=== PATIENT | female | born 1945 | race Caucasian/White ===

== ENCOUNTER → 2018-01-24 08:08 | Outpatient (CLI) | payer MEDICARE, OTHER, SELFPAY ==
--- NOTE | 2018-01-24 | DI.MG.S_ITS ---
BILATERAL DIGITAL SCREENING MAMMOGRAM 3D/2D WITH CAD: 01/24/2018 CLINICAL: Routine screening. Comparison is made to exams dated: 01/09/2017 mammogram, 01/09/2016 mammogram - [facility], and 12/08/2014 mammogram - [facility]. The tissue of both breasts is heterogeneously dense. This may lower the sensitivity of mammography. Current study was also evaluated with a Computer Aided Detection (CAD) system. No significant masses, calcifications, or other findings are seen in either breast. There has been no significant interval change. IMPRESSION: NEGATIVE There is no mammographic evidence of malignancy. A 1 year screening mammogram is recommended. This exam was interpreted at Station ID: [id number]. NOTE: For mammograms, a report in lay terms will be sent to the patient. Approximately 15% of breast malignancies will not be visualized mammographically. In the management of a palpable breast mass, a negative mammogram must not discourage biopsy of a clinically suspicious lesion. Electronically Signed By: Meliza bains/iris:01/24/2018 10:17:01 letter sent: Normal Exam ACR BI-RADS Category 1: Negative [id number]
== END ==
PROVIDERS: Family Provider Internal Medicine; PCP Internal Medicine; Visit Provider Internal Medicine
DX: Z12.31 Encounter for screening mammogram for malignant neoplasm of breast (principal)
CPT/HCPCS: 77063; 77067

== ENCOUNTER 2018-04-22 15:15 | Outpatient (RCR) | payer MEDICARE, OTHER, SELFPAY ==
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
--- NOTE | 2018-01-06 06:15 | PT.OPPOC ---
Current Diagnoses Low back pain (01/02/18) Provider Visit Care Team Role Provider Type Kwabena Jim MD Primary Care Provider Physician Specialty: Internal Medicine Address: [address] [place], [address] Email: Kristal Estrada MD Family Provider Physician Specialty: Cardiology Address: [address] [place] [address] [address], [place], [address] Email: Darnell Sharpe MD Attending Provider Non-Staff Specialty: Neurosurgery Address: [address] [place] [address] [address], [place], [address] Email: Plan Of Care PT-OP-T Assessment and Plan Start: 01/06/18 05:47 Freq: Status: Active Protocol: Document 01/02/18 16:00 [facility] (Rec: 01/06/18 06:14 [facility] [email or web address]) Physical Therapy Assessment Rehab Potential Rehabilitation Potential Good Evaluation Complexity Number of Personal Factors/Comorbidities 0 Number of Body Systems Impaired 1-2 Clinical Presentation at Evaluation Stable Impairments Impairments Activity Tolerance Functional Activities Pain Posture ROM Soft Tissue Mobility Strength Goals Four Impairment decreased strength of the core and hips Prison Goal (LTG) Improve strength of the inner core and hips for improved stabilization of the spine and pelvis. The patient is independent with a established Home exercise program LTG Duration 8 weeks Three Impairment muscle spasm and guarding in the lumbar parapsinal musculature and hips Short Term Goal (STG) reduce muscle spasm and guarding and improve postural habits to decrease strain on the spine STG Duration 6 weeks Two Impairment Decreased lumbar and hip ROM Short Term Goal (STG) Improve both lumbar spine and hip ROM allowing improved movement of the spine and hips with decreased pain STG Duration 6 weeks One Impairment pain in the low back rated 4-5 /10 [employer] Goal (LTG) Zandra is able to reduce her pain with a exercise and manual therapy program to allow her to perform ADL's and walk with decreased symptoms. LTG Duration 8 weeks Assessment Summary Assessment Zandra presents to Physical Therapy today s/p lumbar laminectomy surgery September 17, 2017. She reports some reduction in pain following her surgery mostly with a reduction in LE radicular symptoms. She has pain rated 4-5/10 in her low back at this time. Zandra standing with a flattened lumbar spine with muscle guarding in her lumbar paraspinals and hip musculature. Her hip tightness most likely contributes to her pain. She has difficulty with movements such as sit to stand due to weakness and pain. She is a good candidate for PT focusing on ROM, flexibility, strength and progressing to a home program. Physical Therapy Plan Frequency and Duration Frequency of Treatment 2x/Week Duration of Treatment 8 weeks Plan of Care Start Date 01/02/18 Plan of Care End Date 02/27/18 Therapeutic Interventions Therapeutic Interventions Home Exercise Program Manual Therapy Neuromuscular Re-education Patient/Caregiver Education Self-Care/Home Management Soft Tissue Mobilization Therapeutic Exercises Modalities Cold Pack/Ice Massage Electric Stimulation Hot Packs Plan of Care Dates Plan of Care Start Date 01/02/18 Plan of Care End Date 02/27/18 Please Sign and Return: I have reviewed this Plan of Care and certify that the skilled therapy services above are required to meet the patient?s needs. Physician Signature Date Printed Name and Credentials Clinical Instructor Signature Printed Name and Credentials
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
--- NOTE | 2018-04-10 17:52 | PT.OPPOC ---
Current Diagnoses Low back pain (04/10/18) Provider Visit Care Team Role Provider Type Kwabena Jim MD Primary Care Provider Physician Specialty: Internal Medicine Address: [address] [place], [address] Email: Kristal Estrada MD Family Provider Physician Specialty: Cardiology Address: [address], [place], [address] Email: Darnell Sharpe MD Attending Provider Non-Staff Specialty: Neurosurgery Address: [address] [place] [address] [address], [place], [address] Email: Plan Of Care PT-OP-T Assessment and Plan Start: 01/06/18 05:47 Freq: Status: Active Protocol: Document 04/10/18 17:40 [facility] (Rec: 04/10/18 17:52 [facility] [email or web address]) Physical Therapy Assessment Assessment Summary Assessment Vilma continues to make progress with physical therapy and her ROM of the lumbar spine is much improved. She is domonstrating improved strength as well. She tends to get restricted in her thoracic spine and we are working at improved mobility of her thoracic spine while stabilizing the lumbar spine. She would benefit from continued PT Physical Therapy Plan Frequency and Duration Frequency of Treatment 2x/Week Duration of Treatment 8 weeks Plan of Care Start Date 04/08/18 Plan of Care End Date 06/10/18 Therapeutic Interventions Therapeutic Interventions Home Exercise Program Manual Therapy Neuromuscular Re-education Patient/Caregiver Education Self-Care/Home Management Soft Tissue Mobilization Therapeutic Exercises Modalities Cold Pack/Ice Massage Electric Stimulation Hot Packs Next Visit Focus/Plan Next Note Type Treatment Note Next Visit Plan HEP review of lumbar stabilization and thoracic mobility Plan of Care Dates Plan of Care Start Date 04/08/18 Plan of Care End Date 06/10/18 Please Sign and Return: I have reviewed this Plan of Care and certify that the skilled therapy services above are required to meet the patient?s needs. Physician Signature Date Printed Name and Credentials Clinical Instructor Signature Printed Name and Credentials
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
== END 2018-04-24 16:16 ==
LOC: PHYS 15:15
PROVIDERS: Family Provider Internal Medicine; PCP Internal Medicine; Visit Provider Neurological Surgery
DX: M54.5 Low back pain (principal)
CPT/HCPCS: 97014; 97110; 97140; 97161; G0283

== ENCOUNTER 2018-06-22 19:59 | Emergency (ER) | payer MEDICARE, OTHER, SELFPAY ==
[2018-06-22 20:08] VITALS: BP 172/70; PULSE 64; RESP 18; TEMP 37.6; O2SAT 100; BMI 27.8
--- NOTE | 2018-06-22 20:15 | DI.RAD.S_ITS ---
PROCEDURE: XR HAND RT MIN 3V INDICATIONS: s/p fall TECHNIQUE: 3 views of the hand(s) acquired. COMPARISON: [facility], , HAND 3V RIGHT, 12/22/2012, 8:24. FINDINGS: Bones: No fractures or dislocations. Carpal bones are normally aligned. No suspicious bony lesions. Moderate degenerative changes of the first carpometacarpal and first metacarpophalangeal joint. Mild degenerative changes of the interphalangeal joints. Soft tissues: No radiopaque foreign body. IMPRESSION: No acute fracture or dislocation of the right hand. Consider followup radiographs in 7-10 days if there is continued clinical concern. Dictated by: Jamil Jackson M.D. on 06/22/2018 at 21:08 Approved by: Jamil Jackson M.D. on 06/22/2018 at 21:10
--- NOTE | 2018-06-22 20:37 | ED_ITS ---
HPI - Fall <JEAN Santos - Last Filed: 06/22/18 21:31> General Chief Complaint: Fall Stated Complaint: fall, hit right side of face. Time Seen by Provider: 06/22/18 20:37 Source: patient Mode of arrival: ambulatory Limitations: no limitations History of Present Illness HPI Narrative: 72-year-old female with history of a prior LA and is a nonsmoker here for complaint of pain into her right hand and wrist after ground level fall. She states that she was walking down the street when she accidentally tripped on the sidewalk causing her to fall forward on out stretched hand. Pain is to the radial aspect of the right hand into wrist and the lateral aspect of the right hand. She does state that she hit her face as well however she denies having any face pain at this time. She denies any loss of conscious. She denies any nausea vomiting. She denies any pain to her neck. She is ambulatory in the emergency room. She denies any other injuries or concerns or complaints at this timeframe. Related Data Home Medications Medication Instructions Recorded Confirmed CALCIUM CARBONATE 500 mg PO QDAY #0 11/21/10 FLAXSEED (FLAXSEED OIL) 1 cap PO QDAY #0 11/21/10 VITAMIN D (Vitamin D3) 1,000 unit PO QDAY #0 11/21/10 aspirin 81 mg PO QDAY #0 11/21/10 levofloxacin [Levaquin] 250 mg PO QDAY #0 11/21/10 losartan [Cozaar] 12.5 mg #0 11/21/10 metoprolol tartrate [Lopressor] #0 11/21/10 omeprazole 20 mg PO QDAY #0 11/21/10 risedronate [Actonel] 150 mg PO QMONTH #0 11/21/10 simvastatin [Zocor] 20 mg PO QDAY #0 11/21/10 Allergies Allergy/AdvReac Type Severity Reaction Status Date / Time codeine Allergy Palpitation Verified 06/22/18 20:14 s Sulfa (Sulfonamide Allergy Hives Verified 06/22/18 20:14 Antibiotics) Review of Systems <JEAN Santos - Last Filed: 06/22/18 21:31> Constitutional Denies chills, Denies fever(s), Denies lethargy and Denies weakness Eyes Denies change in vision, Denies eye discharge, Denies irritation and Denies loss of vision ENT Ears, Nose, Mouth, and Throat: Denies change in voice, Denies neck pain and Denies sore throat Cardiovascular Denies chest pain, Denies irregular heart rhythm, Denies lightheadedness, Denies palpitations, Denies dyspnea, Denies dyspnea on exertion and Denies orthopnea Respiratory Denies cough, Denies dyspnea, Denies dyspnea on exertion and Denies wheezing Gastrointestinal Gastrointestinal: Denies abdominal pain, Denies change in bowel habits, Denies diarrhea, Denies nausea and Denies vomiting Genitourinary Denies hematuria, Denies flank pain, Denies urinary incontinence and Denies urinary urgency Musculoskeletal Denies neck pain Comments: Right hand and wrist Integumentary/Breasts Denies pruritus, Denies erythema, Denies rash and Denies wounds Neurologic Denies confusion, Denies loss of vision and Denies weakness Psychiatric Denies anxiety, Denies confusion, Denies depression, Denies homicidal ideation and Denies suicidal ideation Endocrine Denies palpitations Hematologic/Lymphatic Denies easy bruising Allergic/Immunologic Denies wheezing Exam <JEAN Santos - Last Filed: 06/22/18 21:31> Initial Vital Signs Initial Vital Signs: Vital Signs Temperature 99.7 F H 06/22/18 20:08 Pulse Rate 64 06/22/18 20:08 Respiratory Rate 18 06/22/18 20:08 Blood Pressure 172/70 H 06/22/18 20:08 Pulse Oximetry 100 06/22/18 20:08 Const General: cooperative and well developed Nutritional Appearance: well nourished Orientation: alert, awake, oriented x3 and not confused [facility] Mouth: oral mucosae normal and moist mucous membranes Eyes Conjunctivae: conjunctivae normal Sclera: sclerae normal Pupils: PERRL EOM: EOM intact bilaterally Resp Effort & Inspection: normal respiratory effort, able to speak in complete sentences, no respiratory distress and no use of accessory muscles Auscultation: clear to auscultation bilaterally, no rales, no rhonchi and no wheezes Cardio Rate: regular rate Rhythm: regular rhythm Heart Sounds: no click, no gallops, no murmurs and no rubs Pulses: normal peripheral pulses Skin General: no rashes or lesions noted, No jaundice and No petechiae Neuro General: alert, oriented x3, gait normal and no focal motor deficits Speech: speech normal Extrem Other: Right hand and wrist with no signs of trauma. Distal sensation is intact. Full range of motion to all the fingers. Distal cap refill less than 2 sec. Distal pulses are intact. Full range of motion hand and wrist.. Positive anatomical snuffbox tenderness. <Savage Holman DO - Last Filed: 06/23/18 05:33> Initial Vital Signs Initial Vital Signs: Vital Signs Temperature 99.7 F H 06/22/18 20:08 Pulse Rate 64 06/22/18 20:08 Respiratory Rate 18 06/22/18 20:08 Blood Pressure 172/70 H 06/22/18 20:08 Pulse Oximetry 100 06/22/18 20:08 Course <JEAN Santos - Last Filed: 06/22/18 21:31> Orders Ordered: Discontinued Medications Acetaminophen (Tylenol) 650 mg PO NOW ONE Stop: 06/22/18 21:23 Last Admin: 06/22/18 21:42 Dose: 650 mg Vital Signs - 8 hr 06/22/18 21:52 Pulse Rate 76 Respiratory Rate 12 Blood Pressure 162/72 H Pulse Oximetry 100 <Savage Holman DO - Last Filed: 06/23/18 05:33> Orders Ordered: Discontinued Medications Acetaminophen (Tylenol) 650 mg PO NOW ONE Stop: 06/22/18 21:23 Last Admin: 06/22/18 21:42 Dose: 650 mg Vital Signs - 8 hr 06/22/18 21:52 Pulse Rate 76 Respiratory Rate 12 Blood Pressure 162/72 H Pulse Oximetry 100 MDM - Fall <JEAN Santos - Last Filed: 06/22/18 21:31> Imaging Data R hand: Radiologist's impression: View Report History [address] [address] XRay Report Signed Patient: Zandra Mixon MR#: [id number] : 1945 Acct:[id number] Age/Sex: 72 / F Date of Service: 06/22/18 Loc: ED Accession Number: [id number] Procedure: XR hand RT min 3V Ordering Provider: Savage Holman D.O. PROCEDURE: XR HAND RT MIN 3V INDICATIONS: s/p fall TECHNIQUE: 3 views of the hand(s) acquired. COMPARISON: [facility], , HAND 3V RIGHT, 12/22/2012, 8:24. FINDINGS: Bones: No fractures or dislocations. Carpal bones are normally aligned. No suspicious bony lesions. Moderate degenerative changes of the first carpometacarpal and first metacarpophalangeal joint. Mild degenerative changes of the interphalangeal joints. Soft tissues: No radiopaque foreign body. IMPRESSION: No acute fracture or dislocation of the right hand. Consider followup radiographs in 7-10 days if there is continued clinical concern. Dictated by: Jamil Jackson M.D. on 06/22/2018 at 21:08 Approved by: Jamil Jackson M.D. on 06/22/2018 at 21:10 [facility] Narrative Medical decision making narrative: X-ray of the right hand was obtained was negative for any acute fractures or findings. Patient does have some snuffbox tenderness to the right hand so she is placed in a wrist splint for comfort and support. Repeat imaging in 10 days to rule out occult fracture. Over-the- counter Tylenol or Motrin as needed for any discomfort. For any worsening symptoms return to the emergency room. Discharge Plan Departure Patient Disposition: Home Clinical Impression: Sprain and strain of right hand Discharge Date/Time: 06/22/18 21:53 Interventions: ED Discharge Assessment Last Done: 06/22/18 21:52 Instructions: DI for Hand Pain Activity Restrictions/Additional Instructions: X-ray of the right hand was obtained was negative for any acute findings. Signs and symptoms presents sprain to the right hand. You are placed in a splint for comfort and support and also due to pain into the wrist. You need to wear the wrist splint until he can follow up with her primary care provider in 7-10 days for repeat images and are than also negative for fracture. Use [id number] Tylenol as needed for any discomfort. Ice and elevation help with swelling. Return emergency room for any worsening symptoms. Prescriptions: No Action risedronate [Actonel] 150 MG tablet 150 mg PO QMONTH Qty: 0 RF: 0 CALCIUM CARBONATE 500 mg PO QDAY Qty: 0 RF: 0 FLAXSEED (FLAXSEED OIL) 1 cap PO QDAY Qty: 0 RF: 0 VITAMIN D (Vitamin D3) 1,000 unit PO QDAY Qty: 0 RF: 0 aspirin 81 MG tablet,delayed release (DR/EC) 81 mg PO QDAY Qty: 0 RF: 0 losartan [Cozaar] 25 MG tablet 12.5 mg Qty: 0 RF: 0 omeprazole 20 MG capsule,delayed release(DR/EC) 20 mg PO QDAY Qty: 0 RF: 0 levofloxacin [Levaquin] 250 MG tablet 250 mg PO QDAY Qty: 0 RF: 0 simvastatin [Zocor] 20 MG tablet 20 mg PO QDAY Qty: 0 RF: 0 metoprolol tartrate [Lopressor] 50 MG tablet Qty: 0 RF: 0 Referrals: Kwabena Jim MD [Primary Care Provider] - <Savage Holman DO - Last Filed: 06/23/18 05:33> Cosign ED Attending Anitaature Attestation: I was immediately available in the department for consultation. Documentation has been reviewed. I agree with assessment and plan.
[2018-06-22] MEDS: ACETAMINOPHEN 325 MG TABLET 650 MG PO (21:42)
[2018-06-22 21:52] VITALS: BP 162/72; PULSE 76; RESP 12; O2SAT 100
== END 2018-06-22 21:53 | disposition home or self-care (01) ==
PROVIDERS: Emergency Provider Nurse Practitioner Family; Family Provider Internal Medicine; PCP Internal Medicine
DX: S63.91XA Sprain of unspecified part of right wrist and hand, initial encounter (principal); S66.911A Strain of unspecified muscle, fascia and tendon at wrist and hand level, right hand, initial encounter; W01.0XXA Fall on same level from slipping, tripping and stumbling without subsequent striking against object, initial encounter
CPT/HCPCS: 29260; 73130; 99283

== ENCOUNTER → 2018-07-19 10:18 | Outpatient (CLI) | payer MEDICARE, OTHER, SELFPAY ==
[2018-07-19 11:08] LABS: Add Manual Diff / Slide Review NO; Basophils Absolute Auto 0 /uL (0-100); Basophils Percent Auto 0.5 % (0-2); Eosinophils Absolute Auto 600 /uL (0-450); Eosinophils Percent Auto 7.2 % (2-4); Hematocrit 37.1 % (36-46); Hemoglobin 12.2 g/dL (12.0-16.0); Lymphocytes Absolute Auto 1800 /uL (1100-4500); Mean Corpuscular HGB Conc 32.9 % (30-36); Mean Corpuscular Hemoglobin 30.5 PG (26-34); Mean Corpuscular Volume 92.7 fL (80-100); Monocytes Absolute Auto 700 /uL (0-900); Monocytes Percent Auto 9.1 % (3-14); Neutrophils Absolute Auto 4800 /uL (1500-7000); Neutrophils Percent Auto 60.2 % (50-75); Platelet Count 276 X10^3/uL (150-400); Red Cell Distribution Width 12.8 % (11.6-14.8)
[2018-07-19 11:38] LABS: Alanine Aminotransferase 19 IU/L (9-52); Albumin 4.4 g/dL (3.5-5.0); Albumin Globulin Ratio 1.5 (1.0-2.8); Alkaline Phosphatase 72 U/L (38-126); Aspartate Aminotransferase 30 IU/L (14-36); BUN Creatinine Ratio 14.7 (6-22); Bilirubin Total 0.5 mg/dL (0.2-1.3); Blood Urea Nitrogen 22 mg/dL (7-17); Calcium 10.4 mg/dL (8.4-10.2); Carbon Dioxide 29 mmol/L (22-32); Chloride 100 mmol/L (98-107); Cholesterol 124 mg/dL (140-199); Estimated Glomerular Filt Rate 34.1 mL/min (>60); Glucose 104 mg/dL (80-110); HDL Cholesterol 63 mg/dL (40-60); HEMOLYSIS < 15 (0-50); LDL Cholesterol Calculated 48 mg/dL (<100); Magnesium 2.1 mg/dL (1.6-2.3); Potassium 4.9 mmol/L (3.4-5.1); Sodium 139 mmol/L (137-145); Total Protein 7.4 g/dL (6.3-8.2); Triglycerides 64 mg/dL (35-150)
== END ==
PROVIDERS: Family Provider Internal Medicine; PCP Internal Medicine; Visit Provider Internal Medicine
DX: E78.00 Pure hypercholesterolemia, unspecified (principal); R25.2 Cramp and spasm
CPT/HCPCS: 36415; 80053; 80061; 83735; 85025

== ENCOUNTER → 2018-10-22 15:27 | Outpatient (CLI) | payer MEDICARE, OTHER, SELFPAY ==
[2018-10-22 18:20] LABS: BUN Creatinine Ratio 15.3 (6-22); Blood Urea Nitrogen 23 mg/dL (7-17); Calcium 10.1 mg/dL (8.4-10.2); Carbon Dioxide 26 mmol/L (22-32); Chloride 103 mmol/L (98-107); Estimated Glomerular Filt Rate 34.1 mL/min (>60); Glucose 94 mg/dL (80-110); HEMOLYSIS < 15 (0-50); Potassium 4.3 mmol/L (3.4-5.1); Sodium 139 mmol/L (137-145)
== END ==
PROVIDERS: Family Provider Internal Medicine; PCP Internal Medicine; Visit Provider Nurse Practitioner
DX: I10 Essential (primary) hypertension (principal)
CPT/HCPCS: 36415; 80048

== ENCOUNTER 2018-12-30 13:30 | Outpatient (RCR) | payer MEDICARE, OTHER, SELFPAY ==
--- NOTE | 2018-11-24 18:05 | ST.OPIE ---
Provider Information Visit Care Team Role Provider Type Patria Iverson Primary Care Provider Non-Staff Specialty: Medical Address: [address] [place] [address], [id number] Email: Kye Hope MD Attending Provider Physician Specialty: Ear, Nose, Throat Address: [address] [place] [address], [id number] Email: Speech-Language Pathology Initial Evaluation PRE CODER Clinical Instructor Line Start: 11/20/18 11:52 Freq: Status: Active Protocol: Document 11/24/18 16:12 LNK (Rec: 11/24/18 16:12 [email or web address]) Clinical Instructor Signature Clinical Instructor Clinical Instructor Yes: Latha Floyd, PhD , [facility] PRE CODER Voice Resonance Evaluation Start: 11/20/18 11:52 Freq: Status: Active Protocol: Document 11/20/18 11:52 MG (Rec: 11/20/18 12:43 MG [email or web address]) Voice and Resonance Assessment Session Time Visit Start Time 10:30 Visit Stop Time 11:30 Total Visit Minutes 60 Visit Information Plan of Care Dates 11/20/18-02/20/19 Insurance Information Medicare Next Note Type Next Note Type Treatment Note Referral Referring Physician Dr. Hope Reason for Referral dysphonia, nodules of vocal chords Setting Setting Outpatient Care Patient History General Information Zandra Mixon, a 73-year-old female, was seen at [facility] for a voice and resonance evaluation at the referral of Dr. Hope. Zandra is retired and currently lives independently at her home. Zandra has a history of heart attack, heart disease, congestive heart failure, stents, GERD, Schlotzsky's ring, skin cancer , shortness of breath and vocal fold nodules. Zandra reported that she has also had a chronic cough for around 2 years. She also reported that she had a stent procedure done about 2 months ago. Zandra had an appointment with Dr. Hope on 11/07/18. 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 He also noted her voice to have a hoarse quality to it. At the time of the appointment, he discussed results with Zandra and referred her for an evaluation as well as to get allergy tested. His impressions noted that the nodules were most likely developed from chronic cough or GERD/LPR. Zandra reported to the student PRE CODER that her PCP, Dr. Iverson, was worried her PPIs may interfere with her medication for her recent heart stent. Zandra is currently on a regimin of medications to control her heart conditions, GERD, and shortness of breath. Zandra has an upcoming appointment with her GI doctor on December 01 to consult with him about acid control and a change in medication if possible. Zandra reported swallowing problems as well with different food textures (e.g., rice, pieces of meat). Zandra also reported that she feels like those harder food textures get stuck and pointed to where her thyroid cartilage would be. Because of her Schlotzsky's ring, she has had her esophagus stretched x4 and reported that she felt the swallowing problems have worsened recently because she needs to get it stretched again. Student PRE CODER recommended staying away from certain food textures that cause her problems until she can have that procedure done. Hearing Hearing Level Normal Vision Comments Wore reading glasses at times [place] Langauge Language(s) Spoken in the Home [employer] Occupational Status Occupation Status Retired Previous Therapy Previous Speech-Language Therapy No Oral Motor Assessment Source: [place] [employer] ([employer]). Oral-Motor Eval Completed Yes Oral-Motor Assessment Informal OME was noted to be WFL for speech sound production. Zandra's doctor reported she has partial dentures. Subjective Subjective Zandra was on time to her appointment. Zandra greeted the student PRE CODER warmly and was agreeable to evaluation, education provided, and asked questions. She noted that today she was having a good voice day and reported that last week, her voice was so bad that people couldn't understand her. Zandra described that she was very quiet and could hardly make a sound when trying to speak. - Laryngeal Performance Voice Handicap Index Function Subtotal 12 Physical Subtotal 18 Emotional Subtotal 11 Total Score 41 Severity Moderate (31-60) CAPE-V Overall Severity 50 Roughness 45 Breathiness 6 Strain 4 Pitch 58 Loudness 3 Normal Resonance? Yes Additional Features Glottal [place] Maximum Phonation Time MPT Norms: Women (15-25) Men (25-35) Loudness (50-60 dB); Speaking Rate: Oral Reading of Sentences (190 Words Per Minute); Oral Reading of Paragraphs (160-170 WPM); Speaking Rate in Conversation (150-250 WPM) Maximum Phonation Time 17.72 seconds Maximum Phonation Time Adequate for Speech Maximum Phonation Time Comments Student PRE CODER noted that Zandra appeared to have a difficult time taking in a big breath of air when prompted to. Jitter/Shimmer Norms: Jitter (Less than or equal to 1.040% - Frequency) Norms: Shimmer (Less than or equal to 3.810% - Amplitude) Jitter 6.159 Shimmer 11.737 Pitch [place] Pitch [place] Reduced Range Pitch [place] Comments Range documented from 112-316. Noted to be reduced. This may be due to nodules and the biological process of aging and its affect on the voice. Muscle Tension Assessment Muscle Tension Assessment None Tongue Base Tension Tongue Base Tension w/ Voicing No Tongue Base Tension at Rest No Breath Support Breath Support At Rest Thoracic Breath Support Sustained Phonation Thoracic Clavicular Breath Support Conversation Thoracic Speaks on Room Air Yes Postural Alignment Stance Balanced Slumped Neck Free and Loose Shoulders Symmetrical Voice Pitch Range Norms: Women (100-300 Hz) Men (70-250 Hz) Fundamental Frequency Norms: Women (Mean: 225 Hz; Range: 155-334 Hz) Men ( Mean: 128 Hz; Range: 85-196 Hz) Voice Pitch Mildly Low Voice Loudness Normal Voice Phonatory-based Quality Hoarse Fundamental Frequency 204.3 Paradoxical Vocal Fold Movement No Indications Resonance Nasal Resonance Normal Oral Resonance Normal Findings Findings Moderate Impairment Observations Zandra presents with 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 The vocal fold nodules are likely to be affecting the natural movements of the vocal folds, thus creating a hoarse, low voice. Voice problems may be present due to age related changes as well. While certain problems were not observed in today's session, Zandra's reports of losing her voice impact her ability to effectively communicate with others. Student PRE CODER provided Zandra with education throughout the session as well as handouts to take home describing GERD/LPR prevention and a vocal hygeine plan. Student PRE CODER also told Zandra to follow up with treatment after seeing her GI doctor to share results from that appointment and come up with a plan of treatment. Prognosis Rehabilitation Potential Good - Recommendations Treatment Recommended Yes Treatment Frequency/Duration 1 x week after upcoming appointment with GI doctor Placement Recommendation Home Therapy Recommendations Zandra qualifies for ST in the area of voice/swallowing. Treatment should focus on strategies to reduce nodules on the vocal folds (e.g., straw phonation), reducing chronic cough, and education around the vocal mechanism. Short Term Goals Zandra will participate in education around the vocal mechanism. Zandra will implement strategies taught in treatment to reduce chronic cough. Zandra will follow through with HEP designed to reduce nodules and chronic cough. 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 Follow-up ENT results will report a reduction or clearance of nodules on the vocal folds. Referrals Referrals GI Patient/Caregiver Education Patient/Family Education Described results of evaluation Patient Understanding
--- NOTE | 2018-11-24 18:06 | ST.OPPOC ---
Care Team Visit Care Team Role Provider Type Patria Iverson Primary Care Provider Non-Staff Address: [address] [place] [address], [id number] Kye Hope MD Attending Provider Physician Address: [address] [place] [address], [id number] Speech Pathology Plan of Care ANESTHESIOLOGY MEDICAL DOCTOR Clinical Instructor Line Start: 11/20/18 11:52 Freq: Status: Active Protocol: Document 11/24/18 16:12 LNK (Rec: 11/24/18 16:12 LNK [email or web address]) Clinical Instructor Signature Clinical Instructor Clinical Instructor Yes: Latha Floyd, PhD , [facility]-ANESTHESIOLOGY MEDICAL DOCTOR Speech Pathology Plan of Care General Information Zandra Mixon, a 73-year-old female, was seen at [facility] for a voice and resonance evaluation at the referral of Dr. Hope. Zandra is retired and currently lives independently at her home. Zandra has a history of heart attack, heart disease, congestive heart failure, stents, GERD, Schlotzsky's ring, skin cancer, shortness of breath and vocal fold nodules. Zandra reported that she has also had a chronic cough for around 2 years. She also reported that she had a stent procedure done about 2 months ago. Zandra had an appointment with Dr. Hope on 11/07/18. 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 He also noted her voice to have a hoarse quality to it. At the time of the appointment, he discussed results with Zandra and referred her for an evaluation as well as to get allergy tested. His impressions noted that the nodules were most likely developed from chronic cough or GERD/LPR. Zandra reported to the student ANESTHESIOLOGY MEDICAL DOCTOR that her PCP, Dr. Iverson, was worried her PPIs may interfere with her medication for her recent heart stent. Zandra is currently on a regimin of medications to control her heart conditions, GERD, and shortness of breath. Zandra has an upcoming appointment with her GI doctor on December 01 to consult with him about acid control and a change in medication if possible. Zandra reported swallowing problems as well with different food textures (e.g., rice, pieces of meat). Zandra also reported that she feels like those harder food textures get stuck and pointed to where her thyroid cartilage would be . Because of her Schlotzsky's ring, she has had her esophagus stretched x4 and reported that she felt the swallowing problems have worsened recently because she needs to get it stretched again. Student ANESTHESIOLOGY MEDICAL DOCTOR recommended staying away from certain food textures that cause her problems until she can have that procedure done. Plan of Care Dates 11/20/18-02/20/19 Short Term Goals Zandra will participate in education around the vocal mechanism. Zandra will implement strategies taught in treatment to reduce chronic cough. Zandra will follow through with HEP designed to reduce nodules and chronic cough. Pot Press Operator Goals Zandra will report less chronic coughing as a direct result of implementing strategies learned in treatment (e.g., supraglottic swallow). Follow-up ENT results will report a reduction or clearance of nodules on the vocal folds. Please Sign and Return: I have reviewed this Plan of Care and certify that the skilled therapy services above are required to meet the patient?s needs. Physician Signature Date Printed Name and Credentials Clinical Instructor Signature Printed Name and Credentials
--- NOTE | 2018-12-04 13:37 | ST.OPTN ---
Care Team Visit Care Team Role Provider Type Patria Iverson Primary Care Provider Non-Staff Address: [address] [place] [address], [id number] Kye Hope MD Attending Provider Physician Address: [address] [place] [address], [id number] OIL AND GAS SPECIALIST Treatment Note OIL AND GAS SPECIALIST Clinical Instructor Line Start: 11/20/18 11:52 Freq: Status: Active Protocol: Document 11/24/18 16:12 LNK (Rec: 11/24/18 16:12 LNK [email or web address]) Clinical Instructor Signature Clinical Instructor Clinical Instructor Yes: Latha Floyd, PhD , [facility])-OIL AND GAS SPECIALIST OIL AND GAS SPECIALIST Treatment Note Start: 12/04/18 13:07 Freq: Status: Active Protocol: Document 12/04/18 13:19 LNK (Rec: 12/04/18 13:35 LNK [email or web address]) Speech Pathology Treatment Note Session Time Visit Start Time 11:30 Visit Stop Time 12:30 Total Visit Minutes 60 Visit Information Visit Number 08/03 Plan of Care Dates 11/20/18-02/20/19 Insurance Information Medicare Setting Treatment Setting Outpatient Care Visit Type Note Type Treatment Note Next Note Type Next Note Type Treatment Note General Information General Information Zandra Mixon was seen for a voice evaluation on 11/20/18 at the referral of Dr Hope, ENT. 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 In addition to vocal nodules, there may also be age related changes to her vocal folds as well. While not observed in today's session, Zandra's reports of losing her voice at times will negatively impact her ability to effectively communicate with others. At her evaluation, Zandra was given handouts to take home describing GERD/LPR prevention and a vocal hygiene plan. Since her evaluation she has seen her GI physician, who noted that she will be scheduled for her next esophageal endoscopy in February-March. Subjective Identification Type Name Identification Reconciled With Intake Sheet Chief Complaint(s) Voice Rehab Expectation/Goals: Patient Goals To improve her vocal quality / eliminate vocal nodules Patient Knowledge/Awareness of OIL AND GAS SPECIALIST Role Good in Treatment Objective Short Term Goals Zandra will participate in education re: vocal anatomy physiology. Zandra will follow provided vocal hygiene program to facilitate vocal fold healing Zandra will incorporate abdominal breathing and tone focus exercises for increased efficiency of vocal system for voicing. Zandra will implement exercises and strategies taught in treatment to reduce chronic cough. Zandra will follow through with HEP designed to reduce nodules and chronic cough. [ End ] Tool Profiling Machine Set Up Operator Goals Reduce frequency of chronic cough with target to ease impact of cough on vocal folds /nodule development To improve her vocal quality / eliminate vocal nodules [ E Treatment Activities Reviewed assessment results with Zandra. Discussed the high values of her Jitter and Shimmer measures. Education provided re:effects of LPR// GERD on vocal folds-> irritation + chronic cough/ loud voicing -> development of vocal nodules. Introduced abdominal breathing for vocal power as well as tone focus to reduce focus on the neck/laryngeal muscles. Pt reports that her cough frequency has reduced recently . Assessment Patient Response to Treatment Excellent Rehab Potential Excellent Impairments Identified Vocal Quality Vocal Hygiene Reviewed with Patient Goals Home Exercise Program Patient/Caregiver Understanding Excellent Plan Amount of Therapy Recommended 2-3 Months Frequency of Treatment Once a Week Length of Session 45 Minutes Therapeutic Contents Voice Training Provided Patient/Caregiver Instruction Home Exercise Program Plan of Care Questions/Concerns
--- NOTE | 2018-12-12 15:31 | ST.OPTN ---
Care Team Visit Care Team Role Provider Type Patria Iverson Primary Care Provider Non-Staff Address: [address] [place] [address], [id number] Kye Hope MD Attending Provider Physician Address: [address] [place] [address], [id number] RN IMAGING Treatment Note RN IMAGING Clinical Instructor Line Start: 11/20/18 11:52 Freq: Status: Active Protocol: Document 11/24/18 16:12 LNK (Rec: 11/24/18 16:12 LNK [email or web address]) Clinical Instructor Signature Clinical Instructor Clinical Instructor Yes: Latha Floyd, PhD , [facility]-RN IMAGING RN IMAGING Treatment Note Start: 12/04/18 13:07 Freq: Status: Active Protocol: Document 12/12/18 14:29 LNK (Rec: 12/12/18 14:30 LNK [email or web address]) Speech Pathology Treatment Note Session Time Visit Start Time 14:30 Visit Stop Time 15:10 Total Visit Minutes 40 Visit Information Visit Number 08/31 Plan of Care Dates 11/20/18-02/20/19 Insurance Information Medicare Setting Treatment Setting Outpatient Care Visit Type Note Type Treatment Note Next Note Type Next Note Type Treatment Note General Information General Information Zandra Mixon wa seen for a voice evaluation on 11/20/18 at the referral of Dr Hope, ENT. 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 In addition to vocal nodules, there may also be age related changes to her vocal folds as well. While not observed in today's session, Zandra's reports of losing her voice at times will negatively impact her ability to effectively communicate with others. At her evaluation, Zandra was given handouts to take home describing GERD/LPR prevention and a vocal hygeine plan. Since her evaluation she has seen her GI physician, who noted that she will be scheduled for her next esophageal endoscopy in February-March. Subjective Identification Type Name Identification Reconciled With Intake Sheet Chief Complaint(s) Voice Rehab Expectation/Goals: Patient Goals To improve her vocal quality / eliminate vocal nodules Patient Knowledge/Awareness of RN IMAGING Role Good in Treatment Objective Short Term Goals Zandra will participate in education re: vocal anatomy physiology. Zandra will follow provided vocal hygiene program to facilitate vocal fold healing Zandra will incorporate abdominal breathing and tone focus exercises for increased efficiency of vocal system for voicing. Zandra will implement exercises and strategies taught in treatment to reduce chronic cough. Zandra will follow through with HEP designed to reduce nodules and chronic cough. [ End ] Mechanical Intern Goals Reduce frequency of chronic cough with target to ease impact of cough on vocal folds /nodule development To improve her vocal quality / eliminate vocal nodules [ E Treatment Activities Reinforced relationship of irritation to the vocal folds by histamines and/or reflux resulting is swollen tissue with additional stress of speaking with injured tissue. (LPR//GERD on vocal folds-> irritation + chronic cough/ loud voicing -> development of vocal nodules). Abdominal breathing for vocal power with tone focus to target efficient use of total vocal system continued with the addition of nasalized phonemes (e.g., me me me me and 99--99-99). Pt instructed to feel vibration in the mask area around the eyes Pt reports that her cough frequency has reduced recently . Her vocal quality was better today, possible the result of medications as well as pt purposely reducing cough frequency and intensity. Assessment Patient Response to Treatment Excellent Rehab Potential Excellent Impairments Identified Vocal Quality Vocal Hygiene Assessment of Improvement Good progress. Vocal quality improved today Reviewed with Patient Goals Home Exercise Program Patient/Caregiver Understanding Excellent Plan Amount of Therapy Recommended 2-3 Months Frequency of Treatment Once a Week Length of Session 45 Minutes Therapeutic Contents Voice Training Provided Patient/Caregiver Instruction Home Exercise Program Plan of Care Questions/Concerns
--- NOTE | 2018-12-30 14:29 | ST.OPTN ---
Care Team Visit Care Team Role Provider Type Patria Iverson Primary Care Provider Non-Staff Address: [address] [place] [address], [id number] Kye Hope MD Attending Provider Physician Address: [address] [place] [address], [id number] MICROBIOLOGY ANALYST Treatment Note MICROBIOLOGY ANALYST Clinical Instructor Line Start: 11/20/18 11:52 Freq: Status: Active Protocol: Document 11/24/18 16:12 LNK (Rec: 11/24/18 16:12 LNK [email or web address]) Clinical Instructor Signature Clinical Instructor Clinical Instructor Yes: Latha Floyd, PhD , [facility]-MICROBIOLOGY ANALYST MICROBIOLOGY ANALYST Treatment Note Start: 12/04/18 13:07 Freq: Status: Active Protocol: Document 12/30/18 13:36 LNK (Rec: 12/30/18 14:28 LNK [email or web address]) Speech Pathology Treatment Note Session Time Visit Start Time 14:30 Visit Stop Time 15:10 Total Visit Minutes 40 Visit Information Visit Number 10/01 Plan of Care Dates 11/20/18-02/20/19 Insurance Information Medicare Setting Treatment Setting Outpatient Care Visit Type Note Type Treatment Note Next Note Type Next Note Type Treatment Note General Information General Information Zandra Mixon was seen for a voice evaluation on 11/20/18 at the referral of Dr Hope, ENT. 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 In addition to vocal nodules, there may also be age related changes to her vocal folds as well. While not observed in today's session, Zandra's reports of losing her voice at times will negatively impact her ability to effectively communicate with others. At her evaluation, Zandra was given handouts to take home describing GERD/LPR prevention and a vocal hygiene plan. Since her evaluation she has seen her GI physician, who noted that she will be scheduled for her next esophageal endoscopy in February-March. Subjective Identification Type Name Identification Reconciled With Intake Sheet Chief Complaint(s) Voice Rehab Expectation/Goals: Patient Goals To improve her vocal quality / eliminate vocal nodules Patient Knowledge/Awareness of MICROBIOLOGY ANALYST Role Good in Treatment Objective Short Term Goals Zandra will participate in education re: vocal anatomy physiology. Zandra will follow provided vocal hygiene program to facilitate vocal fold healing Zandra will incorporate abdominal breathing and tone focus exercises for increased efficiency of vocal system for voicing. Zandra will implement exercises and strategies taught in treatment to reduce chronic cough. Zandra will follow through with HEP designed to reduce nodules and chronic cough. [ End ] Oracle Solutions Architect Goals Reduce frequency of chronic cough with target to ease impact of cough on vocal folds /nodule development To improve her vocal quality / eliminate vocal nodules [ E Treatment Activities Silvia remarked chloe she felt her voice was better, but that she was outside on the 4th and her voice got a little raspy. RE assessment of her voice secondary to overall perception of improvement demonstrated that Fo increased to 167.7 form 138.8; Jitter reduced to 2.91 from 6.16; Shimmer reduced to 5.87 from 11.74. MPT remained the same at 18 s, slightly greater than initial 17.72s. Pitch range increased for initial @ 85-196 Hz to current 87-412 Hz. Zandra also remarked that she is not coughing or clearing her throat as much nor as forcefully. Abdominal breathing with tone focus to target efficient use of total vocal system continued with the addition of nasalized phonemes (e.g., me me me me and 99-99-99-99). Pt instructed to feel vibration in the mask area around the eyes Assessment Patient Response to Treatment Excellent Rehab Potential Excellent Impairments Identified Vocal Quality Vocal Hygiene Assessment of Improvement Good progress. Measurements taken today suggest improved physiology of Zandra's vocl folds, i.e., reduction in vocal fold swelling, reduction in vocal nodules, and improved vocal hygiene. Reviewed with Patient Goals Home Exercise Program Patient/Caregiver Understanding Excellent Plan Amount of Therapy Recommended 2-3 Months Frequency of Treatment Once a Week Length of Session 45 Minutes Therapeutic Contents Voice Training Provided Patient/Caregiver Instruction Home Exercise Program Plan of Care Questions/Concerns
--- NOTE | 2019-03-19 11:41 | ST.OPDS ---
Visit Care Team Role Provider Type Patria Iverson Primary Care Provider Non-Staff Address: [address] [place] [address], [id number] Kye Hope MD Attending Provider Physician Address: [address] [place] [address], [id number] ENVIRONMENTAL HEALTH TECHNICIAN Treatment Note ENVIRONMENTAL HEALTH TECHNICIAN Clinical Instructor Line Start: 11/20/18 11:52 Freq: Status: Active Protocol: Document 11/24/18 16:12 LNK (Rec: 11/24/18 16:12 LNK [email or web address]) Clinical Instructor Signature Clinical Instructor Clinical Instructor Yes: Latha Floyd, PhD , [facility]-ENVIRONMENTAL HEALTH TECHNICIAN ENVIRONMENTAL HEALTH TECHNICIAN Treatment Note Start: 12/04/18 13:07 Freq: Status: Active Protocol: Document 03/19/19 11:39 LNK (Rec: 03/19/19 11:40 LNK [email or web address]) Speech Pathology Treatment Note Setting Treatment Setting Outpatient Care Visit Type Note Type Discharge Summary General Information General Information Zandra Mixon was seen for a voice evaluation on 11/20/18 at the referral of Dr Hope ENT. 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 In addition to vocal nodules, there may also be age related changes to her vocal folds as well. While not observed in today's session, Zandra's reports of losing her voice at times will negatively impact her ability to effectively communicate with others. At her evaluation, Zandra was given handouts to take home describing GERD/LPR prevention and a vocal hygeine plan. Since her evaluation she has seen her GI physician, who noted that she will be scheduled for her next esophageal endoscopy in February-March. 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 However, she has not been seen for follow-up in 2 months. Will d/c at this time Plan Amount of Therapy Recommended No Further Therapy Frequency of Treatment No Further Therapy Therapy Recommendations Discharge from Speech Therapy
== END 2019-04-03 11:39 ==
LOC: SP 13:30
PROVIDERS: PCP Internal Medicine; Visit Provider Otolaryngology
DX: R49.0 Dysphonia (principal); J38.2 Nodules of vocal cords
CPT/HCPCS: 92507; 92520; 92524

== ENCOUNTER → 2019-03-03 15:09 | Outpatient (CLI) | payer MEDICARE, OTHER, SELFPAY ==
--- NOTE | 2019-03-03 | DI.MG.S_ITS ---
BILATERAL DIGITAL SCREENING MAMMOGRAM 3D/2D WITH CAD: 03/03/2019 CLINICAL: Routine screening. Comparison is made to exams dated: 01/24/2018 mammogram, 01/09/2017 mammogram, and 01/09/2016 mammogram - [facility]. The tissue of both breasts is heterogeneously dense. This may lower the sensitivity of mammography. Current study was also evaluated with a Computer Aided Detection (CAD) system. There are benign calcifications in both breasts. There also are benign post operative findings in the right breast. No significant masses, calcifications, or other findings are seen in either breast. There has been no significant interval change. IMPRESSION: There is no mammographic evidence of malignancy. A 1 year screening mammogram is recommended. This exam was interpreted at Station ID: [id number]. NOTE: For mammograms, a report in lay terms will be sent to the patient. Approximately 15% of breast malignancies will not be visualized mammographically. In the management of a palpable breast mass, a negative mammogram must not discourage biopsy of a clinically suspicious lesion. Electronically Signed By: Arpan carvajal/iris:03/03/2019 17:50:23 letter sent: Normal Exam ACR BI-RADS Category 2: Benign Finding(s) [id number]
== END ==
PROVIDERS: PCP Internal Medicine; Visit Provider Internal Medicine
DX: Z12.31 Encounter for screening mammogram for malignant neoplasm of breast (principal)
CPT/HCPCS: 77063; 77067

== ENCOUNTER → 2019-03-06 08:41 | Outpatient (CLI) | payer MEDICARE, OTHER, SELFPAY ==
[2019-03-06 10:53] LABS: Hemoglobin A1C% w Est Avg Glu 5.6 % (4.0-6.0)
[2019-03-06 10:54] LABS: Alanine Aminotransferase 18 IU/L (9-52); Albumin 4.3 g/dL (3.5-5.0); Albumin Globulin Ratio 1.5 (1.0-2.8); Alkaline Phosphatase 74 U/L (38-126); Aspartate Aminotransferase 34 IU/L (14-36); BUN Creatinine Ratio 11.3 (6-22); Bilirubin Total 0.5 mg/dL (0.2-1.3); Blood Urea Nitrogen 17 mg/dL (7-17); Calcium 10.2 mg/dL (8.4-10.2); Carbon Dioxide 24 mmol/L (22-32); Chloride 105 mmol/L (98-107); Cholesterol 114 mg/dL (140-199); Globulin 2.9 g/dL (1.7-4.1); Glucose 103 mg/dL (80-110); HDL Cholesterol 59 mg/dL (40-60); HEMOLYSIS < 15 (0-50); LDL Cholesterol Calculated 42 mg/dL (<100); Potassium 4.2 mmol/L (3.4-5.1); Sodium 141 mmol/L (137-145); Total Protein 7.2 g/dL (6.3-8.2); Triglycerides 63 mg/dL (35-150)
== END ==
PROVIDERS: PCP Internal Medicine; Visit Provider Internal Medicine
DX: I10 Essential (primary) hypertension (principal); Z95.5 Presence of coronary angioplasty implant and graft; R73.01 Impaired fasting glucose
CPT/HCPCS: 36415; 80053; 80061; 83036

== ENCOUNTER 2019-04-20 08:15 | Outpatient (RCR) | payer MEDICARE, OTHER, SELFPAY ==
--- NOTE | 2019-01-08 17:31 | PT.OIE ---
Current Diagnoses Other chronic pain (01/08/19) Lumbago with sciatica, right side (01/08/19) Lumbago with sciatica, left side (01/08/19) Provider Visit Care Team Role Provider Type Patria Iverson Attending Provider Non-Staff Primary Care Provider Specialty: Medical Address: [address] [place] [address], [id number] Email: Physical Therapy Initial Evaluation PT-OP-A Visit Information Start: 01/08/19 12:51 Freq: Status: Active Protocol: Document 01/07/19 10:00 [facility] (Rec: 01/08/19 12:55 [facility] [email or web address]) Out-Patient Physical Therapy Visit Information Visit Information Visit Type Initial Evaluation Visit Note 73 year old female returning to PT with c/o left sided LE pain starting at the calf and moving up the back side of the leg to the gluteals. This is intermittent in nature. She underwent a laminectomy September 17, 2017 for the L4-5 level. 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 Visit Start Time 10:00 Visit Stop Time 10:45 Total Visit Minutes 45 Visit Number 1 Evaluation Information Evaluation Date 01/07/19 PT-OP-B Current Condition Start: 01/08/19 12:51 Freq: Status: Active Protocol: Document 01/07/19 10:00 [facility] (Rec: 01/08/19 17:19 [facility] [email or web address]) Current Condition History of Current Condition Onset Date August 2017 Current Complaints left sided sciatic symptoms History of Current Condition Zandra is a 73 year old female who underwent a L4-L5 laminectomy September 17 2017. She was experiencing bilateral pain down both of her legs prior to the surgery. 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 At this time she is experiencing pain that is intermittent and starts in her left posterior calf. It then moves up the back of her leg to her gluteal region. Standing increases her pain and she also wakes up at night with pain. Treatment Goals Patient/Caregiver Goals To reduce referred pain down the left leg PT-OP-F Manual Assessment Start: 01/08/19 12:51 Freq: Status: Active Protocol: Document 01/07/19 10:00 [facility] (Rec: 01/08/19 17:19 [facility] [email or web address]) Manual Assessments Soft Tissue Assessment Soft Tissue Mobility Assessment right sided myofascial tightness in the thoracolumbar fascia and visable scar tissue on the right side of the lumbar spine incision. 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 Decreased ability for joint play into thoracic extension PT-OP-J Posture/Palpation/Skin Start: 01/08/19 17:22 Freq: Status: Active Protocol: Document 01/07/19 10:00 [facility] (Rec: 01/08/19 17:30 [facility] [email or web address]) Posture Evaluation Position Standing L-Spine Posture Flattened Palpation Assessment Location One Palpation Location right side of the scar and thoracolumbar facia Palpation Findings Soft Tissue Tightness Spasm Muscle Guarding Tenderness PT-OP-K Range of Motion Start: 01/08/19 17:22 Freq: Status: Active Protocol: Document 01/07/19 10:00 [facility] (Rec: 01/08/19 17:30 [facility] [email or web address]) Lumbar Spine Range of Motion Lumbar Spine Active Flexion 60 Extension 5 Rotation Left 30 Rotation Right 30 Lateral Flexion Left 10 Lateral Flexion Right 15 ROM Limitations Soft Tissue Tightness Comments pain with any increase in extension PT-OP-M Strength Start: 01/08/19 12:51 Freq: Status: Active Protocol: Document 01/07/19 10:00 [facility] (Rec: 01/08/19 17:19 [facility] [email or web address]) Trunk Strength Trunk Manual Muscle Testing Flexion 3+ Fair+ Core Stabilization able to facilitate the transverse abdominals but difficulty sustaining a contraction for any LE movement Hip Strength Hip Manual Muscle Testing Left Flexion (L2) 3 Fair Extension (S1) 3 Fair Abduction 3 Fair External Rotation 3 Fair Right Flexion (L2) 4 Good Extension (S1) 3+ Fair+ Abduction 3 Fair External Rotation 3 Fair PT-OP-Q Treatments Start: 01/08/19 12:51 Freq: Status: Active Protocol: Document 01/07/19 10:00 [facility] (Rec: 01/08/19 17:30 [facility] [email or web address]) Therapeutic Exercises Sitting Exercises 1 Sitting Exercise Name seated lumbar flexion Reps/Minutes 1-2 reps holding 30 seconds or greater Manual Therapy Treatment Soft Tissue Mobilization 1 Body Location right side of scar and thoracolumbar fascia Mobilization Type Myofascial Release Body Position prone on body pillow Comments skin rolling and stacking MFR of the tissue on the right side of the scar and thoracolumbar fascia PT-OP-T Assessment and Plan Start: 01/08/19 12:51 Freq: Status: Active Protocol: Document 01/07/19 10:00 [facility] (Rec: 01/08/19 17:19 [facility] [email or web address]) Physical Therapy Assessment Rehab Potential Rehabilitation Potential Good Evaluation Complexity Number of Personal Factors/Comorbidities 0 Number of Body Systems Impaired 1-2 Clinical Presentation at Evaluation Stable Impairments Impairments Activity Tolerance Pain Posture ROM Sensation Soft Tissue Mobility Tone Goals Four Impairment decreased strength of the core and hips Solar Project Engineer Goal (LTG) Improve strength of the inner core and hips for improved stabilization of the spine and pelvis. The patient is independent with a established Home exercise program LTG Duration 8 weeks Three Impairment myofascial tightness of the right thoracolumbar fascia, right side of scar Short Term Goal (STG) Zandra is able to lay in supine with her right arm above her head and gentle lumbar rotation to the left without c/p pain STG Duration 4 weeks Solar Project Engineer Goal (LTG) Reduce the scar tissue tightness and visable muscle guarding and myofascial tightness on the right side of the lumbar scar and myofascial tissue LTG Duration 8 weeks Two Impairment Decreased lumbar spine ROM into lumbar flexion, sidebend, rotation Solar Project Engineer Goal (LTG) Zandra is able to improve her spinal ROM into lumbar flexion, sidebend, and rotation and is tolerating a stretching program for lumbar spine ROM LTG Duration 8 weeks One Impairment left sided posterior LE pain rated 5-6/10 worse with standing Short Term Goal (STG) Zandra is given postural modifications for standing to help decrease her pain to 2-3 or less and she is able to stand for 15-20 minutes without left LE radicular symptoms STG Duration 4 weeks [facility]it[facility]iary Goal (LTG) Zandra is able to stand for 30 minutes or more without increase in LE pain and is able to walk 1/2 mile without a increase in pain LTG Duration 8 weeks Assessment Summary Assessment Zandra presents to physical therapy today with signs and symptoms consistent with chronic low back pain and left sided sciatic symptoms. She is worse in standing positions or at night when the pain wakes her up. She rates her pain as 5-6/10 in her left posterior leg and these symptoms are intermittent in nature. Prior to her laminectomy she was experiencing pain down both of her legs but now it is primarily in the left LE. With exam today Zandra is limited in her lumbar ROM and extension increases her pain. She has visable myofascial tightness and guarding on the right side of her incision and is very limited in her thoraco lumbar fascia on the right. With right arm elevation this pulls on her scar. 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 She is weak in her core and in her hips so she will be started on a progressive strengthening and stretching program. Body mechanics training will be included as she tends to sway her back in standing. She is a good candidate for PT Physical Therapy Plan Frequency and Duration Frequency of Treatment 2x/Week Duration of Treatment 8 weeks Plan of Care Start Date 01/07/19 Plan of Care End Date 03/04/19 Therapeutic Interventions Therapeutic Interventions Home Exercise Program Manual Therapy Neuromuscular Re-education Patient/Caregiver Education Self-Care/Home Management Soft Tissue Mobilization Therapeutic Exercises Modalities Electric Stimulation
--- NOTE | 2019-01-08 17:49 | PT.OTN ---
Current Diagnoses Other chronic pain (01/08/19) Lumbago with sciatica, right side (01/08/19) Lumbago with sciatica, left side (01/08/19) Physical Therapy Treatment Note PT-OP-A Visit Information Start: 01/08/19 12:51 Freq: Status: Active Protocol: Document 01/08/19 13:00 AMH (Rec: 01/08/19 17:49 AMH [email or web address]) Out-Patient Physical Therapy Visit Information Visit Information Visit Type Treatment Note Visit Start Time 13:00 Visit Stop Time 13:45 Total Visit Minutes 45 Visit Number 2 PT-OP-B Current Condition Start: 01/08/19 12:51 Freq: Status: Active Protocol: Document 01/07/19 10:00 AMH (Rec: 01/08/19 17:19 AMH [email or web address]) Current Condition History of Current Condition Onset Date August 2017 Current Complaints left sided sciatic symptoms History of Current Condition Zandra is a 73 year old female who underwent a L4-L5 laminectomy September 17 2017. She was experiencing bilateral pain down both of her legs prior to the surgery. 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 At this time she is experiencing pain that is intermittent and starts in her left posterior calf. It then moves up the back of her leg to her gluteal region. Standing increases her pain and she also wakes up at night with pain. Treatment Goals Patient/Caregiver Goals To reduce referred pain down the left leg PT-OP-C Subjective Start: 01/08/19 12:51 Freq: Status: Active Protocol: Document 01/08/19 13:00 AMH (Rec: 01/08/19 17:49 AMH [email or web address]) OP-PT Subjective Patient Comments Patient Comments Zandra (Vilma) Reports she felt some relief following the manual work yesterday and she has been working on her seated forward bend stretch PT-OP-F Manual Assessment Start: 01/08/19 12:51 Freq: Status: Active Protocol: Document 01/07/19 10:00 AMH (Rec: 01/08/19 17:19 AMH [email or web address]) Manual Assessments Soft Tissue Assessment Soft Tissue Mobility Assessment right sided myofascial tightness in the thoracolumbar fascia and visable scar tissue on the right side of the lumbar spine incision. 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 Decreased ability for joint play into thoracic extension PT-OP-J Posture/Palpation/Skin Start: 01/08/19 17:22 Freq: Status: Active Protocol: Document 01/07/19 10:00 AMH (Rec: 01/08/19 17:30 AMH [email or web address]) Posture Evaluation Position Standing L-Spine Posture Flattened Palpation Assessment Location One Palpation Location right side of the scar and thoracolumbar facia Palpation Findings Soft Tissue Tightness Spasm Muscle Guarding Tenderness PT-OP-K Range of Motion Start: 01/08/19 17:22 Freq: Status: Active Protocol: Document 01/07/19 10:00 AMH (Rec: 01/08/19 17:30 AMH [email or web address]) Lumbar Spine Range of Motion Lumbar Spine Active Flexion 60 Extension 5 Rotation Left 30 Rotation Right 30 Lateral Flexion Left 10 Lateral Flexion Right 15 ROM Limitations Soft Tissue Tightness Comments pain with any increase in extension PT-OP-M Strength Start: 01/08/19 12:51 Freq: Status: Active Protocol: Document 01/07/19 10:00 AMH (Rec: 01/08/19 17:19 AMH [email or web address]) Trunk Strength Trunk Manual Muscle Testing Flexion 3+ Fair+ Core Stabilization able to facilitate the transverse abdominals but difficulty sustaining a contraction for any LE movement Hip Strength Hip Manual Muscle Testing Left Flexion (L2) 3 Fair Extension (S1) 3 Fair Abduction 3 Fair External Rotation 3 Fair Right Flexion (L2) 4 Good Extension (S1) 3+ Fair+ Abduction 3 Fair External Rotation 3 Fair PT-OP-Q Treatments Start: 01/08/19 12:51 Freq: Status: Active Protocol: Document 01/08/19 13:00 AMH (Rec: 01/08/19 17:49 AMH [email or web address]) Therapeutic Exercises Supine Exercises 4 Supine Exercise Name supine sidebend stretch with arms over head and legs towards hands Reps/Minutes x 3 times each side 5 Supine Exercise Name bilateral shoulder flexion with the wand Reps/Minutes x 10 reps 3 Supine Exercise Name lower trunk rotation without the ball Reps/Minutes x 2 reps each side hold for 30 sec each 2 Supine Exercise Name gentle lumbar rotation with the gym ball Reps/Minutes x 10 reps each side Comments worked on opp arm extension with this 1 Supine Exercise Name supine ball rolls for lumbar flexion Reps/Minutes 10 reps holding 10-20 seconds in flexion each rep Sitting Exercises 1 Sitting Exercise Name seated lumbar flexion Reps/Minutes 1-2 reps holding 30 seconds or greater Manual Therapy Treatment Soft Tissue Mobilization 1 Body Location right side of scar and thoracolumbar fascia Mobilization Type Myofascial Release Body Position prone on body pillow Comments skin rolling and stacking MFR of the tissue on the right side of the scar and thoracolumbar fascia Joint Mobilizations 1 Joint upper and lower T-spine mobilizations Direction PA mobs Body Position II Comments good tolerance and Zandra was able to squeeze shoulder blades together following treatment PT-OP-T Assessment and Plan Start: 01/08/19 12:51 Freq: Status: Active Protocol: Document 01/08/19 13:00 AMH (Rec: 01/08/19 17:49 AMH [email or web address]) Physical Therapy Assessment Assessment Summary Assessment Zandra is very tight in her lats on the right and thoracolumbar fascia. 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 She tolerated manual therapy work today and the stretches we added in well moving very slow through the sidebending and rotation stretches Physical Therapy Plan Frequency and Duration Frequency of Treatment 2x/Week Duration of Treatment 8 weeks Plan of Care Start Date 01/07/19 Plan of Care End Date 03/04/19 Therapeutic Interventions Therapeutic Interventions Home Exercise Program Manual Therapy Neuromuscular Re-education Patient/Caregiver Education Self-Care/Home Management Soft Tissue Mobilization Therapeutic Exercises Modalities Electric Stimulation Next Visit Focus/Plan Next Note Type Treatment Note Next Visit Plan progress ROM and begin to add in thoracic extension exercises and abdominal stabilization
--- NOTE | 2019-01-15 14:48 | PT.OTN ---
Current Diagnoses Other chronic pain (01/15/19) Lumbago with sciatica, right side (01/15/19) Lumbago with sciatica, left side (01/15/19) Physical Therapy Treatment Note PT-OP-A Visit Information Start: 01/08/19 12:51 Freq: Status: Active Protocol: Document 01/15/19 12:49 LRN (Rec: 01/15/19 13:36 LRN [id number]) Out-Patient Physical Therapy Visit Information Visit Information Visit Type Treatment Note Visit Start Time 12:49 Visit Stop Time 13:44 Total Visit Minutes 55 Visit Number 4 Number of WELDING MACHINE FEEDER Visits 0 Evaluation Information Evaluation Date 01/07/19 PT-OP-B Current Condition Start: 01/08/19 12:51 Freq: Status: Active Protocol: Document 01/07/19 10:00 AMH (Rec: 01/08/19 17: AMH [email or web address]) Current Condition History of Current Condition Onset Date August 2017 Current Complaints left sided sciatic symptoms History of Current Condition Zandra is a 73 year old female who underwent a L4-L5 laminectomy September 17 2017. She was experiencing bilateral pain down both of her legs prior to the surgery. 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 At this time she is experiencing pain that is intermittent and starts in her left posterior calf. It then moves up the back of her leg to her gluteal region. Standing increases her pain and she also wakes up at night with pain. Treatment Goals Patient/Caregiver Goals To reduce referred pain down the left leg PT-OP-C Subjective Start: 01/08/19 12:51 Freq: Status: Active Protocol: Document 01/15/19 12:49 LRN (Rec: 01/15/19 13:36 LRN [id number]) OP-PT Subjective Patient Comments Patient Comments States she has pain today in L leg. PT-OP-F Manual Assessment Start: 01/08/19 12:51 Freq: Status: Active Protocol: Document 01/07/19 10:00 AMH (Rec: 01/08/19 17:19 AMH [email or web address]) Manual Assessments Soft Tissue Assessment Soft Tissue Mobility Assessment right sided myofascial tightness in the thoracolumbar fascia and visable scar tissue on the right side of the lumbar spine incision. 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 Decreased ability for joint play into thoracic extension PT-OP-J Posture/Palpation/Skin Start: 01/08/19 17:22 Freq: Status: Active Protocol: Document 01/07/19 10:00 AMH (Rec: 01/08/19 17:30 AMH [email or web address]) Posture Evaluation Position Standing L-Spine Posture Flattened Palpation Assessment Location One Palpation Location right side of the scar and thoracolumbar facia Palpation Findings Soft Tissue Tightness Spasm Muscle Guarding Tenderness PT-OP-K Range of Motion Start: 01/08/19 17:22 Freq: Status: Active Protocol: Document 01/07/19 10:00 AMH (Rec: 01/08/19 17:30 AMH [email or web address]) Lumbar Spine Range of Motion Lumbar Spine Active Flexion 60 Extension 5 Rotation Left 30 Rotation Right 30 Lateral Flexion Left 10 Lateral Flexion Right 15 ROM Limitations Soft Tissue Tightness Comments pain with any increase in extension PT-OP-M Strength Start: 01/08/19 12:51 Freq: Status: Active Protocol: Document 01/07/19 10:00 AMH (Rec: 01/08/19 17:19 AMH [email or web address]) Trunk Strength Trunk Manual Muscle Testing Flexion 3+ Fair+ Core Stabilization able to facilitate the transverse abdominals but difficulty sustaining a contraction for any LE movement Hip Strength Hip Manual Muscle Testing Left Flexion (L2) 3 Fair Extension (S1) 3 Fair Abduction 3 Fair External Rotation 3 Fair Right Flexion (L2) 4 Good Extension (S1) 3+ Fair+ Abduction 3 Fair External Rotation 3 Fair PT-OP-Q Treatments Start: 01/08/19 12:51 Freq: Status: Active Protocol: Document 01/15/19 12:49 LRN (Rec: 01/15/19 13:36 LRN [id number]) Therapeutic Exercises Supine Exercises TA in neutral spine Supine Exercise Name TA in neutral spine Reps/Minutes 10 x 5 sec holds Lumbar ext Supine Exercise Name Isometric Lumbar ext Side bilateral Reps/Minutes 10 x 5 sec holds LE neural stretch Supine Exercise Name LE neural stretch Side bilateral Reps/Minutes 5' Comments Extra time taken for training Prone Exercises Press ups Prone Exercise Name Prone press ups Side bilateral Reps/Minutes 5' Comments Extra time taken for training Therapeutic Activity Therapeutic Activity Rolling supine <> prone Name Log rolling sup<>prone Reps/Minutes 3 Sit<-> Supine training Name Log roll training for sit <-> supine Reps/Minutes 7' Manual Therapy Treatment Soft Tissue Mobilization 1 Body Location right side of scar and thoracolumbar fascia Mobilization Type Myofascial Release Comments Sustained pressure to decrease muscle tone in R QL & L thoracic paraspinals. Joint Mobilizations 1 Joint upper and lower T-spine mobilizations Direction PA mobs Body Position II Comments good tolerance Manual Traction Lumbar Details Lumbar Body Position Hooklying Manual Techniques 1 Type manual nerve glides with SLR Comments Stopped due to increase in LE pain. PT-OP-T Assessment and Plan Start: 01/08/19 12:51 Freq: Status: Active Protocol: Document 01/15/19 12:49 LRN (Rec: 01/15/19 13:36 LRN [id number]) Physical Therapy Assessment Assessment Summary Assessment Pt has pain with excessive flexion in supine; therefore held flex ex's and I/S pt to do the same at home. Pt will need to be cleared to perform flexion ex's if she is able to do it painfree. Her leg pain lessens with manual lumbar traction; therefore probable neurological involvement (+ PSLR left). Pt notes she is receiving lumbar traction at her chiropractor appts. Pt was able to get pain relief after therapy and she will monitor how long her pain relief lasts. Physical Therapy Plan Frequency and Duration Frequency of Treatment 2x/Week Duration of Treatment 8 weeks Plan of Care Start Date 01/07/19 Plan of Care End Date 03/04/19 Next Visit Focus/Plan Next Note Type Treatment Note Next Visit Plan Assess pt tolerance for flex ex's, otherwise progress extension ex's. Review trunk ext ex's and proper body mechanics for log roll method of sit <>supine and rolling sup<>prone. Progress ROM as tolerated and begin to add in thoracic extension exercises and abdominal stabilization.
--- NOTE | 2019-01-20 16:07 | PT.OTN ---
Current Diagnoses Other chronic pain (01/20/19) Lumbago with sciatica, right side (01/20/19) Lumbago with sciatica, left side (01/20/19) Physical Therapy Treatment Note PT-OP-A Visit Information Start: 01/08/19 12:51 Freq: Status: Active Protocol: Document 01/20/19 10:36 AR (Rec: 01/20/19 10:53 AR [email or web address]) Out-Patient Physical Therapy Visit Information Visit Information Visit Type Treatment Note Visit Start Time 08:20 Visit Stop Time 09:15 Total Visit Minutes 55 Visit Number 5 Number of FOREIGN SERVICE TEACHER Visits 0 PT-OP-B Current Condition Start: 01/08/19 12:51 Freq: Status: Active Protocol: Document 01/07/19 10:00 AMH (Rec: 01/08/19 17:19 AMH [email or web address]) Current Condition History of Current Condition Onset Date August 2017 Current Complaints left sided sciatic symptoms History of Current Condition Zandra is a 73 year old female who underwent a L4-L5 laminectomy September 17 2017. She was experiencing bilateral pain down both of her legs prior to the surgery. 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 At this time she is experiencing pain that is intermittent and starts in her left posterior calf. It then moves up the back of her leg to her gluteal region. Standing increases her pain and she also wakes up at night with pain. Treatment Goals Patient/Caregiver Goals To reduce referred pain down the left leg PT-OP-C Subjective Start: 01/08/19 12:51 Freq: Status: Active Protocol: Document 01/20/19 10:36 AR (Rec: 01/20/19 10:53 AR [email or web address]) OP-PT Subjective Patient Comments Patient Comments Pt states she had anterior hip pain a few nights ago and was unable to move. She brought a note from her chiropractor suggesting femoral nerve entrapment and hip flexor tightness. PT-OP-F Manual Assessment Start: 01/08/19 12:51 Freq: Status: Active Protocol: Document 01/07/19 10:00 AMH (Rec: 01/08/19 17:19 AMH [email or web address]) Manual Assessments Soft Tissue Assessment Soft Tissue Mobility Assessment right sided myofascial tightness in the thoracolumbar fascia and visable scar tissue on the right side of the lumbar spine incision. 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 Decreased ability for joint play into thoracic extension PT-OP-J Posture/Palpation/Skin Start: 01/08/19 17:22 Freq: Status: Active Protocol: Document 01/07/19 10:00 AMH (Rec: 01/08/19 17:30 AMH [email or web address]) Posture Evaluation Position Standing L-Spine Posture Flattened Palpation Assessment Location One Palpation Location right side of the scar and thoracolumbar facia Palpation Findings Soft Tissue Tightness Spasm Muscle Guarding Tenderness PT-OP-K Range of Motion Start: 01/08/19 17:22 Freq: Status: Active Protocol: Document 01/07/19 10:00 AMH (Rec: 01/08/19 17:30 AMH [email or web address]) Lumbar Spine Range of Motion Lumbar Spine Active Flexion 60 Extension 5 Rotation Left 30 Rotation Right 30 Lateral Flexion Left 10 Lateral Flexion Right 15 ROM Limitations Soft Tissue Tightness Comments pain with any increase in extension PT-OP-M Strength Start: 01/08/19 12:51 Freq: Status: Active Protocol: Document 01/07/19 10:00 AMH (Rec: 01/08/19 17:19 AMH [email or web address]) Trunk Strength Trunk Manual Muscle Testing Flexion 3+ Fair+ Core Stabilization able to facilitate the transverse abdominals but difficulty sustaining a contraction for any LE movement Hip Strength Hip Manual Muscle Testing Left Flexion (L2) 3 Fair Extension (S1) 3 Fair Abduction 3 Fair External Rotation 3 Fair Right Flexion (L2) 4 Good Extension (S1) 3+ Fair+ Abduction 3 Fair External Rotation 3 Fair PT-OP-Q Treatments Start: 01/08/19 12:51 Freq: Status: Active Protocol: Document 01/20/19 10:36 AR (Rec: 01/20/19 10:53 AR [email or web address]) Cardio Equipment Recumbent Stepper (Sci-Fit) Duration (Minutes) 7 Therapeutic Exercises Supine Exercises TA in neutral spine Supine Exercise Name TA in neutral spine Reps/Minutes 10 x 5 sec holds Lumbar ext Supine Exercise Name Isometric Lumbar ext Side bilateral Reps/Minutes 10 x 5 sec holds 8 Supine Exercise Name TA with bent knee fall outs Side bilateral Reps/Minutes 10 each side Comments added to HEP. pt cued for pelvic stability 7 Supine Exercise Name SKTC for contralateral hip flexor stretch Side left Comments right knee to chest with towel at inguinal region to stop impingement Prone Exercises Cat/Camel Prone Exercise Name cat/camel Reps/Minutes 20 reps Comments focus on pelvic tilts, betty ant tilt Sitting Exercises 1 Sitting Exercise Name seated pelvic tilts Reps/Minutes 5 reps Comments pt unable to isolate pelvic movement, compensated with L/S .exercise stopped Standing Exercises 3 Standing Exercise Name hip flexor stretch Side left Reps/Minutes 5 reps Comments pt able to achieve pelvic tilt but felt stretch in L/S, not hip flexors Therapeutic Activity Therapeutic Activity Sit<-> Supine training Name Log roll training for sit <-> supine Reps/Minutes 5' Comments heavy cueing, encouraged to make movement for fluid and to incorporate into daily routine for getting out of bed Manual Therapy Treatment Soft Tissue Mobilization L hip flexors Body Location L hip flexors & inguinal ligament Mobilization Type Myofascial Release Strumming Sustained Pressure Intensity/Depth Superficial Body Position Hooklying Comments pt very tender. leg rolls and sustained pressure to help release PT-OP-R Modalities Start: 01/08/19 12:51 Freq: Status: Active Protocol: Document 01/20/19 10:36 AR (Rec: 01/20/19 10:54 AR [email or web address]) Hot Pack/Cold Pack Treatment Hot Pack Location L/S and L hip Patient Position Hooklying Treatment Duration (minutes) 15 PT-OP-T Assessment and Plan Start: 01/08/19 12:51 Freq: Status: Active Protocol: Document 01/20/19 10:36 AR (Rec: 01/20/19 10:53 AR [email or web address]) Physical Therapy Assessment Goals Four Impairment decreased strength of the core and hips Entertainment Production Professional Goal (LTG) Improve strength of the inner core and hips for improved stabilization of the spine and pelvis. The patient is independent with a established Home exercise program LTG Duration 8 weeks Three Impairment myofascial tightness of the right thoracolumbar fascia, right side of scar Short Term Goal (STG) Zandra is able to lay in supine with her right arm above her head and gentle lumbar rotation to the left without c/p pain STG Duration 4 weeks Entertainment Production Professional Goal (LTG) Reduce the scar tissue tightness and visable muscle guarding and myofascial tightness on the right side of the lumbar scar and myofasical tissue LTG Duration 8 weeks Two Impairment Decreased lumbar spine ROM into lumbar flexion, sidebend, rotation Entertainment Production Professional Goal (LTG) Zandra is able to improve her spinal ROM into lumbar flexion, sidebend, and rotation and is tolerating a stretching program for lumbar spine ROM LTG Duration 8 weeks One Impairment left sided posterior LE pain rated 5-6/10 worse with standing Short Term Goal (STG) Zandra is given postural modifications for standing to help decrease her pain to 2-3 or less and she is able to stand for 15-20 minutes without left LE radicular symptoms STG Duration 4 weeks Residential Goal (LTG) Zandra is able to stand for 30 minutes or more without increase in LE pain and is able to walk 1/2 mile without a increase in pain LTG Duration 8 weeks Assessment Summary Assessment Pt presented with significant restrictions and tenderness in L hip flexors and inguinal ligament. Pt was able to tolerate hip flexor stretch in modified mily test position after manual therapy. Pt still shows decreased core stability, but was able to demonstrate bent knee falls outs within a small range w/o pelvic movement. Physical Therapy Plan Frequency and Duration Frequency of Treatment 2x/Week Duration of Treatment 8 weeks Plan of Care Start Date 01/07/19 Plan of Care End Date 03/04/19 Next Visit Focus/Plan Next Note Type Treatment Note Next Visit Plan progress ROM and add thoracic extension exercises. progress abdominal stabilization
--- NOTE | 2019-01-22 13:55 | PT.OTN ---
Current Diagnoses Other chronic pain (01/22/19) Lumbago with sciatica, right side (01/22/19) Lumbago with sciatica, left side (01/22/19) Physical Therapy Treatment Note PT-OP-A Visit Information Start: 01/08/19 12:51 Freq: Status: Active Protocol: Document 01/22/19 11:19 AR (Rec: 01/22/19 11:34 AR [email or web address]) Out-Patient Physical Therapy Visit Information Visit Information Visit Type Treatment Note Visit Start Time 07:30 Visit Stop Time 08:30 Total Visit Minutes 60 Visit Number 6 Number of FLOOR RENOVATOR Visits 0 PT-OP-B Current Condition Start: 01/08/19 12:51 Freq: Status: Active Protocol: Document 01/07/19 10:00 AMH (Rec: 01/08/19 17:19 AMH [email or web address]) Current Condition History of Current Condition Onset Date August 2017 Current Complaints left sided sciatic symptoms History of Current Condition Zandra is a 73 year old female who underwent a L4-L5 laminectomy September 17 2017. She was experiencing bilateral pain down both of her legs prior to the surgery. 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 At this time she is experiencing pain that is intermittent and starts in her left posterior calf. It then moves up the back of her leg to her gluteal region. Standing increases her pain and she also wakes up at night with pain. Treatment Goals Patient/Caregiver Goals To reduce referred pain down the left leg PT-OP-C Subjective Start: 01/08/19 12:51 Freq: Status: Active Protocol: Document 01/22/19 11:19 AR (Rec: 01/22/19 11:34 AR [email or web address]) OP-PT Subjective Patient Comments Patient Comments Pt reports her L hip has felt fine and has not been painful since last session. She slept poorly last night which is common for her. PT-OP-F Manual Assessment Start: 01/08/19 12:51 Freq: Status: Active Protocol: Document 01/07/19 10:00 AMH (Rec: 01/08/19 17:19 AMH [email or web address]) Manual Assessments Soft Tissue Assessment Soft Tissue Mobility Assessment right sided myofascial tightness in the thoracolumbar fascia and visable scar tissue on the right side of the lumbar spine incision. 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 Decreased ability for joint play into thoracic extension PT-OP-J Posture/Palpation/Skin Start: 01/08/19 17:22 Freq: Status: Active Protocol: Document 01/07/19 10:00 AMH (Rec: 01/08/19 17:30 AMH [email or web address]) Posture Evaluation Position Standing L-Spine Posture Flattened Palpation Assessment Location One Palpation Location right side of the scar and thoracolumbar facia Palpation Findings Soft Tissue Tightness Spasm Muscle Guarding Tenderness PT-OP-K Range of Motion Start: 01/08/19 17:22 Freq: Status: Active Protocol: Document 01/07/19 10:00 AMH (Rec: 01/08/19 17:30 AMH [email or web address]) Lumbar Spine Range of Motion Lumbar Spine Active Flexion 60 Extension 5 Rotation Left 30 Rotation Right 30 Lateral Flexion Left 10 Lateral Flexion Right 15 ROM Limitations Soft Tissue Tightness Comments pain with any increase in extension PT-OP-M Strength Start: 01/08/19 12:51 Freq: Status: Active Protocol: Document 01/07/19 10:00 AMH (Rec: 01/08/19 17:19 AMH [email or web address]) Trunk Strength Trunk Manual Muscle Testing Flexion 3+ Fair+ Core Stabilization able to facilitate the transverse abdominals but difficulty sustaining a contraction for any LE movement Hip Strength Hip Manual Muscle Testing Left Flexion (L2) 3 Fair Extension (S1) 3 Fair Abduction 3 Fair External Rotation 3 Fair Right Flexion (L2) 4 Good Extension (S1) 3+ Fair+ Abduction 3 Fair External Rotation 3 Fair PT-OP-Q Treatments Start: 01/08/19 12:51 Freq: Status: Active Protocol: Document 01/22/19 11:19 AR (Rec: 01/22/19 11:34 AR [email or web address]) Cardio Equipment Recumbent Stepper (Sci-Fit) Duration (Minutes) 7 Resistance 4 Therapeutic Exercises Supine Exercises TA activation Supine Exercise Name TA w marches Side bilateral Reps/Minutes 20 reps each side Comments added to HEP, small range TA in neutral spine Supine Exercise Name TA in neutral spine Reps/Minutes 10 x 5 sec holds 8 Supine Exercise Name TA with bent knee fall outs Side bilateral Reps/Minutes 20 each side Comments added to HEP. pt cued for pelvic stability 6 Supine Exercise Name TA with heel slide Side bilateral Reps/Minutes 20 each side Comments added to HEP, small range Therapeutic Activity Therapeutic Activity sleep posture Name sleep posture Reps/Minutes 10 minutes Comments pillows supporting entire LE, towel under L/S, pillow under head not shoulders. Pt educated on pain/unsupportive position as a reason for frequent position changes throughout the night. Pt encouraged to get a sleep study done as she reports frequently feeling exhausted after a full night's sleep. Manual Therapy Treatment Soft Tissue Mobilization 1 Body Location right side of scar and thoracolumbar fascia, QL Mobilization Type Myofascial Release Rolling Intensity/Depth Moderate Comments Sustained pressure to decrease muscle tone in R QL & thoracic paraspinals Self-Care/Home Management Treatment Education Patient Education Home Exercise Program Other Education cat/camel at wall, as quadruped hurts pt's hands. review next visit as we did not have time to demo exercise PT-OP-R Modalities Start: 01/08/19 12:51 Freq: Status: Active Protocol: Document 01/22/19 11:19 AR (Rec: 01/22/19 11:34 AR [email or web address]) Hot Pack/Cold Pack Treatment Hot Pack Location L/S Patient Position Hooklying Treatment Duration (minutes) 15 PT-OP-T Assessment and Plan Start: 01/08/19 12:51 Freq: Status: Active Protocol: Document 01/22/19 11:19 AR (Rec: 01/22/19 11:34 AR [email or web address]) Physical Therapy Assessment Goals Four Impairment decreased strength of the core and hips Senior Living Goal (LTG) Improve strength of the inner core and hips for improved stabilization of the spine and pelvis. The patient is independent with a established Home exercise program LTG Duration 8 weeks Three Impairment myofascial tightness of the right thoracolumbar fascia, right side of scar Short Term Goal (STG) Zandra is able to lay in supine with her right arm above her head and gentle lumbar rotation to the left without c/p pain STG Duration 4 weeks Freight Weigher Goal (LTG) Reduce the scar tissue tightness and visable muscle guarding and myofascial tightness on the right side of the lumbar scar and myofasical tissue LTG Duration 8 weeks Two Impairment Decreased lumbar spine ROM into lumbar flexion, sidebend, rotation Freight Weigher Goal (LTG) Zandra is able to improve her spinal ROM into lumbar flexion, sidebend, and rotation and is tolerating a stretching program for lumbar spine ROM LTG Duration 8 weeks One Impairment left sided posterior LE pain rated 5-6/10 worse with standing Short Term Goal (STG) Zandra is given postural modifications for standing to help decrease her pain to 2-3 or less and she is able to stand for 15-20 minutes without left LE radicular symptoms STG Duration 4 weeks Freight Weigher Goal (LTG) Zandra is able to stand for 30 minutes or more without increase in LE pain and is able to walk 1/2 mile without a increase in pain LTG Duration 8 weeks Assessment Summary Assessment Pt presents moderate restrictions in QL and paraspinals and did not report tenderness with manual work. Pt demonstrated good TA activation with bent knee fall outs but heel slides had to be kept at small ROM to maintain TA engagement. Pt reponded well to sleep posture education. Pt will benefit from continued skilled therapy to address decreased core stability and hypomobility of thoracic and lumbar spine. Physical Therapy Plan Frequency and Duration Frequency of Treatment 2x/Week Duration of Treatment 8 weeks Plan of Care Start Date 01/07/19 Plan of Care End Date 03/04/19 Next Visit Focus/Plan Next Note Type Treatment Note Next Visit Plan progress core stabilization & ROM. review cat/camel motion at wall
--- NOTE | 2019-01-28 16:18 | PT.OTN ---
Current Diagnoses Other chronic pain (01/28/19) Lumbago with sciatica, right side (01/28/19) Lumbago with sciatica, left side (01/28/19) Physical Therapy Treatment Note PT-OP-A Visit Information Start: 01/08/19 12:51 Freq: Status: Active Protocol: Document 01/28/19 14:30 AMB (Rec: 01/28/19 15:12 AMB [email or web address]) Out-Patient Physical Therapy Visit Information Visit Information Visit Type Treatment Note Visit Start Time 14:30 Visit Stop Time 15:15 Total Visit Minutes 60 Visit Number 7 Number of INVENTORY SPECIALIST Visits 0 PT-OP-B Current Condition Start: 01/08/19 12:51 Freq: Status: Active Protocol: Document 01/07/19 10:00 AMH (Rec: 01/08/19 17:19 AMH [email or web address]) Current Condition History of Current Condition Onset Date August 2017 Current Complaints left sided sciatic symptoms History of Current Condition Zandra is a 73 year old female who underwent a L4-L5 laminectomy September 17 2017. She was experiencing bilateral pain down both of her legs prior to the surgery. 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 At this time she is experiencing pain that is intermittent and starts in her left posterior calf. It then moves up the back of her leg to her gluteal region. Standing increases her pain and she also wakes up at night with pain. Treatment Goals Patient/Caregiver Goals To reduce referred pain down the left leg PT-OP-C Subjective Start: 01/08/19 12:51 Freq: Status: Active Protocol: Document 01/28/19 14:30 AMB (Rec: 01/28/19 15:12 AMB [email or web address]) OP-PT Subjective Patient Comments Patient Comments Pt reports maybe a 2/10 pain. PT-OP-F Manual Assessment Start: 01/08/19 12:51 Freq: Status: Active Protocol: Document 01/07/19 10:00 AMH (Rec: 01/08/19 17:19 AMH [email or web address]) Manual Assessments Soft Tissue Assessment Soft Tissue Mobility Assessment right sided myofascial tightness in the thoracolumbar fascia and visable scar tissue on the right side of the lumbar spine incision. 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 Decreased ability for joint play into thoracic extension PT-OP-J Posture/Palpation/Skin Start: 01/08/19 17:22 Freq: Status: Active Protocol: Document 01/07/19 10:00 AMH (Rec: 01/08/19 17:30 AMH [email or web address]) Posture Evaluation Position Standing L-Spine Posture Flattened Palpation Assessment Location One Palpation Location right side of the scar and thoracolumbar facia Palpation Findings Soft Tissue Tightness Spasm Muscle Guarding Tenderness PT-OP-K Range of Motion Start: 01/08/19 17:22 Freq: Status: Active Protocol: Document 01/07/19 10:00 AMH (Rec: 01/08/19 17:30 AMH [email or web address]) Lumbar Spine Range of Motion Lumbar Spine Active Flexion 60 Extension 5 Rotation Left 30 Rotation Right 30 Lateral Flexion Left 10 Lateral Flexion Right 15 ROM Limitations Soft Tissue Tightness Comments pain with any increase in extension PT-OP-M Strength Start: 01/08/19 12:51 Freq: Status: Active Protocol: Document 01/07/19 10:00 AMH (Rec: 01/08/19 17:19 AMH [email or web address]) Trunk Strength Trunk Manual Muscle Testing Flexion 3+ Fair+ Core Stabilization able to facilitate the transverse abdominals but difficulty sustaining a contraction for any LE movement Hip Strength Hip Manual Muscle Testing Left Flexion (L2) 3 Fair Extension (S1) 3 Fair Abduction 3 Fair External Rotation 3 Fair Right Flexion (L2) 4 Good Extension (S1) 3+ Fair+ Abduction 3 Fair External Rotation 3 Fair PT-OP-Q Treatments Start: 01/08/19 12:51 Freq: Status: Active Protocol: Document 01/28/19 14:30 AMB (Rec: 01/28/19 16:17 AMB [email or web address]) Therapeutic Exercises Supine Exercises TA activation Supine Exercise Name TA w marches Side bilateral Reps/Minutes 20 reps each side Comments added to HEP, small range TA in neutral spine Supine Exercise Name TA in neutral spine Reps/Minutes 10 x 5 sec holds 8 Supine Exercise Name TA with bent knee fall outs Side bilateral Reps/Minutes 20 each side 6 Supine Exercise Name TA with heel slide Side bilateral Reps/Minutes 20 each side Standing Exercises 3 Standing Exercise Name hip flexor stretch Side left Reps/Minutes 5 reps Comments pt able to achieve pelvic tilt but felt stretch in L/S, not hip flexors 2 Standing Exercise Name cat/camel Reps/Minutes 10 Comments against wall Manual Therapy Treatment Soft Tissue Mobilization 1 Body Location right side of scar and thoracolumbar fascia, QL Mobilization Type Myofascial Release Rolling Intensity/Depth Moderate Comments Sustained pressure to decrease muscle tone in R QL & thoracic paraspinals PT-OP-R Modalities Start: 01/08/19 12:51 Freq: Status: Active Protocol: Document 01/28/19 14:30 AMB (Rec: 01/28/19 16:18 AMB [email or web address]) Hot Pack/Cold Pack Treatment Hot Pack Location L/S Patient Position Hooklying Treatment Duration (minutes) 15 PT-OP-T Assessment and Plan Start: 01/08/19 12:51 Freq: Status: Active Protocol: Document 01/28/19 14:30 AMB (Rec: 01/28/19 16:17 AMB [email or web address]) Physical Therapy Assessment Assessment Summary Assessment Pt was doing well today, but continued to need cues for form with core activation and body mechanics with supine to sit. Physical Therapy Plan Frequency and Duration Frequency of Treatment 2x/Week Duration of Treatment 8 weeks Plan of Care Start Date 01/07/19 Plan of Care End Date 03/04/19 Next Visit Focus/Plan Next Note Type Treatment Note Next Visit Plan progress core stabilization & ROM.
--- NOTE | 2019-02-03 17:09 | PT.OTN ---
Current Diagnoses Other chronic pain (02/03/19) Lumbago with sciatica, right side (02/03/19) Lumbago with sciatica, left side (02/03/19) Physical Therapy Treatment Note PT-OP-A Visit Information Start: 01/08/19 12:51 Freq: Status: Active Protocol: Document 02/03/19 16:58 GGD (Rec: 02/03/19 17:08 GGD [email or web address]) Out-Patient Physical Therapy Visit Information Visit Information Visit Type Treatment Note Visit Start Time 15:15 Visit Stop Time 16:15 Total Visit Minutes 60 Visit Number 8 Number of ASSISTANT PROFESSOR OF PSYCHOLOGY Visits 1 Evaluation Information Evaluation Date 01/07/19 PT-OP-B Current Condition Start: 01/08/19 12:51 Freq: Status: Active Protocol: Document 01/07/19 10:00 AMH (Rec: 01/08/19 17:19 AMH [email or web address]) Current Condition History of Current Condition Onset Date August 2017 Current Complaints left sided sciatic symptoms History of Current Condition Zandra is a 73 year old female who underwent a L4-L5 laminectomy September 17 2017. She was experiencing bilateral pain down both of her legs prior to the surgery. 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 At this time she is experiencing pain that is intermittent and starts in her left posterior calf. It then moves up the back of her leg to her gluteal region. Standing increases her pain and she also wakes up at night with pain. Treatment Goals Patient/Caregiver Goals To reduce referred pain down the left leg PT-OP-C Subjective Start: 01/08/19 12:51 Freq: Status: Active Protocol: Document 02/03/19 16:58 GGD (Rec: 02/03/19 17:08 GGD [email or web address]) OP-PT Subjective Patient Comments Patient Comments Pt states she had some cramping i her leg. PT-OP-F Manual Assessment Start: 01/08/19 12:51 Freq: Status: Active Protocol: Document 01/07/19 10:00 AMH (Rec: 01/08/19 17:19 AMH [email or web address]) Manual Assessments Soft Tissue Assessment Soft Tissue Mobility Assessment right sided myofascial tightness in the thoracolumbar fascia and visable scar tissue on the right side of the lumbar spine incision. 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 Decreased ability for joint play into thoracic extension PT-OP-J Posture/Palpation/Skin Start: 01/08/19 17:22 Freq: Status: Active Protocol: Document 01/07/19 10:00 AMH (Rec: 01/08/19 17:30 AMH [email or web address]) Posture Evaluation Position Standing L-Spine Posture Flattened Palpation Assessment Location One Palpation Location right side of the scar and thoracolumbar facia Palpation Findings Soft Tissue Tightness Spasm Muscle Guarding Tenderness PT-OP-K Range of Motion Start: 01/08/19 17:22 Freq: Status: Active Protocol: Document 01/07/19 10:00 AMH (Rec: 01/08/19 17:30 AMH [email or web address]) Lumbar Spine Range of Motion Lumbar Spine Active Flexion 60 Extension 5 Rotation Left 30 Rotation Right 30 Lateral Flexion Left 10 Lateral Flexion Right 15 ROM Limitations Soft Tissue Tightness Comments pain with any increase in extension PT-OP-M Strength Start: 01/08/19 12:51 Freq: Status: Active Protocol: Document 01/07/19 10:00 AMH (Rec: 01/08/19 17:19 AMH [email or web address]) Trunk Strength Trunk Manual Muscle Testing Flexion 3+ Fair+ Core Stabilization able to facilitate the transverse abdominals but difficulty sustaining a contraction for any LE movement Hip Strength Hip Manual Muscle Testing Left Flexion (L2) 3 Fair Extension (S1) 3 Fair Abduction 3 Fair External Rotation 3 Fair Right Flexion (L2) 4 Good Extension (S1) 3+ Fair+ Abduction 3 Fair External Rotation 3 Fair PT-OP-Q Treatments Start: 01/08/19 12:51 Freq: Status: Active Protocol: Document 02/03/19 16:58 GGD (Rec: 02/03/19 17:08 GGD [email or web address]) Cardio Equipment Recumbent Stepper (Sci-Fit) Duration (Minutes) 7 Resistance 4 Therapeutic Exercises Supine Exercises TA activation Supine Exercise Name TA w marches Side bilateral Reps/Minutes 20 reps each side Comments added to HEP, small range TA in neutral spine Supine Exercise Name TA in neutral spine Reps/Minutes 10 x 5 sec holds LE neural stretch Supine Exercise Name LE neural stretch Side bilateral Reps/Minutes 3' 8 Supine Exercise Name TA with bent knee fall outs Side bilateral Reps/Minutes 20 each side 6 Supine Exercise Name TA with heel slide Side bilateral Reps/Minutes 20 each side Standing Exercises 3 Standing Exercise Name hip flexor stretch Side left Reps/Minutes 5 reps Comments pt able to achieve pelvic tilt but felt stretch in L/S, not hip flexors 2 Standing Exercise Name cat/camel Reps/Minutes 10 Comments against wall Manual Therapy Treatment Soft Tissue Mobilization 1 Body Location right side of scar and thoracolumbar fascia, QL Mobilization Type Myofascial Release Rolling Intensity/Depth Moderate Comments Sustained pressure to decrease muscle tone in R QL & thoracic paraspinals Manual Techniques 1 Type manual nerve glides with SLR Comments Stopped due to increase in LE pain. PT-OP-R Modalities Start: 01/08/19 12:51 Freq: Status: Active Protocol: Document 02/03/19 16:58 GGD (Rec: 02/03/19 17:08 GGD [email or web address]) Hot Pack/Cold Pack Treatment Hot Pack Location L/S Patient Position Hooklying Treatment Duration (minutes) 15 PT-OP-T Assessment and Plan Start: 01/08/19 12:51 Freq: Status: Active Protocol: Document 02/03/19 16:58 GGD (Rec: 02/03/19 17:08 GGD [email or web address]) Physical Therapy Assessment Assessment Summary Assessment Pt had improved hamstring mobility and decrease LE pain with treatment. She need cues for exercises. Physical Therapy Plan Frequency and Duration Frequency of Treatment 2x/Week Duration of Treatment 8 weeks Plan of Care Start Date 01/07/19 Plan of Care End Date 03/04/19 Next Visit Focus/Plan Next Note Type Treatment Note Next Visit Plan progress core stabilization & ROM. review sleep portioning.
--- NOTE | 2019-02-06 15:15 | PT.OTN ---
Current Diagnoses Other chronic pain (02/06/19) Lumbago with sciatica, right side (02/06/19) Lumbago with sciatica, left side (02/06/19) Physical Therapy Treatment Note PT-OP-A Visit Information Start: 01/08/19 12:51 Freq: Status: Active Protocol: Document 02/06/19 15:10 GGD (Rec: 02/06/19 15:15 GGD [email or web address]) Out-Patient Physical Therapy Visit Information Visit Information Visit Type Treatment Note Visit Start Time 14:30 Visit Stop Time 15:30 Total Visit Minutes 60 Visit Number 9 Number of PICK AND SHOVEL WORKER Visits 2 Evaluation Information Evaluation Date 01/07/19 PT-OP-B Current Condition Start: 01/08/19 12:51 Freq: Status: Active Protocol: Document 01/07/19 10:00 AMH (Rec: 01/08/19 17:19 AMH [email or web address]) Current Condition History of Current Condition Onset Date August 2017 Current Complaints left sided sciatic symptoms History of Current Condition Zandra is a 73 year old female who underwent a L4-L5 laminectomy September 17 2017. She was experiencing bilateral pain down both of her legs prior to the surgery. 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 At this time she is experiencing pain that is intermittent and starts in her left posterior calf. It then moves up the back of her leg to her gluteal region. Standing increases her pain and she also wakes up at night with pain. Treatment Goals Patient/Caregiver Goals To reduce referred pain down the left leg PT-OP-C Subjective Start: 01/08/19 12:51 Freq: Status: Active Protocol: Document 02/06/19 15:10 GGD (Rec: 02/06/19 15:15 GGD [email or web address]) OP-PT Subjective Patient Comments Patient Comments Pt states that she had increase in leg pain today. Pain is 4/10 PT-OP-F Manual Assessment Start: 01/08/19 12:51 Freq: Status: Active Protocol: Document 01/07/19 10:00 AMH (Rec: 01/08/19 17:19 AMH [email or web address]) Manual Assessments Soft Tissue Assessment Soft Tissue Mobility Assessment right sided myofascial tightness in the thoracolumbar fascia and visable scar tissue on the right side of the lumbar spine incision. 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 Decreased ability for joint play into thoracic extension PT-OP-J Posture/Palpation/Skin Start: 01/08/19 17:22 Freq: Status: Active Protocol: Document 01/07/19 10:00 AMH (Rec: 01/08/19 17:30 AMH [email or web address]) Posture Evaluation Position Standing L-Spine Posture Flattened Palpation Assessment Location One Palpation Location right side of the scar and thoracolumbar facia Palpation Findings Soft Tissue Tightness Spasm Muscle Guarding Tenderness PT-OP-K Range of Motion Start: 01/08/19 17:22 Freq: Status: Active Protocol: Document 01/07/19 10:00 AMH (Rec: 01/08/19 17:30 AMH [email or web address]) Lumbar Spine Range of Motion Lumbar Spine Active Flexion 60 Extension 5 Rotation Left 30 Rotation Right 30 Lateral Flexion Left 10 Lateral Flexion Right 15 ROM Limitations Soft Tissue Tightness Comments pain with any increase in extension PT-OP-M Strength Start: 01/08/19 12:51 Freq: Status: Active Protocol: Document 01/07/19 10:00 AMH (Rec: 01/08/19 17:19 AMH [email or web address]) Trunk Strength Trunk Manual Muscle Testing Flexion 3+ Fair+ Core Stabilization able to facilitate the transverse abdominals but difficulty sustaining a contraction for any LE movement Hip Strength Hip Manual Muscle Testing Left Flexion (L2) 3 Fair Extension (S1) 3 Fair Abduction 3 Fair External Rotation 3 Fair Right Flexion (L2) 4 Good Extension (S1) 3+ Fair+ Abduction 3 Fair External Rotation 3 Fair PT-OP-Q Treatments Start: 01/08/19 12:51 Freq: Status: Active Protocol: Document 02/06/19 15:10 GGD (Rec: 02/06/19 15:15 GGD [email or web address]) Cardio Equipment Recumbent Stepper (Sci-Fit) Duration (Minutes) 7 Resistance 4 Therapeutic Exercises Supine Exercises TA activation Supine Exercise Name TA w marches Side bilateral Reps/Minutes 20 reps each side Comments added to HEP, small range TA in neutral spine Supine Exercise Name TA in neutral spine Reps/Minutes 10 x 5 sec holds LE neural stretch Supine Exercise Name LE neural stretch Side bilateral Reps/Minutes 3' 8 Supine Exercise Name TA with bent knee fall outs Side bilateral Reps/Minutes 20 each side 6 Supine Exercise Name TA with heel slide Side bilateral Reps/Minutes 20 each side Standing Exercises 3 Standing Exercise Name hip flexor stretch Side left Reps/Minutes 5 reps Comments pt able to achieve pelvic tilt but felt stretch in L/S, not hip flexors 2 Standing Exercise Name cat/camel Reps/Minutes 10 Comments against wall Therapeutic Activity Therapeutic Activity sleep posture Name sleep posture Reps/Minutes 3 minutes Comments in supine pillows supporting entire LE, not under hips, towel under L/S, pillow under head not shoulders. Manual Therapy Treatment Soft Tissue Mobilization 1 Body Location right side of scar and thoracolumbar fascia, QL Mobilization Type Myofascial Release Rolling Intensity/Depth Moderate Comments Sustained pressure to decrease muscle tone in R QL & thoracic paraspinals Manual Techniques 1 Type manual nerve glides with SLR Comments Stopped due to increase in LE pain. PT-OP-R Modalities Start: 01/08/19 12:51 Freq: Status: Active Protocol: Document 02/06/19 15:10 GGD (Rec: 02/06/19 15:15 GGD [email or web address]) Hot Pack/Cold Pack Treatment Hot Pack Location L/S Patient Position Hooklying Treatment Duration (minutes) 15 PT-OP-T Assessment and Plan Start: 01/08/19 12:51 Freq: Status: Active Protocol: Document 02/06/19 15:10 GGD (Rec: 02/06/19 15:15 GGD [email or web address]) Physical Therapy Assessment Goals Four Impairment decreased strength of the core and hips Lumber Straightener Goal (LTG) Improve strength of the inner core and hips for improved stabilization of the spine and pelvis. The patient is independent with a established Home exercise program LTG Duration 8 weeks Three Impairment myofascial tightness of the right thoracolumbar fascia, right side of scar Short Term Goal (STG) Zandra is able to lay in supine with her right arm above her head and gentle lumbar rotation to the left without c/p pain STG Duration 4 weeks Prison Goal (LTG) Reduce the scar tissue tightness and visable muscle guarding and myofascial tightness on the right side of the lumbar scar and myofasical tissue LTG Duration 8 weeks Two Impairment Decreased lumbar spine ROM into lumbar flexion, sidebend, rotation Lumber Straightener Goal (LTG) Zandra is able to improve her spinal ROM into lumbar flexion, sidebend, and rotation and is tolerating a stretching program for lumbar spine ROM LTG Duration 8 weeks One Impairment left sided posterior LE pain rated 5-6/10 worse with standing Short Term Goal (STG) Zandra is given postural modifications for standing to help decrease her pain to 2-3 or less and she is able to stand for 15-20 minutes without left LE radicular symptoms STG Duration 4 weeks Prison Goal (LTG) Zandra is able to stand for 30 minutes or more without increase in LE pain and is able to walk 1/2 mile without a increase in pain LTG Duration 8 weeks Assessment Summary Assessment Pt had decrease C/O pain with treatment. She to understand sleep positioning. Pt need cues for core stability with exercise. Physical Therapy Plan Frequency and Duration Frequency of Treatment 2x/Week Duration of Treatment 8 weeks Plan of Care Start Date 01/07/19 Plan of Care End Date 03/04/19 Next Visit Focus/Plan Next Note Type Progress Note Next Visit Plan progress core stabilization & ROM.
--- NOTE | 2019-02-10 15:37 | PT.OTN ---
Current Diagnoses Other chronic pain (02/10/19) Lumbago with sciatica, right side (02/10/19) Lumbago with sciatica, left side (02/10/19) Physical Therapy Treatment Note PT-OP-A Visit Information Start: 01/08/19 12:51 Freq: Status: Active Protocol: Document 02/10/19 14:30 AMB (Rec: 02/10/19 14:57 AMB [id number]) Out-Patient Physical Therapy Visit Information Visit Information Visit Type Progress Note Visit Start Time 14:35 Visit Stop Time 15:28 Total Visit Minutes 53 Visit Number 10 Number of UNDER TRIMMER Visits 3 PT-OP-B Current Condition Start: 01/08/19 12:51 Freq: Status: Active Protocol: Document 01/07/19 10:00 AMH (Rec: 01/08/19 17:19 AMH [email or web address]) Current Condition History of Current Condition Onset Date August 2017 Current Complaints left sided sciatic symptoms History of Current Condition Zandra is a 73 year old female who underwent a L4-L5 laminectomy September 17 2017. She was experiencing bilateral pain down both of her legs prior to the surgery. 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 At this time she is experiencing pain that is intermittent and starts in her left posterior calf. It then moves up the back of her leg to her gluteal region. Standing increases her pain and she also wakes up at night with pain. Treatment Goals Patient/Caregiver Goals To reduce referred pain down the left leg PT-OP-C Subjective Start: 01/08/19 12:51 Freq: Status: Active Protocol: Document 02/10/19 14:30 AMB (Rec: 02/10/19 14:57 AMB [id number]) OP-PT Subjective Patient Comments Patient Comments Pt saw chiropractor yesterday, 10/01 today. PT-OP-F Manual Assessment Start: 01/08/19 12:51 Freq: Status: Active Protocol: Document 01/07/19 10:00 AMH (Rec: 01/08/19 17:19 AMH [email or web address]) Manual Assessments Soft Tissue Assessment Soft Tissue Mobility Assessment right sided myofascial tightness in the thoracolumbar fascia and visable scar tissue on the right side of the lumbar spine incision. 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 Decreased ability for joint play into thoracic extension PT-OP-J Posture/Palpation/Skin Start: 01/08/19 17:22 Freq: Status: Active Protocol: Document 01/07/19 10:00 AMH (Rec: 01/08/19 17:30 AMH [email or web address]) Posture Evaluation Position Standing L-Spine Posture Flattened Palpation Assessment Location One Palpation Location right side of the scar and thoracolumbar facia Palpation Findings Soft Tissue Tightness Spasm Muscle Guarding Tenderness PT-OP-K Range of Motion Start: 01/08/19 17:22 Freq: Status: Active Protocol: Document 01/07/19 10:00 AMH (Rec: 01/08/19 17:30 AMH [email or web address]) Lumbar Spine Range of Motion Lumbar Spine Active Flexion 60 Extension 5 Rotation Left 30 Rotation Right 30 Lateral Flexion Left 10 Lateral Flexion Right 15 ROM Limitations Soft Tissue Tightness Comments pain with any increase in extension PT-OP-M Strength Start: 01/08/19 12:51 Freq: Status: Active Protocol: Document 01/07/19 10:00 AMH (Rec: 01/08/19 17:19 AMH [email or web address]) Trunk Strength Trunk Manual Muscle Testing Flexion 3+ Fair+ Core Stabilization able to facilitate the transverse abdominals but difficulty sustaining a contraction for any LE movement Hip Strength Hip Manual Muscle Testing Left Flexion (L2) 3 Fair Extension (S1) 3 Fair Abduction 3 Fair External Rotation 3 Fair Right Flexion (L2) 4 Good Extension (S1) 3+ Fair+ Abduction 3 Fair External Rotation 3 Fair PT-OP-Q Treatments Start: 01/08/19 12:51 Freq: Status: Active Protocol: Document 02/10/19 15:28 AMB (Rec: 02/10/19 15:36 AMB [email or web address]) Therapeutic Exercises Supine Exercises TA activation Supine Exercise Name TA w marches Side bilateral Reps/Minutes 20 reps each side Comments added to HEP, small range TA in neutral spine Supine Exercise Name TA in neutral spine Reps/Minutes 10 x 5 sec holds 8 Supine Exercise Name TA with bent knee fall outs Side bilateral Reps/Minutes 20 each side Standing Exercises 3 Standing Exercise Name hip flexor stretch Side left Reps/Minutes 5 reps 2 Standing Exercise Name cat/camel Reps/Minutes 10 Comments against wall Manual Therapy Treatment Soft Tissue Mobilization L hip flexors Body Location L hip flexors & inguinal ligament Mobilization Type Myofascial Release Strumming Sustained Pressure Intensity/Depth Moderate 1 Body Location right and left QL, side of scar Mobilization Type Myofascial Release Rolling Intensity/Depth Moderate Comments Sustained pressure to decrease muscle tone in Manual Traction Lumbar Details Lumbar Body Position Hooklying Nerve Glides 1 Nerve SLR nerve glide Comments x 10 reps L PT-OP-R Modalities Start: 01/08/19 12:51 Freq: Status: Active Protocol: Document 02/10/19 14:30 AMB (Rec: 02/10/19 15:37 AMB [email or web address]) Hot Pack/Cold Pack Treatment Hot Pack Location L/S Patient Position Hooklying Treatment Duration (minutes) 15 PT-OP-T Assessment and Plan Start: 01/08/19 12:51 Freq: Status: Active Protocol: Document 02/10/19 15:28 AMB (Rec: 02/10/19 15:36 AMB [email or web address]) Physical Therapy Assessment Goals Four Impairment decreased strength of the core and hips Thermospray Operator Goal (LTG) Improve strength of the inner core and hips for improved stabilization of the spine and pelvis. The patient is independent with a established Home exercise program. 02/10: progress made LTG Duration 8 weeks Three Impairment myofascial tightness of the right thoracolumbar fascia, right side of scar Short Term Goal (STG) Zandra is able to lay in supine with her right arm above her head and gentle lumbar rotation to the left without c/p pain 02/10 Intermittently met STG Duration 4 weeks Thermospray Operator Goal (LTG) Reduce the scar tissue tightness and visable muscle guarding and myofascial tightness on the right side of the lumbar scar and myofasical tissue LTG Duration 8 weeks Two Impairment Decreased lumbar spine ROM into lumbar flexion, sidebend, rotation Shelter Goal (LTG) Zandra is able to improve her spinal ROM into lumbar flexion, sidebend, and rotation and is tolerating a stretching program for lumbar spine ROM LTG Duration 8 weeks One Impairment left sided posterior LE pain rated 5-6/10 worse with standing Short Term Goal (STG) Zandra is given postural modifications for standing to help decrease her pain to 2-3 or less and she is able to stand for 15-20 minutes without left LE radicular symptoms 02/10: pain of 5/10 can come on quickly (within 5 minutes in standing). STG Duration 4 weeks Shelter Goal (LTG) Zandra is able to stand for 30 minutes or more without increase in LE pain and is able to walk 1/2 mile without a increase in pain LTG Duration 8 weeks Assessment Summary Assessment Zandra came in with 5/10 pain today and left with 3/10, mostly in lower left leg. The difficulty is maintaining that pain relief, as she stated that she had a return of pain after last visit by the time she was walking out to her car. She is tolerating more movement, but static standing remains painful. Physical Therapy Plan Next Visit Focus/Plan Next Note Type Treatment Note Next Visit Plan progress core stabilization & ROM.
--- NOTE | 2019-02-12 11:41 | PT.OTN ---
Current Diagnoses Other chronic pain (02/12/19) Lumbago with sciatica, right side (02/12/19) Lumbago with sciatica, left side (02/12/19) Physical Therapy Treatment Note PT-OP-A Visit Information Start: 01/08/19 12:51 Freq: Status: Active Protocol: Document 02/12/19 10:34 SAK (Rec: 02/12/19 11:41 SAK [id number]) Out-Patient Physical Therapy Visit Information Visit Information Visit Type Treatment Note Visit Start Time 10:31 Visit Stop Time 11:26 Total Visit Minutes 55 Visit Number 11 Number of BUSINESS ANALYTICS DIRECTOR Visits 0 PT-OP-B Current Condition Start: 01/08/19 12:51 Freq: Status: Active Protocol: Document 01/07/19 10:00 AMH (Rec: 01/08/19 17:19 AMH [email or web address]) Current Condition History of Current Condition Onset Date August 2017 Current Complaints left sided sciatic symptoms History of Current Condition Zandra is a 73 year old female who underwent a L4-L5 laminectomy September 17 2017. She was experiencing bilateral pain down both of her legs prior to the surgery. 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 At this time she is experiencing pain that is intermittent and starts in her left posterior calf. It then moves up the back of her leg to her gluteal region. Standing increases her pain and she also wakes up at night with pain. Treatment Goals Patient/Caregiver Goals To reduce referred pain down the left leg PT-OP-C Subjective Start: 01/08/19 12:51 Freq: Status: Active Protocol: Document 02/12/19 10:34 SAK (Rec: 02/12/19 11:41 SAK [id number]) OP-PT Subjective Patient Comments Patient Comments Pain variable, increases with standing and walking. PT-OP-F Manual Assessment Start: 01/08/19 12:51 Freq: Status: Active Protocol: Document 01/07/19 10:00 AMH (Rec: 01/08/19 17:19 AMH [email or web address]) Manual Assessments Soft Tissue Assessment Soft Tissue Mobility Assessment right sided myofascial tightness in the thoracolumbar fascia and visable scar tissue on the right side of the lumbar spine incision. 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 Decreased ability for joint play into thoracic extension PT-OP-J Posture/Palpation/Skin Start: 01/08/19 17:22 Freq: Status: Active Protocol: Document 01/07/19 10:00 AMH (Rec: 01/08/19 17:30 AMH [email or web address]) Posture Evaluation Position Standing L-Spine Posture Flattened Palpation Assessment Location One Palpation Location right side of the scar and thoracolumbar facia Palpation Findings Soft Tissue Tightness Spasm Muscle Guarding Tenderness PT-OP-K Range of Motion Start: 01/08/19 17:22 Freq: Status: Active Protocol: Document 01/07/19 10:00 AMH (Rec: 01/08/19 17:30 AMH [email or web address]) Lumbar Spine Range of Motion Lumbar Spine Active Flexion 60 Extension 5 Rotation Left 30 Rotation Right 30 Lateral Flexion Left 10 Lateral Flexion Right 15 ROM Limitations Soft Tissue Tightness Comments pain with any increase in extension PT-OP-M Strength Start: 01/08/19 12:51 Freq: Status: Active Protocol: Document 01/07/19 10:00 AMH (Rec: 01/08/19 17:19 AMH [email or web address]) Trunk Strength Trunk Manual Muscle Testing Flexion 3+ Fair+ Core Stabilization able to facilitate the transverse abdominals but difficulty sustaining a contraction for any LE movement Hip Strength Hip Manual Muscle Testing Left Flexion (L2) 3 Fair Extension (S1) 3 Fair Abduction 3 Fair External Rotation 3 Fair Right Flexion (L2) 4 Good Extension (S1) 3+ Fair+ Abduction 3 Fair External Rotation 3 Fair PT-OP-Q Treatments Start: 01/08/19 12:51 Freq: Status: Active Protocol: Document 02/12/19 10:34 SAK (Rec: 02/12/19 11:41 SAK [id number]) Therapeutic Exercises Supine Exercises postural isometric Reps/Minutes 5x TA activation Supine Exercise Name TA w marches Side bilateral Reps/Minutes 20 reps each side Comments small range TA in neutral spine Supine Exercise Name TA in neutral spine Reps/Minutes 10 x 5 sec holds LE neural stretch Supine Exercise Name LE neural stretch Side left Reps/Minutes 3' Standing Exercises postural isometric Reps/Minutes 3x Comments painful into left LE, patient tense, difficulty with correction Therapeutic Activity Therapeutic Activity sleep posture Name sleep positioning Reps/Minutes 5 minutes Comments sidelying with use of pillow under head, not shoulders, towel under waist and belly, pillow(s) between legs entire length Manual Therapy Treatment Nerve Glides 1 Nerve SLR nerve glide Comments x 10 reps L Self-Care/Home Management Treatment Education Other Education bed positioning icluding towel under waist in sidelying neutral standing posture PT-OP-R Modalities Start: 01/08/19 12:51 Freq: Status: Active Protocol: Document 02/12/19 10:34 SAK (Rec: 02/12/19 11:41 SAK [id number]) Hot Pack/Cold Pack Treatment Hot Pack Location L/S Patient Position Hooklying Treatment Duration (minutes) 15 PT-OP-T Assessment and Plan Start: 01/08/19 12:51 Freq: Status: Active Protocol: Document 02/12/19 10:34 SAK (Rec: 02/12/19 11:41 [facility] [id number]) Physical Therapy Assessment Goals Four Impairment decreased strength of the core and hips Hub Lead Goal (LTG) Improve strength of the inner core and hips for improved stabilization of the spine and pelvis. The patient is independent with a established Home exercise program. 02/10: progress made LTG Duration 8 weeks Three Impairment myofascial tightness of the right thoracolumbar fascia, right side of scar Short Term Goal (STG) Zandra is able to lay in supine with her right arm above her head and gentle lumbar rotation to the left without c/p pain 02/10 Intermittently met STG Duration 4 weeks Prison Goal (LTG) Reduce the scar tissue tightness and visable muscle guarding and myofascial tightness on the right side of the lumbar scar and myofasical tissue LTG Duration 8 weeks Two Impairment Decreased lumbar spine ROM into lumbar flexion, sidebend, rotation Prison Goal (LTG) Zandra is able to improve her spinal ROM into lumbar flexion, sidebend, and rotation and is tolerating a stretching program for lumbar spine ROM LTG Duration 8 weeks One Impairment left sided posterior LE pain rated 5-6/10 worse with standing Short Term Goal (STG) Zandra is given postural modifications for standing to help decrease her pain to 2-3 or less and she is able to stand for 15-20 minutes without left LE radicular symptoms 02/10: pain of 5/10 can come on quickly (within 5 minutes in standing). STG Duration 4 weeks Hub Lead Goal (LTG) Zandra is able to stand for 30 minutes or more without increase in LE pain and is able to walk 1/2 mile without a increase in pain LTG Duration 8 weeks Assessment Summary Assessment Zandra is making some progress toward goals but her habitual posture and muscle activation patterns contribute to her pain with need for moderate cues for correction. Decreased pain after treatment . Physical Therapy Plan Frequency and Duration Frequency of Treatment 2x/Week Duration of Treatment 8 weeks Plan of Care Start Date 01/07/19 Plan of Care End Date 03/04/19 Next Visit Focus/Plan Next Note Type Treatment Note Next Visit Plan progress core stabilization & ROM, continue patient education especially standing postural alignment and automatic core engagement.
--- NOTE | 2019-02-20 17:00 | PT.OTN ---
Current Diagnoses Other chronic pain (02/20/19) Lumbago with sciatica, right side (02/20/19) Lumbago with sciatica, left side (02/20/19) Physical Therapy Treatment Note PT-OP-A Visit Information Start: 01/08/19 12:51 Freq: Status: Active Protocol: Document 02/20/19 11:15 AMB (Rec: 02/20/19 11:44 AMB [id number]) Out-Patient Physical Therapy Visit Information Visit Information Visit Type Treatment Note Visit Start Time 10:31 Visit Stop Time 11:26 Total Visit Minutes 55 Visit Number 12 Number of STUDENT RECORDS SPECIALIST Visits 0 PT-OP-B Current Condition Start: 01/08/19 12:51 Freq: Status: Active Protocol: Document 01/07/19 10:00 AMH (Rec: 01/08/19 17:19 AMH [email or web address]) Current Condition History of Current Condition Onset Date August 2017 Current Complaints left sided sciatic symptoms History of Current Condition Zandra is a 73 year old female who underwent a L4-L5 laminectomy September 17 2017. She was experiencing bilateral pain down both of her legs prior to the surgery. 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 At this time she is experiencing pain that is intermittent and starts in her left posterior calf. It then moves up the back of her leg to her gluteal region. Standing increases her pain and she also wakes up at night with pain. Treatment Goals Patient/Caregiver Goals To reduce referred pain down the left leg PT-OP-C Subjective Start: 01/08/19 12:51 Freq: Status: Active Protocol: Document 02/20/19 11:15 AMB (Rec: 02/20/19 11:44 AMB [id number]) OP-PT Subjective Patient Comments Patient Comments Pain worse today after not sleeping well. PT-OP-F Manual Assessment Start: 01/08/19 12:51 Freq: Status: Active Protocol: Document 01/07/19 10:00 AMH (Rec: 01/08/19 17:19 AMH [email or web address]) Manual Assessments Soft Tissue Assessment Soft Tissue Mobility Assessment right sided myofascial tightness in the thoracolumbar fascia and visable scar tissue on the right side of the lumbar spine incision. 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 Decreased ability for joint play into thoracic extension PT-OP-J Posture/Palpation/Skin Start: 01/08/19 17:22 Freq: Status: Active Protocol: Document 01/07/19 10:00 AMH (Rec: 01/08/19 17:30 AMH [email or web address]) Posture Evaluation Position Standing L-Spine Posture Flattened Palpation Assessment Location One Palpation Location right side of the scar and thoracolumbar facia Palpation Findings Soft Tissue Tightness,Spasm, Muscle Guarding,Tenderness PT-OP-K Range of Motion Start: 01/08/19 17:22 Freq: Status: Active Protocol: Document 01/07/19 10:00 AMH (Rec: 01/08/19 17:30 AMH [email or web address]) Lumbar Spine Range of Motion Lumbar Spine Active Flexion 60 Extension 5 Rotation Left 30 Rotation Right 30 Lateral Flexion Left 10 Lateral Flexion Right 15 ROM Limitations Soft Tissue Tightness Comments pain with any increase in extension PT-OP-M Strength Start: 01/08/19 12:51 Freq: Status: Active Protocol: Document 01/07/19 10:00 AMH (Rec: 01/08/19 17:19 AMH [email or web address]) Trunk Strength Trunk Manual Muscle Testing Flexion 3+ Fair+ Core Stabilization able to facilitate the transverse abdominals but difficulty sustaining a contraction for any LE movement Hip Strength Hip Manual Muscle Testing Left Flexion (L2) 3 Fair Extension (S1) 3 Fair Abduction 3 Fair External Rotation 3 Fair Right Flexion (L2) 4 Good Extension (S1) 3+ Fair+ Abduction 3 Fair External Rotation 3 Fair PT-OP-Q Treatments Start: 01/08/19 12:51 Freq: Status: Active Protocol: Document 02/20/19 11:15 AMB (Rec: 02/20/19 11:44 AMB [id number]) Therapeutic Exercises Supine Exercises TA activation Supine Exercise Name TA w marches Side bilateral Reps/Minutes 20 reps each side Comments small range TA in neutral spine Supine Exercise Name TA in neutral spine Reps/Minutes 10 x 5 sec holds LE neural stretch Supine Exercise Name LE neural stretch Side left Reps/Minutes 3' 8 Supine Exercise Name TA with bent knee fall outs Side bilateral Reps/Minutes 20 each side 7 Supine Exercise Name piriformis stretch Reps/Minutes 20x2 6 Supine Exercise Name TA with SLR Reps/Minutes 10 Comments difficult 4 Supine Exercise Name lower trunk rotation Reps/Minutes 30x3 5 Supine Exercise Name TA with pelvic tilt/ mini bridge Reps/Minutes 2x10 Standing Exercises 3 Standing Exercise Name hip flexor stretch Side left Reps/Minutes 5 reps Manual Therapy Treatment Nerve Glides 1 Nerve SLR nerve glide Comments x 10 reps L PT-OP-R Modalities Start: 01/08/19 12:51 Freq: Status: Active Protocol: Document 02/20/19 11:15 AMB (Rec: 02/21/19 10:11 AMB [email or web address]) Hot Pack/Cold Pack Treatment Hot Pack Location L/S Patient Position Hooklying Treatment Duration (minutes) 15 PT-OP-T Assessment and Plan Start: 01/08/19 12:51 Freq: Status: Active Protocol: Document 02/20/19 11:15 AMB (Rec: 02/21/19 10:11 AMB [email or web address]) Physical Therapy Assessment Assessment Summary Assessment Zandra is making progress with consciously engaging core , but it fades when she is distracted. Physical Therapy Plan Next Visit Focus/Plan Next Note Type Treatment Note Next Visit Plan progress core stabilization & ROM, continue patient education especially standing postural alignment and automatic core engagement.
--- NOTE | 2019-02-26 17:09 | PT.OTN ---
Current Diagnoses Other chronic pain (02/25/19) Lumbago with sciatica, right side (02/25/19) Lumbago with sciatica, left side (02/25/19) Physical Therapy Treatment Note PT-OP-A Visit Information Start: 01/08/19 12:51 Freq: Status: Active Protocol: Document 02/25/19 13:00 AMH (Rec: 02/26/19 17:08 AMH [email or web address]) Out-Patient Physical Therapy Visit Information Visit Information Visit Type Treatment Note Visit Start Time 13:00 Visit Stop Time 13:45 Total Visit Minutes 45 Visit Number 13 Number of L[employer] Visits 0 PT-OP-B Current Condition Start: 01/08/19 12:51 Freq: Status: Active Protocol: Document 01/07/19 10:00 AMH (Rec: 01/08/19 17:19 AMH [email or web address]) Current Condition History of Current Condition Onset Date August 2017 Current Complaints left sided sciatic symptoms History of Current Condition Zandra is a 73 year old female who underwent a L4-L5 laminectomy September 17 2017. She was experiencing bilateral pain down both of her legs prior to the surgery. 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 At this time she is experiencing pain that is intermittent and starts in her left posterior calf. It then moves up the back of her leg to her gluteal region. Standing increases her pain and she also wakes up at night with pain. Treatment Goals Patient/Caregiver Goals To reduce referred pain down the left leg PT-OP-C Subjective Start: 01/08/19 12:51 Freq: Status: Active Protocol: Document 02/25/19 13:00 AMH (Rec: 02/26/19 17:08 AMH [email or web address]) OP-PT Subjective Patient Comments Patient Comments pt notes she is still aware of her left leg but doesn't report pain in the right PT-OP-F Manual Assessment Start: 01/08/19 12:51 Freq: Status: Active Protocol: Document 01/07/19 10:00 AMH (Rec: 01/08/19 17:19 AMH [email or web address]) Manual Assessments Soft Tissue Assessment Soft Tissue Mobility Assessment right sided myofascial tightness in the thoracolumbar fascia and visable scar tissue on the right side of the lumbar spine incision. 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 Decreased ability for joint play into thoracic extension PT-OP-J Posture/Palpation/Skin Start: 01/08/19 17:22 Freq: Status: Active Protocol: Document 01/07/19 10:00 AMH (Rec: 01/08/19 17:30 AMH [email or web address]) Posture Evaluation Position Standing L-Spine Posture Flattened Palpation Assessment Location One Palpation Location right side of the scar and thoracolumbar facia Palpation Findings Soft Tissue Tightness,Spasm, Muscle Guarding,Tenderness PT-OP-K Range of Motion Start: 01/08/19 17:22 Freq: Status: Active Protocol: Document 01/07/19 10:00 AMH (Rec: 01/08/19 17:30 AMH [email or web address]) Lumbar Spine Range of Motion Lumbar Spine Active Flexion 60 Extension 5 Rotation Left 30 Rotation Right 30 Lateral Flexion Left 10 Lateral Flexion Right 15 ROM Limitations Soft Tissue Tightness Comments pain with any increase in extension PT-OP-M Strength Start: 01/08/19 12:51 Freq: Status: Active Protocol: Document 01/07/19 10:00 AMH (Rec: 01/08/19 17:19 AMH [email or web address]) Trunk Strength Trunk Manual Muscle Testing Flexion 3+ Fair+ Core Stabilization able to facilitate the transverse abdominals but difficulty sustaining a contraction for any LE movement Hip Strength Hip Manual Muscle Testing Left Flexion (L2) 3 Fair Extension (S1) 3 Fair Abduction 3 Fair External Rotation 3 Fair Right Flexion (L2) 4 Good Extension (S1) 3+ Fair+ Abduction 3 Fair External Rotation 3 Fair PT-OP-Q Treatments Start: 01/08/19 12:51 Freq: Status: Active Protocol: Document 02/25/19 13:00 AMH (Rec: 02/26/19 17:08 AMH [email or web address]) Cardio Equipment Recumbent Elliptical ([email or web address]) Duration (Minutes) 7 Resistance 3 Therapeutic Exercises Supine Exercises TA activation Supine Exercise Name TA w marches Side bilateral Reps/Minutes 20 reps each side Comments small range 8 Supine Exercise Name TA with bent knee fall outs Side bilateral Reps/Minutes 20 each side 7 Supine Exercise Name piriformis stretch Reps/Minutes 20x2 6 Supine Exercise Name TA with SLR Reps/Minutes 10 Comments difficult 4 Supine Exercise Name lower trunk rotation Reps/Minutes 30x3 5 Supine Exercise Name TA with pelvic tilt/ mini bridge Reps/Minutes 2x10 1 Supine Exercise Name hamstring stretch Reps/Minutes 2 x 30 seconds Standing Exercises 3 Standing Exercise Name hip flexor stretch Side left Reps/Minutes 5 reps 1 Standing Exercise Name standing stretch on the ANTONIO Other Exercises 2 Other Exercise Name single knee to chest stretch Reps/Minutes 2 x 30 seconds Manual Therapy Treatment Soft Tissue Mobilization 1 Body Location lumbar paraspinals Body Position Prone PT-OP-R Modalities Start: 01/08/19 12:51 Freq: Status: Active Protocol: Document 02/20/19 11:15 AMB (Rec: 02/21/19 10:11 AMB [email or web address]) Hot Pack/Cold Pack Treatment Hot Pack Location L/S Patient Position Hooklying Treatment Duration (minutes) 15 PT-OP-T Assessment and Plan Start: 01/08/19 12:51 Freq: Status: Active Protocol: Document 02/25/19 13:00 AMH (Rec: 02/26/19 17:08 AMH [email or web address]) Physical Therapy Assessment Assessment Summary Assessment needs cues for stabilization exercises, she is tolerating all exercises well without increase in pain Physical Therapy Plan Frequency and Duration Frequency of Treatment 2x/Week Duration of Treatment 8 weeks Plan of Care Start Date 01/07/19 Plan of Care End Date 03/04/19 Next Visit Focus/Plan Next Note Type Treatment Note Next Visit Plan progress core stabilization & ROM, continue patient education especially standing postural alignment and automatic core engagement.
--- NOTE | 2019-02-27 16:46 | PT.OTN ---
Current Diagnoses Other chronic pain (02/27/19) Lumbago with sciatica, right side (02/27/19) Lumbago with sciatica, left side (02/27/19) Physical Therapy Treatment Note PT-OP-A Visit Information Start: 01/08/19 12:51 Freq: Status: Active Protocol: Document 02/27/19 15:20 HH (Rec: 02/27/19 16:46 [email or web address]) Out-Patient Physical Therapy Visit Information Visit Information Visit Type Treatment Note Visit Start Time 15:20 Visit Stop Time 16:02 Total Visit Minutes 42 Visit Number 14 Number of MARBLE RUBBER Visits 0 PT-OP-B Current Condition Start: 01/08/19 12:51 Freq: Status: Active Protocol: Document 01/07/19 10:00 AMH (Rec: 01/08/19 17:19 AMH [email or web address]) Current Condition History of Current Condition Onset Date August 2017 Current Complaints left sided sciatic symptoms History of Current Condition Zandra is a 73 year old female who underwent a L4-L5 laminectomy September 17 2017. She was experiencing bilateral pain down both of her legs prior to the surgery. 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 At this time she is experiencing pain that is intermittent and starts in her left posterior calf. It then moves up the back of her leg to her gluteal region. Standing increases her pain and she also wakes up at night with pain. Treatment Goals Patient/Caregiver Goals To reduce referred pain down the left leg PT-OP-C Subjective Start: 01/08/19 12:51 Freq: Status: Active Protocol: Document 02/27/19 15:20 HH (Rec: 02/27/19 16:46 HH [email or web address]) OP-PT Subjective Patient Comments Patient Comments My left leg is quite painful today and dont know why. PT-OP-F Manual Assessment Start: 01/08/19 12:51 Freq: Status: Active Protocol: Document 01/07/19 10:00 AMH (Rec: 01/08/19 17:19 AMH [email or web address]) Manual Assessments Soft Tissue Assessment Soft Tissue Mobility Assessment right sided myofascial tightness in the thoracolumbar fascia and visable scar tissue on the right side of the lumbar spine incision. 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 Decreased ability for joint play into thoracic extension PT-OP-J Posture/Palpation/Skin Start: 01/08/19 17:22 Freq: Status: Active Protocol: Document 01/07/19 10:00 AMH (Rec: 01/08/19 17:30 AMH [email or web address]) Posture Evaluation Position Standing L-Spine Posture Flattened Palpation Assessment Location One Palpation Location right side of the scar and thoracolumbar facia Palpation Findings Soft Tissue Tightness,Spasm, Muscle Guarding,Tenderness PT-OP-K Range of Motion Start: 01/08/19 17:22 Freq: Status: Active Protocol: Document 01/07/19 10:00 AMH (Rec: 01/08/19 17:30 AMH [email or web address]) Lumbar Spine Range of Motion Lumbar Spine Active Flexion 60 Extension 5 Rotation Left 30 Rotation Right 30 Lateral Flexion Left 10 Lateral Flexion Right 15 ROM Limitations Soft Tissue Tightness Comments pain with any increase in extension PT-OP-M Strength Start: 01/08/19 12:51 Freq: Status: Active Protocol: Document 01/07/19 10:00 AMH (Rec: 01/08/19 17:19 AMH [email or web address]) Trunk Strength Trunk Manual Muscle Testing Flexion 3+ Fair+ Core Stabilization able to facilitate the transverse abdominals but difficulty sustaining a contraction for any LE movement Hip Strength Hip Manual Muscle Testing Left Flexion (L2) 3 Fair Extension (S1) 3 Fair Abduction 3 Fair External Rotation 3 Fair Right Flexion (L2) 4 Good Extension (S1) 3+ Fair+ Abduction 3 Fair External Rotation 3 Fair PT-OP-Q Treatments Start: 01/08/19 12:51 Freq: Status: Active Protocol: Document 02/27/19 15:20 HH (Rec: 02/27/19 16:46 HH [email or web address]) Therapeutic Exercises Supine Exercises TA activation Supine Exercise Name TA w marches Side bilateral Reps/Minutes 20 reps each side Comments small range TA in neutral spine Supine Exercise Name TA in neutral spine Reps/Minutes 10 x 5 sec holds 7 Supine Exercise Name piriformis stretch Reps/Minutes 20x2 6 Supine Exercise Name TA with SLR Reps/Minutes 10 Comments difficult 5 Supine Exercise Name TA with pelvic tilt/ mini bridge Reps/Minutes 2x10 1 Supine Exercise Name hamstring stretch Reps/Minutes 2 x 30 seconds Comments with ankle DF Manual Therapy Treatment Soft Tissue Mobilization 1 Body Location lumbar paraspinals Body Position Prone Joint Mobilizations SL SIJ Joint distraction Grade II Body Position Sidelying Reps/Duration 10 secs x 5 1 Joint L hip distraction Grade II Body Position Supine Reps/Duration 10 secs x10 PT-OP-R Modalities Start: 01/08/19 12:51 Freq: Status: Active Protocol: Document 02/20/19 11:15 AMB (Rec: 02/21/19 10:11 AMB [email or web address]) Hot Pack/Cold Pack Treatment Hot Pack Location L/S Patient Position Hooklying Treatment Duration (minutes) 15 PT-OP-T Assessment and Plan Start: 01/08/19 12:51 Freq: Status: Active Protocol: Document 02/27/19 15:20 HH (Rec: 02/27/19 16:46 HH [email or web address]) Physical Therapy Assessment Assessment Summary Assessment Pt has increased pain today. She reports relieved with hip and SIJ distraction. Pt cont to have poor abd stability and strength that causes her pain during SLR on LLE. Physical Therapy Plan Next Visit Focus/Plan Next Note Type Treatment Note Next Visit Plan progress core stabilization & ROM, continue patient education especially standing postural alignment and automatic core engagement.
--- NOTE | 2019-03-03 17:08 | PT.OTN ---
Current Diagnoses Other chronic pain (03/03/19) Lumbago with sciatica, right side (03/03/19) Lumbago with sciatica, left side (03/03/19) Physical Therapy Treatment Note PT-OP-A Visit Information Start: 01/08/19 12:51 Freq: Status: Active Protocol: Document 03/03/19 13:48 AMH (Rec: 03/03/19 13:50 AMH [email or web address]) Out-Patient Physical Therapy Visit Information Visit Information Visit Type Progress Note Visit Start Time 13:00 Visit Stop Time 13:45 Total Visit Minutes 45 Visit Number 15 Number of METEOROLOGICAL ENGINEER Visits 0 PT-OP-B Current Condition Start: 01/08/19 12:51 Freq: Status: Active Protocol: Document 01/07/19 10:00 AMH (Rec: 01/08/19 17:19 AMH [email or web address]) Current Condition History of Current Condition Onset Date August 2017 Current Complaints left sided sciatic symptoms History of Current Condition Zandra is a 73 year old female who underwent a L4-L5 laminectomy September 17 2017. She was experiencing bilateral pain down both of her legs prior to the surgery. 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 At this time she is experiencing pain that is intermittent and starts in her left posterior calf. It then moves up the back of her leg to her gluteal region. Standing increases her pain and she also wakes up at night with pain. Treatment Goals Patient/Caregiver Goals To reduce referred pain down the left leg PT-OP-C Subjective Start: 01/08/19 12:51 Freq: Status: Active Protocol: Document 03/03/19 13:48 AMH (Rec: 03/03/19 13:50 AMH [email or web address]) OP-PT Subjective Patient Comments Patient Comments pt reports she has been taking CBD oil and this has been helping PT-OP-F Manual Assessment Start: 01/08/19 12:51 Freq: Status: Active Protocol: Document 01/07/19 10:00 AMH (Rec: 01/08/19 17:19 AMH [email or web address]) Manual Assessments Soft Tissue Assessment Soft Tissue Mobility Assessment right sided myofascial tightness in the thoracolumbar fascia and visable scar tissue on the right side of the lumbar spine incision. 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 Decreased ability for joint play into thoracic extension PT-OP-J Posture/Palpation/Skin Start: 01/08/19 17:22 Freq: Status: Active Protocol: Document 01/07/19 10:00 AMH (Rec: 01/08/19 17:30 AMH [email or web address]) Posture Evaluation Position Standing L-Spine Posture Flattened Palpation Assessment Location One Palpation Location right side of the scar and thoracolumbar facia Palpation Findings Soft Tissue Tightness,Spasm, Muscle Guarding,Tenderness PT-OP-K Range of Motion Start: 01/08/19 17:22 Freq: Status: Active Protocol: Document 01/07/19 10:00 AMH (Rec: 01/08/19 17:30 AMH [email or web address]) Lumbar Spine Range of Motion Lumbar Spine Active Flexion 60 Extension 5 Rotation Left 30 Rotation Right 30 Lateral Flexion Left 10 Lateral Flexion Right 15 ROM Limitations Soft Tissue Tightness Comments pain with any increase in extension PT-OP-M Strength Start: 01/08/19 12:51 Freq: Status: Active Protocol: Document 01/07/19 10:00 AMH (Rec: 01/08/19 17:19 AMH [email or web address]) Trunk Strength Trunk Manual Muscle Testing Flexion 3+ Fair+ Core Stabilization able to facilitate the transverse abdominals but difficulty sustaining a contraction for any LE movement Hip Strength Hip Manual Muscle Testing Left Flexion (L2) 3 Fair Extension (S1) 3 Fair Abduction 3 Fair External Rotation 3 Fair Right Flexion (L2) 4 Good Extension (S1) 3+ Fair+ Abduction 3 Fair External Rotation 3 Fair PT-OP-Q Treatments Start: 01/08/19 12:51 Freq: Status: Active Protocol: Document 03/03/19 13:48 AMH (Rec: 03/03/19 13:50 AMH [email or web address]) Cardio Equipment Recumbent Elliptical ([employer]) Duration (Minutes) 7 Resistance 3 Therapeutic Exercises Supine Exercises TA activation Supine Exercise Name TA w marches Side bilateral Reps/Minutes 20 reps each side Comments small range 7 Supine Exercise Name piriformis stretch Reps/Minutes 20x2 6 Supine Exercise Name TA with SLR Reps/Minutes 10 Comments difficult 4 Supine Exercise Name lower trunk rotation Reps/Minutes 30x3 5 Supine Exercise Name TA with pelvic tilt/ mini bridge Reps/Minutes 2x10 1 Supine Exercise Name hamstring stretch Reps/Minutes 2 x 30 seconds Comments with ankle DF Prone Exercises Cat/Camel Prone Exercise Name cat cow Reps/Minutes x 10 reps PT-OP-R Modalities Start: 01/08/19 12:51 Freq: Status: Active Protocol: Document 02/20/19 11:15 AMB (Rec: 02/21/19 10:11 AMB [email or web address]) Hot Pack/Cold Pack Treatment Hot Pack Location L/S Patient Position Hooklying Treatment Duration (minutes) 15 PT-OP-T Assessment and Plan Start: 01/08/19 12:51 Freq: Status: Active Protocol: Document 03/03/19 13:48 AMH (Rec: 03/03/19 17:03 AMH [email or web address]) Physical Therapy Assessment Goals Four Impairment decreased strength of the core and hips Senior Care Goal (LTG) Improve strength of the inner core and hips for improved stabilization of the spine and pelvis. The patient is independent with a established Home exercise program. GOOD progress made LTG Duration 8 weeks Three Impairment myofascial tightness of the right thoracolumbar fascia, right side of scar Short Term Goal (STG) Zandra is able to lay in supine with her right arm above her head and gentle lumbar rotation to the left without c/p pain 03/03/19 Intermittently met STG Duration 4 weeks Material Carrier Goal (LTG) Reduce the scar tissue tightness and visable muscle guarding and myofascial tightness on the right side of the lumbar scar and myofasical tissue LTG Duration 8 weeks Two Impairment Decreased lumbar spine ROM into lumbar flexion, sidebend, rotation Senior Care Goal (LTG) Zandra is able to improve her spinal ROM into lumbar flexion, sidebend, and rotation and is tolerating a stretching program for lumbar spine ROM GOOD PROGRESS LTG Duration 8 weeks One Impairment left sided posterior LE pain rated 5-6/10 worse with standing Short Term Goal (STG) Zandra is given postural modifications for standing to help decrease her pain to 2-3 or less and she is able to stand for 15-20 minutes without left LE radicular symptoms 02/10: pain of 5/10 can come on quickly (within 5 minutes in standing). STG Duration 4 weeks Material Carrier Goal (LTG) Zandra is able to stand for 30 minutes or more without increase in LE pain and is able to walk 1/2 mile without a increase in pain LTG Duration 8 weeks Progress Towards Goals Progress Towards Goals Progressing Toward Goals Assessment Summary Assessment Vilma reports good tolerance today for all exercises. She is still experiencing the LE pain but notes it is not as severe today. She is still limited in her hamstring and piriformis length. She is progressing towards her goals and would benefit from continued PT Physical Therapy Plan Frequency and Duration Frequency of Treatment 2x/Week Duration of Treatment 8 weeks Plan of Care Start Date 03/03/19 Plan of Care End Date 04/22/19 Therapeutic Interventions Therapeutic Interventions Home Exercise Program,Manual Therapy,Neuromuscular Re- education,Patient/Caregiver Education,Self-Care/Home Management,Soft Tissue Mobilization,Therapeutic Exercises Modalities Electric Stimulation Next Visit Focus/Plan Next Note Type Treatment Note Next Visit Plan progress core stabilization & ROM, continue patient education especially standing postural alignment and automatic core engagement.
--- NOTE | 2019-03-05 10:47 | PT.OTN ---
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 She was experiencing bilateral pain down both of her legs prior to the surgery. 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 At this time she is experiencing pain that is intermittent and starts in her left posterior calf. It then moves up the back of her leg to her gluteal region. Standing increases her pain and she also wakes up at night with pain. Treatment Goals Patient/Caregiver Goals To reduce referred pain down the left leg PT-OP-C Subjective Start: 01/08/19 12:51 Freq: Status: Active Protocol: Document 03/05/19 09:46 AMH (Rec: 03/05/19 09:47 AMH [email or web address]) OP-PT Subjective Patient Comments Patient Comments pt reports she is doing better and has been taking CBD oil PT-OP-F Manual Assessment Start: 01/08/19 12:51 Freq: Status: Active Protocol: Document 01/07/19 10:00 AMH (Rec: 01/08/19 17:19 AMH [email or web address]) Manual Assessments Soft Tissue Assessment Soft Tissue Mobility Assessment right sided myofascial tightness in the thoracolumbar fascia and visable scar tissue on the right side of the lumbar spine incision. 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 Decreased ability for joint play into thoracic extension PT-OP-J Posture/Palpation/Skin Start: 01/08/19 17:22 Freq: Status: Active Protocol: Document 01/07/19 10:00 AMH (Rec: 01/08/19 17:30 AMH [email or web address]) Posture Evaluation Position Standing L-Spine Posture Flattened Palpation Assessment Location One Palpation Location right side of the scar and thoracolumbar facia Palpation Findings Soft Tissue Tightness,Spasm, Muscle Guarding,Tenderness PT-OP-K Range of Motion Start: 01/08/19 17:22 Freq: Status: Active Protocol: Document 01/07/19 10:00 AMH (Rec: 01/08/19 17:30 AMH [email or web address]) Lumbar Spine Range of Motion Lumbar Spine Active Flexion 60 Extension 5 Rotation Left 30 Rotation Right 30 Lateral Flexion Left 10 Lateral Flexion Right 15 ROM Limitations Soft Tissue Tightness Comments pain with any increase in extension PT-OP-M Strength Start: 01/08/19 12:51 Freq: Status: Active Protocol: Document 01/07/19 10:00 AMH (Rec: 01/08/19 17:19 AMH [email or web address]) Trunk Strength Trunk Manual Muscle Testing Flexion 3+ Fair+ Core Stabilization able to facilitate the transverse abdominals but difficulty sustaining a contraction for any LE movement Hip Strength Hip Manual Muscle Testing Left Flexion (L2) 3 Fair Extension (S1) 3 Fair Abduction 3 Fair External Rotation 3 Fair Right Flexion (L2) 4 Good Extension (S1) 3+ Fair+ Abduction 3 Fair External Rotation 3 Fair PT-OP-Q Treatments Start: 01/08/19 12:51 Freq: Status: Active Protocol: Document 03/05/19 10:44 AMH (Rec: 03/05/19 10:46 AMH [email or web address]) Gym Equipment Cable Column (Body Solid) Hip Abduction Details 20 # 3x 10 reps Shuttle Rebound 2 Exercise Details piriformis stretch on the shuttle 1 Exercise Details shuttle leg press Reps/Duration 50 # 3 x 10 reps Therapeutic Exercises Supine Exercises postural isometric Reps/Minutes 5x TA activation Supine Exercise Name TA w marches Side bilateral Reps/Minutes 20 reps each side Comments small range TA in neutral spine Supine Exercise Name TA in neutral spine Reps/Minutes 10 x 5 sec holds Lumbar ext Supine Exercise Name Isometric Lumbar ext Side bilateral Reps/Minutes 10 x 5 sec holds LE neural stretch Supine Exercise Name LE neural stretch Side left Reps/Minutes 3' 8 Supine Exercise Name TA with bent knee fall outs Side bilateral Reps/Minutes 20 each side 7 Supine Exercise Name piriformis stretch Reps/Minutes 20x2 6 Supine Exercise Name TA with SLR Reps/Minutes 10 Comments difficult 4 Supine Exercise Name lower trunk rotation Reps/Minutes 30x3 5 Supine Exercise Name TA with pelvic tilt/ mini bridge Reps/Minutes 2x10 1 Supine Exercise Name hamstring stretch Reps/Minutes 2 x 30 seconds Comments with ankle DF Prone Exercises Cat/Camel Prone Exercise Name cat cow Reps/Minutes x 10 reps Press ups Prone Exercise Name Prone press ups Side bilateral Reps/Minutes 5' Comments Extra time taken for training Sitting Exercises 1 Sitting Exercise Name seated pelvic tilts Reps/Minutes 5 reps Comments pt unable to isolate pelvic movement, compensated with L/S .exercise stopped Standing Exercises postural isometric Reps/Minutes 3x Comments painful into left LE, patient tense, difficulty with correction 3 Standing Exercise Name hip flexor stretch Side left Reps/Minutes 5 reps 2 Standing Exercise Name cat/camel Reps/Minutes 10 Comments against wall 1 Standing Exercise Name standing stretch on the ANTONIO Other Exercises 2 Other Exercise Name single knee to chest stretch Reps/Minutes 2 x 30 seconds PT-OP-R Modalities Start: 01/08/19 12:51 Freq: Status: Active Protocol: Document 02/20/19 11:15 AMB (Rec: 02/21/19 10:11 AMB [email or web address]) Hot Pack/Cold Pack Treatment Hot Pack Location L/S Patient Position Hooklying Treatment Duration (minutes) 15 PT-OP-T Assessment and Plan Start: 01/08/19 12:51 Freq: Status: Active Protocol: Document 03/05/19 10:44 AMH (Rec: 03/05/19 10:46 AMH [email or web address]) Physical Therapy Assessment Assessment Summary Assessment good tolerance for exercises today, pt notes she is taking CBD oil to help her. Physical Therapy Plan Frequency and Duration Frequency of Treatment 2x/Week Duration of Treatment 8 weeks Plan of Care Start Date 03/04/19 Plan of Care End Date 04/22/19 Therapeutic Interventions Therapeutic Interventions Home Exercise Program,Manual Therapy,Neuromuscular Re- education,Patient/Caregiver Education,Self-Care/Home Management,Soft Tissue Mobilization,Therapeutic Exercises Next Visit Focus/Plan Next Note Type Treatment Note Next Visit Plan progress core stabilization & ROM, continue patient education especially standing postural alignment and automatic core engagement.
--- NOTE | 2019-03-11 09:33 | PT.OTN ---
Current Diagnoses Other chronic pain (03/10/19) Lumbago with sciatica, right side (03/10/19) Lumbago with sciatica, left side (03/10/19) Physical Therapy Treatment Note PT-OP-A Visit Information Start: 01/08/19 12:51 Freq: Status: Active Protocol: Document 03/10/19 13:45 AMH (Rec: 03/11/19 09:33 AMH [email or web address]) Out-Patient Physical Therapy Visit Information Visit Information Visit Type Treatment Note Visit Start Time 13:45 Visit Stop Time 14:30 Total Visit Minutes 45 Visit Number 16 PT-OP-B Current Condition Start: 01/08/19 12:51 Freq: Status: Active Protocol: Document 01/07/19 10:00 AMH (Rec: 01/08/19 17:19 AMH [email or web address]) Current Condition History of Current Condition Onset Date August 2017 Current Complaints left sided sciatic symptoms History of Current Condition Zandra is a 73 year old female who underwent a L4-L5 laminectomy September 17 2017. She was experiencing bilateral pain down both of her legs prior to the surgery. 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 At this time she is experiencing pain that is intermittent and starts in her left posterior calf. It then moves up the back of her leg to her gluteal region. Standing increases her pain and she also wakes up at night with pain. Treatment Goals Patient/Caregiver Goals To reduce referred pain down the left leg PT-OP-C Subjective Start: 01/08/19 12:51 Freq: Status: Active Protocol: Document 03/10/19 13:45 AMH (Rec: 03/11/19 09:33 AMH [email or web address]) OP-PT Subjective Patient Comments Patient Comments pt reports this is her last day of land base PT and she starts aquatic PT next week. She is still experiencing left leg irritation and discomfort PT-OP-F Manual Assessment Start: 01/08/19 12:51 Freq: Status: Active Protocol: Document 01/07/19 10:00 AMH (Rec: 01/08/19 17:19 AMH [email or web address]) Manual Assessments Soft Tissue Assessment Soft Tissue Mobility Assessment right sided myofascial tightness in the thoracolumbar fascia and visable scar tissue on the right side of the lumbar spine incision. 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 Decreased ability for joint play into thoracic extension PT-OP-J Posture/Palpation/Skin Start: 01/08/19 17:22 Freq: Status: Active Protocol: Document 01/07/19 10:00 AMH (Rec: 01/08/19 17:30 AMH [email or web address]) Posture Evaluation Position Standing L-Spine Posture Flattened Palpation Assessment Location One Palpation Location right side of the scar and thoracolumbar facia Palpation Findings Soft Tissue Tightness,Spasm, Muscle Guarding,Tenderness PT-OP-K Range of Motion Start: 01/08/19 17:22 Freq: Status: Active Protocol: Document 01/07/19 10:00 AMH (Rec: 01/08/19 17:30 AMH [email or web address]) Lumbar Spine Range of Motion Lumbar Spine Active Flexion 60 Extension 5 Rotation Left 30 Rotation Right 30 Lateral Flexion Left 10 Lateral Flexion Right 15 ROM Limitations Soft Tissue Tightness Comments pain with any increase in extension PT-OP-M Strength Start: 01/08/19 12:51 Freq: Status: Active Protocol: Document 01/07/19 10:00 AMH (Rec: 01/08/19 17:19 AMH [email or web address]) Trunk Strength Trunk Manual Muscle Testing Flexion 3+ Fair+ Core Stabilization able to facilitate the transverse abdominals but difficulty sustaining a contraction for any LE movement Hip Strength Hip Manual Muscle Testing Left Flexion (L2) 3 Fair Extension (S1) 3 Fair Abduction 3 Fair External Rotation 3 Fair Right Flexion (L2) 4 Good Extension (S1) 3+ Fair+ Abduction 3 Fair External Rotation 3 Fair PT-OP-Q Treatments Start: 01/08/19 12:51 Freq: Status: Active Protocol: Document 03/10/19 13:45 AMH (Rec: 03/11/19 09:33 AMH [email or web address]) Cardio Equipment Recumbent Elliptical ([employer]) Duration (Minutes) 5 Gym Equipment Cable Column (Body Solid) Hip Abduction Details 20 # 3x 10 reps Shuttle Rebound 3 Exercise Details single leg squats Reps/Duration 2 x 10 reps 25# 2 Exercise Details piriformis stretch on the shuttle 1 Exercise Details shuttle leg press Reps/Duration 50 # 3 x 10 reps Therapeutic Exercises Supine Exercises TA activation Supine Exercise Name TA w marches Side bilateral Reps/Minutes 20 reps each side Comments small range 1 Supine Exercise Name hamstring stretch Reps/Minutes 2 x 30 seconds Comments with ankle DF Manual Therapy Treatment Soft Tissue Mobilization 1 Body Location lumbar paraspinals Body Position Prone PT-OP-R Modalities Start: 01/08/19 12:51 Freq: Status: Active Protocol: Document 02/20/19 11:15 AMB (Rec: 02/21/19 10:11 AMB [email or web address]) Hot Pack/Cold Pack Treatment Hot Pack Location L/S Patient Position Hooklying Treatment Duration (minutes) 15 PT-OP-T Assessment and Plan Start: 01/08/19 12:51 Freq: Status: Active Protocol: Document 03/10/19 13:45 AMH (Rec: 03/11/19 09:33 AMH [email or web address]) Physical Therapy Assessment Assessment Summary Assessment Zandra knows all her exercises for home. She will be transitioned at this time to the pool. I feel this may be a really good fit for her to decompress her spine. Physical Therapy Plan Next Visit Focus/Plan Next Note Type Treatment Note Next Visit Plan Pool therapy next visit, the patient is finished with her land based PT visits.
--- NOTE | 2019-03-12 12:44 | PT.OTN ---
Current Diagnoses Other chronic pain (03/12/19) Lumbago with sciatica, right side (03/12/19) Lumbago with sciatica, left side (03/12/19) Physical Therapy Treatment Note PT-OP-A Visit Information Start: 01/08/19 12:51 Freq: Status: Active Protocol: Document 03/12/19 12:40 [facility] (Rec: 03/12/19 12:44 [facility] [email or web address]) Out-Patient Physical Therapy Visit Information Visit Information Visit Type Treatment Note Visit Start Time 09:45 Visit Stop Time 10:30 Total Visit Minutes 45 Visit Number 17 Number of ELECTRIC [employer]AV[employer] MECH[employer]IC Visits 0 PT-OP-B Current Condition Start: 01/08/19 12:51 Freq: Status: Active Protocol: Document 01/07/19 10:00 [facility] (Rec: 01/08/19 17:19 [facility] [email or web address]) Current Condition History of Current Condition Onset Date August 2017 Current Complaints left sided sciatic symptoms History of Current Condition Rolf is a 73 year old female who underwent a L4-L5 laminectomy September 17 2017. She was experiencing bilateral pain down both of her legs prior to the surgery. 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 At this time she is experiencing pain that is intermittent and starts in her left posterior calf. It then moves up the back of her leg to her gluteal region. Standing increases her pain and she also wakes up at night with pain. Treatment Goals Patient/Caregiver Goals To reduce referred pain down the left leg PT-OP-C Subjective Start: 01/08/19 12:51 Freq: Status: Active Protocol: Document 03/12/19 12:40 [facility] (Rec: 03/12/19 12:44 [facility] [email or web address]) OP-PT Subjective Patient Comments Patient Comments pt reports she mis read the schedule and today was last land visit. She starts the pool 03/23 PT-OP-F Manual Assessment Start: 01/08/19 12:51 Freq: Status: Active Protocol: Document 01/07/19 10:00 [facility] (Rec: 01/08/19 17:19 [facility] [email or web address]) Manual Assessments Soft Tissue Assessment Soft Tissue Mobility Assessment right sided myofascial tightness in the thoracolumbar fascia and visable scar tissue on the right side of the lumbar spine incision. 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 Decreased ability for joint play into thoracic extension PT-OP-J Posture/Palpation/Skin Start: 01/08/19 17:22 Freq: Status: Active Protocol: Document 01/07/19 10:00 [facility] (Rec: 01/08/19 17:30 [facility] [email or web address]) Posture Evaluation Position Standing L-Spine Posture Flattened Palpation Assessment Location One Palpation Location right side of the scar and thoracolumbar facia Palpation Findings Soft Tissue Tightness,Spasm, Muscle Guarding,Tenderness PT-OP-K Range of Motion Start: 01/08/19 17:22 Freq: Status: Active Protocol: Document 01/07/19 10:00 [facility] (Rec: 01/08/19 17:30 [facility] [email or web address]) Lumbar Spine Range of Motion Lumbar Spine Active Flexion 60 Extension 5 Rotation Left 30 Rotation Right 30 Lateral Flexion Left 10 Lateral Flexion Right 15 ROM Limitations Soft Tissue Tightness Comments pain with any increase in extension PT-OP-M Strength Start: 01/08/19 12:51 Freq: Status: Active Protocol: Document 01/07/19 10:00 [facility] (Rec: 01/08/19 17:19 [facility] [email or web address]) Trunk Strength Trunk Manual Muscle Testing Flexion 3+ Fair+ Core Stabilization able to facilitate the transverse abdominals but difficulty sustaining a contraction for any LE movement Hip Strength Hip Manual Muscle Testing Left Flexion (L2) 3 Fair Extension (S1) 3 Fair Abduction 3 Fair External Rotation 3 Fair Right Flexion (L2) 4 Good Extension (S1) 3+ Fair+ Abduction 3 Fair External Rotation 3 Fair PT-OP-Q Treatments Start: 01/08/19 12:51 Freq: Status: Active Protocol: Document 03/12/19 12:40 [facility] (Rec: 03/12/19 12:44 [facility] [email or web address]) Cardio Equipment Recumbent Elliptical (Biodex) Duration (Minutes) 5 Gym Equipment Cable Column (Body Solid) Hip Abduction Details 20 # 3x 10 reps Rows Resistance 20# Reps/Time 2 x 10 Lat Pull Down Resistance 20# Reps/Time 2 x 10 Shuttle Rebound 3 Exercise Details single leg squats Reps/Duration 2 x 10 reps 25# 2 Exercise Details piriformis stretch on the shuttle 1 Exercise Details shuttle leg press Reps/Duration 50 # 3 x 10 reps Therapeutic Exercises Supine Exercises TA activation Supine Exercise Name TA w marches Side bilateral Reps/Minutes 20 reps each side Comments small range Sitting Exercises 1 Sitting Exercise Name seated pelvic tilts Reps/Minutes 5 reps Comments pt unable to isolate pelvic movement, compensated with L/S .exercise stopped Other Exercises 2 Other Exercise Name single knee to chest stretch Reps/Minutes 2 x 30 seconds PT-OP-R Modalities Start: 01/08/19 12:51 Freq: Status: Active Protocol: Document 02/20/19 11:15 AMB (Rec: 02/21/19 10:11 AMB [email or web address]) Hot Pack/Cold Pack Treatment Hot Pack Location L/S Patient Position Hooklying Treatment Duration (minutes) 15 PT-OP-T Assessment and Plan Start: 01/08/19 12:51 Freq: Status: Active Protocol: Document 03/12/19 12:40 [facility] (Rec: 03/12/19 12:44 [facility] [email or web address]) Physical Therapy Assessment Assessment Summary Assessment rolf had a better day today, notes she is still taking the CBD oil. We reviewed her exercises again today and she demonstrates good awareness. She will be working in the pool starting Physical Therapy Plan Frequency and Duration Frequency of Treatment 2x/Week Duration of Treatment 8 weeks Plan of Care Start Date 03/04/19 Plan of Care End Date 04/22/19 Therapeutic Interventions Therapeutic Interventions Home Exercise Program,Manual Therapy,Neuromuscular Re- education,Patient/Caregiver Education,Self-Care/Home Management,Soft Tissue Mobilization,Therapeutic Exercises Next Visit Focus/Plan Next Note Type Treatment Note Next Visit Plan Pool therapy next visit, the patient is finished with her land based PT visits.
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
--- NOTE | 2019-03-25 14:26 | PT.OTN ---
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 She was experiencing bilateral pain down both of her legs prior to the surgery. 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 At this time she is experiencing pain that is intermittent and starts in her left posterior calf. It then moves up the back of her leg to her gluteal region. Standing increases her pain and she also wakes up at night with pain. Treatment Goals Patient/Caregiver Goals To reduce referred pain down the left leg PT-OP-C Subjective Start: 01/08/19 12:51 Freq: Status: Active Protocol: Document 03/25/19 14:20 [facility] (Rec: 03/25/19 14:26 [facility] [id number]) OP-PT Subjective Patient Comments Patient Comments Patient states she surprised herself by liking aquatic therapy, felt like she worked but no increase in pain. PT-OP-F Manual Assessment Start: 01/08/19 12:51 Freq: Status: Active Protocol: Document 01/07/19 10:00 [facility] (Rec: 01/08/19 17:19 [facility] [email or web address]) Manual Assessments Soft Tissue Assessment Soft Tissue Mobility Assessment right sided myofascial tightness in the thoracolumbar fascia and visable scar tissue on the right side of the lumbar spine incision. 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 Decreased ability for joint play into thoracic extension PT-OP-J Posture/Palpation/Skin Start: 01/08/19 17:22 Freq: Status: Active Protocol: Document 01/07/19 10:00 [facility] (Rec: 01/08/19 17:30 [facility] [email or web address]) Posture Evaluation Position Standing L-Spine Posture Flattened Palpation Assessment Location One Palpation Location right side of the scar and thoracolumbar facia Palpation Findings Soft Tissue Tightness,Spasm, Muscle Guarding,Tenderness PT-OP-K Range of Motion Start: 01/08/19 17:22 Freq: Status: Active Protocol: Document 01/07/19 10:00 [facility] (Rec: 01/08/19 17:30 [facility] [email or web address]) Lumbar Spine Range of Motion Lumbar Spine Active Flexion 60 Extension 5 Rotation Left 30 Rotation Right 30 Lateral Flexion Left 10 Lateral Flexion Right 15 ROM Limitations Soft Tissue Tightness Comments pain with any increase in extension PT-OP-M Strength Start: 01/08/19 12:51 Freq: Status: Active Protocol: Document 01/07/19 10:00 [facility] (Rec: 01/08/19 17:19 [facility] [email or web address]) Trunk Strength Trunk Manual Muscle Testing Flexion 3+ Fair+ Core Stabilization able to facilitate the transverse abdominals but difficulty sustaining a contraction for any LE movement Hip Strength Hip Manual Muscle Testing Left Flexion (L2) 3 Fair Extension (S1) 3 Fair Abduction 3 Fair External Rotation 3 Fair Right Flexion (L2) 4 Good Extension (S1) 3+ Fair+ Abduction 3 Fair External Rotation 3 Fair PT-OP-Q Treatments Start: 01/08/19 12:51 Freq: Status: Active Protocol: Document 03/12/19 12:40 [facility] (Rec: 03/12/19 12:44 [facility] [email or web address]) Cardio Equipment Recumbent Elliptical (Biodex) Duration (Minutes) 5 Gym Equipment Cable Column (Body Solid) Hip Abduction Details 20 # 3x 10 reps Rows Resistance 20# Reps/Time 2 x 10 Lat Pull Down Resistance 20# Reps/Time 2 x 10 Shuttle Rebound 3 Exercise Details single leg squats Reps/Duration 2 x 10 reps 25# 2 Exercise Details piriformis stretch on the shuttle 1 Exercise Details shuttle leg press Reps/Duration 50 # 3 x 10 reps Therapeutic Exercises Supine Exercises TA activation Supine Exercise Name TA w marches Side bilateral Reps/Minutes 20 reps each side Comments small range Sitting Exercises 1 Sitting Exercise Name seated pelvic tilts Reps/Minutes 5 reps Comments pt unable to isolate pelvic movement, compensated with L/S .exercise stopped Other Exercises 2 Other Exercise Name single knee to chest stretch Reps/Minutes 2 x 30 seconds PT-OP-R Modalities Start: 01/08/19 12:51 Freq: Status: Active Protocol: Document 02/20/19 11:15 [facility] (Rec: 02/21/19 10:11 [facility] [email or web address]) Hot Pack/Cold Pack Treatment Hot Pack Location L/S Patient Position Hooklying Treatment Duration (minutes) 15 PT-OP-S Aquatic Treatment Start: 03/24/19 10:53 Freq: Status: Active Protocol: Document 03/25/19 14:20 [facility] (Rec: 03/25/19 14:26 [email or web address] [id number]) Aquatics Treatment Pool Entry/Exit Pool Entry/Exit Method Stairs Assistance Standby Assistance,Verbal Cues Water Walking Marching Water Level Chest Level Level of Assistance Standby Assistance,Verbal Cues Comments UE support at wall Sideways Water Level Chest Level Level of Assistance Standby Assistance,Verbal Cues Comments UE support at wall backward Water Level Chest Level Level of Assistance Standby Assistance,Verbal Cues Comments UE support at wall forward Water Level Chest Level Level of Assistance Standby Assistance,Verbal Cues Comments UE support at wall initially, then occasional Lower Extremity Exercises Hip flex/ext Body Position Standing Water Level Chest Level Reps/Duration 10x hip ab/ad Body Position Standing Water Level Chest Level Reps/Duration 10x Comments gerardo UE support heel raises, toe raises Reps/Duration 10x Comments gerardo UE support squats Body Position Standing Water Level Chest Level Reps/Duration 10x Comments UE support gerardo Lower Extremity Stretches HS Body Position Standing Water Level Chest Level Reps/Duration 2x Comments leaning against wall SKTC Body Position Standing Water Level Chest Level Reps/Duration 2x Comments leaning against wall Upper Extremity Exercises shoulder flex/ext Body Position Standing Water Level Chest Level Equipment UE paddles Reps/Duration 10x Comments leaning against wall shoulder hor ab/ad Body Position Standing Water Level Chest Level Equipment paddles Reps/Duration 10x Comments leaning against wall, emphasis on core stab [employer] Bicycle Equipment [place] float Duration 12 min Comments 2.5# CG-min assist PT-OP-T Assessment and Plan Start: 01/08/19 12:51 Freq: Status: Active Protocol: Document 03/25/19 14:20 [facility] (Rec: 03/25/19 14:26 [facility] [id number]) Physical Therapy Assessment Goals Four Impairment decreased strength of the core and hips Enforcement Safety Officer Goal (LTG) Improve strength of the inner core and hips for improved stabilization of the spine and pelvis. The patient is independent with a established Home exercise program. GOOD progress made LTG Duration 8 weeks Three Impairment myofascial tightness of the right thoracolumbar fascia, right side of scar Short Term Goal (STG) Zandra is able to lay in supine with her right arm above her head and gentle lumbar rotation to the left without c/p pain 03/03/19 Intermittently met STG Duration 4 weeks Enforcement Safety Officer Goal (LTG) Reduce the scar tissue tightness and visable muscle guarding and myofascial tightness on the right side of the lumbar scar and myofasical tissue LTG Duration 8 weeks Two Impairment Decreased lumbar spine ROM into lumbar flexion, sidebend, rotation Enforcement Safety Officer Goal (LTG) Zandra is able to improve her spinal ROM into lumbar flexion, sidebend, and rotation and is tolerating a stretching program for lumbar spine ROM GOOD PROGRESS LTG Duration 8 weeks One Impairment left sided posterior LE pain rated 5-6/10 worse with standing Short Term Goal (STG) Zandra is given postural modifications for standing to help decrease her pain to 2-3 or less and she is able to stand for 15-20 minutes without left LE radicular symptoms 02/10: pain of 5/10 can come on quickly (within 5 minutes in standing). STG Duration 4 weeks Enforcement Safety Officer Goal (LTG) Zandra is able to stand for 30 minutes or more without increase in LE pain and is able to walk 1/2 mile without a increase in pain LTG Duration 8 weeks Physical Therapy Plan Frequency and Duration Frequency of Treatment 2x/Week Duration of Treatment 8 weeks Plan of Care Start Date 03/04/19 Plan of Care End Date 04/22/19 Therapeutic Interventions Therapeutic Interventions Home Exercise Program,Manual Therapy,Neuromuscular Re- education,Patient/Caregiver Education,Self-Care/Home Management,Soft Tissue Mobilization,Therapeutic Exercises Next Visit Focus/Plan Next Note Type Treatment Note Next Visit Plan Patient had good response to aquatic therapy last session. Continue to progress aquatic exercise program.
--- NOTE | 2019-03-30 14:22 | PT.OTN ---
Current Diagnoses Other chronic pain (03/25/19) Lumbago with sciatica, right side (03/25/19) Lumbago with sciatica, left side (03/25/19) Physical Therapy Treatment Note PT-OP-A Visit Information Start: 01/08/19 12:51 Freq: Status: Active Protocol: Document 03/30/19 12:30 [facility] (Rec: 03/30/19 14:22 [facility] [email or web address]) Out-Patient Physical Therapy Visit Information Visit Information Visit Type Aquatic Treatment Note Visit Start Time 12:30 Visit Stop Time 13:15 Total Visit Minutes 45 Visit Number 20 Number of MODERN AND CONTEMPORARY ART CURATOR Visits 1 PT-OP-B Current Condition Start: 01/08/19 12:51 Freq: Status: Active Protocol: Document 01/07/19 10:00 [facility] (Rec: 01/08/19 17:19 [facility] [email or web address]) Current Condition History of Current Condition Onset Date August 2017 Current Complaints left sided sciatic symptoms History of Current Condition Zandra is a 73 year old female who underwent a L4-L5 laminectomy September 17 2017. She was experiencing bilateral pain down both of her legs prior to the surgery. 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 At this time she is experiencing pain that is intermittent and starts in her left posterior calf. It then moves up the back of her leg to her gluteal region. Standing increases her pain and she also wakes up at night with pain. Treatment Goals Patient/Caregiver Goals To reduce referred pain down the left leg PT-OP-C Subjective Start: 01/08/19 12:51 Freq: Status: Active Protocol: Document 03/30/19 12:30 [facility] (Rec: 03/30/19 14:22 [facility]J [email or web address]) OP-PT Subjective Patient Comments Patient Comments Pt states her right leg is stiff today but other than that she is doing ok. PT-OP-F Manual Assessment Start: 01/08/19 12:51 Freq: Status: Active Protocol: Document 01/07/19 10:00 [facility] (Rec: 01/08/19 17:19 [facility] [email or web address]) Manual Assessments Soft Tissue Assessment Soft Tissue Mobility Assessment right sided myofascial tightness in the thoracolumbar fascia and visable scar tissue on the right side of the lumbar spine incision. 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 Decreased ability for joint play into thoracic extension PT-OP-J Posture/Palpation/Skin Start: 01/08/19 17:22 Freq: Status: Active Protocol: Document 01/07/19 10:00 [facility] (Rec: 01/08/19 17:30 [facility] [email or web address]) Posture Evaluation Position Standing L-Spine Posture Flattened Palpation Assessment Location One Palpation Location right side of the scar and thoracolumbar facia Palpation Findings Soft Tissue Tightness,Spasm, Muscle Guarding,Tenderness PT-OP-K Range of Motion Start: 01/08/19 17:22 Freq: Status: Active Protocol: Document 01/07/19 10:00 [facility] (Rec: 01/08/19 17:30 [facility] [email or web address]) Lumbar Spine Range of Motion Lumbar Spine Active Flexion 60 Extension 5 Rotation Left 30 Rotation Right 30 Lateral Flexion Left 10 Lateral Flexion Right 15 ROM Limitations Soft Tissue Tightness Comments pain with any increase in extension PT-OP-M Strength Start: 01/08/19 12:51 Freq: Status: Active Protocol: Document 01/07/19 10:00 [facility] (Rec: 01/08/19 17:19 [facility] [email or web address]) Trunk Strength Trunk Manual Muscle Testing Flexion 3+ Fair+ Core Stabilization able to facilitate the transverse abdominals but difficulty sustaining a contraction for any LE movement Hip Strength Hip Manual Muscle Testing Left Flexion (L2) 3 Fair Extension (S1) 3 Fair Abduction 3 Fair External Rotation 3 Fair Right Flexion (L2) 4 Good Extension (S1) 3+ Fair+ Abduction 3 Fair External Rotation 3 Fair PT-OP-Q Treatments Start: 01/08/19 12:51 Freq: Status: Active Protocol: Document 03/12/19 12:40 [facility] (Rec: 03/12/19 12:44 [facility] [email or web address]) Cardio Equipment Recumbent Elliptical (Biodex) Duration (Minutes) 5 Gym Equipment Cable Column (Body Solid) Hip Abduction Details 20 # 3x 10 reps Rows Resistance 20# Reps/Time 2 x 10 Lat Pull Down Resistance 20# Reps/Time 2 x 10 Shuttle Rebound 3 Exercise Details single leg squats Reps/Duration 2 x 10 reps 25# 2 Exercise Details piriformis stretch on the shuttle 1 Exercise Details shuttle leg press Reps/Duration 50 # 3 x 10 reps Therapeutic Exercises Supine Exercises TA activation Supine Exercise Name TA w marches Side bilateral Reps/Minutes 20 reps each side Comments small range Sitting Exercises 1 Sitting Exercise Name seated pelvic tilts Reps/Minutes 5 reps Comments pt unable to isolate pelvic movement, compensated with L/S .exercise stopped Other Exercises 2 Other Exercise Name single knee to chest stretch Reps/Minutes 2 x 30 seconds PT-OP-R Modalities Start: 01/08/19 12:51 Freq: Status: Active Protocol: Document 02/20/19 11:15 [facility] (Rec: 02/21/19 10:11 [facility] [email or web address]) Hot Pack/Cold Pack Treatment Hot Pack Location L/S Patient Position Hooklying Treatment Duration (minutes) 15 PT-OP-S Aquatic Treatment Start: 03/24/19 10:53 Freq: Status: Active Protocol: Document 03/30/19 12:30 LJ (Rec: 03/30/19 14:22 LJ [email or web address]) Aquatics Treatment Pool Entry/Exit Pool Entry/Exit Method Stairs Assistance Standby Assistance,Verbal Cues Water Walking Marching Water Level Chest Level Level of Assistance Standby Assistance,Verbal Cues Sideways Water Level Chest Level Level of Assistance Standby Assistance,Verbal Cues backward Water Level Chest Level Level of Assistance Standby Assistance,Verbal Cues forward Water Level Chest Level Level of Assistance Standby Assistance,Verbal Cues Lower Extremity Exercises Hip flex/ext Body Position Standing Water Level Chest Level Reps/Duration 10x2 hip ab/ad Body Position Standing Water Level Chest Level Reps/Duration 10x2 Comments gerardo UE support heel raises, toe raises Reps/Duration 10x Comments gerardo UE support squats Body Position Standing Water Level Chest Level Reps/Duration 10x2 Comments UE support gerardo Lower Extremity Stretches HS Body Position Standing Water Level Chest Level Reps/Duration 2x Comments leaning against wall SKTC Body Position Standing Water Level Chest Level Reps/Duration 2x Comments leaning against wall Upper Extremity Exercises wipers Body Position Standing Water Level Chest Level Reps/Duration 10x2 shoulder flex/ext Body Position Standing Water Level Chest Level Reps/Duration 10x2 shoulder hor ab/ad Body Position Standing Water Level Chest Level Reps/Duration 10x2 Comments emphasis on core stabilization [place] [employer] [place] [employer] Bicycle Equipment [id number] float Duration 12 min Comments 2.5# CG-min assist PT-OP-T Assessment and Plan Start: 01/08/19 12:51 Freq: Status: Active Protocol: Document 03/30/19 12:30 [email or web address] (Rec: 03/30/19 14:22 LJ [email or web address]) Physical Therapy Assessment Goals Four Impairment decreased strength of the core and hips Regional Controller Goal (LTG) Improve strength of the inner core and hips for improved stabilization of the spine and pelvis. The patient is independent with a established Home exercise program. GOOD progress made LTG Duration 8 weeks Three Impairment myofascial tightness of the right thoracolumbar fascia, right side of scar Short Term Goal (STG) Zandra is able to lay in supine with her right arm above her head and gentle lumbar rotation to the left without c/p pain 03/03/19 Intermittently met STG Duration 4 weeks Intermediate Goal (LTG) Reduce the scar tissue tightness and visable muscle guarding and myofascial tightness on the right side of the lumbar scar and myofasical tissue LTG Duration 8 weeks Two Impairment Decreased lumbar spine ROM into lumbar flexion, sidebend, rotation Regional Controller Goal (LTG) Zandra is able to improve her spinal ROM into lumbar flexion, sidebend, and rotation and is tolerating a stretching program for lumbar spine ROM GOOD PROGRESS LTG Duration 8 weeks One Impairment left sided posterior LE pain rated 5-6/10 worse with standing Short Term Goal (STG) Zandra is given postural modifications for standing to help decrease her pain to 2-3 or less and she is able to stand for 15-20 minutes without left LE radicular symptoms 02/10: pain of 5/10 can come on quickly (within 5 minutes in standing). STG Duration 4 weeks Regional Controller Goal (LTG) Zandra is able to stand for 30 minutes or more without increase in LE pain and is able to walk 1/2 mile without a increase in pain LTG Duration 8 weeks Assessment Summary Assessment Pt is getting more comfortable in the water. Used hand hold for one lap of forward walking then again for hip ab/ad. She requires instruction with core stabilization during gait activities and standing exercises. Physical Therapy Plan Frequency and Duration Frequency of Treatment 2x/Week Duration of Treatment 8 weeks Plan of Care Start Date 03/04/19 Plan of Care End Date 04/22/19 Therapeutic Interventions Therapeutic Interventions Home Exercise Program,Manual Therapy,Neuromuscular Re- education,Patient/Caregiver Education,Self-Care/Home Management,Soft Tissue Mobilization,Therapeutic Exercises Next Visit Focus/Plan Next Note Type Treatment Note Next Visit Plan Continue to progress aquatic exercise program. Increase resistance and intensity as tolerated.
--- NOTE | 2019-04-06 13:15 | PT.OTN ---
Current Diagnoses Other chronic pain (03/30/19) Lumbago with sciatica, right side (03/30/19) Lumbago with sciatica, left side (03/30/19) Physical Therapy Treatment Note PT-OP-A Visit Information Start: 01/08/19 12:51 Freq: Status: Active Protocol: Document 04/06/19 12:30 CLB (Rec: 04/06/19 15:12 CLB [id number]) Out-Patient Physical Therapy Visit Information Visit Information Visit Type Aquatic Treatment Note Visit Start Time 12:30 Visit Stop Time 13:15 Total Visit Minutes 45 Visit Number 21 Number of AUTO WINDER Visits 2 PT-OP-B Current Condition Start: 01/08/19 12:51 Freq: Status: Active Protocol: Document 01/07/19 10:00 AMH (Rec: 01/08/19 17:19 AMH [email or web address]) Current Condition History of Current Condition Onset Date August 2017 Current Complaints left sided sciatic symptoms History of Current Condition Zandra is a 73 year old female who underwent a L4-L5 laminectomy September 17 2017. She was experiencing bilateral pain down both of her legs prior to the surgery. 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 At this time she is experiencing pain that is intermittent and starts in her left posterior calf. It then moves up the back of her leg to her gluteal region. Standing increases her pain and she also wakes up at night with pain. Treatment Goals Patient/Caregiver Goals To reduce referred pain down the left leg PT-OP-C Subjective Start: 01/08/19 12:51 Freq: Status: Active Protocol: Document 04/06/19 12:30 CLB (Rec: 04/06/19 15:12 CLB [id number]) OP-PT Subjective Patient Comments Patient Comments Pt states she enjoys that water as she can move w/o pain . PT-OP-F Manual Assessment Start: 01/08/19 12:51 Freq: Status: Active Protocol: Document 01/07/19 10:00 AMH (Rec: 01/08/19 17:19 AMH [email or web address]) Manual Assessments Soft Tissue Assessment Soft Tissue Mobility Assessment right sided myofascial tightness in the thoracolumbar fascia and visable scar tissue on the right side of the lumbar spine incision. 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 Decreased ability for joint play into thoracic extension PT-OP-J Posture/Palpation/Skin Start: 01/08/19 17:22 Freq: Status: Active Protocol: Document 01/07/19 10:00 AMH (Rec: 01/08/19 17:30 AMH [email or web address]) Posture Evaluation Position Standing L-Spine Posture Flattened Palpation Assessment Location One Palpation Location right side of the scar and thoracolumbar facia Palpation Findings Soft Tissue Tightness,Spasm, Muscle Guarding,Tenderness PT-OP-K Range of Motion Start: 01/08/19 17:22 Freq: Status: Active Protocol: Document 01/07/19 10:00 AMH (Rec: 01/08/19 17:30 AMH [email or web address]) Lumbar Spine Range of Motion Lumbar Spine Active Flexion 60 Extension 5 Rotation Left 30 Rotation Right 30 Lateral Flexion Left 10 Lateral Flexion Right 15 ROM Limitations Soft Tissue Tightness Comments pain with any increase in extension PT-OP-M Strength Start: 01/08/19 12:51 Freq: Status: Active Protocol: Document 01/07/19 10:00 AMH (Rec: 01/08/19 17:19 AMH [email or web address]) Trunk Strength Trunk Manual Muscle Testing Flexion 3+ Fair+ Core Stabilization able to facilitate the transverse abdominals but difficulty sustaining a contraction for any LE movement Hip Strength Hip Manual Muscle Testing Left Flexion (L2) 3 Fair Extension (S1) 3 Fair Abduction 3 Fair External Rotation 3 Fair Right Flexion (L2) 4 Good Extension (S1) 3+ Fair+ Abduction 3 Fair External Rotation 3 Fair PT-OP-Q Treatments Start: 01/08/19 12:51 Freq: Status: Active Protocol: Document 03/12/19 12:40 AMH (Rec: 03/12/19 12:44 AMH [email or web address]) Cardio Equipment Recumbent Elliptical (Biodex) Duration (Minutes) 5 Gym Equipment Cable Column (Body Solid) Hip Abduction Details 20 # 3x 10 reps Rows Resistance 20# Reps/Time 2 x 10 Lat Pull Down Resistance 20# Reps/Time 2 x 10 Shuttle Rebound 3 Exercise Details single leg squats Reps/Duration 2 x 10 reps 25# 2 Exercise Details piriformis stretch on the shuttle 1 Exercise Details shuttle leg press Reps/Duration 50 # 3 x 10 reps Therapeutic Exercises Supine Exercises TA activation Supine Exercise Name TA w marches Side bilateral Reps/Minutes 20 reps each side Comments small range Sitting Exercises 1 Sitting Exercise Name seated pelvic tilts Reps/Minutes 5 reps Comments pt unable to isolate pelvic movement, compensated with L/S .exercise stopped Other Exercises 2 Other Exercise Name single knee to chest stretch Reps/Minutes 2 x 30 seconds PT-OP-R Modalities Start: 01/08/19 12:51 Freq: Status: Active Protocol: Document 02/20/19 11:15 AMB (Rec: 02/21/19 10:11 AMB [email or web address]) Hot Pack/Cold Pack Treatment Hot Pack Location L/S Patient Position Hooklying Treatment Duration (minutes) 15 PT-OP-S Aquatic Treatment Start: 03/24/19 10:53 Freq: Status: Active Protocol: Document 04/06/19 12:30 CLB (Rec: 04/06/19 15:12 CLB [id number]) Aquatics Treatment Pool Entry/Exit Pool Entry/Exit Method Stairs Assistance Standby Assistance,Verbal Cues Water Walking Marching Water Level Chest Level Level of Assistance Standby Assistance,Verbal Cues Sideways Water Level Chest Level Level of Assistance Standby Assistance,Verbal Cues backward Water Level Chest Level Level of Assistance Standby Assistance,Verbal Cues forward Water Level Chest Level Level of Assistance Standby Assistance,Verbal Cues Lower Extremity Exercises Hip flex/ext Body Position Standing Water Level Chest Level Reps/Duration 10x2 hip ab/ad Body Position Standing Water Level Chest Level Reps/Duration 10x2 Comments gerardo UE support heel raises, toe raises Reps/Duration 10x Comments gerardo UE support squats Body Position Standing Water Level Chest Level Reps/Duration 10x2 Comments UE support gerardo Lower Extremity Stretches HS Body Position Standing Water Level Chest Level Reps/Duration 2x Comments leaning against wall SKTC Body Position Standing Water Level Chest Level Reps/Duration 2x Comments leaning against wall Upper Extremity Exercises wipers Body Position Standing Water Level Chest Level Reps/Duration 10x2 shoulder flex/ext Body Position Standing Water Level Chest Level Reps/Duration 10x2 shoulder hor ab/ad Body Position Standing Water Level Chest Level Reps/Duration 10x2 Comments emphasis on core stabilization [place] Activities [place] [employer] Bicycle PT-OP-T Assessment and Plan Start: 01/08/19 12:51 Freq: Status: Active Protocol: Document 04/06/19 12:30 CLB (Rec: 04/06/19 15:12 CLB [id number]) Physical Therapy Assessment Goals Four Impairment decreased strength of the core and hips Manufacturing Leader Goal (LTG) Improve strength of the inner core and hips for improved stabilization of the spine and pelvis. The patient is independent with a established Home exercise program. GOOD progress made LTG Duration 8 weeks Three Impairment myofascial tightness of the right thoracolumbar fascia, right side of scar Short Term Goal (STG) Zandra is able to lay in supine with her right arm above her head and gentle lumbar rotation to the left without c/p pain 03/03/19 Intermittently met STG Duration 4 weeks Snf Goal (LTG) Reduce the scar tissue tightness and visable muscle guarding and myofascial tightness on the right side of the lumbar scar and myofasical tissue LTG Duration 8 weeks Two Impairment Decreased lumbar spine ROM into lumbar flexion, sidebend, rotation Manufacturing Leader Goal (LTG) Zandra is able to improve her spinal ROM into lumbar flexion, sidebend, and rotation and is tolerating a stretching program for lumbar spine ROM GOOD PROGRESS LTG Duration 8 weeks One Impairment left sided posterior LE pain rated 5-6/10 worse with standing Short Term Goal (STG) Zandra is given postural modifications for standing to help decrease her pain to 2-3 or less and she is able to stand for 15-20 minutes without left LE radicular symptoms 02/10: pain of 5/10 can come on quickly (within 5 minutes in standing). STG Duration 4 weeks Manufacturing Leader Goal (LTG) Zandra is able to stand for 30 minutes or more without increase in LE pain and is able to walk 1/2 mile without a increase in pain LTG Duration 8 weeks Assessment Summary Assessment Pt wants to stay near edge of pool but willing to walk walk w/o BOTTLE ASSEMBLER or holding pool wall. Physical Therapy Plan Frequency and Duration Frequency of Treatment 2x/Week Duration of Treatment 8 weeks Plan of Care Start Date 03/04/19 Plan of Care End Date 04/22/19 Next Visit Focus/Plan Next Note Type Treatment Note Next Visit Plan Continue to progress aquatic exercise program. Increase resistance and intensity as tolerated.
--- NOTE | 2019-04-08 11:51 | PT.OTN ---
Current Diagnoses Other chronic pain (04/08/19) Lumbago with sciatica, right side (04/08/19) Lumbago with sciatica, left side (04/08/19) Physical Therapy Treatment Note PT-OP-A Visit Information Start: 01/08/19 12:51 Freq: Status: Active Protocol: Document 04/08/19 10:52 AMH (Rec: 04/08/19 10:55 [facility] [id number]) Out-Patient Physical Therapy Visit Information Visit Information Visit Type Treatment Note Visit Start Time 10:45 Visit Stop Time 11:30 Total Visit Minutes 45 Visit Number 22 Number of SANITATION WORKER Visits 3 PT-OP-B Current Condition Start: 01/08/19 12:51 Freq: Status: Active Protocol: Document 01/07/19 10:00 AMH (Rec: 01/08/19 17:19 AMH [email or web address]) Current Condition History of Current Condition Onset Date August 2017 Current Complaints left sided sciatic symptoms History of Current Condition Zandra is a 73 year old female who underwent a L4-L5 laminectomy September 17 2017. She was experiencing bilateral pain down both of her legs prior to the surgery. 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 At this time she is experiencing pain that is intermittent and starts in her left posterior calf. It then moves up the back of her leg to her gluteal region. Standing increases her pain and she also wakes up at night with pain. Treatment Goals Patient/Caregiver Goals To reduce referred pain down the left leg PT-OP-C Subjective Start: 01/08/19 12:51 Freq: Status: Active Protocol: Document 04/08/19 10:52 AMH (Rec: 04/08/19 10:55 AMH [id number]) OP-PT Subjective Patient Comments Patient Comments feels liike she over did it in the pool this last visit. She has sore mucles today PT-OP-F Manual Assessment Start: 01/08/19 12:51 Freq: Status: Active Protocol: Document 01/07/19 10:00 AMH (Rec: 01/08/19 17:19 AMH [email or web address]) Manual Assessments Soft Tissue Assessment Soft Tissue Mobility Assessment right sided myofascial tightness in the thoracolumbar fascia and visable scar tissue on the right side of the lumbar spine incision. 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 Decreased ability for joint play into thoracic extension PT-OP-J Posture/Palpation/Skin Start: 01/08/19 17:22 Freq: Status: Active Protocol: Document 01/07/19 10:00 AMH (Rec: 01/08/19 17:30 AMH [email or web address]) Posture Evaluation Position Standing L-Spine Posture Flattened Palpation Assessment Location One Palpation Location right side of the scar and thoracolumbar facia Palpation Findings Soft Tissue Tightness,Spasm, Muscle Guarding,Tenderness PT-OP-K Range of Motion Start: 01/08/19 17:22 Freq: Status: Active Protocol: Document 01/07/19 10:00 AMH (Rec: 01/08/19 17:30 AMH [email or web address]) Lumbar Spine Range of Motion Lumbar Spine Active Flexion 60 Extension 5 Rotation Left 30 Rotation Right 30 Lateral Flexion Left 10 Lateral Flexion Right 15 ROM Limitations Soft Tissue Tightness Comments pain with any increase in extension PT-OP-M Strength Start: 01/08/19 12:51 Freq: Status: Active Protocol: Document 01/07/19 10:00 AMH (Rec: 01/08/19 17:19 AMH [email or web address]) Trunk Strength Trunk Manual Muscle Testing Flexion 3+ Fair+ Core Stabilization able to facilitate the transverse abdominals but difficulty sustaining a contraction for any LE movement Hip Strength Hip Manual Muscle Testing Left Flexion (L2) 3 Fair Extension (S1) 3 Fair Abduction 3 Fair External Rotation 3 Fair Right Flexion (L2) 4 Good Extension (S1) 3+ Fair+ Abduction 3 Fair External Rotation 3 Fair PT-OP-Q Treatments Start: 01/08/19 12:51 Freq: Status: Active Protocol: Document 04/08/19 10:52 AMH (Rec: 04/08/19 11:40 AMH [id number]) Cardio Equipment Recumbent Elliptical (Biodex) Duration (Minutes) 5 Gym Equipment Shuttle Rebound 3 Exercise Details single leg squats Reps/Duration 2 x 10 reps 25# 2 Exercise Details piriformis stretch on the shuttle 1 Exercise Details shuttle leg press Reps/Duration 50 # 3 x 10 reps Therapeutic Exercises Supine Exercises TA activation Supine Exercise Name TA w marches Side bilateral Reps/Minutes 20 reps each side Comments small range TA in neutral spine Supine Exercise Name TA in neutral spine Reps/Minutes 10 x 5 sec holds LE neural stretch Supine Exercise Name LE neural stretch Side left Reps/Minutes 3' 8 Supine Exercise Name Hamstring strertch Side bilateral Reps/Minutes 1 min each side 7 Supine Exercise Name piriformis stretch Reps/Minutes 20x2 6 Supine Exercise Name TA with SLR Reps/Minutes 10 Comments difficult 4 Supine Exercise Name lower trunk rotation Reps/Minutes 30x3 5 Supine Exercise Name TA with pelvic tilt/ mini bridge Reps/Minutes 2x10 1 Supine Exercise Name hamstring stretch Reps/Minutes 2 x 30 seconds Comments with ankle DF Prone Exercises Cat/Camel Prone Exercise Name cat cow Reps/Minutes x 10 reps Other Exercises 2 Other Exercise Name single knee to chest stretch Reps/Minutes 2 x 30 seconds 1 Other Exercise Name manual lumbar sidebending strech PT-OP-R Modalities Start: 01/08/19 12:51 Freq: Status: Active Protocol: Document 02/20/19 11:15 AMB (Rec: 02/21/19 10:11 AMB [email or web address]) Hot Pack/Cold Pack Treatment Hot Pack Location L/S Patient Position Hooklying Treatment Duration (minutes) 15 PT-OP-S Aquatic Treatment Start: 03/24/19 10:53 Freq: Status: Active Protocol: Document 04/06/19 12:30 CLB (Rec: 04/06/19 15:12 CLB [id number]) Aquatics Treatment Pool Entry/Exit Pool Entry/Exit Method Stairs Assistance Standby Assistance,Verbal Cues Water Walking March Water Level Chest Level Level of Assistance Standby Assistance,Verbal Cues Sideways Water Level Chest Level Level of Assistance Standby Assistance,Verbal Cues backward Water Level Chest Level Level of Assistance Standby Assistance,Verbal Cues forward Water Level Chest Level Level of Assistance Standby Assistance,Verbal Cues Lower Extremity Exercises Hip flex/ext Body Position Standing Water Level Chest Level Reps/Duration 10x2 hip ab/ad Body Position Standing Water Level Chest Level Reps/Duration 10x2 Comments gerardo UE support heel raises, toe raises Reps/Duration 10x Comments gerardo UE support squats Body Position Standing Water Level Chest Level Reps/Duration 10x2 Comments UE support gerardo Lower Extremity Stretches HS Body Position Standing Water Level Chest Level Reps/Duration 2x Comments leaning against wall SKTC Body Position Standing Water Level Chest Level Reps/Duration 2x Comments leaning against wall Upper Extremity Exercises wipers Body Position Standing Water Level Chest Level Reps/Duration 10x2 shoulder flex/ext Body Position Standing Water Level Chest Level Reps/Duration 10x2 shoulder hor ab/ad Body Position Standing Water Level Chest Level Reps/Duration 10x2 Comments emphasis on core stabilization [place] [employer] [place] [employer] Bicycle PT-OP-T Assessment and Plan Start: 01/08/19 12:51 Freq: Status: Active Protocol: Document 04/08/19 10:52 AMH (Rec: 04/08/19 11:47 AMH [email or web address]) Physical Therapy Assessment Assessment Summary Assessment Zandra santamaria appt was cx today so she had a land based visit. She was sore today from the pool and felt she slept wrong last night and had a lot of neck pain. She was able to tolerate her stretches and core exercises today. MHP was placed on both her cervical spine and lumbar spine Physical Therapy Plan Frequency and Duration Frequency of Treatment 2x/Week Duration of Treatment 8 weeks Plan of Care Start Date 03/04/19 Plan of Care End Date 04/22/19 Therapeutic Interventions Therapeutic Interventions Home Exercise Program,Manual Therapy,Neuromuscular Re- education,Patient/Caregiver Education,Self-Care/Home Management,Soft Tissue Mobilization,Therapeutic Exercises Next Visit Focus/Plan Next Note Type Treatment Note Next Visit Plan At this time Armida has only one more visit booked in PT. Please review her home program next visit
--- NOTE | 2019-04-20 14:20 | PT.OTN ---
Current Diagnoses Other chronic pain (04/20/19) Lumbago with sciatica, right side (04/20/19) Lumbago with sciatica, left side (04/20/19) Physical Therapy Treatment Note PT-OP-A Visit Information Start: 01/08/19 12:51 Freq: Status: Active Protocol: Document 04/20/19 08:15 LJ (Rec: 04/20/19 14:20 LJ [id number]) Out-Patient Physical Therapy Visit Information Visit Information Visit Type Treatment Note Visit Start Time 08:15 Visit Stop Time 09:00 Total Visit Minutes 45 Visit Number 23 Number of SOUND RECORDIST Visits 1 PT-OP-B Current Condition Start: 01/08/19 12:51 Freq: Status: Active Protocol: Document 01/07/19 10:00 AMH (Rec: 01/08/19 17:19 AMH [id number]) Current Condition History of Current Condition Onset Date August 2017 Current Complaints left sided sciatic symptoms History of Current Condition Zandra is a 73 year old female who underwent a L4-L5 laminectomy September 17 2017. She was experiencing bilateral pain down both of her legs prior to the surgery. 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 At this time she is experiencing pain that is intermittent and starts in her left posterior calf. It then moves up the back of her leg to her gluteal region. Standing increases her pain and she also wakes up at night with pain. Treatment Goals Patient/Caregiver Goals To reduce referred pain down the left leg PT-OP-C Subjective Start: 01/08/19 12:51 Freq: Status: Active Protocol: Document 04/20/19 08:15 LJ (Rec: 04/20/19 14:20 LJ [id number]) OP-PT Subjective Patient Comments Patient Comments Pt reports she was sore from the pool the other day but is getting more comfortable being in the water. PT-OP-F Manual Assessment Start: 01/08/19 12:51 Freq: Status: Active Protocol: Document 01/07/19 10:00 AMH (Rec: 01/08/19 17:19 AMH [email or web address]) Manual Assessments Soft Tissue Assessment Soft Tissue Mobility Assessment right sided myofascial tightness in the thoracolumbar fascia and visable scar tissue on the right side of the lumbar spine incision. 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 Decreased ability for joint play into thoracic extension PT-OP-J Posture/Palpation/Skin Start: 01/08/19 17:22 Freq: Status: Active Protocol: Document 01/07/19 10:00 AMH (Rec: 01/08/19 17:30 AMH [id number]) Posture Evaluation Position Standing L-Spine Posture Flattened Palpation Assessment Location One Palpation Location right side of the scar and thoracolumbar facia Palpation Findings Soft Tissue Tightness,Spasm, Muscle Guarding,Tenderness PT-OP-K Range of Motion Start: 01/08/19 17:22 Freq: Status: Active Protocol: Document 01/07/19 10:00 AMH (Rec: 01/08/19 17:30 AMH [email or web address]) Lumbar Spine Range of Motion Lumbar Spine Active Flexion 60 Extension 5 Rotation Left 30 Rotation Right 30 Lateral Flexion Left 10 Lateral Flexion Right 15 ROM Limitations Soft Tissue Tightness Comments pain with any increase in extension PT-OP-M Strength Start: 01/08/19 12:51 Freq: Status: Active Protocol: Document 01/07/19 10:00 AMH (Rec: 01/08/19 17:19 AMH [email or web address]) Trunk Strength Trunk Manual Muscle Testing Flexion 3+ Fair+ Core Stabilization able to facilitate the transverse abdominals but difficulty sustaining a contraction for any LE movement Hip Strength Hip Manual Muscle Testing Left Flexion (L2) 3 Fair Extension (S1) 3 Fair Abduction 3 Fair External Rotation 3 Fair Right Flexion (L2) 4 Good Extension (S1) 3+ Fair+ Abduction 3 Fair External Rotation 3 Fair PT-OP-Q Treatments Start: 01/08/19 12:51 Freq: Status: Active Protocol: Document 04/20/19 08:15 SERGIO (Rec: 04/20/19 14:20 LJ [id number]) Cardio Equipment Recumbent Stepper (Sci-Fit) Duration (Minutes) 8 Resistance 4 Gym Equipment Shuttle Rebound 3 Exercise Details single leg squats Reps/Duration 2 x 10 reps 25# 2 Exercise Details piriformis stretch on the shuttle 1 Exercise Details shuttle leg press Reps/Duration 50 # 3 x 10 reps Therapeutic Exercises Supine Exercises postural isometric Reps/Minutes 5x TA activation Supine Exercise Name TA w marches Side bilateral Reps/Minutes 20 reps each side Comments small range TA in neutral spine Supine Exercise Name TA in neutral spine Reps/Minutes 10 x 5 sec holds LE neural stretch Supine Exercise Name LE neural stretch Side left Reps/Minutes 3' 8 Supine Exercise Name Hamstring strertch Side bilateral Reps/Minutes 1 min each side 7 Supine Exercise Name piriformis stretch Reps/Minutes 20x2 4 Supine Exercise Name lower trunk rotation Reps/Minutes 30x3 5 Supine Exercise Name TA with pelvic tilt/ mini bridge Reps/Minutes 2x10 Prone Exercises Cat/Camel Prone Exercise Name cat cow Reps/Minutes x 10 reps Sidelying Exercises ITB stretch Side bilateral Reps/Minutes 1 min each QL stretch Side bilateral Reps/Minutes 1.5 min ea Standing Exercises postural isometric Reps/Minutes 5 min Comments on off to reset posture 3 Standing Exercise Name hip flexor stretch Side bilateral Reps/Minutes 5 reps Other Exercises 2 Other Exercise Name single knee to chest stretch Reps/Minutes 2 x 30 seconds 1 Other Exercise Name manual lumbar sidebending strech Manual Therapy Treatment Soft Tissue Mobilization 1 Body Location lumbar paraspinals Body Position Prone Joint Mobilizations 1 Joint L hip distraction Grade II Body Position Supine Reps/Duration 10 secs x10 PT-OP-R Modalities Start: 01/08/19 12:51 Freq: Status: Active Protocol: Document 02/20/19 11:15 AMB (Rec: 02/21/19 10:11 AMB [email or web address]) Hot Pack/Cold Pack Treatment Hot Pack Location L/S Patient Position Hooklying Treatment Duration (minutes) 15 PT-OP-S Aquatic Treatment Start: 03/24/19 10:53 Freq: Status: Active Protocol: Document 04/06/19 12:30 CLB (Rec: 04/06/19 15:12 CLB [id number]) Aquatics Treatment Pool Entry/Exit Pool Entry/Exit Method Stairs Assistance Standby Assistance,Verbal Cues Water Walking Marching Water Level Chest Level Level of Assistance Standby Assistance,Verbal Cues Sideways Water Level Chest Level Level of Assistance Standby Assistance,Verbal Cues backward Water Level Chest Level Level of Assistance Standby Assistance,Verbal Cues forward Water Level Chest Level Level of Assistance Standby Assistance,Verbal Cues Lower Extremity Exercises Hip flex/ext Body Position Standing Water Level Chest Level Reps/Duration 10x2 hip ab/ad Body Position Standing Water Level Chest Level Reps/Duration 10x2 Comments gerardo UE support heel raises, toe raises Reps/Duration 10x Comments gerardo UE support squats Body Position Standing Water Level Chest Level Reps/Duration 10x2 Comments UE support gerardo Lower Extremity Stretches HS Body Position Standing Water Level Chest Level Reps/Duration 2x Comments leaning against wall SKTC Body Position Standing Water Level Chest Level Reps/Duration 2x Comments leaning against wall Upper Extremity Exercises wipers Body Position Standing Water Level Chest Level Reps/Duration 10x2 shoulder flex/ext Body Position Standing Water Level Chest Level Reps/Duration 10x2 shoulder hor ab/ad Body Position Standing Water Level Chest Level Reps/Duration 10x2 Comments emphasis on core stabilization [place] Activities [place] Activities Bicycle PT-OP-T Assessment and Plan Start: 01/08/19 12:51 Freq: Status: Active Protocol: Document 04/20/19 08:15 SERGIO (Rec: 04/20/19 14:20 SERGIO [id number]) Physical Therapy Assessment Rehab Potential Rehabilitation Potential Good Evaluation Complexity Number of Personal Factors/Comorbidities 0 Number of Body Systems Impaired 1-2 Clinical Presentation at Evaluation Stable Impairments Impairments Activity Tolerance,Pain, Posture,ROM,Sensation,Soft Tissue Mobility,Tone Goals Four Impairment decreased strength of the core and hips Production Grader Goal (LTG) Improve strength of the inner core and hips for improved stabilization of the spine and pelvis. The patient is independent with a established Home exercise program. GOOD progress made LTG Duration 8 weeks Three Impairment myofascial tightness of the right thoracolumbar fascia, right side of scar Short Term Goal (STG) Zandra is able to lay in supine with her right arm above her head and gentle lumbar rotation to the left without c/p pain 03/03/19 Intermittently met STG Duration 4 weeks Intermediate Goal (LTG) Reduce the scar tissue tightness and visable muscle guarding and myofascial tightness on the right side of the lumbar scar and myofasical tissue LTG Duration 8 weeks Two Impairment Decreased lumbar spine ROM into lumbar flexion, sidebend, rotation Production Grader Goal (LTG) Zandra is able to improve her spinal ROM into lumbar flexion, sidebend, and rotation and is tolerating a stretching program for lumbar spine ROM GOOD PROGRESS LTG Duration 8 weeks One Impairment left sided posterior LE pain rated 5-6/10 worse with standing Short Term Goal (STG) Zandra is given postural modifications for standing to help decrease her pain to 2-3 or less and she is able to stand for 15-20 minutes without left LE radicular symptoms 02/10: pain of 5/10 can come on quickly (within 5 minutes in standing). STG Duration 4 weeks Production Grader Goal (LTG) Zandra is able to stand for 30 minutes or more without increase in LE pain and is able to walk 1/2 mile without a increase in pain LTG Duration 8 weeks Assessment Summary Assessment Pt reviewed her HEP today with some added stretching. She feels she is confident in the HEP. She tolerated the exercises and stretching well. Physical Therapy Plan Frequency and Duration Frequency of Treatment 2x/Week Duration of Treatment 8 weeks Plan of Care Start Date 03/04/19 Plan of Care End Date 04/22/19 Therapeutic Interventions Therapeutic Interventions Home Exercise Program,Manual Therapy,Neuromuscular Re- education,Patient/Caregiver Education,Self-Care/Home Management,Soft Tissue Mobilization,Therapeutic Exercises Next Visit Focus/Plan Next Note Type Treatment Note Next Visit Plan Pt has no more visits scheduled for this referral.
== END 2019-04-21 08:15 ==
LOC: PHYS 08:15
PROVIDERS: PCP Internal Medicine; Visit Provider Internal Medicine
DX: M54.42 Lumbago with sciatica, left side (principal); M54.41 Lumbago with sciatica, right side; G89.29 Other chronic pain
CPT/HCPCS: 97010; 97110; 97113; 97140; 97161; 97530; 97535

== ENCOUNTER → 2019-07-16 08:10 | Outpatient (CLI) | payer MEDICARE, OTHER, SELFPAY ==
[2019-07-16 08:54] LABS: Add Manual Diff / Slide Review NO; Basophils Absolute Auto 0 /uL (0-100); Basophils Percent Auto 0.5 % (0-2); Eosinophils Absolute Auto 200 /uL (0-450); Hematocrit 36.6 % (36-46); Hemoglobin 12.4 g/dL (12.0-16.0); Lymphocytes Absolute Auto 1900 /uL (1100-4500); Lymphocytes Percent Auto 22.8 % (25-40); Mean Corpuscular HGB Conc 33.9 % (30-36); Mean Corpuscular Volume 91.3 fL (80-100); Monocytes Absolute Auto 600 /uL (0-900); Monocytes Percent Auto 7.7 % (3-14); Neutrophils Absolute Auto 5400 /uL (1500-7000); Platelet Count 277 X10^3/uL (150-400); Red Blood Cell Count 4.01 X10^6/uL (4.0-5.2); White Blood Cell Count 8.2 X10^3/uL (4.5-11.0)
[2019-07-16 09:07] LABS: Blood Urea Nitrogen 24 mg/dL (7-17); Calcium 10.5 mg/dL (8.4-10.2); Carbon Dioxide 29 mmol/L (22-32); Chloride 101 mmol/L (98-107); Glucose 101 mg/dL (80-110); HEMOLYSIS < 15 (0-50); Potassium 4.3 mmol/L (3.4-5.1); Sodium 138 mmol/L (137-145)
[2019-07-16 09:38] LABS: TSH w/ Reflex to FT4 1.27 uIU/mL (0.47-4.68)
== END ==
PROVIDERS: PCP Internal Medicine; Visit Provider Internal Medicine
DX: D64.9 Anemia, unspecified (principal); R53.83 Other fatigue; I10 Essential (primary) hypertension
CPT/HCPCS: 36415; 80048; 84443; 85025

== ENCOUNTER → 2019-07-31 14:01 | Outpatient (CLI) | payer MEDICARE, OTHER, SELFPAY ==
[2019-07-31 15:44] LABS: Blood Urea Nitrogen 24 mg/dL (7-17); Calcium 10.3 mg/dL (8.4-10.2); Carbon Dioxide 28 mmol/L (22-32); Chloride 101 mmol/L (98-107); Estimated Glomerular Filt Rate 31.6 mL/min (>60); Glucose 106 mg/dL (80-110); HEMOLYSIS < 15 (0-50); Sodium 139 mmol/L (137-145)
== END ==
PROVIDERS: PCP Internal Medicine; Referring Provider Internal Medicine; Visit Provider Internal Medicine
DX: E83.52 Hypercalcemia (principal)
CPT/HCPCS: 36415; 80048

== ENCOUNTER → 2019-08-05 11:46 | Outpatient (CLI) | payer MEDICARE, OTHER, SELFPAY ==
[2019-08-05 13:01] LABS: Add Manual Diff / Slide Review NO; Basophils Absolute Auto 0 /uL (0-100); Basophils Percent Auto 0.6 % (0-2); Eosinophils Absolute Auto 300 /uL (0-450); Eosinophils Percent Auto 3.2 % (2-4); Hematocrit 33.1 % (36-46); Hemoglobin 11.2 g/dL (12.0-16.0); Lymphocytes Absolute Auto 1800 /uL (1100-4500); Lymphocytes Percent Auto 22.3 % (25-40); Mean Corpuscular HGB Conc 33.8 % (30-36); Mean Corpuscular Hemoglobin 30.9 PG (26-34); Mean Corpuscular Volume 91.5 fL (80-100); Monocytes Absolute Auto 500 /uL (0-900); Monocytes Percent Auto 6.7 % (3-14); Neutrophils Absolute Auto 5400 /uL (1500-7000); Neutrophils Percent Auto 67.2 % (50-75); Platelet Count 238 X10^3/uL (150-400); Red Blood Cell Count 3.61 X10^6/uL (4.0-5.2); Red Cell Distribution Width 12.9 % (11.6-14.8)
== END ==
PROVIDERS: PCP Internal Medicine; Referring Provider Internal Medicine; Visit Provider Internal Medicine
DX: D64.89 Other specified anemias (principal)
CPT/HCPCS: 36415; 85025

== ENCOUNTER → 2019-12-24 08:21 | Outpatient (CLI) | payer MEDICARE, OTHER, SELFPAY ==
[2019-12-24 09:47] LABS: Add Manual Diff / Slide Review NO; Basophils Absolute Auto 100 /uL (0-100); Basophils Percent Auto 0.7 % (0-2); Eosinophils Absolute Auto 300 /uL (0-450); Eosinophils Percent Auto 3.7 % (2-4); Hematocrit 33.1 % (36-46); Hemoglobin 11.4 g/dL (12.0-16.0); Lymphocytes Absolute Auto 1700 /uL (1100-4500); Lymphocytes Percent Auto 24.7 % (25-40); Mean Corpuscular HGB Conc 34.4 % (30-36); Mean Corpuscular Hemoglobin 31.3 PG (26-34); Monocytes Absolute Auto 600 /uL (0-900); Neutrophils Absolute Auto 4200 /uL (1500-7000); Neutrophils Percent Auto 61.9 % (50-75); Platelet Count 269 X10^3/uL (150-400); Red Blood Cell Count 3.64 X10^6/uL (4.0-5.2); Red Cell Distribution Width 13.2 % (11.6-14.8); White Blood Cell Count 6.8 X10^3/uL (4.5-11.0)
== END ==
PROVIDERS: PCP Internal Medicine; Referring Provider Internal Medicine; Visit Provider Internal Medicine
DX: D64.9 Anemia, unspecified (principal)
CPT/HCPCS: 36415; 85025

== ENCOUNTER → 2020-02-18 10:21 | Outpatient (CLI) | payer MEDICARE, OTHER, SELFPAY ==
[2020-02-18 12:24] LABS: BUN Creatinine Ratio 13.4 (6-22); Blood Urea Nitrogen 23 mg/dL (7-17); Calcium 9.8 mg/dL (8.4-10.2); Carbon Dioxide 26 mmol/L (22-32); Chloride 103 mmol/L (98-107); Glucose 99 mg/dL (80-110); HEMOLYSIS < 15 (0-50); Potassium 4.8 mmol/L (3.4-5.1); Sodium 137 mmol/L (137-145)
[2020-02-18 12:36] LABS: Free T4, Direct Thyroxine 1.28 ng/dL (0.78-2.19)
[2020-02-18 12:50] LABS: Thyroid Stimulating Hormone 1.24 uIU/mL (0.47-4.68)
== END ==
PROVIDERS: PCP Internal Medicine; Referring Provider Internal Medicine; Visit Provider Internal Medicine
DX: R60.1 Generalized edema (principal)
CPT/HCPCS: 36415; 80048; 84439; 84443

== ENCOUNTER → 2020-03-04 16:08 | Outpatient (CLI) | payer MEDICARE, OTHER, SELFPAY ==
--- NOTE | 2020-03-04 16:20 | DI.MG.S_ITS ---
Patient Name: CHANDA YODER date: 1945 Sex: F Attending Physician: Kishor Indications: Date: 03/04/2020 16:18 At the request of: TEETEE RYAN Procedure: MM screening mammo BI BILATERAL DIGITAL SCREENING MAMMOGRAM 3D/2D WITH CAD: 03/04/2020 CLINICAL: Routine screening. Comparison is made to exams dated: 03/03/2019 mammogram, 01/24/2018 mammogram, and 01/09/2017 mammogram - [facility]. The tissue of both breasts is heterogeneously dense. This may lower the sensitivity of mammography. Current study was also evaluated with a Computer Aided Detection (CAD) system. No significant masses, calcifications, or other findings are seen in either breast. There has been no significant interval change. IMPRESSION: NEGATIVE There is no mammographic evidence of malignancy. A 1 year screening mammogram is recommended. This exam was interpreted at Station ID: [id number]. NOTE: For mammograms, a report in lay terms will be sent to the patient. Approximately 15% of breast malignancies will not be visualized mammographically. In the management of a palpable breast mass, a negative mammogram must not discourage biopsy of a clinically suspicious lesion. Electronically Signed By: Dano rapp/iris:03/04/2020 16:56:21 letter sent: Normal Exam ACR BI-RADS Category 1: Negative [id number]
== END ==
PROVIDERS: PCP Internal Medicine; Referring Provider Internal Medicine; Visit Provider Internal Medicine
DX: Z12.31 Encounter for screening mammogram for malignant neoplasm of breast (principal)
CPT/HCPCS: 77063; 77067

== ENCOUNTER → 2020-04-27 | Outpatient (CLI) | payer MEDICARE, OTHER, SELFPAY | LOC: LAB 12:58 | PROVIDERS: PCP Internal Medicine; Referring Provider Internal Medicine Nephrology; Visit Provider Internal Medicine Nephrology | DX: R80.3 Bence Jones proteinuria (principal) | CPT/HCPCS: 84156; 84166; 86335 ==

== ENCOUNTER → 2020-06-09 10:16 | Outpatient (CLI) | payer MEDICARE, OTHER, SELFPAY ==
[2020-06-09 11:32] LABS: Albumin 4.4 g/dL (3.5-5.0); BUN Creatinine Ratio 13.2 (6-22); Blood Urea Nitrogen 22 mg/dL (7-17); Calcium 9.7 mg/dL (8.4-10.2); Carbon Dioxide 26 mmol/L (22-32); Chloride 108 mmol/L (98-107); Cholesterol 133 mg/dL (140-199); Glucose 111 mg/dL (80-110); HDL Cholesterol 81 mg/dL (40-60); HEMOLYSIS < 15 (0-50); LDL Cholesterol Calculated 41 mg/dL (<100); Phosphorous 3.9 mg/dL (2.8-4.1); Potassium 4.7 mmol/L (3.4-5.1); Sodium 139 mmol/L (137-145); Triglycerides 54 mg/dL (35-150)
[2020-06-13 10:08] LABS: Lipoprotein (a) 8.7 nmol/L (<75.0)
== END ==
PROVIDERS: PCP Internal Medicine; Referring Provider Internal Medicine; Visit Provider Internal Medicine
DX: E78.5 Hyperlipidemia, unspecified (principal); N18.32 Chronic kidney disease, stage 3b
CPT/HCPCS: 36415; 80061; 80069; 83695

== ENCOUNTER → 2020-06-30 09:07 | Outpatient (CLI) | payer MEDICARE, OTHER, SELFPAY ==
[2020-06-30 10:03] LABS: Albumin 4.5 g/dL (3.5-5.0); BUN Creatinine Ratio 13.3 (6-22); Blood Urea Nitrogen 24 mg/dL (7-17); Carbon Dioxide 28 mmol/L (22-32); Chloride 104 mmol/L (98-107); Estimated Glomerular Filt Rate 27.3 mL/min (>60); Glucose 119 mg/dL (80-110); HEMOLYSIS < 15 (0-50); Phosphorous 4.3 mg/dL (2.8-4.1); Potassium 3.9 mmol/L (3.4-5.1); Sodium 139 mmol/L (137-145)
== END ==
PROVIDERS: PCP Internal Medicine; Referring Provider Internal Medicine Nephrology; Visit Provider Internal Medicine Nephrology
DX: N18.32 Chronic kidney disease, stage 3b (principal)
CPT/HCPCS: 36415; 80069

== ENCOUNTER → 2020-09-05 13:19 | Outpatient (CLI) | payer MEDICARE, OTHER, SELFPAY ==
[2020-09-05 14:20] LABS: Add Manual Diff / Slide Review NO; Basophils Absolute Auto 100 /uL (0-100); Basophils Percent Auto 0.7 % (0-2); Eosinophils Absolute Auto 400 /uL (0-450); Eosinophils Percent Auto 4.5 % (2-4); Hematocrit 35.9 % (36-46); Hemoglobin 12.4 g/dL (12.0-16.0); Lymphocytes Absolute Auto 2200 /uL (1100-4500); Lymphocytes Percent Auto 28.6 % (25-40); Mean Corpuscular HGB Conc 34.5 % (30-36); Mean Corpuscular Hemoglobin 31.2 PG (26-34); Mean Corpuscular Volume 90.6 fL (80-100); Monocytes Absolute Auto 500 /uL (0-900); Monocytes Percent Auto 6.9 % (3-14); Neutrophils Absolute Auto 4700 /uL (1500-7000); Neutrophils Percent Auto 59.3 % (50-75); Platelet Count 266 X10^3/uL (150-400); Red Blood Cell Count 3.96 X10^6/uL (4.0-5.2); Red Cell Distribution Width 13.4 % (11.6-14.8); White Blood Cell Count 7.9 X10^3/uL (4.5-11.0)
[2020-09-05 14:32] LABS: Albumin 4.9 g/dL (3.5-5.0); BUN Creatinine Ratio 12.8 (6-22); Blood Urea Nitrogen 21 mg/dL (7-17); Calcium 10.1 mg/dL (8.4-10.2); Carbon Dioxide 28 mmol/L (22-32); Chloride 99 mmol/L (98-107); Estimated Glomerular Filt Rate 30.6 mL/min (>60); Glucose 110 mg/dL (80-110); HEMOLYSIS < 15 (0-50); Potassium 4.1 mmol/L (3.4-5.1); Sodium 135 mmol/L (137-145)
[2020-09-07 12:23] LABS: M-Spike % Not Observed % (Not Observed); Urine Total Protein 8.2 mg/dL (Not Estab.)
[2020-09-07 12:38] LABS: Immunoglobulin A, Serum 222 mg/dL (64-422); Immunoglobulin G,Serum 1255 mg/dL (586-1602); Immunoglobulin M, Serum 55 mg/dL (26-217)
[2020-09-07 15:08] LABS: Albumin 4.3 g/dL (2.9-4.4); Alpha-1-Globulin 0.3 g/dL (0.0-0.4); Alpha-2-Globulin 0.7 g/dL (0.4-1.0); Gamma Globulin 1.4 g/dL (0.4-1.8); Globulin Total 3.3 g/dL (2.2-3.9); Protein, Total 7.6 g/dL (6.0-8.5)
[2020-09-15 11:13] LABS: Free Kappa Lt Chains, Serum 55.1; Free Lambda Lt Chains,Serum 17.8
== END ==
PROVIDERS: PCP Internal Medicine; Referring Provider Internal Medicine Nephrology; Visit Provider Internal Medicine Nephrology
DX: N18.32 Chronic kidney disease, stage 3b (principal); R80.3 Bence Jones proteinuria
CPT/HCPCS: 36415; 80069; 82784; 83883; 84155; 84156; 84165; 84166; 85025; 86334; 86335

== ENCOUNTER → 2020-12-21 12:24 | Outpatient (CLI) | payer MEDICARE, OTHER, SELFPAY ==
[2020-12-21 12:54] LABS: Add Manual Diff / Slide Review NO; Basophils Absolute Auto 100 /uL (0-100); Basophils Percent Auto 0.9 % (0-2); Eosinophils Absolute Auto 300 /uL (0-450); Eosinophils Percent Auto 3.6 % (2-4); Hematocrit 36.5 % (36-46); Lymphocytes Absolute Auto 2200 /uL (1100-4500); Lymphocytes Percent Auto 31.3 % (25-40); Mean Corpuscular HGB Conc 32.7 % (30-36); Mean Corpuscular Hemoglobin 30.4 PG (26-34); Mean Corpuscular Volume 92.9 fL (80-100); Monocytes Absolute Auto 600 /uL (0-900); Monocytes Percent Auto 8.7 % (3-14); Neutrophils Absolute Auto 4000 /uL (1500-7000); Neutrophils Percent Auto 55.5 % (50-75); Platelet Count 254 X10^3/uL (150-400); Red Blood Cell Count 3.93 X10^6/uL (4.0-5.2); Red Cell Distribution Width 13.3 % (11.6-14.8); White Blood Cell Count 7.1 X10^3/uL (4.5-11.0)
[2020-12-21 13:05] LABS: Albumin 4.5 g/dL (3.5-5.0); BUN Creatinine Ratio 8.5 (6-22); Blood Urea Nitrogen 17 mg/dL (7-17); Calcium 9.9 mg/dL (8.4-10.2); Carbon Dioxide 25 mmol/L (22-32); Chloride 105 mmol/L (98-107); Creatine Kinase 108 U/L (30-135); Estimated Glomerular Filt Rate 24.2 mL/min (>60); Glucose 106 mg/dL (80-110); HEMOLYSIS < 15 (0-50); Phosphorous 3.5 mg/dL (2.8-4.1); Potassium 4.3 mmol/L (3.4-5.1); Sodium 138 mmol/L (137-145)
[2020-12-22 15:21] LABS: Free Kappa Lt Chains, Serum 67.4 mg/L (3.3-19.4); Free Lambda Lt Chains,Serum 24.1 mg/L (5.7-26.3)
[2020-12-23 05:50] LABS: Parathyroid Hormone Int 42 pg/mL (15-65)
== END ==
PROVIDERS: Internal Medicine; PCP Internal Medicine; Referring Provider Internal Medicine Nephrology; Visit Provider Internal Medicine Nephrology
DX: M79.10 Myalgia, unspecified site (principal); I10 Essential (primary) hypertension; N18.32 Chronic kidney disease, stage 3b
CPT/HCPCS: 36415; 80069; 82550; 83883; 83970; 85025

== ENCOUNTER → 2021-01-04 10:59 | Outpatient (CLI) | payer MEDICARE, OTHER, SELFPAY ==
[2021-01-04 11:19] LABS: Bacteria Urine None Seen; RBC Urine None Seen (0-5/HPF); WBC Urine None Seen (0-5/HPF)
[2021-01-04 12:05] LABS: Appearance Urine UA CLEAR; Bilirubin Urine UA NEGATIVE (NEGATIVE); Color Urine UA YELLOW; Glucose Urine UA NEGATIVE (Negative); Ketones Urine UA NEGATIVE (NEGATIVE); Leukocyte Esterase Urine UA TRACE (NEGATIVE); Nitrite Urine UA NEGATIVE (Negative); Occult Blood Urine UA TRACE-LYSED (Negative); Protein Urine UA NEGATIVE (Negative); Specific Gravity Urine UA <=1.005 (1.000-1.035); Urobilinogen Urine UA 0.2 E.U./dL (0.2)
[2021-01-04 12:09] LABS: Albumin 4.4 g/dL (3.5-5.0); Blood Urea Nitrogen 17 mg/dL (7-17); Calcium 9.7 mg/dL (8.4-10.2); Carbon Dioxide 24 mmol/L (22-32); Chloride 101 mmol/L (98-107); Estimated Glomerular Filt Rate 32.8 mL/min (>60); Glucose 108 mg/dL (80-110); HEMOLYSIS < 15 (0-50); Phosphorous 3.3 mg/dL (2.8-4.1); Potassium 4.5 mmol/L (3.4-5.1); Sodium 132 mmol/L (137-145)
[2021-01-04 12:14] LABS: Culture Indicated Urine Cult Not Indicated; Squamous Epithelial Cell Urine 0-1 /HPF (0-5/HPF)
[2021-01-04 12:32] LABS: Creatinine Urine Random 94.1 mg/dL; Protein (Total) Urine Random 12 mg/dL (0-12); Protein Creatinine Ratio Urine 0.12 GRAM/24H
[2021-01-06 13:07] LABS: Immunofixation, Urine Note: (.); M-Spike % Comment: % (Not Observed); Urine Total Protein 5.8 mg/dL (Not Estab.)
[2021-01-06 14:31] LABS: Immunoglobulin A, Serum 200 mg/dL (64-422); Immunoglobulin G,Serum 1065 mg/dL (586-1602); Immunoglobulin M, Serum 53 mg/dL (26-217)
[2021-01-06 15:58] LABS: Alpha-1-Globulin 0.3 g/dL (0.0-0.4); Alpha-2-Globulin 0.6 g/dL (0.4-1.0); Gamma Globulin 1.2 g/dL (0.4-1.8); Globulin Total 2.9 g/dL (2.2-3.9); Protein, Total 6.9 g/dL (6.0-8.5)
== END ==
PROVIDERS: PCP Internal Medicine; Referring Provider Internal Medicine Nephrology; Visit Provider Internal Medicine Nephrology
DX: N18.4 Chronic kidney disease, stage 4 (severe) (principal)
CPT/HCPCS: 36415; 80069; 81001; 82570; 82784; 84155; 84156; 84165; 84166; 86334; 86335

== ENCOUNTER → 2021-03-13 17:39 | Outpatient (CLI) | payer MEDICARE, OTHER, SELFPAY ==
--- NOTE | 2021-03-13 | DI.MG.S_ITS ---
BILATERAL DIGITAL SCREENING MAMMOGRAM 3D/2D WITH CAD: 03/13/2021 CLINICAL: Routine screening. Comparison is made to exams dated: 03/04/2020 mammogram, 03/03/2019 mammogram, and 01/24/2018 mammogram - [facility]. The tissue of both breasts is heterogeneously dense. This may lower the sensitivity of mammography. Current study was also evaluated with a Computer Aided Detection (CAD) system. No significant masses, calcifications, or other findings are seen in either breast. There has been no significant interval change. IMPRESSION: NEGATIVE There is no mammographic evidence of malignancy. A 1 year screening mammogram is recommended. This exam was interpreted at Station ID: [id number]. NOTE: For mammograms, a report in lay terms will be sent to the patient. Approximately 15% of breast malignancies will not be visualized mammographically. In the management of a palpable breast mass, a negative mammogram must not discourage biopsy of a clinically suspicious lesion. Electronically Signed By: Vladimri Paz M.D., jr/iris:03/14/2021 08:42:46 letter sent: Normal Exam ACR BI-RADS Category 1: Negative [id number]
== END ==
PROVIDERS: PCP Internal Medicine; Referring Provider Internal Medicine; Visit Provider Internal Medicine
DX: Z12.31 Encounter for screening mammogram for malignant neoplasm of breast (principal)
CPT/HCPCS: 77063; 77067

== ENCOUNTER → 2021-03-23 12:07 | Outpatient (CLI) | payer MEDICARE, OTHER, SELFPAY ==
[2021-03-23 13:01] LABS: Add Manual Diff / Slide Review NO; Basophils Absolute Auto 0 /uL (0-100); Basophils Percent Auto 0.5 % (0-2); Eosinophils Absolute Auto 100 /uL (0-450); Eosinophils Percent Auto 1.2 % (2-4); Hematocrit 35.1 % (36-46); Hemoglobin 11.7 g/dL (12.0-16.0); Lymphocytes Absolute Auto 1500 /uL (1100-4500); Lymphocytes Percent Auto 16.3 % (25-40); Mean Corpuscular HGB Conc 33.3 % (30-36); Mean Corpuscular Hemoglobin 30.9 PG (26-34); Mean Corpuscular Volume 92.9 fL (80-100); Monocytes Absolute Auto 500 /uL (0-900); Monocytes Percent Auto 5.4 % (3-14); Neutrophils Absolute Auto 7100 /uL (1500-7000); Neutrophils Percent Auto 76.6 % (50-75); Platelet Count 229 X10^3/uL (150-400); Red Blood Cell Count 3.77 X10^6/uL (4.0-5.2); Red Cell Distribution Width 13.5 % (11.6-14.8); White Blood Cell Count 9.3 X10^3/uL (4.5-11.0)
[2021-03-23 13:16] LABS: Albumin 4.4 g/dL (3.5-5.0); BUN Creatinine Ratio 9.8 (6-22); Blood Urea Nitrogen 17 mg/dL (7-17); Calcium 10.2 mg/dL (8.4-10.2); Carbon Dioxide 26 mmol/L (22-32); Chloride 101 mmol/L (98-107); Estimated Glomerular Filt Rate 28.7 mL/min (>60); Glucose 107 mg/dL (80-110); HEMOLYSIS < 15 (0-50); Phosphorous 3.8 mg/dL (2.8-4.1); Potassium 4.5 mmol/L (3.4-5.1); Sodium 133 mmol/L (137-145)
[2021-03-24 12:47] LABS: Free Kappa Lt Chains, Serum 67.2 mg/L (3.3-19.4); Free Lambda Lt Chains,Serum 23.8 mg/L (5.7-26.3)
[2021-03-27 11:36] LABS: Immunoglobulin A, Serum 214 mg/dL (64-422); Immunoglobulin G,Serum 1133 mg/dL (586-1602); Immunoglobulin M, Serum 57 mg/dL (26-217)
[2021-03-27 12:11] LABS: Alpha-1 Globulin, Ur 2.8 % (.); Beta Globulin, Ur 33.3 % (.); Gamma Globulin, Ur 27.2 % (.); M-Spike % 11.6 % (Not Observed)
[2021-03-27 16:16] LABS: Alpha-1-Globulin 0.3 g/dL (0.0-0.4); Alpha-2-Globulin 0.7 g/dL (0.4-1.0); Gamma Globulin 1.3 g/dL (0.4-1.8); Globulin Total 3.3 g/dL (2.2-3.9); Protein, Total 7.3 g/dL (6.0-8.5)
== END ==
PROVIDERS: PCP Internal Medicine; Referring Provider Internal Medicine Nephrology; Visit Provider Internal Medicine Nephrology
DX: D47.2 Monoclonal gammopathy (principal); N18.32 Chronic kidney disease, stage 3b
CPT/HCPCS: 36415; 80069; 82784; 83883; 84155; 84156; 84165; 84166; 85025; 86334; 86335

== ENCOUNTER → 2021-06-06 12:20 | Outpatient (CLI) | payer MEDICARE, OTHER, SELFPAY ==
[2021-06-06 13:51] LABS: Cholesterol 143 mg/dL (140-199); Creatine Kinase 92 U/L (30-135); HDL Cholesterol 89 mg/dL (40-60); LDL Cholesterol Calculated 43 mg/dL (<100); Triglycerides 54 mg/dL (35-150)
== END ==
PROVIDERS: PCP Internal Medicine; Referring Provider Internal Medicine; Visit Provider Internal Medicine
DX: E78.5 Hyperlipidemia, unspecified (principal)
CPT/HCPCS: 36415; 80061; 82550

== ENCOUNTER → 2021-07-10 12:09 | Outpatient (CLI) | payer MEDICARE, BC, SELFPAY ==
[2021-07-10 13:06] LABS: Add Manual Diff / Slide Review NO; Basophils Absolute Auto 100 /uL (0-100); Basophils Percent Auto 0.5 % (0-2); Eosinophils Absolute Auto 300 /uL (0-450); Eosinophils Percent Auto 2.6 % (2-4); Hematocrit 35.2 % (36-46); Hemoglobin 11.8 g/dL (12.0-16.0); Lymphocytes Absolute Auto 1900 /uL (1100-4500); Lymphocytes Percent Auto 16.3 % (25-40); Mean Corpuscular HGB Conc 33.5 % (30-36); Mean Corpuscular Hemoglobin 30.4 PG (26-34); Mean Corpuscular Volume 90.6 fL (80-100); Monocytes Absolute Auto 700 /uL (0-900); Monocytes Percent Auto 5.9 % (3-14); Neutrophils Absolute Auto 8600 /uL (1500-7000); Neutrophils Percent Auto 74.7 % (50-75); Platelet Count 281 X10^3/uL (150-400); Red Blood Cell Count 3.88 X10^6/uL (4.0-5.2); White Blood Cell Count 11.5 X10^3/uL (4.5-11.0)
[2021-07-10 13:32] LABS: Albumin 4.4 g/dL (3.5-5.0); BUN Creatinine Ratio 10.3 (6-22); Blood Urea Nitrogen 21 mg/dL (7-17); Carbon Dioxide 23 mmol/L (22-32); Chloride 105 mmol/L (98-107); Estimated Glomerular Filt Rate 23.7 mL/min (>60); Glucose 113 mg/dL (80-110); HEMOLYSIS < 15 (0-50); Phosphorous 3.7 mg/dL (2.8-4.1); Potassium 4.4 mmol/L (3.4-5.1); Sodium 138 mmol/L (137-145)
[2021-07-10 16:01] LABS: Creatinine Urine Random 205.4 mg/dL; Protein (Total) Urine Random 22 mg/dL (0-12)
[2021-07-11 08:14] LABS: Parathyroid Hormone Int 50 pg/mL (15-65)
[2021-07-11 14:12] LABS: Free Kappa Lt Chains, Serum 71.1 mg/L (3.3-19.4); Free Lambda Lt Chains,Serum 24.2 mg/L (5.7-26.3)
[2021-07-13 14:06] LABS: Alpha-1 Globulin, Ur 0.3 % (.); Gamma Globulin, Ur 30.9 % (.); M-Spike % 13.9 % (Not Observed); Urine Total Protein 31.1 mg/dL (Not Estab.)
== END ==
PROVIDERS: PCP Internal Medicine; Referring Provider Internal Medicine Nephrology; Visit Provider Internal Medicine Nephrology
DX: D47.2 Monoclonal gammopathy (principal); N18.32 Chronic kidney disease, stage 3b
CPT/HCPCS: 36415; 80069; 82570; 83883; 83970; 84156; 84166; 85025; 86335

== ENCOUNTER → 2021-08-09 15:27 | Outpatient (CLI) | payer MEDICARE, BC, SELFPAY ==
[2021-08-09 16:25] LABS: Add Manual Diff / Slide Review NO; Basophils Absolute Auto 100 /uL (0-100); Basophils Percent Auto 0.7 % (0-2); Eosinophils Absolute Auto 400 /uL (0-450); Eosinophils Percent Auto 4.9 % (2-4); Hematocrit 35.8 % (36-46); Lymphocytes Absolute Auto 2400 /uL (1100-4500); Lymphocytes Percent Auto 28.9 % (25-40); Mean Corpuscular HGB Conc 33.6 % (30-36); Mean Corpuscular Hemoglobin 30.6 PG (26-34); Mean Corpuscular Volume 91.2 fL (80-100); Monocytes Absolute Auto 700 /uL (0-900); Monocytes Percent Auto 8.8 % (3-14); Neutrophils Absolute Auto 4600 /uL (1500-7000); Neutrophils Percent Auto 56.7 % (50-75); Platelet Count 253 X10^3/uL (150-400); Red Blood Cell Count 3.93 X10^6/uL (4.0-5.2); Red Cell Distribution Width 13.3 % (11.6-14.8); White Blood Cell Count 8.2 X10^3/uL (4.5-11.0)
[2021-08-09 17:06] LABS: BUN Creatinine Ratio 13.3 (6-22); Blood Urea Nitrogen 25 mg/dL (7-17); Calcium 10.4 mg/dL (8.4-10.2); Carbon Dioxide 27 mmol/L (22-32); Chloride 103 mmol/L (98-107); Estimated Glomerular Filt Rate 26.1 mL/min (>60); Glucose 93 mg/dL (80-110); HEMOLYSIS < 15 (0-50); Potassium 4.4 mmol/L (3.4-5.1); Sodium 139 mmol/L (137-145)
== END ==
PROVIDERS: PCP Internal Medicine; Referring Provider Internal Medicine Nephrology; Visit Provider Internal Medicine Nephrology
DX: D72.825 Bandemia (principal); N18.4 Chronic kidney disease, stage 4 (severe)
CPT/HCPCS: 36415; 80048; 85025

== ENCOUNTER → 2021-08-30 10:15 | Outpatient (CLI) | payer MEDICARE, BC, SELFPAY ==
[2021-08-30 12:42] LABS: BUN Creatinine Ratio 10.8 (6-22); Blood Urea Nitrogen 17 mg/dL (7-17); Calcium 10.1 mg/dL (8.4-10.2); Carbon Dioxide 27 mmol/L (22-32); Chloride 101 mmol/L (98-107); Estimated Glomerular Filt Rate 32.1 mL/min (>60); Glucose 109 mg/dL (80-110); HEMOLYSIS < 15 (0-50); Potassium 4.3 mmol/L (3.4-5.1); Sodium 135 mmol/L (137-145)
== END ==
PROVIDERS: PCP Internal Medicine; Referring Provider Internal Medicine Nephrology; Visit Provider Internal Medicine Nephrology
DX: N18.4 Chronic kidney disease, stage 4 (severe) (principal)
CPT/HCPCS: 36415; 80048

== ENCOUNTER → 2021-11-07 12:38 | Outpatient (CLI) | payer MEDICARE, OTHER, SELFPAY ==
--- NOTE | 2021-11-07 | DI.RAD.S_ITS ---
PROCEDURE: XR CHEST 2V INDICATIONS: Coronary Artery Disease TECHNIQUE: 2 views of the chest were acquired. COMPARISON: [facility], CHEST 2 VIEW, 07/04/2017, 9:29. [facility], CHEST 1 VIEW, 11/21/2010, 8:27. FINDINGS: Surgical changes and devices: Cholecystectomy clips. Left coronary vasculature stent. Lungs and pleura: Lungs are clear. No pleural effusions or pneumothorax. Mediastinum: Mediastinal contours are normal. Heart size is normal. Bones and chest wall: No suspicious bony abnormalities. Soft tissues appear unremarkable. IMPRESSION: No acute cardiopulmonary disease process. Dictated by: Munira Harmon MD, PhD on 11/07/2021 at 15:31 Approved by: Munira Harmon MD, PhD on 11/07/2021 at 15:33
== END ==
PROVIDERS: PCP Internal Medicine; Referring Provider Internal Medicine; Visit Provider Internal Medicine
DX: I25.118 Atherosclerotic heart disease of native coronary artery with other forms of angina pectoris (principal)
CPT/HCPCS: 71046

== ENCOUNTER → 2021-11-25 11:57 | Outpatient (CLI) | payer MEDICARE, OTHER, SELFPAY ==
[2021-11-25 12:28] LABS: Add Manual Diff / Slide Review NO; Basophils Absolute Auto 100 /uL (0-100); Basophils Percent Auto 0.6 % (0-2); Eosinophils Absolute Auto 300 /uL (0-450); Eosinophils Percent Auto 3.8 % (2-4); Hematocrit 34.2 % (36-46); Hemoglobin 11.7 g/dL (12.0-16.0); Lymphocytes Absolute Auto 2200 /uL (1100-4500); Lymphocytes Percent Auto 27.8 % (25-40); Mean Corpuscular HGB Conc 34.4 % (30-36); Mean Corpuscular Hemoglobin 31.4 PG (26-34); Mean Corpuscular Volume 91.4 fL (80-100); Monocytes Absolute Auto 700 /uL (0-900); Monocytes Percent Auto 8.3 % (3-14); Neutrophils Absolute Auto 4700 /uL (1500-7000); Neutrophils Percent Auto 59.5 % (50-75); Platelet Count 274 X10^3/uL (150-400); Red Blood Cell Count 3.74 X10^6/uL (4.0-5.2); Red Cell Distribution Width 13.4 % (11.6-14.8); White Blood Cell Count 7.9 X10^3/uL (4.5-11.0)
[2021-11-25 12:36] LABS: Appearance Urine UA CLEAR; Bilirubin Urine UA NEGATIVE (NEGATIVE); Color Urine UA YELLOW; Glucose Urine UA NEGATIVE (Negative); Ketones Urine UA NEGATIVE (NEGATIVE); Leukocyte Esterase Urine UA 2+ (NEGATIVE); Nitrite Urine UA NEGATIVE (Negative); Occult Blood Urine UA TRACE-LYSED (Negative); Protein Urine UA TRACE (Negative); Specific Gravity Urine UA 1.015 (1.000-1.035); Urobilinogen Urine UA 0.2 E.U./dL (0.2)
[2021-11-25 12:43] LABS: Albumin 4.5 g/dL (3.5-5.0); BUN Creatinine Ratio 12.2 (6-22); Blood Urea Nitrogen 22 mg/dL (7-17); Calcium 9.4 mg/dL (8.4-10.2); Carbon Dioxide 24 mmol/L (22-32); Chloride 104 mmol/L (98-107); Estimated Glomerular Filt Rate 29 mL/min (>60); Glucose 115 mg/dL (80-110); HEMOLYSIS < 15 (0-50); Phosphorous 3.5 mg/dL (2.8-4.1); Potassium 4.3 mmol/L (3.4-5.1); Sodium 136 mmol/L (137-145)
[2021-11-25 12:50] LABS: Bacteria Urine Many (>30); Culture Indicated Urine Specimen Cultured; RBC Urine 0-1/HPF (0-5/HPF); Squamous Epithelial Cell Urine 1-5 /HPF (0-5/HPF); WBC Urine 10-30/HPF (0-5/HPF)
[2021-11-25 13:21] LABS: Creatinine Urine Random 184.3 mg/dL; Protein (Total) Urine Random 13 mg/dL (0-12); Protein Creatinine Ratio Urine 0.07 GRAM/24H
[2021-11-25 13:25] LABS: Vitamin D 25 Hydroxy (D3) 102 ng/mL (30.0-100.0)
[2021-11-26 06:57] LABS: Parathyroid Hormone Int 34 pg/mL (15-65)
== END ==
PROVIDERS: PCP Internal Medicine; Referring Provider Internal Medicine Nephrology; Visit Provider Internal Medicine Nephrology
DX: N18.4 Chronic kidney disease, stage 4 (severe) (principal); N39.0 Urinary tract infection, site not specified; D63.1 Anemia in chronic kidney disease
CPT/HCPCS: 36415; 80069; 81001; 82306; 82570; 83970; 84156; 85025; 87077; 87086; 87186

== ENCOUNTER → 2022-02-13 09:52 | Outpatient (CLI) | payer MEDICARE, OTHER, SELFPAY ==
[2022-02-13 11:19] LABS: Add Manual Diff / Slide Review NO; Basophils Absolute Auto 0 /uL (0-100); Basophils Percent Auto 0.5 % (0-2); Eosinophils Absolute Auto 200 /uL (0-450); Eosinophils Percent Auto 2.8 % (2-4); Hematocrit 34.5 % (36-46); Hemoglobin 11.8 g/dL (12.0-16.0); Lymphocytes Absolute Auto 1800 /uL (1100-4500); Lymphocytes Percent Auto 29.5 % (25-40); Mean Corpuscular HGB Conc 34.1 % (30-36); Mean Corpuscular Hemoglobin 30.8 PG (26-34); Mean Corpuscular Volume 90.3 fL (80-100); Monocytes Absolute Auto 600 /uL (0-900); Monocytes Percent Auto 9.5 % (3-14); Neutrophils Absolute Auto 3500 /uL (1500-7000); Neutrophils Percent Auto 57.7 % (50-75); Platelet Count 275 X10^3/uL (150-400); Red Blood Cell Count 3.82 X10^6/uL (4.0-5.2); Red Cell Distribution Width 13.2 % (11.6-14.8)
[2022-02-13 15:05] LABS: Albumin 4.3 g/dL (3.5-5.0); BUN Creatinine Ratio 10.5 (6-22); Blood Urea Nitrogen 15 mg/dL (7-17); Calcium 9.3 mg/dL (8.4-10.2); Carbon Dioxide 25 mmol/L (22-32); Chloride 97 mmol/L (98-107); Estimated Glomerular Filt Rate 38 mL/min (>60); Glucose 93 mg/dL (80-110); HEMOLYSIS < 15 (0-50); Phosphorous 3.5 mg/dL (2.8-4.1); Potassium 4.4 mmol/L (3.4-5.1); Sodium 133 mmol/L (137-145)
[2022-02-13 15:12] LABS: Free T4, Direct Thyroxine 1.55 ng/dL (0.78-2.19)
[2022-02-13 15:26] LABS: Thyroid Stimulating Hormone 1.29 uIU/mL (0.47-4.68)
[2022-02-14 17:25] LABS: Free Kappa Lt Chains, Serum 67.2 mg/L (3.3-19.4); Free Lambda Lt Chains,Serum 21.4 mg/L (5.7-26.3)
== END ==
PROVIDERS: Family Provider Internal Medicine; PCP Internal Medicine; Referring Provider Internal Medicine Nephrology; Visit Provider Internal Medicine Nephrology
DX: E04.9 Nontoxic goiter, unspecified (principal); D47.2 Monoclonal gammopathy; N39.0 Urinary tract infection, site not specified; B96.20 Unspecified Escherichia coli [E. coli] as the cause of diseases classified elsewhere; N18.4 Chronic kidney disease, stage 4 (severe)
CPT/HCPCS: 36415; 80069; 83883; 84439; 84443; 85025

== ENCOUNTER → 2022-05-11 08:29 | Outpatient (CLI) | payer MEDICARE, OTHER, SELFPAY ==
--- NOTE | 2022-05-11 08:34 | DI.MG.S_ITS ---
BILATERAL DIGITAL SCREENING MAMMOGRAM 3D/2D WITH CAD: 05/11/2022 CLINICAL: Routine screening. Comparison is made to exams dated: 03/13/2021 mammogram, 03/04/2020 mammogram, and 03/03/2019 mammogram - . Both breasts are heterogeneously dense, which may obscure small masses (category c / 51-75% glandular tissue). Current study was also evaluated with a Computer Aided Detection (CAD) system. There are benign calcifications in both breasts. No significant masses, calcifications, or other findings are seen in either breast. There has been no significant interval change. IMPRESSION: BENIGN There is no mammographic evidence of malignancy. A 1 year screening mammogram is recommended. Based on the Tyrer Cuzick model (a risk assessment model) the patient's lifetime risk is 3.9% and her 10 year risk is 0.0%. According to the ACR, ACS, and NCCN guidelines, an annual breast MRI exam along with mammogram is recommended if the patient's lifetime risk is 20% or greater. This exam was interpreted at Station ID: [id number]. NOTE: For mammograms, a report in lay terms will be sent to the patient. Approximately 15% of breast malignancies will not be visualized mammographically. In the management of a palpable breast mass, a negative mammogram must not discourage biopsy of a clinically suspicious lesion. Electronically Signed By: Christiano suero/iris:05/11/2022 10:53:15 letter sent: Normal Exam ACR BI-RADS Category 2: Benign Finding(s) 3342F
== END ==
PROVIDERS: Family Provider Internal Medicine; PCP Internal Medicine; Referring Provider Internal Medicine; Visit Provider Internal Medicine
DX: Z12.31 Encounter for screening mammogram for malignant neoplasm of breast (principal)
CPT/HCPCS: 77063; 77067

== ENCOUNTER → 2022-06-14 08:45 | Outpatient (CLI) | payer MEDICARE, OTHER, SELFPAY ==
--- NOTE | 2022-06-14 09:43 | DI.NM.S_ITS ---
PROCEDURE: NM JULIO CÉSAR PERF SPECT R&S PHARM Rest and pharmacological stress myocardial perfusion SPECT with gated imaging and ejection fraction RADIOPHARMACEUTICAL: 9.9 mCi Tc-99m tetrafosmin IV at rest and 26.2 mCi Tc-99m tetrafosmin IV at peak effect of pharmacological stress. [id number] was performed. INDICATIONS: Dyspnea on exertion TECHNIQUE: Radiopharmaceutical was injected at peak stress test, and also at rest. SPECT images were obtained. SPECT myocardial perfusion images were displayed in short axis, horizontal long axis, and vertical long axis views. Gated images were reviewed using Persado software. COMPARISON: None. CARDIAC STRESS: A pharmacologic stress test was performed under the supervision of an attending staff, using an infusion of lexiscan 0.4mg IV1. Hemodynamic data: There is normal blood pressure and heart rate response to pharmacologic stress. Symptoms: The patient denied anginal chest pain. Aminophylline: none EKG: No diagnostic changes of ischemia; no ectopy. FINDINGS: Raw data: There is good myocardial uptake of radiotracer. No significant motion artifacts. Left ventricle function: Gated images demonstrate normal left ventricular wall thickening. No segmental wall motion abnormalities. No transient ischemic dilation; TID is 0.87 (normal less than 1.3). Left ventricle post stress end diastolic volume is 94 mL. Left ventricle stress ejection fraction is 72%; normal range is above 45%. Myocardial perfusion: There is a moderately intense reversible defect in the septum that persists with prone imaging, suggesting moderate amount of ischemia. SSS 13, SRS 4. IMPRESSION: Abnormal nuclear stress test consistent with ischemia. 1) There is a moderately intense reversible defect in the septum that persists with prone imaging, suggesting moderate amount of ischemia. SSS 13, SRS 4. 2) Normal left ventricular size, wall motion, and systolic function (EF post stress 72%). 3) No ST changes with lexiscan. 4) No angina during the study. 5) No prior nuclear stress test available for comparison. Dictated by: Andre Ignacio MD on 06/14/2022 at 15:47 Approved by: Andre Ignacio MD on 06/14/2022 at 15:50
[2022-06-14 10:25] LABS: COVID19 -Nasal RAPID Negative (Negative)
== END ==
PROVIDERS: Family Provider Internal Medicine; PCP Internal Medicine; Referring Provider Internal Medicine; Visit Provider Internal Medicine
DX: R94.39 Abnormal result of other cardiovascular function study (principal); R06.09 Other forms of dyspnea; Z20.822 Contact with and (suspected) exposure to COVID-19
CPT/HCPCS: 78452; 87635; 93017; A9502; J2785

== ENCOUNTER → 2022-06-16 09:00 | Outpatient (CLI) | payer MEDICARE, OTHER, SELFPAY ==
[2022-06-16 10:26] LABS: Add Manual Diff / Slide Review NO; Basophils Absolute Auto 0 /uL (0-100); Basophils Percent Auto 0.6 % (0-2); Eosinophils Absolute Auto 300 /uL (0-450); Hematocrit 36.2 % (36-46); Hemoglobin 11.9 g/dL (12.0-16.0); Lymphocytes Absolute Auto 2100 /uL (1100-4500); Lymphocytes Percent Auto 31.5 % (25-40); Mean Corpuscular HGB Conc 32.9 % (30-36); Mean Corpuscular Hemoglobin 30.5 PG (26-34); Mean Corpuscular Volume 92.8 fL (80-100); Monocytes Absolute Auto 600 /uL (0-900); Monocytes Percent Auto 9.1 % (3-14); Neutrophils Absolute Auto 3600 /uL (1500-7000); Neutrophils Percent Auto 54.8 % (50-75); Platelet Count 268 X10^3/uL (150-400); Red Cell Distribution Width 13.4 % (11.6-14.8); White Blood Cell Count 6.6 X10^3/uL (4.5-11.0)
[2022-06-16 10:49] LABS: Albumin 4.1 g/dL (3.5-5.0); BUN Creatinine Ratio 14.6 (6-22); Blood Urea Nitrogen 22 mg/dL (7-17); Calcium 9.7 mg/dL (8.4-10.2); Carbon Dioxide 23 mmol/L (22-32); Chloride 105 mmol/L (98-107); Estimated Glomerular Filt Rate 36 mL/min (>60); Glucose 105 mg/dL (80-110); HEMOLYSIS < 15 (0-50); Phosphorous 3.8 mg/dL (2.8-4.1); Potassium 4.2 mmol/L (3.4-5.1); Sodium 138 mmol/L (137-145)
[2022-06-16 11:48] LABS: Bilirubin Urine UA NEGATIVE (NEGATIVE); Color Urine UA YELLOW; Glucose Urine UA NEGATIVE (Negative); Ketones Urine UA NEGATIVE (NEGATIVE); Leukocyte Esterase Urine UA 1+ (NEGATIVE); Nitrite Urine UA NEGATIVE (Negative); Occult Blood Urine UA NEGATIVE (Negative); Protein Urine UA NEGATIVE (Negative); Specific Gravity Urine UA 1.015 (1.000-1.035); Urobilinogen Urine UA 0.2 E.U./dL (0.2)
[2022-06-16 11:49] LABS: Appearance Urine UA Slightly Cloudy; pH Urine UA 5.5 (4.5-8.0)
[2022-06-16 11:56] LABS: Amorphous Sediment Urine 1+; Bacteria Urine Few (2-10); Calcium Oxalate Crystals Urine Few; Culture Indicated Urine Specimen Cultured; Mucus Urine 1+ (Negative); RBC Urine None Seen (0-5/HPF); Squamous Epithelial Cell Urine 1-5 /HPF (0-5/HPF); WBC Urine 1-5/HPF (0-5/HPF)
[2022-06-16 12:50] LABS: Creatinine Urine Random 175.3 mg/dL
[2022-06-16 12:55] LABS: Microalbumi Creatinin Ratio Ur 6.2 ug/mg CR (<30); Microalbumin Urine Random 1.1 mg/dL (0-1.6)
[2022-06-19 09:37] LABS: Immunoglobulin A, Serum 200 mg/dL (64-422); Immunoglobulin G,Serum 1057 mg/dL (586-1602); Immunoglobulin M, Serum 65 mg/dL (26-217)
== END ==
PROVIDERS: Family Provider Internal Medicine; PCP Internal Medicine; Referring Provider Internal Medicine Nephrology; Visit Provider Internal Medicine Nephrology
DX: N18.32 Chronic kidney disease, stage 3b (principal)
CPT/HCPCS: 36415; 80069; 81001; 82043; 82570; 82784; 84155; 85025; 86334; 86335; 87077; 87086; 87186

== ENCOUNTER → 2022-10-01 09:15 | Outpatient (CLI) | payer MEDICARE, OTHER, SELFPAY ==
[2022-10-01 10:03] LABS: Add Manual Diff / Slide Review NO; Basophils Absolute Auto 100 /uL (0-100); Basophils Percent Auto 0.8 % (0-2); Eosinophils Absolute Auto 300 /uL (0-450); Eosinophils Percent Auto 4.3 % (2-4); Hematocrit 37.1 % (36-46); Hemoglobin 12.4 g/dL (12.0-16.0); Lymphocytes Absolute Auto 1700 /uL (1100-4500); Lymphocytes Percent Auto 22.4 % (25-40); Mean Corpuscular HGB Conc 33.6 % (30-36); Mean Corpuscular Hemoglobin 30.1 PG (26-34); Mean Corpuscular Volume 89.7 fL (80-100); Monocytes Absolute Auto 700 /uL (0-900); Monocytes Percent Auto 8.9 % (3-14); Neutrophils Absolute Auto 4700 /uL (1500-7000); Neutrophils Percent Auto 63.6 % (50-75); Platelet Count 302 X10^3/uL (150-400); Red Blood Cell Count 4.13 X10^6/uL (4.0-5.2); Red Cell Distribution Width 14.1 % (11.6-14.8); White Blood Cell Count 7.4 X10^3/uL (4.5-11.0)
[2022-10-01 10:29] LABS: BUN Creatinine Ratio 12.7 (6-22); Blood Urea Nitrogen 19 mg/dL (7-17); Calcium 9.6 mg/dL (8.4-10.2); Carbon Dioxide 25 mmol/L (22-32); Chloride 104 mmol/L (98-107); Estimated Glomerular Filt Rate 36 mL/min (>60); Glucose 106 mg/dL (80-110); HEMOLYSIS < 15 (0-50); Phosphorous 3.8 mg/dL (2.8-4.1); Potassium 4.2 mmol/L (3.4-5.1); Sodium 138 mmol/L (137-145)
[2022-10-01 10:40] LABS: Vitamin D 25 Hydroxy (D3) 73.2 ng/mL (30.0-100.0)
[2022-10-02 18:36] LABS: Free Kappa Lt Chains, Serum 78.3 mg/L (3.3-19.4); Free Lambda Lt Chains,Serum 28.3 mg/L (5.7-26.3)
[2022-10-04 11:00] LABS: Parathyroid Hormone Int 30 pg/mL (15-65)
== END ==
PROVIDERS: Family Provider Internal Medicine; PCP Internal Medicine; Referring Provider Internal Medicine Nephrology; Visit Provider Internal Medicine Nephrology
DX: N18.32 Chronic kidney disease, stage 3b (principal)
CPT/HCPCS: 36415; 80069; 82306; 83883; 83970; 85025

== ENCOUNTER → 2023-01-14 10:15 | Outpatient (CLI) | payer MEDICARE, OTHER, SELFPAY ==
--- NOTE | 2023-01-14 10:16 | DI.RAD.S_ITS ---
PROCEDURE: XR LUMBAR SPINE MIN 4V INDICATIONS: BACK PAIN TECHNIQUE: 5 views of the lumbar spine were acquired, including bilateral oblique views. COMPARISON: [facility], , L-SPINE 2-3 VIEWS, 12/03/2011, 10:28. FINDINGS: Bones: 5 nonrib-bearing vertebrae are present. Since 2011, there has been interval development of rightward curvature, centered at L3. There is vertebral body height loss of L3. Grade 1 retrolisthesis of L2 on L3. Severe disc height loss at all levels and diffuse facet arthrosis. Soft tissues: Overlying bowel gas pattern is normal. No suspicious soft tissue calcifications. Oblique images: No pars defects. IMPRESSION: Marked degenerative disc disease and facet arthrosis. Interval development of rightward curvature, centered at L3. Vertebral compression deformity not excluded, but likely chronic. Dictated by: Parveen Osullivan M.D. on 01/14/2023 at 10:53 Approved by: Parveen Osullivan M.D. on 01/14/2023 at 11:00
== END ==
PROVIDERS: Family Provider Internal Medicine; PCP Internal Medicine; Referring Provider Physical Medicine & Rehabilitation; Visit Provider Physical Medicine & Rehabilitation
DX: M51.36 Other intervertebral disc degeneration, lumbar region (principal); M47.816 Spondylosis without myelopathy or radiculopathy, lumbar region; M43.16 Spondylolisthesis, lumbar region; M41.20 Other idiopathic scoliosis, site unspecified; M54.9 Dorsalgia, unspecified; Z98.890 Other specified postprocedural states
CPT/HCPCS: 72110; 99214

== ENCOUNTER → 2023-01-20 09:47 | Outpatient (CLI) | payer MEDICARE, OTHER, SELFPAY ==
--- NOTE | 2023-01-20 09:49 | DI.MRI.S_ITS ---
PROCEDURE: MR LUMBAR SPINE WO CON INDICATIONS: Axial low back pain, post laminectomy TECHNIQUE: Noncontrast sagittal T1 spin echo and T2 fast echo, sagittal STIR, and T2 fast spin echo through the lumbar spine. In cases with scoliosis, additional coronal T2 fast spin echo may be performed. COMPARISON: [facility], MR, L-SPINE WITHOUT CONTRAST, 07/31/2016, 8:43. FINDINGS: Image quality: Excellent. Alignment and Curvature: Dextrocurvature of the lower lumbar spine. Straightening of normal lumbar lordosis. Grade 1 retrolisthesis of L5-S1. Bone Marrow: Multilevel degenerative endplate changes. Status post L4-5 laminectomy. No acute vertebral body compression fractures. Spinal Cord: Conus medullaris terminates at the L1 level. Visualized cord demonstrates normal signal and size. Paraspinous Soft Tissues: No paravertebral masses. T12-L1: Normal appearance. L1-L2: Disc desiccation height loss with a posterior disc bulge. Facet arthropathy and thickened ligamentum flavum. Mild central canal stenosis. Mild right neural foraminal stenosis. No left neural foraminal stenosis. L2-L3: Severe disc desiccation and height loss with a posterior disc bulge. Facet arthropathy and thickening ligamentum flavum. Epidural lipomatosis. This results in severe central canal stenosis, progressed compared to prior. Similar mild to moderate bilateral neural foraminal stenosis. L3-L4: Severe disc desiccation height loss with a posterior disc bulge. Facet arthropathy and thickening ligamentum flavum. Mild to moderate central canal stenosis is similar to prior. Severe left and moderate right neural foraminal stenosis is stable to prior. L4-L5: Disc desiccation height loss with a posterior disc bulge. Status post laminectomy. There is improvement in central canal stenosis, now mild. Facet arthropathy. Severe bilateral neural foraminal stenosis is stable to prior. L5-S1: Severe disc desiccation height loss. Small posterior disc bulge. No spinal canal stenosis. Facet arthropathy. Moderate to severe bilateral neural foraminal stenosis is stable. IMPRESSION: 1. Multilevel degenerative changes of the lumbar spine. Patient is status post L4-5 laminectomy with improvement in central canal stenosis. 2. There has been progression of disc disease at L2-L3 with severe central canal stenosis. 3. Stable moderate and severe multilevel neural foraminal narrowing as described above. Dictated by: Gilberto Carson M.D. on 01/21/2023 at 8:40 Approved by: Gilberto Carson M.D. on 01/21/2023 at 8:51
== END ==
PROVIDERS: Family Provider Internal Medicine; PCP Internal Medicine; Referring Provider Physical Medicine & Rehabilitation; Visit Provider Physical Medicine & Rehabilitation
DX: M43.16 Spondylolisthesis, lumbar region (principal); M47.816 Spondylosis without myelopathy or radiculopathy, lumbar region; M47.817 Spondylosis without myelopathy or radiculopathy, lumbosacral region; M51.36 Other intervertebral disc degeneration, lumbar region; M48.061 Spinal stenosis, lumbar region without neurogenic claudication; M48.07 Spinal stenosis, lumbosacral region
CPT/HCPCS: 72148

== ENCOUNTER → 2023-02-04 14:45 | Outpatient (CLI) | payer MEDICARE, OTHER, SELFPAY ==
[2023-02-04 15:28] LABS: Add Manual Diff / Slide Review NO; Basophils Absolute Auto 0 /uL (0-100); Basophils Percent Auto 0.7 % (0-2); Eosinophils Absolute Auto 200 /uL (0-450); Eosinophils Percent Auto 2.5 % (2-4); Hematocrit 32.8 % (36-46); Hemoglobin 11.3 g/dL (12.0-16.0); Lymphocytes Absolute Auto 1900 /uL (1100-4500); Lymphocytes Percent Auto 27.1 % (25-40); Mean Corpuscular HGB Conc 34.3 % (30-36); Mean Corpuscular Hemoglobin 30.8 PG (26-34); Mean Corpuscular Volume 89.9 fL (80-100); Monocytes Absolute Auto 600 /uL (0-900); Monocytes Percent Auto 7.7 % (3-14); Neutrophils Absolute Auto 4500 /uL (1500-7000); Platelet Count 242 X10^3/uL (150-400); Red Blood Cell Count 3.65 X10^6/uL (4.0-5.2); Red Cell Distribution Width 13.5 % (11.6-14.8); White Blood Cell Count 7.2 X10^3/uL (4.5-11.0)
[2023-02-04 17:36] LABS: Creatinine Urine Random 83.1 mg/dL; Protein (Total) Urine Random 12 mg/dL (0-12); Protein Creatinine Ratio Urine 0.14 GRAM/24H
[2023-02-04 19:34] LABS: Albumin 4.1 g/dL (3.5-5.0); BUN Creatinine Ratio 11.3 (6-22); Blood Urea Nitrogen 18 mg/dL (7-17); Calcium 9.2 mg/dL (8.4-10.2); Carbon Dioxide 23 mmol/L (22-32); Chloride 99 mmol/L (98-107); Estimated Glomerular Filt Rate 33 mL/min (>60); Glucose 114 mg/dL (80-110); HEMOLYSIS < 15 (0-50); Phosphorous 3.2 mg/dL (2.8-4.1); Potassium 3.9 mmol/L (3.4-5.1); Sodium 131 mmol/L (137-145)
[2023-02-05 19:36] LABS: Free Lambda Lt Chains,Serum 21.3 mg/L (5.7-26.3)
[2023-02-06 14:24] LABS: Alpha-1 Globulin, Ur 6.1 % (.); Beta Globulin, Ur 26.4 % (.); Gamma Globulin, Ur 19.3 % (.); M-Spike % Not Observed % (Not Observed); Urine Total Protein 7.2 mg/dL (Not Estab.)
[2023-02-06 16:17] LABS: Immunoglobulin A, Serum 191 mg/dL (64-422); Immunoglobulin G,Serum 1095 mg/dL (586-1602); Immunoglobulin M, Serum 58 mg/dL (26-217)
== END ==
PROVIDERS: Family Provider Internal Medicine; PCP Internal Medicine; Referring Provider Internal Medicine Nephrology; Visit Provider Internal Medicine Nephrology
DX: N18.32 Chronic kidney disease, stage 3b (principal); R80.3 Bence Jones proteinuria; M41.20 Other idiopathic scoliosis, site unspecified; M47.816 Spondylosis without myelopathy or radiculopathy, lumbar region; M43.16 Spondylolisthesis, lumbar region; Z98.890 Other specified postprocedural states
CPT/HCPCS: 80069; 82570; 82784; 83883; 84155; 84156; 84166; 85025; 86334; 86335; 99214

== ENCOUNTER 2023-02-21 10:24 | Outpatient (CLI) | payer MEDICARE, OTHER, SELFPAY ==
[2023-02-21] VITALS (9 sets, daily range): BP systolic 113–162; BP diastolic 59–79; PULSE 64–84; RESP 18–22; TEMP 36.8; O2SAT 97–99
--- NOTE | 2023-02-21 10:26 | DI.RAD.S_ITS ---
PROCEDURE: PAIN L/S FACET INJ/BLK 1ST ELENITA COMPARISON: [facility], MR, MR LUMBAR SPINE WO CON, 01/20/2023, 10:17. INDICATIONS: SPONDYLOSIS FINDINGS: Fluoroscopic spot filming was performed to verify placement of spinal needles on both sides at the L2, L3, and L4 levels, as labeled on the films. Appropriate location of the needle tips was confirmed by injection of iodinated contrast. IMPRESSION: Intraprocedural examination demonstrating appropriate positions of the needles. Dictated by: Dewey Sellers M.D. on 02/21/2023 at 12:18 Approved by: Dewey Sellers M.D. on 02/21/2023 at 12:19
[2023-02-21] MEDS: MIDAZOLAM 2 MG/2 ML VIAL 3 MG IV (11:12)
[2023-02-21] MEDS: IOPAMIDOL 15 ML VIAL 3 ML INJ (11:13)
[2023-02-21] MEDS: LIDOCAINE 1% 20 ML 5 ML INJ (11:13)
[2023-02-21] MEDS: BUPIVACAINE 0.5% (PF) 10 ML VIAL 2 ML INJ (11:13)
--- NOTE | 2023-02-21 11:26 | P.PCN_ITS ---
Date/Time/Diagnoses Date of procedure: 02/21/23 Time of procedure: 11:26 Pre-procedure diagnosis: FACET ARTHROPATHY Post-procedure diagnosis: same Procedure Notes Procedure: 1. BILATERAL L2, L3 and L4 DIAGNOSTIC MB BLOCKS Indications: Zandra is referred by Dr. Iverson for treatment of Bilateral Axial LBP. Physician: Feliz Singh Total Fluoroscopy time (seconds): 17 Total sedation minutes: 16 Complications: none Procedure in detail & Post-procedure care: DESCRIPTION OF PROCEDURE Fluoroscopically guided, contrast-controlled bilateral L2, L3 and L4 medial branch blocks with 0.5cc of 0.5% Marcaine. Following review of allergy and review of potential side effects and complications, including, but not necessarily limited to, infection, allergic reaction, local tissue breakdown, nerve injury, paralysis, stroke and possible , the patient indicated that the patient understood and agreed to proceed. An informed consent document was signed by the patient, witnessed by a nurse, and placed in the patient's chart. After review of previous anaesthesic history and IV conscious sedation the patient was deemed safe to proceed with today's procedure with IV conscious sedation as ASA class II designation. Safety time-out was performed to confirm patient ID, procedure to be performed and site of procedure. IV sedation was accomplished with a combination of 3mg of Versed was administered by the RN after DO order, titrated to patient comfort during the course of the procedure while the patient remained responsive to all verbal commands In the prone position, following sterile prep and drape of the lumbar region, the right L2, L3 and L4 anatomical location of the medial branch of the dorsal ramus was identified fluoroscopically. Subsequently an anesthetic skin wheal using 1% lidocaine solution was initiated at each of the anatomical spots. Subsequently then a 22-gauge 3.5-inch spinal needle was atraumatically introduced and advanced under fluoroscopic guidance at each of the corresponding sites at the right L2, L3 and L4 MB. After negative aspiration, 0.2cc of Isovue 200 was injected, confirming placement without vascular or intrathecal uptake. Subsequently then 0.5cc of 0.5% Marcaine solution was injected at each of the corresponding sites at the right L2, L3 and L4 medial branch locations. The identical procedure was replicated on the left. The patient tolerated the procedure well without signs or symptoms of complications. The patient tolerated the procedure well without signs or symptoms of complications prior to transfer to the recovery area continued monitoring without incident. Post-procedure, the patient was monitored initiating provocative activities to measure the amount of relief from block of the facetogenic pain. The patient reported a VAS of 7 prior to the procedure and a post-procedure VAS of 1. It has been a pleasure to assist in the diagnostic and therapeutic care of your patient. POST OP INSTRUCTIONS The patient was provided with a Pain Log to complete over the next several hours and subsequent days prior to the patient's follow up with the ordering physician. If the patient has optometry professor relief to the solution applied, then they may be a candidate for medial branch rhizotomy. The patient is aware, was provided, once again, with a Pain Log and will follow up with the referring physician for review and clinical correlation
== END 2023-02-21 11:48 | disposition home or self-care (01) ==
LOC: RAD 10:26
PROVIDERS: Family Provider Internal Medicine; PCP Internal Medicine; Referring Provider Physical Medicine & Rehabilitation; Visit Provider Physical Medicine & Rehabilitation
DX: M47.816 Spondylosis without myelopathy or radiculopathy, lumbar region (principal)
CPT/HCPCS: 64493; 64494; 99152; J2250

== ENCOUNTER 2023-04-30 09:30 | Outpatient (RCR) | payer MEDICARE, OTHER, SELFPAY ==
--- NOTE | 2023-01-22 08:26 | PT.OPPOC ---
Physical, Occupational & Speech Therapy At [facility] Current Diagnoses Bilateral primary osteoarthritis of knee (01/22/23) Pain in left knee (01/22/23) Stiffness of unspecified knee, not elsewhere classified (01/22/23) Muscle weakness (generalized) (01/22/23) Visit Care Team Role Provider Type Patria Iverson MD Family Provider Non-Staff Primary Care Provider Specialty: Pediatrics Address: [address] [place] [address], [id number] Email: Jelani Alan DO Attending Provider Non-Staff Referring Provider Specialty: Orthopedics Address: [address] [place] [address] Dr Hilario, [place], [address] opt2 Email: Plan Of Care PT-OP-T Assessment and Plan Start: 01/22/23 07:57 Freq: Status: Active Protocol: Document 01/22/23 09:35 [facility] (Rec: 01/22/23 13:56 [facility] [id number]) Physical Therapy Assessment Rehab Potential Rehabilitation Potential Good Evaluation Complexity Number of Personal Factors/Comorbidities 0 Number of Body Systems Impaired 1-2 Clinical Presentation at Evaluation Stable Impairments Impairments Activity Tolerance,Edema, Functional Activities, Functional Mobility,Gait,Pain, ROM,Soft Tissue Mobility, Strength,Tone Goals 4 Impairment Decreased left knee strength with difficulty performing sit -stand Halfway Goal (LTG) improved knee strength and Zandra is able to stand up from a chair without use of her hands demonstrating improved knee strength LTG Duration 8 weeks 3 Impairment pt lacks a HEP for her knee Race Relations Professor Goal (LTG) Zandra is Ind with a HEP for keeping her knees healthy LTG Duration 8 weeks 2 Impairment L knee pain rated 6/10, right knee pain 4/10 worse going down stairs, walking, and squating Race Relations Professor Goal (LTG) Zandra reports improved function and a overall reduction of knee pain LTG Duration 8 weeks 1 Impairment Decreased knee ROM Left Short Term Goal (STG) Zandra is educated on knee ROM exercises for a HEP STG Duration 3 weeks Race Relations Professor Goal (LTG) Zandra presents with full ROM of the left knee LTG Duration 8 weeks Assessment Summary Assessment Zandra is a 77 year old female who returns to PT with ongoing left knee pain. She was previously seen in our clinic with a Bakers Cyst and was DC'd due to continued symptoms. Since that time she has undergone 2 steriod injections one of which gave her temporary relief and the other did not change her symptoms. She has been told she is a surgical candidate for a total knee replacement but she is not ready to undergo surgery at this time. Zandra reports she is very limited with her walking ability as this time due to pain and is not able to walk her dogs further than 1-2 blocks. She presents to PT today with increased swelling of B knees L>R, decreased knee ROM on the left and decreased strength B. She is walking with a limp but does not wish to use a assistive device. The limp has aggravaged her right knee and now she is feeling pain in both. The emphasis of PT will be on a HEP that Zandra can work on at home to help manage her symptoms. Physical Therapy Plan Frequency and Duration Frequency of Treatment 2x/Week Duration of treatment (weeks) 8 Plan of Care Start Date 01/22/23 Plan of Care End Date 03/26/23 Therapeutic Interventions Therapeutic Interventions Home Exercise Program,Manual Therapy,Neuromuscular Re- education,Patient/Caregiver Education,Self-Care/Home Management,Soft Tissue Mobilization,Therapeutic Exercises Modalities Cold Pack/Ice Massage,Electric Stimulation Next Visit Focus/Plan Next Note Type Treatment Note Next Visit Plan Begin with bike for warm up, work in knee ROM exercises, progressive strengthening as tolerated Plan of Care Dates Plan of Care Start Date 01/22/23 Plan of Care End Date 03/26/23 Electronically Signed by: Syl Morris, PT 01/24/23 0826 If you are in agreement with this Plan of Care, please return a signed and dated copy. I have reviewed this Plan of Care and certify that the skilled therapy services above are required to meet the patient?s needs. Physician Signature Date Printed Name and Credentials Clinical Instructor Signature Printed Name and Credentials
--- NOTE | 2023-01-22 17:00 | PT.OIE ---
Current Diagnoses Bilateral primary osteoarthritis of knee (01/22/23) Pain in left knee (01/22/23) Stiffness of unspecified knee, not elsewhere classified (01/22/23) Muscle weakness (generalized) (01/22/23) Past Medical History (Last Updated 01/14/23 @ 11:50 by Feliz Singh DO) Facet arthropathy, lumbar GERD (gastroesophageal reflux disease) HTN (hypertension) Scoliosis (and kyphoscoliosis), idiopathic Spondylolisthesis at L2-L3 level Past Surgical History (Last Updated 01/14/23 @ 11:50 by Feliz Singh DO) H/O heart surgery History of cholecystectomy History of heart artery stent History of lumbar laminectomy History of lumbar surgery Visit Care Team Role Provider Type Patria Iverson MD Family Provider Non-Staff Primary Care Provider Specialty: Pediatrics Address: [address] [place] [address], [id number] Email: Jelani Alan DO Attending Provider Non-Staff Referring Provider Specialty: Orthopedics Address: [address] [place] [address] [address]ilario, [place], [address] opt2 Email: Physical Therapy Initial Evaluation PT-OP-A Visit Information Start: 01/22/23 07:57 Freq: Status: Active Protocol: Document 01/22/23 09:35 [facility] (Rec: 01/22/23 10:43 [facility] [id number]) Out-Patient Physical Therapy Visit Information Visit Information Visit Type Initial Evaluation Visit Start Time 09:35 Visit Stop Time 10:20 Total Visit Minutes 45 Visit Number 1 Evaluation Information Evaluation Date 01/22/23 PT-OP-B Current Condition Start: 01/22/23 07:57 Freq: Status: Active Protocol: Document 01/22/23 09:35 [facility] (Rec: 01/22/23 10:29 [facility] [id number]) Current Condition History of Current Condition Onset Date 2021 Current Complaints B knee pain L>R, swelling, decreased ability to walk History of Current Condition Pt reports ongoing left knee pain since she was diagnosed with a bakers cyst a year ago, the left knee has been drained 4 times and she has had 2 cortisone injections and they didn't last long, limping due to the left knee has caused her right knee to hurt. She is now on efflexia and this has helped some but she states she is a cadidate for knee replacement. Pt notes she would like to avoid surgery but not sure she will be able to avoid it. She tried to use a cane but it didn't work for her. She is not able to walk her dogs as much now. She is limited to 1 -2 blocks before she needs to stop Treatment Goals Patient/Caregiver Goals pt would like to avoid surgery and would like to work on functionals strength and to decrease pain allowing her to walk her dogs PT-OP-C Subjective Start: 01/22/23 07:57 Freq: Status: Active Protocol: Document 01/22/23 09:35 [facility] (Rec: 01/22/23 11:06 [facility] [id number]) Patient Questionnaires Lower Extremity Functional Scale LEFS Score 43 LEFS Impairment 40 to 59% Impaired (Score 32- 47) OP-PT Pain Assessment Location Right Intensity 6 Scale Used Numeric (0 - 10) Description With Movement left knee Pain Location Details pt notes pain all around her left knee Intensity 6 Scale Used Numeric (0 - 10) Description With Movement Pain Aggravating Factors Standing,Walking,Stair Climbing PT-OP-F Manual Assessment Start: 01/22/23 07:57 Freq: Status: Active Protocol: Document 01/22/23 09:35 [facility] (Rec: 01/22/23 13:51 [facility] [id number]) Manual Assessments Soft Tissue Assessment Soft Tissue Mobility Assessment quad tightness left >Right + august test for iliopsoas tightness Joint Mobility Assessment Joint Mobility Assessment decreased patella femoral mobility B with tightness of the quads and pain PT-OP-K Range of Motion Start: 01/22/23 07:57 Freq: Status: Active Protocol: Document 01/22/23 09:35 [facility] (Rec: 01/22/23 13:51 [facility] [id number]) Knee Goniometric Range of Motion Knee Right Knee ROM WFL Yes Patient Position Supine Flexion Active (degrees) 125 Extension Active (degrees) 0 Left Knee ROM WFL No Patient Position Supine Flexion Active (degrees) 110 Extension Active (degrees) 20 Extension Passive (degrees) 10 PT-OP-M Strength Start: 01/22/23 07:57 Freq: Status: Active Protocol: Document 01/22/23 09:35 [facility] (Rec: 01/22/23 13:51 [facility] [id number]) Knee Strength Knee Manual Muscle Testing Right Flexion (S2) 3+ Fair+ Extension (L3) 3+ Fair+ Left Flexion (S2) 2+ Poor+ Extension (L3) 2+ Poor+ Comments pt lacks full knee ROM at this time and strength is decreased due to lack of ROM, swelling, and pt has not been able to be active PT-OP-N Lymphedema Start: 01/22/23 13:51 Freq: Status: Active Protocol: Document 01/22/23 09:35 [facility] (Rec: 01/22/23 13:53 [facility] [id number]) Lymphedema Measurements Lower Extremity Circumference Measurements Right Knee Joint 41 cm - mid calf is 40 cm Left Knee Joint 41.5 cm - mid calf is 40.5 cm PT-OP-Q Treatments Start: 01/22/23 07:57 Freq: Status: Active Protocol: Document 01/22/23 09:35 [facility] (Rec: 01/22/23 10:45 [facility] [id number]) Therapeutic Exercises Supine Exercises single knee to chest Side bilateral Reps/Minutes hold 1 min with knee pulled to her chest, pt to use a towel to hold leg heel slides Side bilateral Reps/Minutes x 10 reps pause at the top x 10 seconds quad sets Side bilateral Reps/Minutes x 10 reps holding 5 seconds Comments with pillow under the knee PT-OP-T Assessment and Plan Start: 01/22/23 07:57 Freq: Status: Active Protocol: Document 01/22/23 09:35 [facility] (Rec: 01/22/23 13:56 [facility] [id number]) Physical Therapy Assessment Rehab Potential Rehabilitation Potential Good Evaluation Complexity Number of Personal Factors/Comorbidities 0 Number of Body Systems Impaired 1-2 Clinical Presentation at Evaluation Stable Impairments Impairments Activity Tolerance,Edema, Functional Activities, Functional Mobility,Gait,Pain, ROM,Soft Tissue Mobility, Strength,Tone Goals 4 Impairment Decreased left knee strength with difficulty performing sit -stand Shelter Goal (LTG) improved knee strength and Zandra is able to stand up from a chair without use of her hands demonstrating improved knee strength LTG Duration 8 weeks 3 Impairment pt lacks a HEP for her knee Rigging Man Goal (LTG) Zandra is Ind with a HEP for keeping her knees healthy LTG Duration 8 weeks 2 Impairment L knee pain rated 6/10, right knee pain 4/10 worse going down stairs, walking, and squating Shelter Goal (LTG) Zandra reports improved function and a overall reduction of knee pain LTG Duration 8 weeks 1 Impairment Decreased knee ROM Left Short Term Goal (STG) Zandra is educated on knee ROM exercises for a HEP STG Duration 3 weeks Shelter Goal (LTG) Zandra presents with full ROM of the left knee LTG Duration 8 weeks Assessment Summary Assessment Zandra is a 77 year old female who returns to PT with ongoing left knee pain. She was previously seen in our clinic with a Bakers Cyst and was DC'd due to continued symptoms. Since that time she has undergone 2 steriod injections one of which gave her temporary relief and the other did not change her symptoms. She has been told she is a surgical candidate for a total knee replacement but she is not ready to undergo surgery at this time. Zandra reports she is very limited with her walking ability as this time due to pain and is not able to walk her dogs further than 1-2 blocks. She presents to PT today with increased swelling of B knees L>R, decreased knee ROM on the left and decreased strength B. She is walking with a limp but does not wish to use a assistive device. The limp has aggravated her right knee and now she is feeling pain in both. The emphasis of PT will be on a HEP that Zandra can work on at home to help manage her symptoms. Physical Therapy Plan Frequency and Duration Frequency of Treatment 2x/Week Duration of treatment (weeks) 8 Plan of Care Start Date 01/22/23 Plan of Care End Date 03/26/23 Therapeutic Interventions Therapeutic Interventions Home Exercise Program,Manual Therapy,Neuromuscular Re- education,Patient/Caregiver Education,Self-Care/Home Management,Soft Tissue Mobilization,Therapeutic Exercises Modalities Cold Pack/Ice Massage,Electric Stimulation Next Visit Focus/Plan Next Note Type Treatment Note Next Visit Plan Begin with bike for warm up, work in knee ROM exercises, progressive strengthening as tolerated
--- NOTE | 2023-01-29 14:23 | PT.OTN ---
Current Diagnoses Bilateral primary osteoarthritis of knee (01/29/23) Pain in left knee (01/29/23) Stiffness of unspecified knee, not elsewhere classified (01/29/23) Muscle weakness (generalized) (01/29/23) Physical Therapy Treatment Note PT-OP-A Visit Information Start: 01/22/23 07:57 Freq: Status: Active Protocol: Document 01/29/23 12:30 [facility] (Rec: 01/29/23 13:17 [facility] [id number]) Out-Patient Physical Therapy Visit Information Visit Information Visit Type Treatment Note Visit Start Time 12:30 Visit Stop Time 13:15 Total Visit Minutes 45 Visit Number 2 PT-OP-B Current Condition Start: 01/22/23 07:57 Freq: Status: Active Protocol: Document 01/22/23 09:35 [facility] (Rec: 01/22/23 10:29 [facility] [id number]) Current Condition History of Current Condition Onset Date 2021 Current Complaints B knee pain L>R, swelling, decreased ability to walk History of Current Condition Pt reports ongoing left knee pain since she was diagnosed with a bakers cyst a year ago, the left knee has been drained 4 times and she has had 2 cortisone injections and they didn't last long, limping due to the left knee has caused her right knee to hurt. She is now on efflexia and this has helped some but she states she is a cadidate for knee replacement. Pt notes she would like to avoid surgery but not sure she will be able to avoid it. She tried to use a cane but it didn't work for her. She is not able to walk her dogs as much now. She is limited to 1 -2 blocks before she needs to stop Treatment Goals Patient/Caregiver Goals pt would like to avoid surgery and would like to work on functionals strength and to decrease pain allowing her to walk her dogs PT-OP-C Subjective Start: 01/22/23 07:57 Freq: Status: Active Protocol: Document 01/29/23 12:30 [facility] (Rec: 01/29/23 13:17 [facility] [id number]) OP-PT Subjective Patient Comments Patient Comments pt notes she feels like her legs are swollen, she has been working on her exercises in bed Patient Reported Progress Same PT-OP-F Manual Assessment Start: 01/22/23 07:57 Freq: Status: Active Protocol: Document 01/22/23 09:35 [facility] (Rec: 01/22/23 13:51 [facility] [id number]) Manual Assessments Soft Tissue Assessment Soft Tissue Mobility Assessment quad tightness left >Right + august test for iliopsoas tightness Joint Mobility Assessment Joint Mobility Assessment decreased patella femoral mobility B with tightness of the quads and pain PT-OP-K Range of Motion Start: 01/22/23 07:57 Freq: Status: Active Protocol: Document 01/22/23 09:35 [facility] (Rec: 01/22/23 13:51 [facility] [id number]) Knee Goniometric Range of Motion Knee Right Knee ROM WFL Yes Patient Position Supine Flexion Active (degrees) 125 Extension Active (degrees) 0 Left Knee ROM WFL No Patient Position Supine Flexion Active (degrees) 110 Extension Active (degrees) 20 Extension Passive (degrees) 10 PT-OP-M Strength Start: 01/22/23 07:57 Freq: Status: Active Protocol: Document 01/22/23 09:35 [facility] (Rec: 01/22/23 13:51 [facility] [id number]) Knee Strength Knee Manual Muscle Testing Right Flexion (S2) 3+ Fair+ Extension (L3) 3+ Fair+ Left Flexion (S2) 2+ Poor+ Extension (L3) 2+ Poor+ Comments pt lacks full knee ROM at this time and strength is decreased due to lack of ROM, swelling, and pt has not been able to be active PT-OP-N Lymphedema Start: 01/22/23 13:51 Freq: Status: Active Protocol: Document 01/22/23 09:35 [facility] (Rec: 01/22/23 13:53 [facility] [id number]) Lymphedema Measurements Lower Extremity Circumference Measurements Right Knee Joint 41 cm - mid calf is 40 cm Left Knee Joint 41.5 cm - mid calf is 40.5 cm PT-OP-Q Treatments Start: 01/22/23 07:57 Freq: Status: Active Protocol: Document 01/29/23 12:30 [facility] (Rec: 01/29/23 13:17 [facility] [id number]) Cardio Equipment Recumbent Elliptical (Biodex) Duration (Minutes) 7 Resistance 2 Seat Position 5 Therapeutic Exercises Supine Exercises hamstring stretch Side bilateral Reps/Minutes hold x 30 sec x 2 Comments hands behind knees and cues to slowly straighten the leg bridges Reps/Minutes 2 x 10 reps Comments pt needed to stretch her hamstrings first as she was experiencing cramping supine ball rolls Equipment Used red ball Reps/Minutes x 30 reps single knee to chest Side bilateral Reps/Minutes hold 1 min with knee pulled to her chest, pt did not need to use a towel to Comments able to straighten the opposite leg heel slides Side bilateral Reps/Minutes x 10 reps pause at the top x 10 seconds quad sets Side bilateral Reps/Minutes x 10 reps, needs 1/2 foam roll under her left knee for support Standing Exercises ANTONIO calf stretch Reps/Minutes static x 2 min then dynamic x20 PT-OP-T Assessment and Plan Start: 01/22/23 07:57 Freq: Status: Active Protocol: Document 01/29/23 12:30 [facility] (Rec: 01/29/23 14:18 [facility] [id number]) Physical Therapy Assessment Assessment Summary Assessment Zandra ([email or web address]) was able to warm up on the biodex today and her knee ROM was improved. She did not need the towel to hold her knee with single knee to chest. I was able to add in ANTONIO calf stretches, ball rolls, and bridges. She gets cramps in her hamstrings to I had her stretch first prior to bridges and then she could tolerate. Physical Therapy Plan Frequency and Duration Frequency of Treatment 2x/Week Duration of treatment (weeks) 8 Plan of Care Start Date 01/22/23 Plan of Care End Date 03/26/23 Next Visit Focus/Plan Next Note Type Treatment Note Next Visit Plan Continue with biodex for warm up and then continue with exercise for knee ROM, LE flexibility, and strength. Pt to bring in her cane next visit to make sure its the right height as she said the right side of her body hurts when she uses it.
--- NOTE | 2023-02-01 17:06 | PT.OTN ---
Current Diagnoses Bilateral primary osteoarthritis of knee (02/01/23) Pain in left knee (02/01/23) Stiffness of unspecified knee, not elsewhere classified (02/01/23) Muscle weakness (generalized) (02/01/23) Physical Therapy Treatment Note PT-OP-A Visit Information Start: 01/22/23 07:57 Freq: Status: Active Protocol: Document 02/01/23 12:19 [facility] (Rec: 02/01/23 13:10 NB [id number]) Out-Patient Physical Therapy Visit Information Visit Information Visit Type Treatment Note Visit Start Time 12:20 Visit Stop Time 13:07 Total Visit Minutes 47 Visit Number 3 Number of [employer]BB[employer] Visits 1 Evaluation Information Evaluation Date 01/22/23 PT-OP-B Current Condition Start: 01/22/23 07:57 Freq: Status: Active Protocol: Document 01/22/23 09:35 [facility] (Rec: 01/22/23 10:29 [facility] [id number]) Current Condition History of Current Condition Onset Date 2021 Current Complaints B knee pain L>R, swelling, decreased ability to walk History of Current Condition Pt reports ongoing left knee pain since she was diagnosed with a bakers cyst a year ago, the left knee has been drained 4 times and she has had 2 cortisone injections and they didn't last long, limping due to the left knee has caused her right knee to hurt. She is now on efflexia and this has helped some but she states she is a cadidate for knee replacement. Pt notes she would like to avoid surgery but not sure she will be able to avoid it. She tried to use a cane but it didn't work for her. She is not able to walk her dogs as much now. She is limited to 1 -2 blocks before she needs to stop Treatment Goals Patient/Caregiver Goals pt would like to avoid surgery and would like to work on functionals strength and to decrease pain allowing her to walk her dogs PT-OP-C Subjective Start: 01/22/23 07:57 Freq: Status: Active Protocol: Document 02/01/23 12:19 [facility] (Rec: 02/01/23 13:10 NB [id number]) OP-PT Subjective Patient Comments Patient Comments Pt reports putting her legs up 1-2 hours before bed which helps with going to the bathroom but her toes cramp. She reports swelling in ankles L>R. She's taking dog for cancer treatment so needs to leave by one. PT-OP-F Manual Assessment Start: 01/22/23 07:57 Freq: Status: Active Protocol: Document 01/22/23 09:35 [facility] (Rec: 01/22/23 13:51 [facility] [id number]) Manual Assessments Soft Tissue Assessment Soft Tissue Mobility Assessment quad tightness left >Right + august test for iliopsoas tightness Joint Mobility Assessment Joint Mobility Assessment decreased patella femoral mobility B with tightness of the quads and pain PT-OP-K Range of Motion Start: 01/22/23 07:57 Freq: Status: Active Protocol: Document 01/22/23 09:35 [facility] (Rec: 01/22/23 13:51 [facility] [id number]) Knee Goniometric Range of Motion Knee Right Knee ROM WFL Yes Patient Position Supine Flexion Active (degrees) 125 Extension Active (degrees) 0 Left Knee ROM WFL No Patient Position Supine Flexion Active (degrees) 110 Extension Active (degrees) 20 Extension Passive (degrees) 10 PT-OP-M Strength Start: 01/22/23 07:57 Freq: Status: Active Protocol: Document 01/22/23 09:35 [facility] (Rec: 01/22/23 13:51 [facility] [id number]) Knee Strength Knee Manual Muscle Testing Right Flexion (S2) 3+ Fair+ Extension (L3) 3+ Fair+ Left Flexion (S2) 2+ Poor+ Extension (L3) 2+ Poor+ Comments pt lacks full knee ROM at this time and strength is decreased due to lack of ROM, swelling, and pt has not been able to be active PT-OP-N Lymphedema Start: 01/22/23 13:51 Freq: Status: Active Protocol: Document 01/22/23 09:35 [facility] (Rec: 01/22/23 13:53 [facility] [id number]) Lymphedema Measurements Lower Extremity Circumference Measurements Right Knee Joint 41 cm - mid calf is 40 cm Left Knee Joint 41.5 cm - mid calf is 40.5 cm PT-OP-Q Treatments Start: 01/22/23 07:57 Freq: Status: Active Protocol: Document 02/01/23 12:19 [facility] (Rec: 02/01/23 13:10 [facility] [id number]) Cardio Equipment Recumbent Elliptical ([employer]) Duration (Minutes) 9 Resistance 2 Seat Position 4 Therapeutic Exercises Supine Exercises heel digs Supine Exercise Name HEP Side bilateral Reps/Minutes x10 Comments cueing for form hamstring stretch Side bilateral Reps/Minutes hold x 30 sec x 2 Comments hands behind knees and cues to slowly straighten the leg bridges Reps/Minutes x2 - dc'd d/t cramping Comments pt needed to stretch her hamstrings first as she was experiencing cramping supine ball rolls Equipment Used red ball Reps/Minutes x 30 reps heel slides Side bilateral Reps/Minutes x 10 reps pause at the top x 10 seconds quad sets Side bilateral Reps/Minutes x 10 reps, needs 1/2 foam roll under her left knee for support Standing Exercises ANTONIO calf stretch Reps/Minutes static x 2 min then dynamic x20 Self-Care/Home Management Treatment Education Patient Education Safety Other Education Added to HEP: Heel digs - HO given. PT-OP-T Assessment and Plan Start: 01/22/23 07:57 Freq: Status: Active Protocol: Document 02/01/23 12:19 [facility] (Rec: 02/01/23 13:10 [facility] [id number]) Physical Therapy Assessment Impairments Impairments Activity Tolerance,Edema, Functional Activities, Functional Mobility,Gait,Pain, ROM,Soft Tissue Mobility, Strength,Tone Goals 4 Impairment Decreased left knee strength with difficulty performing sit -stand [facility] Goal (LTG) improved knee strength and Zandra is able to stand up from a chair without use of her hands demonstrating improved knee strength LTG Duration 8 weeks 3 Impairment pt lacks a HEP for her knee [facility] Goal (LTG) Zandra is Ind with a HEP for keeping her knees healthy LTG Duration 8 weeks 2 Impairment L knee pain rated 6/10, right knee pain 4/10 worse going down stairs, walking, and squating [employer] Goal (LTG) Zandra reports improved function and a overall reduction of knee pain LTG Duration 8 weeks 1 Impairment Decreased knee ROM Left Short Term Goal (STG) Zandra is educated on knee ROM exercises for a HEP STG Duration 3 weeks [employer] Work[employer] Goal (LTG) Zandra presents with full ROM of the left knee LTG Duration 8 weeks Assessment Summary Assessment Qing presents without cane today. She struggles w/ performing bridges due to cramping today and requires cues for full pain-free range of motion. She cramps in R hip flexor and R HS and requires cues for stretching. Added to HEP: Heel digs for HS strengthening - HO given. Physical Therapy Plan Frequency and Duration Frequency of Treatment 2x/Week Duration of treatment (weeks) 8 Plan of Care Start Date 01/22/23 Plan of Care End Date 03/26/23 Therapeutic Interventions Therapeutic Interventions Home Exercise Program,Manual Therapy,Neuromuscular Re- education,Patient/Caregiver Education,Self-Care/Home Management,Soft Tissue Mobilization,Therapeutic Exercises Modalities Cold Pack/Ice Massage,Electric Stimulation Next Visit Focus/Plan Next Note Type Treatment Note Next Visit Plan Continue with biodex for warm up and then continue with exercise for knee ROM, LE flexibility, and strength. Pt to bring in her cane next visit to make sure its the right height as she said the right side of her body hurts when she uses it.
--- NOTE | 2023-02-06 09:32 | PT.OTN ---
Current Diagnoses Bilateral primary osteoarthritis of knee (02/06/23) Pain in left knee (02/06/23) Stiffness of unspecified knee, not elsewhere classified (02/06/23) Muscle weakness (generalized) (02/06/23) Physical Therapy Treatment Note PT-OP-A Visit Information Start: 01/22/23 07:57 Freq: Status: Active Protocol: Document 02/06/23 08:00 [facility] (Rec: 02/06/23 08:25 [facility] [id number]) Out-Patient Physical Therapy Visit Information Visit Information Visit Type Treatment Note Visit Start Time 08:00 Visit Stop Time 08:45 Total Visit Minutes 45 Visit Number 4 Evaluation Information Evaluation Date 01/22/23 PT-OP-B Current Condition Start: 01/22/23 07:57 Freq: Status: Active Protocol: Document 01/22/23 09:35 [facility] (Rec: 01/22/23 10:29 [facility] [id number]) Current Condition History of Current Condition Onset Date 2021 Current Complaints B knee pain L>R, swelling, decreased ability to walk History of Current Condition Pt reports ongoing left knee pain since she was diagnosed with a bakers cyst a year ago, the left knee has been drained 4 times and she has had 2 cortisone injections and they didn't last long, limping due to the left knee has caused her right knee to hurt. She is now on efflexia and this has helped some but she states she is a cadidate for knee replacement. Pt notes she would like to avoid surgery but not sure she will be able to avoid it. She tried to use a cane but it didn't work for her. She is not able to walk her dogs as much now. She is limited to 1 -2 blocks before she needs to stop Treatment Goals Patient/Caregiver Goals pt would like to avoid surgery and would like to work on functionals strength and to decrease pain allowing her to walk her dogs PT-OP-C Subjective Start: 01/22/23 07:57 Freq: Status: Active Protocol: Document 02/06/23 08:00 [facility] (Rec: 02/06/23 08:25 [facility] [id number]) OP-PT Subjective Patient Comments Patient Comments pt notes she saw Dr Singh and she will be getting 3 cortisone injections facet blocks L2 L3and L4 B PT-OP-F Manual Assessment Start: 01/22/23 07:57 Freq: Status: Active Protocol: Document 01/22/23 09:35 [facility] (Rec: 01/22/23 13:51 [facility] [id number]) Manual Assessments Soft Tissue Assessment Soft Tissue Mobility Assessment quad tightness left >Right + august test for iliopsoas tightness Joint Mobility Assessment Joint Mobility Assessment decreased patella femoral mobility B with tightness of the quads and pain PT-OP-K Range of Motion Start: 01/22/23 07:57 Freq: Status: Active Protocol: Document 02/06/23 08:00 [facility] (Rec: 02/06/23 08:30 [facility] [id number]) Knee Goniometric Range of Motion Knee Left Knee ROM WFL No Patient Position Supine Flexion Active (degrees) 120 Extension Active (degrees) 5 PT-OP-M Strength Start: 01/22/23 07:57 Freq: Status: Active Protocol: Document 01/22/23 09:35 [facility] (Rec: 01/22/23 13:51 [facility] [id number]) Knee Strength Knee Manual Muscle Testing Right Flexion (S2) 3+ Fair+ Extension (L3) 3+ Fair+ Left Flexion (S2) 2+ Poor+ Extension (L3) 2+ Poor+ Comments pt lacks full knee ROM at this time and strength is decreased due to lack of ROM, swelling, and pt has not been able to be active PT-OP-N Lymphedema Start: 01/22/23 13:51 Freq: Status: Active Protocol: Document 01/22/23 09:35 [facility] (Rec: 01/22/23 13:53 [facility] [id number]) Lymphedema Measurements Lower Extremity Circumference Measurements Right Knee Joint 41 cm - mid calf is 40 cm Left Knee Joint 41.5 cm - mid calf is 40.5 cm PT-OP-Q Treatments Start: 01/22/23 07:57 Freq: Status: Active Protocol: Document 02/06/23 08:00 [facility] (Rec: 02/06/23 08:25 [facility] [id number]) Cardio Equipment Recumbent Elliptical ([employer]) Duration (Minutes) 7 Resistance 2 Seat Position 5 Gym Equipment Shuttle Recovery Bilateral Squats Resistance 25# Reps/Time 3 x10 reps Therapeutic Exercises Supine Exercises heel digs Comments pain with this so held today hamstring stretch Side bilateral Reps/Minutes hold x 30 sec x 2 Comments hands behind knees and cues to slowly straighten the leg bridges Reps/Minutes x 10 today, no cramping today supine ball rolls Equipment Used red ball Reps/Minutes x 30 reps Comments es to dig in heels for hamstring recruitment single knee to chest Side bilateral Reps/Minutes hold 1 min with knee pulled to her chest, pt did not need to use a towel to Comments able to straighten the opposite leg heel slides Side bilateral Reps/Minutes x 10 reps pause at the top x 10 seconds quad sets Reps/Minutes pt able to do quad squeeze without foam roll Standing Exercises ANTONIO calf stretch Reps/Minutes static x 2 min then dynamic x20 PT-OP-T Assessment and Plan Start: 01/22/23 07:57 Freq: Status: Active Protocol: Document 02/06/23 08:00 [facility] (Rec: 02/06/23 08:41 [facility] [id number]) Physical Therapy Assessment Assessment Summary Assessment Pt doing better with knee ROM she was at 120 flexion and 8 deg extension. I added in shuttle today and she tolerated this well. Physical Therapy Plan Frequency and Duration Frequency of Treatment 2x/Week Duration of treatment (weeks) 8 Plan of Care Start Date 01/22/23 Plan of Care End Date 03/26/23 Therapeutic Interventions Therapeutic Interventions Home Exercise Program,Manual Therapy,Neuromuscular Re- education,Patient/Caregiver Education,Self-Care/Home Management,Soft Tissue Mobilization,Therapeutic Exercises Modalities Cold Pack/Ice Massage,Electric Stimulation Next Visit Focus/Plan Next Note Type Treatment Note Next Visit Plan Continue with biodex for warm up and then continue with exercise for knee ROM, LE flexibility, and strength. Pt to bring in her cane next visit to make sure its the right height as she said the right side of her body hurts when she uses it.
--- NOTE | 2023-02-07 14:11 | PT.OTN ---
Current Diagnoses Bilateral primary osteoarthritis of knee (02/07/23) Pain in left knee (02/07/23) Stiffness of unspecified knee, not elsewhere classified (02/07/23) Muscle weakness (generalized) (02/07/23) Physical Therapy Treatment Note PT-OP-A Visit Information Start: 01/22/23 07:57 Freq: Status: Active Protocol: Document 02/07/23 12:37 [facility] (Rec: 02/07/23 13:12 [facility] [id number]) Out-Patient Physical Therapy Visit Information Visit Information Visit Type Treatment Note Visit Start Time 12:30 Visit Stop Time 13:15 Total Visit Minutes 45 Visit Number 5 Number of DIRECTOR [employer] Visits 0 PT-OP-B Current Condition Start: 01/22/23 07:57 Freq: Status: Active Protocol: Document 01/22/23 09:35 [facility] (Rec: 01/22/23 10:29 [facility] [id number]) Current Condition History of Current Condition Onset Date 2021 Current Complaints B knee pain L>R, swelling, decreased ability to walk History of Current Condition Pt reports ongoing left knee pain since she was diagnosed with a bakers cyst a year ago, the left knee has been drained 4 times and she has had 2 cortisone injections and they didn't last long, limping due to the left knee has caused her right knee to hurt. She is now on efflexia and this has helped some but she states she is a cadidate for knee replacement. Pt notes she would like to avoid surgery but not sure she will be able to avoid it. She tried to use a cane but it didn't work for her. She is not able to walk her dogs as much now. She is limited to 1 -2 blocks before she needs to stop Treatment Goals Patient/Caregiver Goals pt would like to avoid surgery and would like to work on functionals strength and to decrease pain allowing her to walk her dogs PT-OP-C Subjective Start: 01/22/23 07:57 Freq: Status: Active Protocol: Document 02/07/23 12:37 [facility] (Rec: 02/07/23 13:12 [facility] [id number]) OP-PT Subjective Patient Comments Patient Comments pt notes her knees are feeling better overall. She is feeling the heat though and does not have as much energy PT-OP-F Manual Assessment Start: 01/22/23 07:57 Freq: Status: Active Protocol: Document 01/22/23 09:35 [facility] (Rec: 01/22/23 13:51 [facility] [id number]) Manual Assessments Soft Tissue Assessment Soft Tissue Mobility Assessment quad tightness left >Right + august test for iliopsoas tightness Joint Mobility Assessment Joint Mobility Assessment decreased patella femoral mobility B with tightness of the quads and pain PT-OP-K Range of Motion Start: 01/22/23 07:57 Freq: Status: Active Protocol: Document 02/06/23 08:00 [facility] (Rec: 02/06/23 08:30 [facility] [id number]) Knee Goniometric Range of Motion Knee Left Knee ROM WFL No Patient Position Supine Flexion Active (degrees) 120 Extension Active (degrees) 5 PT-OP-M Strength Start: 01/22/23 07:57 Freq: Status: Active Protocol: Document 01/22/23 09:35 [facility] (Rec: 01/22/23 13:51 [facility] [id number]) Knee Strength Knee Manual Muscle Testing Right Flexion (S2) 3+ Fair+ Extension (L3) 3+ Fair+ Left Flexion (S2) 2+ Poor+ Extension (L3) 2+ Poor+ Comments pt lacks full knee ROM at this time and strength is decreased due to lack of ROM, swelling, and pt has not been able to be active PT-OP-N Lymphedema Start: 01/22/23 13:51 Freq: Status: Active Protocol: Document 01/22/23 09:35 [facility] (Rec: 01/22/23 13:53 [facility] [id number]) Lymphedema Measurements Lower Extremity Circumference Measurements Right Knee Joint 41 cm - mid calf is 40 cm Left Knee Joint 41.5 cm - mid calf is 40.5 cm PT-OP-Q Treatments Start: 01/22/23 07:57 Freq: Status: Active Protocol: Document 02/07/23 12:37 [facility] (Rec: 02/07/23 13:12 [facility] [id number]) Cardio Equipment Recumbent Elliptical ([place]) Duration (Minutes) 7 Resistance 2 Seat Position 5 Therapeutic Exercises Supine Exercises hamstring stretch Side bilateral Reps/Minutes hold x 30 sec x 2 Comments hands behind knees and cues to slowly straighten the leg PT-OP-T Assessment and Plan Start: 01/22/23 07:57 Freq: Status: Active Protocol: Document 02/07/23 12:37 [facility] (Rec: 02/07/23 13:12 [facility] [id number]) Physical Therapy Assessment Assessment Summary Assessment left ankle had a little swelling today but Pt still tolerating all her exercises well except for heel digs with aggravate her left knee Physical Therapy Plan Frequency and Duration Frequency of Treatment 2x/Week Duration of treatment (weeks) 8 Plan of Care Start Date 01/22/23 Plan of Care End Date 03/26/23
--- NOTE | 2023-02-12 10:34 | PT.OTN ---
Current Diagnoses Bilateral primary osteoarthritis of knee (02/12/23) Pain in left knee (02/12/23) Stiffness of unspecified knee, not elsewhere classified (02/12/23) Muscle weakness (generalized) (02/12/23) Physical Therapy Treatment Note PT-OP-A Visit Information Start: 01/22/23 07:57 Freq: Status: Active Protocol: Document 02/12/23 09:46 NBM (Rec: 02/12/23 10:34 NBM [id number]) Out-Patient Physical Therapy Visit Information Visit Information Visit Type Treatment Note Visit Start Time 09:48 Visit Stop Time 10:32 Total Visit Minutes 44 Visit Number 6 Number of AEROSPACE PROJECT ENGINEER Visits 1 Evaluation Information Evaluation Date 01/22/23 PT-OP-B Current Condition Start: 01/22/23 07:57 Freq: Status: Active Protocol: Document 01/22/23 09:35 [facility] (Rec: 01/22/23 10:29 [facility] [id number]) Current Condition History of Current Condition Onset Date 2021 Current Complaints B knee pain L>R, swelling, decreased ability to walk History of Current Condition Pt reports ongoing left knee pain since she was diagnosed with a bakers cyst a year ago, the left knee has been drained 4 times and she has had 2 cortisone injections and they didn't last long, limping due to the left knee has caused her right knee to hurt. She is now on efflexia and this has helped some but she states she is a cadidate for knee replacement. Pt notes she would like to avoid surgery but not sure she will be able to avoid it. She tried to use a cane but it didn't work for her. She is not able to walk her dogs as much now. She is limited to 1 -2 blocks before she needs to stop Treatment Goals Patient/Caregiver Goals pt would like to avoid surgery and would like to work on functionals strength and to decrease pain allowing her to walk her dogs PT-OP-C Subjective Start: 01/22/23 07:57 Freq: Status: Active Protocol: Document 02/12/23 09:46 NBM (Rec: 02/12/23 10:34 NBM [id number]) OP-PT Subjective Patient Comments Patient Comments Pt reports her back is really bothering her which affects the way she walks. She gets cortisone shots for her back next week. She has a bruise she noticed on the 18th below the L knee but doesn't remember how she got it. PT-OP-F Manual Assessment Start: 01/22/23 07:57 Freq: Status: Active Protocol: Document 01/22/23 09:35 [facility] (Rec: 01/22/23 13:51 [facility] [id number]) Manual Assessments Soft Tissue Assessment Soft Tissue Mobility Assessment quad tightness left >Right + august test for iliopsoas tightness Joint Mobility Assessment Joint Mobility Assessment decreased patella femoral mobility B with tightness of the quads and pain PT-OP-K Range of Motion Start: 01/22/23 07:57 Freq: Status: Active Protocol: Document 02/06/23 08:00 [facility] (Rec: 02/06/23 08:30 [facility] [id number]) Knee Goniometric Range of Motion Knee Left Knee ROM WFL No Patient Position Supine Flexion Active (degrees) 120 Extension Active (degrees) 5 PT-OP-M Strength Start: 01/22/23 07:57 Freq: Status: Active Protocol: Document 01/22/23 09:35 [facility] (Rec: 01/22/23 13:51 [facility] [id number]) Knee Strength Knee Manual Muscle Testing Right Flexion (S2) 3+ Fair+ Extension (L3) 3+ Fair+ Left Flexion (S2) 2+ Poor+ Extension (L3) 2+ Poor+ Comments pt lacks full knee ROM at this time and strength is decreased due to lack of ROM, swelling, and pt has not been able to be active PT-OP-N Lymphedema Start: 01/22/23 13:51 Freq: Status: Active Protocol: Document 01/22/23 09:35 [facility] (Rec: 01/22/23 13:53 [facility] [id number]) Lymphedema Measurements Lower Extremity Circumference Measurements Right Knee Joint 41 cm - mid calf is 40 cm Left Knee Joint 41.5 cm - mid calf is 40.5 cm PT-OP-Q Treatments Start: 01/22/23 07:57 Freq: Status: Active Protocol: Document 02/12/23 09:46 NBM (Rec: 02/12/23 10:34 NBM [id number]) Cardio Equipment Recumbent Elliptical (Biodex) Duration (Minutes) 8 Resistance 2 Seat Position 6 Gym Equipment Shuttle Recovery Bilateral Squats Resistance 25# x 10, 37# 2x10 Reps/Time 3 x10 reps Therapeutic Exercises Supine Exercises hamstring stretch Side bilateral Reps/Minutes hold x 30 sec x 2 Comments hands behind knees and cues to slowly straighten the leg bridges Reps/Minutes x 10 today, no cramping today supine ball rolls Equipment Used red ball Reps/Minutes x 30 reps Comments es to dig in heels for hamstring recruitment single knee to chest Side bilateral Reps/Minutes hold 1 min with knee pulled to her chest, pt did not need to use a towel to Comments able to straighten the opposite leg heel slides Side bilateral Reps/Minutes x 10 reps pause at the top x 10 seconds quad sets Side bilateral Equipment Used no foam roll needed Reps/Minutes x15 Standing Exercises ANTONIO calf stretch Reps/Minutes static x 2 min then dynamic x20 PT-OP-T Assessment and Plan Start: 01/22/23 07:57 Freq: Status: Active Protocol: Document 02/12/23 09:46 NBM (Rec: 02/12/23 10:34 NBM [id number]) Physical Therapy Assessment Goals 4 Impairment Decreased left knee strength with difficulty performing sit -stand Retirement Goal (LTG) improved knee strength and Zandra is able to stand up from a chair without use of her hands demonstrating improved knee strength LTG Duration 8 weeks 3 Impairment pt lacks a HEP for her knee Anchor Tacker Goal (LTG) Zandra is Ind with a HEP for keeping her knees healthy LTG Duration 8 weeks 2 Impairment L knee pain rated 6/10, right knee pain 4/10 worse going down stairs, walking, and squating Retirement Goal (LTG) Zandra reports improved function and a overall reduction of knee pain LTG Duration 8 weeks 1 Impairment Decreased knee ROM Left Short Term Goal (STG) Zandra is educated on knee ROM exercises for a HEP STG Duration 3 weeks Retirement Goal (LTG) Zandra presents with full ROM of the left knee LTG Duration 8 weeks Assessment Summary Assessment Pt presents without cane, and with improved ankle swelling but L still slightly swollen. She is able to perform bilateral squats on shuttle recovery with increased resistance from 25# to 37#. She requires occasional cues to initiate ex's and cues for sufficient hold with stretches . Pt declines ice today and will ice at home. Physical Therapy Plan Frequency and Duration Frequency of Treatment 2x/Week Duration of treatment (weeks) 8 Plan of Care Start Date 01/22/23 Plan of Care End Date 03/26/23 Therapeutic Interventions Therapeutic Interventions Home Exercise Program,Manual Therapy,Neuromuscular Re- education,Patient/Caregiver Education,Self-Care/Home Management,Soft Tissue Mobilization,Therapeutic Exercises Modalities Cold Pack/Ice Massage,Electric Stimulation Next Visit Focus/Plan Next Note Type Treatment Note Next Visit Plan Continue with biodex for warm up and then continue with exercise for knee ROM, LE flexibility, and strength. Pt to bring in her cane next visit to make sure its the right height as she said the right side of her body hurts when she uses it.
--- NOTE | 2023-02-27 13:17 | PT.OTN ---
Current Diagnoses Bilateral primary osteoarthritis of knee (02/27/23) Pain in left knee (02/27/23) Stiffness of unspecified knee, not elsewhere classified (02/27/23) Muscle weakness (generalized) (02/27/23) Physical Therapy Treatment Note PT-OP-A Visit Information Start: 01/22/23 07:57 Freq: Status: Active Protocol: Document 02/27/23 09:38 [facility] (Rec: 02/27/23 10:18 [facility] [id number]) Out-Patient Physical Therapy Visit Information Visit Information Visit Type Treatment Note Visit Start Time 09:30 Visit Stop Time 10:15 Total Visit Minutes 45 Visit Number 7 Number of FARM TRACTOR OPERATOR Visits 0 PT-OP-B Current Condition Start: 01/22/23 07:57 Freq: Status: Active Protocol: Document 01/22/23 09:35 [facility] (Rec: 01/22/23 10:29 [facility] [id number]) Current Condition History of Current Condition Onset Date 2021 Current Complaints B knee pain L>R, swelling, decreased ability to walk History of Current Condition Pt reports ongoing left knee pain since she was diagnosed with a bakers cyst a year ago, the left knee has been drained 4 times and she has had 2 cortisone injections and they didn't last long, limping due to the left knee has caused her right knee to hurt. She is now on efflexia and this has helped some but she states she is a cadidate for knee replacement. Pt notes she would like to avoid surgery but not sure she will be able to avoid it. She tried to use a cane but it didn't work for her. She is not able to walk her dogs as much now. She is limited to 1 -2 blocks before she needs to stop Treatment Goals Patient/Caregiver Goals pt would like to avoid surgery and would like to work on functionals strength and to decrease pain allowing her to walk her dogs PT-OP-C Subjective Start: 01/22/23 07:57 Freq: Status: Active Protocol: Document 02/27/23 09:38 [facility] (Rec: 02/27/23 10:18 [facility] [id number]) OP-PT Subjective Patient Comments Patient Comments pt reports she had her cortisone injections on in her spine. She notes pain relief the first couple of days and then she started feeling the pain again PT-OP-F Manual Assessment Start: 01/22/23 07:57 Freq: Status: Active Protocol: Document 01/22/23 09:35 [facility] (Rec: 01/22/23 13:51 [facility] [id number]) Manual Assessments Soft Tissue Assessment Soft Tissue Mobility Assessment quad tightness left >Right + august test for iliopsoas tightness Joint Mobility Assessment Joint Mobility Assessment decreased patella femoral mobility B with tightness of the quads and pain PT-OP-K Range of Motion Start: 01/22/23 07:57 Freq: Status: Active Protocol: Document 02/06/23 08:00 [facility] (Rec: 02/06/23 08:30 [facility] [id number]) Knee Goniometric Range of Motion Knee Left Knee ROM WFL No Patient Position Supine Flexion Active (degrees) 120 Extension Active (degrees) 5 PT-OP-M Strength Start: 01/22/23 07:57 Freq: Status: Active Protocol: Document 01/22/23 09:35 [facility] (Rec: 01/22/23 13:51 [facility] [id number]) Knee Strength Knee Manual Muscle Testing Right Flexion (S2) 3+ Fair+ Extension (L3) 3+ Fair+ Left Flexion (S2) 2+ Poor+ Extension (L3) 2+ Poor+ Comments pt lacks full knee ROM at this time and strength is decreased due to lack of ROM, swelling, and pt has not been able to be active PT-OP-N Lymphedema Start: 01/22/23 13:51 Freq: Status: Active Protocol: Document 01/22/23 09:35 [facility] (Rec: 01/22/23 13:53 [facility] [id number]) Lymphedema Measurements Lower Extremity Circumference Measurements Right Knee Joint 41 cm - mid calf is 40 cm Left Knee Joint 41.5 cm - mid calf is 40.5 cm PT-OP-Q Treatments Start: 01/22/23 07:57 Freq: Status: Active Protocol: Document 02/27/23 09:38 [facility] (Rec: 02/27/23 10:18 [facility] [id number]) Cardio Equipment Recumbent Elliptical (Biodex) Duration (Minutes) 9 Resistance 2 Seat Position 6 Gym Equipment Shuttle Recovery Bilateral Squats Resistance 50# Reps/Time 3x10 Therapeutic Exercises Supine Exercises supine ball rolls Equipment Used red ball Reps/Minutes x 30 reps Comments es to dig in heels for hamstring recruitment single knee to chest Side bilateral Reps/Minutes hold 1 min with knee pulled to her chest, pt did not need to use a towel to Comments able to straighten the opposite leg Standing Exercises standing hamstring stretch in stair case Reps/Minutes hold x 1 min ANTONIO calf stretch Reps/Minutes static x 2 min then dynamic x20 Manual Therapy Treatment Manual Techniques manual Hamstring stretching and nerve gliding Body Position Hooklying PT-OP-T Assessment and Plan Start: 01/22/23 07:57 Freq: Status: Active Protocol: Document 02/27/23 13:16 [facility] (Rec: 02/27/23 13:17 [facility] [id number]) Physical Therapy Assessment Assessment Summary Assessment Zandra is doing better with knee ROM overall. Her back was sore initially however she tolerated all exercises well. I worked on right LE manual hamstring stretch and sciatic nerve flossing today which she tolerated well Physical Therapy Plan Frequency and Duration Frequency of Treatment 2x/Week Duration of treatment (weeks) 8 Plan of Care Start Date 01/22/23 Plan of Care End Date 03/26/23 Therapeutic Interventions Therapeutic Interventions Home Exercise Program,Manual Therapy,Neuromuscular Re- education,Patient/Caregiver Education,Self-Care/Home Management,Soft Tissue Mobilization,Therapeutic Exercises Modalities Cold Pack/Ice Massage,Electric Stimulation Next Visit Focus/Plan Next Note Type Treatment Note Next Visit Plan Continue with biodex for warm up and then continue with exercise for knee ROM, LE flexibility, and strength. Pt to bring in her cane next visit to make sure its the right height as she said the right side of her body hurts when she uses it.
--- NOTE | 2023-03-01 13:39 | PT.OTN ---
Current Diagnoses Bilateral primary osteoarthritis of knee (03/01/23) Pain in left knee (03/01/23) Stiffness of unspecified knee, not elsewhere classified (03/01/23) Muscle weakness (generalized) (03/01/23) Physical Therapy Treatment Note PT-OP-A Visit Information Start: 01/22/23 07:57 Freq: Status: Active Protocol: Document 03/01/23 11:29 NBM (Rec: 03/01/23 12:11 [facility] [id number]) Out-Patient Physical Therapy Visit Information Visit Information Visit Type Treatment Note Visit Start Time 11:30 Visit Stop Time 12:11 Total Visit Minutes 41 Visit Number 8 Number of PHARMACY TECHNICIAN INPATIENT Visits 1 Evaluation Information Evaluation Date 01/22/23 PT-OP-B Current Condition Start: 01/22/23 07:57 Freq: Status: Active Protocol: Document 01/22/23 09:35 [facility] (Rec: 01/22/23 10:29 [facility] [id number]) Current Condition History of Current Condition Onset Date 2021 Current Complaints B knee pain L>R, swelling, decreased ability to walk History of Current Condition Pt reports ongoing left knee pain since she was diagnosed with a bakers cyst a year ago, the left knee has been drained 4 times and she has had 2 cortisone injections and they didn't last long, limping due to the left knee has caused her right knee to hurt. She is now on efflexia and this has helped some but she states she is a cadidate for knee replacement. Pt notes she would like to avoid surgery but not sure she will be able to avoid it. She tried to use a cane but it didn't work for her. She is not able to walk her dogs as much now. She is limited to 1 -2 blocks before she needs to stop Treatment Goals Patient/Caregiver Goals pt would like to avoid surgery and would like to work on functionals strength and to decrease pain allowing her to walk her dogs PT-OP-C Subjective Start: 01/22/23 07:57 Freq: Status: Active Protocol: Document 03/01/23 11:29 NBM (Rec: 03/01/23 12:11 [facility] [id number]) OP-PT Subjective Patient Comments Patient Comments Regina reports she's doing better with the walking now. Her back has been hurting since the injections wore off and she follows up in April . She forgot to bring her cane because she hasn't been using it as much since it seems to hurt her R side. PT-OP-F Manual Assessment Start: 01/22/23 07:57 Freq: Status: Active Protocol: Document 01/22/23 09:35 [facility] (Rec: 01/22/23 13:51 [facility] [id number]) Manual Assessments Soft Tissue Assessment Soft Tissue Mobility Assessment quad tightness left >Right + august test for iliopsoas tightness Joint Mobility Assessment Joint Mobility Assessment decreased patella femoral mobility B with tightness of the quads and pain PT-OP-K Range of Motion Start: 01/22/23 07:57 Freq: Status: Active Protocol: Document 02/06/23 08:00 [facility] (Rec: 02/06/23 08:30 [facility] [id number]) Knee Goniometric Range of Motion Knee Left Knee ROM WFL No Patient Position Supine Flexion Active (degrees) 120 Extension Active (degrees) 5 PT-OP-M Strength Start: 01/22/23 07:57 Freq: Status: Active Protocol: Document 01/22/23 09:35 [facility] (Rec: 01/22/23 13:51 [facility] [id number]) Knee Strength Knee Manual Muscle Testing Right Flexion (S2) 3+ Fair+ Extension (L3) 3+ Fair+ Left Flexion (S2) 2+ Poor+ Extension (L3) 2+ Poor+ Comments pt lacks full knee ROM at this time and strength is decreased due to lack of ROM, swelling, and pt has not been able to be active PT-OP-N Lymphedema Start: 01/22/23 13:51 Freq: Status: Active Protocol: Document 01/22/23 09:35 [facility] (Rec: 01/22/23 13:53 [facility] [id number]) Lymphedema Measurements Lower Extremity Circumference Measurements Right Knee Joint 41 cm - mid calf is 40 cm Left Knee Joint 41.5 cm - mid calf is 40.5 cm PT-OP-Q Treatments Start: 01/22/23 07:57 Freq: Status: Active Protocol: Document 03/01/23 11:29 NBM (Rec: 03/01/23 12:11 NBM [id number]) Cardio Equipment Recumbent Elliptical (BiodPromuc) Duration (Minutes) 9 Resistance 2>3 Seat Position 6 Gym Equipment Shuttle Recovery Bilateral Squats Resistance 50# Reps/Time 3x10 Therapeutic Exercises Supine Exercises bridges Reps/Minutes 10x 5SH today, no cramping today supine ball rolls Equipment Used red ball Reps/Minutes x 30 reps Comments es to dig in heels for hamstring recruitment quad sets Side left Equipment Used no foam roll Reps/Minutes x3 Comments L knee pain reported Sitting Exercises sit to stand Side bilateral Equipment Used standard chair Reps/Minutes x10 Comments vc for LE alignment and eccentric control. Standing Exercises standing hamstring stretch in stair case Side bilateral Reps/Minutes hold x 1 min Comments cues for gentle, pain-free range ANTONIO calf stretch Reps/Minutes static x 2 min then dynamic x20 Manual Therapy Treatment Manual Techniques manual Hamstring stretching and nerve gliding Body Location L Body Position Hooklying Comments w/ light massage to L quads and adductors. PT-OP-T Assessment and Plan Start: 01/22/23 07:57 Freq: Status: Active Protocol: Document 03/01/23 11:29 [facility] (Rec: 03/01/23 12:11 [facility] [id number]) Physical Therapy Assessment Goals 4 Impairment Decreased left knee strength with difficulty performing sit -stand Snf Goal (LTG) improved knee strength and Zandra is able to stand up from a chair without use of her hands demonstrating improved knee strength LTG Duration 8 weeks 3 Impairment pt lacks a HEP for her knee Credit Control Assistant Goal (LTG) Zandra is Ind with a HEP for keeping her knees healthy LTG Duration 8 weeks 2 Impairment L knee pain rated 6/10, right knee pain 4/10 worse going down stairs, walking, and squating Snf Goal (LTG) Zandra reports improved function and a overall reduction of knee pain LTG Duration 8 weeks 1 Impairment Decreased knee ROM Left Short Term Goal (STG) Zandra is educated on knee ROM exercises for a HEP STG Duration 3 weeks Credit Control Assistant Goal (LTG) Zandra presents with full ROM of the left knee LTG Duration 8 weeks Assessment Summary Assessment Zandra tends to hunch over when standing up and is cued upright posture w/ gluteal and TrA activation. She requires cues with sit to stand for LE alignment and eccentric control. Pt has tenderness to palpation along L hip adductors which improves after manual. She tolerates progression on recumbent elliptical from Lvl 2>3 resistance. Pt is encouraged to stretch after she goes walking. She forgot her cane for height evaluation but will bring to next appointment. Physical Therapy Plan Frequency and Duration Frequency of Treatment 2x/Week Duration of treatment (weeks) 8 Plan of Care Start Date 01/22/23 Plan of Care End Date 03/26/23 Therapeutic Interventions Therapeutic Interventions Home Exercise Program,Manual Therapy,Neuromuscular Re- education,Patient/Caregiver Education,Self-Care/Home Management,Soft Tissue Mobilization,Therapeutic Exercises Modalities Cold Pack/Ice Massage,Electric Stimulation Next Visit Focus/Plan Next Note Type Treatment Note Next Visit Plan Assess cane height. POC: Continue with biodex for warm up and then continue with exercise for knee ROM, LE flexibility, and strength. Pt to bring in her cane next visit to make sure its the right height as she said the right side of her body hurts when she uses it.
--- NOTE | 2023-03-07 10:16 | PT.OTN ---
Current Diagnoses Bilateral primary osteoarthritis of knee (03/07/23) Pain in left knee (03/07/23) Stiffness of unspecified knee, not elsewhere classified (03/07/23) Muscle weakness (generalized) (03/07/23) Physical Therapy Treatment Note PT-OP-A Visit Information Start: 01/22/23 07:57 Freq: Status: Active Protocol: Document 03/07/23 09:37 [facility] (Rec: 03/07/23 10:16 [facility] [id number]) Out-Patient Physical Therapy Visit Information Visit Information Visit Type Treatment Note Visit Start Time 09:35 Visit Stop Time 10:15 Total Visit Minutes 40 Visit Number 9 Number of STAINED GLASS GLAZIER HELPER Visits 0 PT-OP-B Current Condition Start: 01/22/23 07:57 Freq: Status: Active Protocol: Document 01/22/23 09:35 AMH (Rec: 01/22/23 10:29 [facility] [id number]) Current Condition History of Current Condition Onset Date 2021 Current Complaints B knee pain L>R, swelling, decreased ability to walk History of Current Condition Pt reports ongoing left knee pain since she was diagnosed with a bakers cyst a year ago, the left knee has been drained 4 times and she has had 2 cortisone injections and they didn't last long, limping due to the left knee has caused her right knee to hurt. She is now on efflexia and this has helped some but she states she is a cadidate for knee replacement. Pt notes she would like to avoid surgery but not sure she will be able to avoid it. She tried to use a cane but it didn't work for her. She is not able to walk her dogs as much now. She is limited to 1 -2 blocks before she needs to stop Treatment Goals Patient/Caregiver Goals pt would like to avoid surgery and would like to work on functionals strength and to decrease pain allowing her to walk her dogs PT-OP-C Subjective Start: 01/22/23 07:57 Freq: Status: Active Protocol: Document 03/07/23 09:37 AMH (Rec: 03/07/23 10:16 [facility] [id number]) OP-PT Subjective Patient Comments Patient Comments pt brings in information on a piece of exercise equipment that she has that moves your knees side to side. She is wanting to try this at home Tiburcio notes her knee is better but it still has some pain she rates it as 3-4/10 and is intermittent PT-OP-F Manual Assessment Start: 01/22/23 07:57 Freq: Status: Active Protocol: Document 01/22/23 09:35 AM[facility] (Rec: 01/22/23 13:51 [facility] [id number]) Manual Assessments Soft Tissue Assessment Soft Tissue Mobility Assessment quad tightness left >Right + august test for iliopsoas tightness Joint Mobility Assessment Joint Mobility Assessment decreased patella femoral mobility B with tightness of the quads and pain PT-OP-K Range of Motion Start: 01/22/23 07:57 Freq: Status: Active Protocol: Document 02/06/23 08:00 AMH (Rec: 02/06/23 08:30 [facility] [id number]) Knee Goniometric Range of Motion Knee Left Knee ROM WFL No Patient Position Supine Flexion Active (degrees) 120 Extension Active (degrees) 5 PT-OP-M Strength Start: 01/22/23 07:57 Freq: Status: Active Protocol: Document 01/22/23 09:35 AM[facility] (Rec: 01/22/23 13:51 [facility] [id number]) Knee Strength Knee Manual Muscle Testing Right Flexion (S2) 3+ Fair+ Extension (L3) 3+ Fair+ Left Flexion (S2) 2+ Poor+ Extension (L3) 2+ Poor+ Comments pt lacks full knee ROM at this time and strength is decreased due to lack of ROM, swelling, and pt has not been able to be active PT-OP-N Lymphedema Start: 01/22/23 13:51 Freq: Status: Active Protocol: Document 01/22/23 09:35 AM[facility] (Rec: 01/22/23 13:53 [facility] [id number]) Lymphedema Measurements Lower Extremity Circumference Measurements Right Knee Joint 41 cm - mid calf is 40 cm Left Knee Joint 41.5 cm - mid calf is 40.5 cm PT-OP-Q Treatments Start: 01/22/23 07:57 Freq: Status: Active Protocol: Document 03/07/23 09:37 AM[facility] (Rec: 03/07/23 10:16 [facility] [id number]) Cardio Equipment Recumbent Bicycle Duration (Minutes) 7 Resistance 2 Seat Position 1 Other able to make full resolution Gym Equipment Shuttle Recovery Bilateral Squats Resistance 50# Reps/Time 3x10 Therapeutic Exercises Supine Exercises supine ball rolls Equipment Used red ball Reps/Minutes x 30 reps Comments es to dig in heels for hamstring recruitment single knee to chest Side bilateral Reps/Minutes hold 1 min with knee pulled to her chest, pt did not need to use a towel to Comments able to straighten the opposite leg Standing Exercises standing quad stretch Equipment Used railing, hold 1 min Reps/Minutes holding on the the rail with a chair behind to rest her knee on it Comments good tolerance felt tightness in R>L quad standing side steps with theraband Reps/Minutes x2 min standing hamstring stretch in stair case Side bilateral Reps/Minutes hold x 1 min Comments cues for gentle, pain-free range PT-OP-T Assessment and Plan Start: 01/22/23 07:57 Freq: Status: Active Protocol: Document 03/07/23 09:37 AMH (Rec: 03/07/23 10:16 [facility] [id number]) Physical Therapy Assessment Assessment Summary Assessment Tiburcio is doing better overall with tolerance for ther ex. I added in standing quad stretches and side steps with theraband and she tolerated it well. Physical Therapy Plan Frequency and Duration Frequency of Treatment 2x/Week Duration of treatment (weeks) 8 Plan of Care Start Date 01/22/23 Plan of Care End Date 03/26/23 Therapeutic Interventions Therapeutic Interventions Home Exercise Program,Manual Therapy,Neuromuscular Re- education,Patient/Caregiver Education,Self-Care/Home Management,Soft Tissue Mobilization,Therapeutic Exercises Modalities Cold Pack/Ice Massage,Electric Stimulation Next Visit Focus/Plan Next Note Type Treatment Note Next Visit Plan Continue with biodex for warm up and then continue with exercise for knee ROM, LE flexibility, and strength. Pt to bring in her cane next visit to make sure its the right height as she said the right side of her body hurts when she uses it.
--- NOTE | 2023-03-11 14:20 | PT.OTN ---
Current Diagnoses Bilateral primary osteoarthritis of knee (03/11/23) Pain in left knee (03/11/23) Stiffness of unspecified knee, not elsewhere classified (03/11/23) Muscle weakness (generalized) (03/11/23) Physical Therapy Treatment Note PT-OP-A Visit Information Start: 01/22/23 07:57 Freq: Status: Active Protocol: Document 03/11/23 13:39 NBM (Rec: 03/11/23 14:19 [facility] [id number]) Out-Patient Physical Therapy Visit Information Visit Information Visit Type Treatment Note Visit Start Time 13:35 Visit Stop Time 14:18 Total Visit Minutes 43 Visit Number 10 Number of BOX PRINTER Visits 1 PT-OP-B Current Condition Start: 01/22/23 07:57 Freq: Status: Active Protocol: Document 01/22/23 09:35 AMH (Rec: 01/22/23 10:29 [facility] [id number]) Current Condition History of Current Condition Onset Date 2021 Current Complaints B knee pain L>R, swelling, decreased ability to walk History of Current Condition Pt reports ongoing left knee pain since she was diagnosed with a bakers cyst a year ago, the left knee has been drained 4 times and she has had 2 cortisone injections and they didn't last long, limping due to the left knee has caused her right knee to hurt. She is now on efflexia and this has helped some but she states she is a cadidate for knee replacement. Pt notes she would like to avoid surgery but not sure she will be able to avoid it. She tried to use a cane but it didn't work for her. She is not able to walk her dogs as much now. She is limited to 1 -2 blocks before she needs to stop Treatment Goals Patient/Caregiver Goals pt would like to avoid surgery and would like to work on functionals strength and to decrease pain allowing her to walk her dogs PT-OP-C Subjective Start: 01/22/23 07:57 Freq: Status: Active Protocol: Document 03/11/23 13:39 NBM (Rec: 03/11/23 14:19 NBM [id number]) OP-PT Subjective Patient Comments Patient Comments Zandra reports her back is hurting her and she's taken two tylenol today. Her follow up with Dr Hunt for cortisone shot is May 27 and she's on waitlist. She reports her L knee still hurts and seems more swollen again. She reports sidesteps with the band were too painful for her hips. PT-OP-F Manual Assessment Start: 01/22/23 07:57 Freq: Status: Active Protocol: Document 01/22/23 09:35 AMH (Rec: 01/22/23 13:51 [facility] [id number]) Manual Assessments Soft Tissue Assessment Soft Tissue Mobility Assessment quad tightness left >Right + august test for iliopsoas tightness Joint Mobility Assessment Joint Mobility Assessment decreased patella femoral mobility B with tightness of the quads and pain PT-OP-K Range of Motion Start: 01/22/23 07:57 Freq: Status: Active Protocol: Document 02/06/23 08:00 AMH (Rec: 02/06/23 08:30 [facility] [id number]) Knee Goniometric Range of Motion Knee Left Knee ROM WFL No Patient Position Supine Flexion Active (degrees) 120 Extension Active (degrees) 5 PT-OP-M Strength Start: 01/22/23 07:57 Freq: Status: Active Protocol: Document 01/22/23 09:35 AMH (Rec: 01/22/23 13:51 [facility] [id number]) Knee Strength Knee Manual Muscle Testing Right Flexion (S2) 3+ Fair+ Extension (L3) 3+ Fair+ Left Flexion (S2) 2+ Poor+ Extension (L3) 2+ Poor+ Comments pt lacks full knee ROM at this time and strength is decreased due to lack of ROM, swelling, and pt has not been able to be active PT-OP-N Lymphedema Start: 01/22/23 13:51 Freq: Status: Active Protocol: Document 01/22/23 09:35 AMH (Rec: 01/22/23 13:53 [facility] [id number]) Lymphedema Measurements Lower Extremity Circumference Measurements Right Knee Joint 41 cm - mid calf is 40 cm Left Knee Joint 41.5 cm - mid calf is 40.5 cm PT-OP-Q Treatments Start: 01/22/23 07:57 Freq: Status: Active Protocol: Document 03/11/23 13:39 NBM (Rec: 03/11/23 14:19 NBM [id number]) Cardio Equipment Recumbent Elliptical (BiodHiperScan) Duration (Minutes) 11 Resistance 1>3 Seat Position 6 Gym Equipment Shuttle Recovery Bilateral Squats Resistance 50# Reps/Time 3x10 Therapeutic Exercises Supine Exercises hamstring stretch Side bilateral Reps/Minutes hold x 30 sec x 2 Comments on Shuttle Recovery Standing Exercises standing quad stretch Standing Exercise Name R>L tightness today Side bilateral Equipment Used railing, hold 1 min Reps/Minutes holding on the the rail with a chair behind to rest her knee on it Comments good tolerance felt tightness in R>L quad standing side steps with theraband Side bilateral Equipment Used yellow loop Reps/Minutes 2x8 ft ea Comments cues for neutral foot, smaller range ANTONIO calf stretch Side bilateral Equipment Used handrail Reps/Minutes dynamic PF/DF x20 PT-OP-T Assessment and Plan Start: 01/22/23 07:57 Freq: Status: Active Protocol: Document 03/11/23 13:39 NB (Rec: 03/11/23 14:19 NB [id number]) Physical Therapy Assessment Goals 4 Impairment Decreased left knee strength with difficulty performing sit -stand Retirement Goal (LTG) improved knee strength and Zandra is able to stand up from a chair without use of her hands demonstrating improved knee strength LTG Duration 8 weeks 3 Impairment pt lacks a HEP for her knee Research Affiliate Goal (LTG) Zandra is Ind with a HEP for keeping her knees healthy LTG Duration 8 weeks 2 Impairment L knee pain rated 6/10, right knee pain 4/10 worse going down stairs, walking, and squating Retirement Goal (LTG) Zandra reports improved function and a overall reduction of knee pain LTG Duration 8 weeks 1 Impairment Decreased knee ROM Left Short Term Goal (STG) Zandra is educated on knee ROM exercises for a HEP STG Duration 3 weeks Retirement Goal (LTG) Zandra presents with full ROM of the left knee LTG Duration 8 weeks Assessment Summary Assessment Zandra requires cues for neutral foot position and smaller range with resisted sidestepping. She has R>L quad tightness today. She's given a note to remind her to bring SPC for height assessment and gait training and resistance band which she tied to assess for appropriate resistance for resisted sidestep ex. Physical Therapy Plan Frequency and Duration Frequency of Treatment 2x/Week Duration of treatment (weeks) 8 Plan of Care Start Date 01/22/23 Plan of Care End Date 03/26/23 Therapeutic Interventions Therapeutic Interventions Home Exercise Program,Manual Therapy,Neuromuscular Re- education,Patient/Caregiver Education,Self-Care/Home Management,Soft Tissue Mobilization,Therapeutic Exercises Modalities Cold Pack/Ice Massage,Electric Stimulation Next Visit Focus/Plan Next Note Type Treatment Note Next Visit Plan Assess Tb for appropriate resistance for sidesteps. Continue with biodex for warm up and then continue with exercise for knee ROM, LE flexibility, and strength. Pt to bring in her cane next visit to make sure its the right height as she said the right side of her body hurts when she uses it.
--- NOTE | 2023-03-14 15:21 | PT.OTN ---
Current Diagnoses Bilateral primary osteoarthritis of knee (03/14/23) Pain in left knee (03/14/23) Stiffness of unspecified knee, not elsewhere classified (03/14/23) Muscle weakness (generalized) (03/14/23) Physical Therapy Treatment Note PT-OP-A Visit Information Start: 01/22/23 07:57 Freq: Status: Active Protocol: Document 03/14/23 12:36 AMH (Rec: 03/14/23 13:16 [facility] [id number]) Out-Patient Physical Therapy Visit Information Visit Information Visit Type Progress Note Visit Start Time 12:32 Visit Stop Time 13:15 Total Visit Minutes 43 Visit Number 11 PT-OP-B Current Condition Start: 01/22/23 07:57 Freq: Status: Active Protocol: Document 01/22/23 09:35 AMH (Rec: 01/22/23 10:29 [facility] [id number]) Current Condition History of Current Condition Onset Date 2021 Current Complaints B knee pain L>R, swelling, decreased ability to walk History of Current Condition Pt reports ongoing left knee pain since she was diagnosed with a bakers cyst a year ago, the left knee has been drained 4 times and she has had 2 cortisone injections and they didn't last long, limping due to the left knee has caused her right knee to hurt. She is now on efflexia and this has helped some but she states she is a cadidate for knee replacement. Pt notes she would like to avoid surgery but not sure she will be able to avoid it. She tried to use a cane but it didn't work for her. She is not able to walk her dogs as much now. She is limited to 1 -2 blocks before she needs to stop Treatment Goals Patient/Caregiver Goals pt would like to avoid surgery and would like to work on functionals strength and to decrease pain allowing her to walk her dogs PT-OP-C Subjective Start: 01/22/23 07:57 Freq: Status: Active Protocol: Document 03/14/23 12:36 AMH (Rec: 03/14/23 13:16 [facility] [id number]) OP-PT Subjective Patient Comments Patient Comments Zandra notes the side steps with the theraband are difficult for her to do. Overall she feels more motion in her knee and her pain is decreasing some. PT-OP-F Manual Assessment Start: 01/22/23 07:57 Freq: Status: Active Protocol: Document 01/22/23 09:35 AMH (Rec: 01/22/23 13:51 [facility] [id number]) Manual Assessments Soft Tissue Assessment Soft Tissue Mobility Assessment quad tightness left >Right + august test for iliopsoas tightness Joint Mobility Assessment Joint Mobility Assessment decreased patella femoral mobility B with tightness of the quads and pain PT-OP-K Range of Motion Start: 01/22/23 07:57 Freq: Status: Active Protocol: Document 03/14/23 15:19 AMH (Rec: 03/14/23 15:19 [facility] [id number]) Knee Goniometric Range of Motion Knee Right Knee ROM WFL Yes Patient Position Supine Flexion Active (degrees) 125 Extension Active (degrees) 0 Left Knee ROM WFL No Patient Position Supine Flexion Active (degrees) 120 Extension Active (degrees) 5 PT-OP-M Strength Start: 01/22/23 07:57 Freq: Status: Active Protocol: Document 01/22/23 09:35 AMH (Rec: 01/22/23 13:51 [facility] [id number]) Knee Strength Knee Manual Muscle Testing Right Flexion (S2) 3+ Fair+ Extension (L3) 3+ Fair+ Left Flexion (S2) 2+ Poor+ Extension (L3) 2+ Poor+ Comments pt lacks full knee ROM at this time and strength is decreased due to lack of ROM, swelling, and pt has not been able to be active PT-OP-N Lymphedema Start: 01/22/23 13:51 Freq: Status: Active Protocol: Document 01/22/23 09:35 AMH (Rec: 01/22/23 13:53 [facility] [id number]) Lymphedema Measurements Lower Extremity Circumference Measurements Right Knee Joint 41 cm - mid calf is 40 cm Left Knee Joint 41.5 cm - mid calf is 40.5 cm PT-OP-Q Treatments Start: 01/22/23 07:57 Freq: Status: Active Protocol: Document 03/14/23 12:36 AMH (Rec: 03/14/23 13:16 [facility] [id number]) Therapeutic Exercises Supine Exercises hamstring stretch Side bilateral Reps/Minutes hold x 30 sec x 2 Comments on Shuttle Recovery bridges Reps/Minutes 10x 5SH today, no cramping today supine ball rolls Equipment Used red ball Reps/Minutes x 30 reps Comments es to dig in heels for hamstring recruitment Standing Exercises standing side steps with theraband Side bilateral Equipment Used yellow loop Reps/Minutes 2x8 ft ea Comments cues for neutral foot, smaller range standing hamstring stretch in stair case Side bilateral Reps/Minutes hold x 1 min Comments cues for gentle, pain-free range ANTONIO calf stretch Side bilateral Equipment Used handrail Reps/Minutes dynamic PF/DF x20 PT-OP-T Assessment and Plan Start: 01/22/23 07:57 Freq: Status: Active Protocol: Document 03/14/23 12:36 AMH (Rec: 03/14/23 13:16 [facility] [id number]) Physical Therapy Assessment Goals 4 Impairment Decreased left knee strength with difficulty performing sit -stand Residential Goal (LTG) improved knee strength and Zandra is able to stand up from a chair without use of her hands demonstrating improved knee strength Good progress LTG Duration 8 weeks 3 Impairment pt lacks a HEP for her knee Information Management Officer Goal (LTG) Zandra is Ind with a HEP for keeping her knees healthy Good progress LTG Duration 8 weeks 2 Impairment L knee pain rated 6/10, right knee pain 4/10 worse going down stairs, walking, and squating Information Management Officer Goal (LTG) Zandra reports improved function and a overall reduction of knee pain excellent progress and pt notes her pain is now a 3/10 LTG Duration 8 weeks 1 Impairment Decreased knee ROM Left Short Term Goal (STG) Zandra is educated on knee ROM exercises for a HEP goal met STG Duration 3 weeks Residential Goal (LTG) Zandra presents with full ROM of the left knee left knee ROM is now 122 LTG Duration 8 weeks Assessment Summary Assessment Zandra is making good progress with her knee rehab. Her ROM now is 120 deg flexion and 5 deg extension which is much improved. She is tolerating a home exercise program. She is still noting pain but it is decreasing and her strengh is improving. She would benefit from continued PT Physical Therapy Plan Frequency and Duration Frequency of Treatment 2x/Week Duration of treatment (weeks) 8 Plan of Care Start Date 03/14/23 Plan of Care End Date 05/14/23 Therapeutic Interventions Therapeutic Interventions Home Exercise Program,Manual Therapy,Neuromuscular Re- education,Patient/Caregiver Education,Self-Care/Home Management,Soft Tissue Mobilization,Therapeutic Exercises Modalities Cold Pack/Ice Massage,Electric Stimulation Next Visit Focus/Plan Next Visit Plan Continue with biodex for warm up and then continue with exercise for knee ROM, LE flexibility, and strength. Pt to bring in her cane next visit to make sure its the right height as she said the right side of her body hurts when she uses it.
--- NOTE | 2023-03-14 15:21 | PT.OPPOC ---
Physical, Occupational & Speech Therapy At [facility] Current Diagnoses Bilateral primary osteoarthritis of knee (03/14/23) Pain in left knee (03/14/23) Stiffness of unspecified knee, not elsewhere classified (03/14/23) Muscle weakness (generalized) (03/14/23) Visit Care Team Role Provider Type Patria Iverson MD Family Provider Non-Staff Primary Care Provider Specialty: Pediatrics Address: [address] [place] [address], [id number] Email: Jelani Alan DO Attending Provider Non-Staff Referring Provider Specialty: Orthopedics Address: [address] [place] [address] [address], [place], [address] opt2 Email: Plan Of Care PT-OP-T Assessment and Plan Start: 01/22/23 07:57 Freq: Status: Active Protocol: Document 03/14/23 12:36 AMH (Rec: 03/14/23 13:16 [facility] [id number]) Physical Therapy Assessment Goals 4 Impairment Decreased left knee strength with difficulty performing sit -stand Nursing Home Goal (LTG) improved knee strength and Zandra is able to stand up from a chair without use of her hands demonstrating improved knee strength Good progress LTG Duration 8 weeks 3 Impairment pt lacks a HEP for her knee Nursing Home Goal (LTG) Zandra is Ind with a HEP for keeping her knees healthy Good progress LTG Duration 8 weeks 2 Impairment L knee pain rated 6/10, right knee pain 4/10 worse going down stairs, walking, and squating Medicaid Specialist Goal (LTG) Zandra reports improved function and a overall reduction of knee pain excellent progress and pt notes her pain is now a 3/10 LTG Duration 8 weeks 1 Impairment Decreased knee ROM Left Short Term Goal (STG) Zandra is educated on knee ROM exercises for a HEP goal met STG Duration 3 weeks Medicaid Specialist Goal (LTG) Zandra presents with full ROM of the left knee left knee ROM is now 122 LTG Duration 8 weeks Assessment Summary Assessment Zandra is making good progress with her knee rehab. Her ROM now is 120 deg flexion and 5 deg extension which is much improved. She is tolerating a home exercise program. She is still noting pain but it is decreasing and her strengh is improving. She would benefit from continued PT Physical Therapy Plan Frequency and Duration Frequency of Treatment 2x/Week Duration of treatment (weeks) 8 Plan of Care Start Date 03/14/23 Plan of Care End Date 05/14/23 Therapeutic Interventions Therapeutic Interventions Home Exercise Program,Manual Therapy,Neuromuscular Re- education,Patient/Caregiver Education,Self-Care/Home Management,Soft Tissue Mobilization,Therapeutic Exercises Modalities Cold Pack/Ice Massage,Electric Stimulation Next Visit Focus/Plan Next Visit Plan Continue with biodex for warm up and then continue with exercise for knee ROM, LE flexibility, and strength. Pt to bring in her cane next visit to make sure its the right height as she said the right side of her body hurts when she uses it. Plan of Care Dates Plan of Care Start Date 03/14/23 Plan of Care End Date 05/14/23 Electronically Signed by: Syl Morris, PT 03/14/23 9609 If you are in agreement with this Plan of Care, please return a signed and dated copy. I have reviewed this Plan of Care and certify that the skilled therapy services above are required to meet the patient?s needs. Physician Signature Date Printed Name and Credentials Clinical Instructor Signature Printed Name and Credentials
--- NOTE | 2023-03-18 14:54 | PT.OTN ---
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 She is now on efflexia and this has helped some but she states she is a cadidate for knee replacement. Pt notes she would like to avoid surgery but not sure she will be able to avoid it. She tried to use a cane but it didn't work for her. She is not able to walk her dogs as much now. She is limited to 1 -2 blocks before she needs to stop Treatment Goals Patient/Caregiver Goals pt would like to avoid surgery and would like to work on functionals strength and to decrease pain allowing her to walk her dogs PT-OP-C Subjective Start: 01/22/23 07:57 Freq: Status: Active Protocol: Document 03/18/23 13:32 [facility] (Rec: 03/18/23 14:18 [facility] [id number]) OP-PT Subjective Patient Comments Patient Comments Zandra brings single point cane in RUE and resistance band. She reports using the cane hurts her R shoulder. Her back bothers her. If she crosses L over R which is a habit then L knee hurts, but no pain with R over L. She is still on waitlist for Dr. Hunt for earlier appt than 05/27. R leg is more sensitive to touch than L leg because of statin drug. She is trying to walk more upright. PT-OP-F Manual Assessment Start: 01/22/23 07:57 Freq: Status: Active Protocol: Document 01/22/23 09:35 [facility] (Rec: 01/22/23 13:51 [facility] [id number]) Manual Assessments Soft Tissue Assessment Soft Tissue Mobility Assessment quad tightness left >Right + august test for iliopsoas tightness Joint Mobility Assessment Joint Mobility Assessment decreased patella femoral mobility B with tightness of the quads and pain PT-OP-K Range of Motion Start: 01/22/23 07:57 Freq: Status: Active Protocol: Document 03/14/23 15:19 [facility] (Rec: 03/14/23 15:19 [facility] [id number]) Knee Goniometric Range of Motion Knee Right Knee ROM WFL Yes Patient Position Supine Flexion Active (degrees) 125 Extension Active (degrees) 0 Left Knee ROM WFL No Patient Position Supine Flexion Active (degrees) 120 Extension Active (degrees) 5 PT-OP-M Strength Start: 01/22/23 07:57 Freq: Status: Active Protocol: Document 01/22/23 09:35 [facility] (Rec: 01/22/23 13:51 [facility] [id number]) Knee Strength Knee Manual Muscle Testing Right Flexion (S2) 3+ Fair+ Extension (L3) 3+ Fair+ Left Flexion (S2) 2+ Poor+ Extension (L3) 2+ Poor+ Comments pt lacks full knee ROM at this time and strength is decreased due to lack of ROM, swelling, and pt has not been able to be active PT-OP-N Lymphedema Start: 01/22/23 13:51 Freq: Status: Active Protocol: Document 01/22/23 09:35 [facility] (Rec: 01/22/23 13:53 [facility] [id number]) Lymphedema Measurements Lower Extremity Circumference Measurements Right Knee Joint 41 cm - mid calf is 40 cm Left Knee Joint 41.5 cm - mid calf is 40.5 cm PT-OP-Q Treatments Start: 01/22/23 07:57 Freq: Status: Active Protocol: Document 03/18/23 13:32 N[facility] (Rec: 03/18/23 14:18 [facility] [id number]) Cardio Equipment Recumbent Elliptical (Biodex) Duration (Minutes) 10 Resistance 1>4 Seat Position 5 seen Other increased Lvl ~2min increments Therapeutic Exercises Supine Exercises LTR Supine Exercise Name Lower Trunk Rotation Side bilateral Equipment Used 55 cm Reps/Minutes x10 ea Comments cues for slower pacing, breath , pain decreases bridges Side bilateral Equipment Used 55cm physioball Reps/Minutes x8 supine ball rolls Equipment Used red ball Reps/Minutes x 30 reps Comments es to dig in heels for hamstring recruitment Standing Exercises standing side steps with theraband Side bilateral Equipment Used Lvl three Green Tb Reps/Minutes 2x8 ft ea Comments cues for smaller range, no dragging foot standing hamstring stretch in stair case Side bilateral Reps/Minutes hold x 1 min Comments cues for gentle, pain-free range ANTONIO calf stretch Standing Exercise Name training stairs w/ handrail Side bilateral Reps/Minutes dynamic PF/DF x20 Gait Training Gait Activity SPC Device Used SPC RUE Level of Assistance SBA Surface carpet, tile Treatment Focus cane height, sequencing, upright posture Comments Pt requires cues for decreased R UE support and upright posture w/ gluteal facilitation - gait training dc'd d/t pt's report of low back pain. PT-OP-T Assessment and Plan Start: 01/22/23 07:57 Freq: Status: Active Protocol: Document 03/18/23 13:32 [facility] (Rec: 03/18/23 14:18 [facility] [id number]) Physical Therapy Assessment Goals 4 Impairment Decreased left knee strength with difficulty performing sit -stand Residential Goal (LTG) improved knee strength and Zandra is able to stand up from a chair without use of her hands demonstrating improved knee strength Good progress LTG Duration 8 weeks 3 Impairment pt lacks a HEP for her knee [employer] Advisor Goal (LTG) Zandra is Ind with a HEP for keeping her knees healthy Good progress LTG Duration 8 weeks 2 Impairment L knee pain rated 6/10, right knee pain 4/10 worse going down stairs, walking, and squating Residential Goal (LTG) Zandra reports improved function and a overall reduction of knee pain excellent progress and pt notes her pain is now a 3/10 LTG Duration 8 weeks 1 Impairment Decreased knee ROM Left Short Term Goal (STG) Zandra is educated on knee ROM exercises for a HEP goal met STG Duration 3 weeks Residential Goal (LTG) Zandra presents with full ROM of the left knee left knee ROM is now 122 LTG Duration 8 weeks Assessment Summary Assessment Zandra shows increased strength with recumbent stepper up to Lvl 4 today with steady increase in 2' increments. Pt requires cues for decreased R UE support w/ SPC and upright posture w/ gluteal facilitation - gait training is discontinued due to pt's report of low back pain, which improves w/ LTR exercise. Physical Therapy Plan Frequency and Duration Frequency of Treatment 2x/Week Duration of treatment (weeks) 8 Plan of Care Start Date 03/14/23 Plan of Care End Date 05/14/23 Therapeutic Interventions Therapeutic Interventions Home Exercise Program,Manual Therapy,Neuromuscular Re- education,Patient/Caregiver Education,Self-Care/Home Management,Soft Tissue Mobilization,Therapeutic Exercises Modalities Cold Pack/Ice Massage,Electric Stimulation Next Visit Focus/Plan Next Visit Plan Continue with biodex for warm up and then continue with exercise for knee ROM, LE flexibility, and strength. Pt to bring in her cane next visit to make sure its the right height as she said the right side of her body hurts when she uses it.
--- NOTE | 2023-03-21 13:20 | PT.OTN ---
Current Diagnoses Bilateral primary osteoarthritis of knee (03/21/23) Pain in left knee (03/21/23) Stiffness of unspecified knee, not elsewhere classified (03/21/23) Muscle weakness (generalized) (03/21/23) Physical Therapy Treatment Note PT-OP-A Visit Information Start: 01/22/23 07:57 Freq: Status: Active Protocol: Document 03/21/23 12:38 [facility] (Rec: 03/21/23 13:20 [facility] [id number]) Out-Patient Physical Therapy Visit Information Visit Information Visit Type Aquatic Treatment Note Visit Start Time 12:35 Visit Stop Time 11:15 Total Visit Minutes 40 Visit Number 13 PT-OP-B Current Condition Start: 01/22/23 07:57 Freq: Status: Active Protocol: Document 01/22/23 09:35 [facility] (Rec: 01/22/23 10:29 [facility] [id number]) Current Condition History of Current Condition Onset Date 2021 Current Complaints B knee pain L>R, swelling, decreased ability to walk History of Current Condition Pt reports ongoing left knee pain since she was diagnosed with a bakers cyst a year ago, the left knee has been drained 4 times and she has had 2 cortisone injections and they didn't last long, limping due to the left knee has caused her right knee to hurt. She is now on efflexia and this has helped some but she states she is a cadidate for knee replacement. Pt notes she would like to avoid surgery but not sure she will be able to avoid it. She tried to use a cane but it didn't work for her. She is not able to walk her dogs as much now. She is limited to 1 -2 blocks before she needs to stop Treatment Goals Patient/Caregiver Goals pt would like to avoid surgery and would like to work on functionals strength and to decrease pain allowing her to walk her dogs PT-OP-C Subjective Start: 01/22/23 07:57 Freq: Status: Active Protocol: Document 03/21/23 12:38 [facility] (Rec: 03/21/23 13:20 [facility] [id number]) OP-PT Subjective Patient Comments Patient Comments pt has been dealing with her dog being sick and she is worried about her dog. She hasn't been thinking about her knee PT-OP-F Manual Assessment Start: 01/22/23 07:57 Freq: Status: Active Protocol: Document 01/22/23 09:35 [facility] (Rec: 01/22/23 13:51 [facility] [id number]) Manual Assessments Soft Tissue Assessment Soft Tissue Mobility Assessment quad tightness left >Right + august test for iliopsoas tightness Joint Mobility Assessment Joint Mobility Assessment decreased patella femoral mobility B with tightness of the quads and pain PT-OP-K Range of Motion Start: 01/22/23 07:57 Freq: Status: Active Protocol: Document 03/14/23 15:19 [facility] (Rec: 03/14/23 15:19 [facility] [id number]) Knee Goniometric Range of Motion Knee Right Knee ROM WFL Yes Patient Position Supine Flexion Active (degrees) 125 Extension Active (degrees) 0 Left Knee ROM WFL No Patient Position Supine Flexion Active (degrees) 120 Extension Active (degrees) 5 PT-OP-M Strength Start: 01/22/23 07:57 Freq: Status: Active Protocol: Document 01/22/23 09:35 [facility] (Rec: 01/22/23 13:51 [facility] [id number]) Knee Strength Knee Manual Muscle Testing Right Flexion (S2) 3+ Fair+ Extension (L3) 3+ Fair+ Left Flexion (S2) 2+ Poor+ Extension (L3) 2+ Poor+ Comments pt lacks full knee ROM at this time and strength is decreased due to lack of ROM, swelling, and pt has not been able to be active PT-OP-N Lymphedema Start: 01/22/23 13:51 Freq: Status: Active Protocol: Document 01/22/23 09:35 [facility] (Rec: 01/22/23 13:53 [facility] [id number]) Lymphedema Measurements Lower Extremity Circumference Measurements Right Knee Joint 41 cm - mid calf is 40 cm Left Knee Joint 41.5 cm - mid calf is 40.5 cm PT-OP-Q Treatments Start: 01/22/23 07:57 Freq: Status: Active Protocol: Document 03/21/23 12:38 [facility] (Rec: 03/21/23 13:20 [facility] [id number]) Cardio Equipment Recumbent Elliptical (Biodex) Duration (Minutes) 10 Resistance 1>4 Seat Position 5 seen Other increased Lvl ~2min increments Gym Equipment Shuttle Recovery Bilateral Squats Resistance 50# Reps/Time 3x10 Therapeutic Exercises Supine Exercises hamstring stretch Side bilateral Reps/Minutes hold x 30 sec x 2 Comments on Shuttle Recovery supine ball rolls Equipment Used red ball Reps/Minutes x 30 reps Comments es to dig in heels for hamstring recruitment single knee to chest Side bilateral Reps/Minutes hold 1 min with knee pulled to her chest, pt did not need to use a towel to Comments able to straighten the opposite leg Standing Exercises standing hamstring stretch in stair case Side bilateral Reps/Minutes hold x 1 min Comments cues for gentle, pain-free range ANTONIO calf stretch Standing Exercise Name training stairs w/ handrail Side bilateral Reps/Minutes dynamic PF/DF x20 PT-OP-T Assessment and Plan Start: 01/22/23 07:57 Freq: Status: Active Protocol: Document 03/21/23 12:38 [facility] (Rec: 03/21/23 13:20 [facility] [id number]) Physical Therapy Assessment Goals 4 Impairment Decreased left knee strength with difficulty performing sit -stand Cottage Attendant Goal (LTG) improved knee strength and Zandra is able to stand up from a chair without use of her hands demonstrating improved knee strength Good progress LTG Duration 8 weeks 3 Impairment pt lacks a HEP for her knee Cottage Attendant Goal (LTG) Zandra is Ind with a HEP for keeping her knees healthy Good progress LTG Duration 8 weeks 2 Impairment L knee pain rated 6/10, right knee pain 4/10 worse going down stairs, walking, and squating [facility] Goal (LTG) Zandra reports improved function and a overall reduction of knee pain excellent progress and pt notes her pain is now a 3/10 LTG Duration 8 weeks 1 Impairment Decreased knee ROM Left Short Term Goal (STG) Zandra is educated on knee ROM exercises for a HEP goal met STG Duration 3 weeks [facility] Goal (LTG) Zandra presents with full ROM of the left knee left knee ROM is now 122 LTG Duration 8 weeks Assessment Summary Assessment Zandra continues to show good progress with strengthening and with overall ROM. She is tolerating lateral steps with theraband much easier now. Physical Therapy Plan Frequency and Duration Frequency of Treatment 2x/Week Duration of treatment (weeks) 8 Plan of Care Start Date 03/14/23 Plan of Care End Date 05/14/23 Therapeutic Interventions Therapeutic Interventions Home Exercise Program,Manual Therapy,Neuromuscular Re- education,Patient/Caregiver Education,Self-Care/Home Management,Soft Tissue Mobilization,Therapeutic Exercises Modalities Cold Pack/Ice Massage,Electric Stimulation Next Visit Focus/Plan Next Note Type Treatment Note Next Visit Plan Continue with biodex for warm up and then continue with exercise for knee ROM, LE flexibility, and strength. Pt to bring in her cane next visit to make sure its the right height as she said the right side of her body hurts when she uses it.
--- NOTE | 2023-03-27 13:01 | PT.OTN ---
Current Diagnoses Bilateral primary osteoarthritis of knee (03/27/23) Pain in left knee (03/27/23) Stiffness of unspecified knee, not elsewhere classified (03/27/23) Muscle weakness (generalized) (03/27/23) Physical Therapy Treatment Note PT-OP-A Visit Information Start: 01/22/23 07:57 Freq: Status: Active Protocol: Document 03/27/23 11:18 [facility] (Rec: 03/27/23 12:01 [facility] [id number]) Out-Patient Physical Therapy Visit Information Visit Information Visit Type Treatment Note Visit Note 08/31 for next AR Visit Start Time 11:15 Visit Stop Time 12:00 Total Visit Minutes 45 Visit Number 14 PT-OP-B Current Condition Start: 01/22/23 07:57 Freq: Status: Active Protocol: Document 01/22/23 09:35 [facility] (Rec: 01/22/23 10:29 [facility] [id number]) Current Condition History of Current Condition Onset Date 2021 Current Complaints B knee pain L>R, swelling, decreased ability to walk History of Current Condition Pt reports ongoing left knee pain since she was diagnosed with a bakers cyst a year ago, the left knee has been drained 4 times and she has had 2 cortisone injections and they didn't last long, limping due to the left knee has caused her right knee to hurt. She is now on efflexia and this has helped some but she states she is a cadidate for knee replacement. Pt notes she would like to avoid surgery but not sure she will be able to avoid it. She tried to use a cane but it didn't work for her. She is not able to walk her dogs as much now. She is limited to 1 -2 blocks before she needs to stop Treatment Goals Patient/Caregiver Goals pt would like to avoid surgery and would like to work on functionals strength and to decrease pain allowing her to walk her dogs PT-OP-C Subjective Start: 01/22/23 07:57 Freq: Status: Active Protocol: Document 03/27/23 11:18 [facility] (Rec: 03/27/23 12:01 [facility] [id number]) OP-PT Subjective Patient Comments Patient Comments pt continues to deal with her dog not eating and she hasn't been able to think about her knee. Her legs have been hurting nerve mcdaniel but she doesn't see the doctor for that until May. She reports she has her cane in her truck but she forgets to use it. She does note if felt better once it was lowered PT-OP-F Manual Assessment Start: 01/22/23 07:57 Freq: Status: Active Protocol: Document 01/22/23 09:35 [facility] (Rec: 01/22/23 13:51 [facility] [id number]) Manual Assessments Soft Tissue Assessment Soft Tissue Mobility Assessment quad tightness left >Right + august test for iliopsoas tightness Joint Mobility Assessment Joint Mobility Assessment decreased patella femoral mobility B with tightness of the quads and pain PT-OP-K Range of Motion Start: 01/22/23 07:57 Freq: Status: Active Protocol: Document 03/14/23 15:19 [facility] (Rec: 03/14/23 15:19 [facility] [id number]) Knee Goniometric Range of Motion Knee Right Knee ROM WFL Yes Patient Position Supine Flexion Active (degrees) 125 Extension Active (degrees) 0 Left Knee ROM WFL No Patient Position Supine Flexion Active (degrees) 120 Extension Active (degrees) 5 PT-OP-M Strength Start: 01/22/23 07:57 Freq: Status: Active Protocol: Document 01/22/23 09:35 [facility] (Rec: 01/22/23 13:51 [facility] [id number]) Knee Strength Knee Manual Muscle Testing Right Flexion (S2) 3+ Fair+ Extension (L3) 3+ Fair+ Left Flexion (S2) 2+ Poor+ Extension (L3) 2+ Poor+ Comments pt lacks full knee ROM at this time and strength is decreased due to lack of ROM, swelling, and pt has not been able to be active PT-OP-N Lymphedema Start: 01/22/23 13:51 Freq: Status: Active Protocol: Document 01/22/23 09:35 [facility] (Rec: 01/22/23 13:53 [facility] [id number]) Lymphedema Measurements Lower Extremity Circumference Measurements Right Knee Joint 41 cm - mid calf is 40 cm Left Knee Joint 41.5 cm - mid calf is 40.5 cm PT-OP-Q Treatments Start: 01/22/23 07:57 Freq: Status: Active Protocol: Document 03/27/23 11:18 [facility] (Rec: 03/27/23 12:01 [facility] [id number]) Cardio Equipment Recumbent Elliptical (Teklatech) Duration (Minutes) 10 Resistance 1>4 Seat Position 5 seen Other increased Lvl ~2min increments Gym Equipment Shuttle Recovery single leg squats Resistance 25# Reps/Time 2 x 10 reps Bilateral Squats Resistance 50# Reps/Time 3x10 Therapeutic Exercises Sitting Exercises sit to stand Side bilateral Equipment Used standard chair Reps/Minutes x10 Comments vc for LE alignment and eccentric control. Standing Exercises standing side steps with theraband Side bilateral Equipment Used Lvl three Green Tb Reps/Minutes 2x8 ft ea Comments cues for smaller range, no dragging foot ANTONIO calf stretch Standing Exercise Name training stairs w/ handrail Side bilateral Reps/Minutes dynamic PF/DF x20 PT-OP-T Assessment and Plan Start: 01/22/23 07:57 Freq: Status: Active Protocol: Document 03/27/23 11:18 [facility] (Rec: 03/27/23 12:01 [facility] [id number]) Physical Therapy Assessment Assessment Summary Assessment I was able to add on single leg squats on the shuttle for Zandra today and she tolerated this well. She is showing improvements in strength of B LE Physical Therapy Plan Frequency and Duration Frequency of Treatment 2x/Week Duration of treatment (weeks) 8 Plan of Care Start Date 03/14/23 Plan of Care End Date 05/14/23 Therapeutic Interventions Therapeutic Interventions Home Exercise Program,Manual Therapy,Neuromuscular Re- education,Patient/Caregiver Education,Self-Care/Home Management,Soft Tissue Mobilization,Therapeutic Exercises Modalities Cold Pack/Ice Massage,Electric Stimulation Next Visit Focus/Plan Next Note Type Treatment Note Next Visit Plan Continue with biodex for warm up and then continue with exercise for knee ROM, LE flexibility, and strength.
--- NOTE | 2023-04-02 13:27 | PT.OTN ---
Current Diagnoses Bilateral primary osteoarthritis of knee (04/02/23) Pain in left knee (04/02/23) Stiffness of unspecified knee, not elsewhere classified (04/02/23) Muscle weakness (generalized) (04/02/23) Physical Therapy Treatment Note PT-OP-A Visit Information Start: 01/22/23 07:57 Freq: Status: Active Protocol: Document 04/02/23 11:35 NBM (Rec: 04/02/23 12:26 NBM [id number]) Out-Patient Physical Therapy Visit Information Visit Information Visit Type Treatment Note Visit Note 08/31 for next [place] Visit Start Time 11:35 Visit Stop Time 12:19 Total Visit Minutes 44 Visit Number 15 Number of FINANCIAL PROFESSIONAL Visits 1 PT-OP-B Current Condition Start: 01/22/23 07:57 Freq: Status: Active Protocol: Document 01/22/23 09:35 AMH (Rec: 01/22/23 10:29 AMH [id number]) Current Condition History of Current Condition Onset Date 2021 Current Complaints B knee pain L>R, swelling, decreased ability to walk History of Current Condition Pt reports ongoing left knee pain since she was diagnosed with a bakers cyst a year ago, the left knee has been drained 4 times and she has had 2 cortisone injections and they didn't last long, limping due to the left knee has caused her right knee to hurt. She is now on efflexia and this has helped some but she states she is a cadidate for knee replacement. Pt notes she would like to avoid surgery but not sure she will be able to avoid it. She tried to use a cane but it didn't work for her. She is not able to walk her dogs as much now. She is limited to 1 -2 blocks before she needs to stop Treatment Goals Patient/Caregiver Goals pt would like to avoid surgery and would like to work on functionals strength and to decrease pain allowing her to walk her dogs PT-OP-C Subjective Start: 01/22/23 07:57 Freq: Status: Active Protocol: Document 04/02/23 11:35 NBM (Rec: 04/02/23 12:26 NBM [id number]) OP-PT Subjective Patient Comments Patient Comments Zandra reports her dog on Saturday; she hasn't been eating well. She has her cane in the car but keeps forgetting to use it. She is still on the cancellation list for her cortisone shots which are scheduled for May 27. She notices R thigh nerve pain and thinks it's related to her back. PT-OP-F Manual Assessment Start: 01/22/23 07:57 Freq: Status: Active Protocol: Document 01/22/23 09:35 AMH (Rec: 01/22/23 13:51 AMH [id number]) Manual Assessments Soft Tissue Assessment Soft Tissue Mobility Assessment quad tightness left >Right + august test for iliopsoas tightness Joint Mobility Assessment Joint Mobility Assessment decreased patella femoral mobility B with tightness of the quads and pain PT-OP-K Range of Motion Start: 01/22/23 07:57 Freq: Status: Active Protocol: Document 03/14/23 15:19 AMH (Rec: 03/14/23 15:19 AMH [id number]) Knee Goniometric Range of Motion Knee Right Knee ROM WFL Yes Patient Position Supine Flexion Active (degrees) 125 Extension Active (degrees) 0 Left Knee ROM WFL No Patient Position Supine Flexion Active (degrees) 120 Extension Active (degrees) 5 PT-OP-M Strength Start: 01/22/23 07:57 Freq: Status: Active Protocol: Document 01/22/23 09:35 AMH (Rec: 01/22/23 13:51 AMH [id number]) Knee Strength Knee Manual Muscle Testing Right Flexion (S2) 3+ Fair+ Extension (L3) 3+ Fair+ Left Flexion (S2) 2+ Poor+ Extension (L3) 2+ Poor+ Comments pt lacks full knee ROM at this time and strength is decreased due to lack of ROM, swelling, and pt has not been able to be active PT-OP-N Lymphedema Start: 01/22/23 13:51 Freq: Status: Active Protocol: Document 01/22/23 09:35 AMH (Rec: 01/22/23 13:53 AMH [id number]) Lymphedema Measurements Lower Extremity Circumference Measurements Right Knee Joint 41 cm - mid calf is 40 cm Left Knee Joint 41.5 cm - mid calf is 40.5 cm PT-OP-Q Treatments Start: 01/22/23 07:57 Freq: Status: Active Protocol: Document 04/02/23 11:35 NBM (Rec: 04/02/23 12:26 NBM [id number]) Cardio Equipment Recumbent Elliptical (Biodex) Duration (Minutes) 11 Resistance 1>4 at 5' >3 at 7' Seat Position 5 seen Gym Equipment Shuttle Recovery single leg squats Resistance 25# Reps/Time 2 x 12 reps Bilateral Squats Details R knee discomfort Resistance 50# Reps/Time 3x10 Therapeutic Exercises Sitting Exercises sit to stand Side bilateral Resistance Lvl 1 [place] Tb Equipment Used standard chair Reps/Minutes x10 ea w/ and w/o band Comments vc for LE alignment and eccentric control. Manual Therapy Treatment Soft Tissue Mobilization Knee Body Location Rafiq Quads, Adductors, ITB Mobilization Type Cross-Friction,Manual Lymphatic Drainage,Rolling, Sustained Pressure,Other Intensity/Depth Moderate Body Position Hooklying Comments LE on bolster. Light edema massage to L knee. Tenderness to distal adductors noted L>R. PT-OP-T Assessment and Plan Start: 01/22/23 07:57 Freq: Status: Active Protocol: Document 04/02/23 11:35 NBM (Rec: 04/02/23 12:26 NBM [id number]) Physical Therapy Assessment Goals 4 Impairment Decreased left knee strength with difficulty performing sit -stand Assisted Goal (LTG) improved knee strength and Zandra is able to stand up from a chair without use of her hands demonstrating improved knee strength Good progress LTG Duration 8 weeks 3 Impairment pt lacks a HEP for her knee Assisted Goal (LTG) Zandra is Ind with a HEP for keeping her knees healthy Good progress LTG Duration 8 weeks 2 Impairment L knee pain rated 6/10, right knee pain 4/10 worse going down stairs, walking, and squating Assisted Goal (LTG) Zandra reports improved function and a overall reduction of knee pain excellent progress and pt notes her pain is now a 3/10 LTG Duration 8 weeks 1 Impairment Decreased knee ROM Left Short Term Goal (STG) Zandra is educated on knee ROM exercises for a HEP goal met STG Duration 3 weeks Account Executive Trainee Goal (LTG) Zandra presents with full ROM of the left knee left knee ROM is now 122 LTG Duration 8 weeks Assessment Summary Assessment Zandra trialed shuttle recovery bilateral w/ ball squeeze but discontinued due to pt report of increased knee pain. She requires cues for LE alignment due to knee valgus rafiq with sit to stand exercise which improves w/ resistance band above the knees, but she is still challenged w/ eccentric control the last two inches. Tenderness to distal adductors noted L>R and improves w/ manual therapy. Physical Therapy Plan Frequency and Duration Frequency of Treatment 2x/Week Duration of treatment (weeks) 8 Plan of Care Start Date 03/14/23 Plan of Care End Date 05/14/23 Therapeutic Interventions Therapeutic Interventions Home Exercise Program,Manual Therapy,Neuromuscular Re- education,Patient/Caregiver Education,Self-Care/Home Management,Soft Tissue Mobilization,Therapeutic Exercises Modalities Cold Pack/Ice Massage,Electric Stimulation Next Visit Focus/Plan Next Note Type Treatment Note Next Visit Plan Continue with biodex for warm up and then continue with exercise for knee ROM, LE flexibility, and strength.
--- NOTE | 2023-04-04 15:56 | PT.OTN ---
Current Diagnoses Bilateral primary osteoarthritis of knee (04/04/23) Pain in left knee (04/04/23) Stiffness of unspecified knee, not elsewhere classified (04/04/23) Muscle weakness (generalized) (04/04/23) Physical Therapy Treatment Note PT-OP-A Visit Information Start: 01/22/23 07:57 Freq: Status: Active Protocol: Document 04/04/23 15:06 AMH (Rec: 04/04/23 15:56 [facility] [id number]) Out-Patient Physical Therapy Visit Information Visit Information Visit Type Treatment Note Visit Note 10/31 for next [place] Visit Start Time 15:00 Visit Stop Time 15:45 Total Visit Minutes 45 Visit Number 16 PT-OP-B Current Condition Start: 01/22/23 07:57 Freq: Status: Active Protocol: Document 01/22/23 09:35 AMH (Rec: 01/22/23 10:29 AMH [id number]) Current Condition History of Current Condition Onset Date 2021 Current Complaints B knee pain L>R, swelling, decreased ability to walk History of Current Condition Pt reports ongoing left knee pain since she was diagnosed with a bakers cyst a year ago, the left knee has been drained 4 times and she has had 2 cortisone injections and they didn't last long, limping due to the left knee has caused her right knee to hurt. She is now on efflexia and this has helped some but she states she is a cadidate for knee replacement. Pt notes she would like to avoid surgery but not sure she will be able to avoid it. She tried to use a cane but it didn't work for her. She is not able to walk her dogs as much now. She is limited to 1 -2 blocks before she needs to stop Treatment Goals Patient/Caregiver Goals pt would like to avoid surgery and would like to work on functionals strength and to decrease pain allowing her to walk her dogs PT-OP-C Subjective Start: 01/22/23 07:57 Freq: Status: Active Protocol: Document 04/04/23 15:06 AMH (Rec: 04/04/23 15:56 [facility] [id number]) OP-PT Subjective Patient Comments Patient Comments Zandra reports its been hard to think about her knees are doing since she is grieving the loss of her dog who last Saturday. She is feeling more discomfort today overall PT-OP-F Manual Assessment Start: 01/22/23 07:57 Freq: Status: Active Protocol: Document 01/22/23 09:35 AMH (Rec: 01/22/23 13:51 [facility] [id number]) Manual Assessments Soft Tissue Assessment Soft Tissue Mobility Assessment quad tightness left >Right + august test for iliopsoas tightness Joint Mobility Assessment Joint Mobility Assessment decreased patella femoral mobility B with tightness of the quads and pain PT-OP-K Range of Motion Start: 01/22/23 07:57 Freq: Status: Active Protocol: Document 03/14/23 15:19 AMH (Rec: 03/14/23 15:19 [facility] [id number]) Knee Goniometric Range of Motion Knee Right Knee ROM WFL Yes Patient Position Supine Flexion Active (degrees) 125 Extension Active (degrees) 0 Left Knee ROM WFL No Patient Position Supine Flexion Active (degrees) 120 Extension Active (degrees) 5 PT-OP-M Strength Start: 01/22/23 07:57 Freq: Status: Active Protocol: Document 01/22/23 09:35 [facility] (Rec: 01/22/23 13:51 [facility] [id number]) Knee Strength Knee Manual Muscle Testing Right Flexion (S2) 3+ Fair+ Extension (L3) 3+ Fair+ Left Flexion (S2) 2+ Poor+ Extension (L3) 2+ Poor+ Comments pt lacks full knee ROM at this time and strength is decreased due to lack of ROM, swelling, and pt has not been able to be active PT-OP-N Lymphedema Start: 01/22/23 13:51 Freq: Status: Active Protocol: Document 01/22/23 09:35 [facility] (Rec: 01/22/23 13:53 [facility] [id number]) Lymphedema Measurements Lower Extremity Circumference Measurements Right Knee Joint 41 cm - mid calf is 40 cm Left Knee Joint 41.5 cm - mid calf is 40.5 cm PT-OP-Q Treatments Start: 01/22/23 07:57 Freq: Status: Active Protocol: Document 04/04/23 15:06 AMH (Rec: 04/04/23 15:56 [facility] [id number]) Cardio Equipment Recumbent Elliptical (Biodex) Duration (Minutes) 10 Resistance 3 Seat Position 5 Gym Equipment Shuttle Recovery Bilateral Squats Details B knee tightness today Resistance 50# Reps/Time 3x10 Therapeutic Exercises Supine Exercises LTR Supine Exercise Name Lower Trunk Rotation Side bilateral Reps/Minutes x10 ea Comments cues for slower pacing, breath , pain decreases hamstring stretch Side bilateral Reps/Minutes hold x 30 sec x 2 Comments hands behind the knee opp knee bent bridges Reps/Minutes x 10 reps Comments no cramping today supine ball rolls Reps/Minutes x 20 reps single knee to chest Side bilateral Reps/Minutes 30 sec hold each side x 3 reps , straighten the opp knee on3rd rep Comments able to straighten the opposite leg Standing Exercises standing quad stretch Standing Exercise Name R>L tightness today Side bilateral Equipment Used railing, hold 1 min Reps/Minutes holding on the the rail with a chair behind to rest her knee on it Comments good tolerance felt tightness in R>L quad ANTONIO calf stretch Standing Exercise Name training stairs w/ handrail Side bilateral Reps/Minutes dynamic PF/DF x20 PT-OP-T Assessment and Plan Start: 01/22/23 07:57 Freq: Status: Active Protocol: Document 04/04/23 15:06 [facility] (Rec: 04/04/23 15:56 [facility] [id number]) Physical Therapy Assessment Goals 4 Impairment Decreased left knee strength with difficulty performing sit -stand Knitting Machine Operator Goal (LTG) improved knee strength and Zandra is able to stand up from a chair without use of her hands demonstrating improved knee strength Good progress LTG Duration 8 weeks 3 Impairment pt lacks a HEP for her knee Knitting Machine Operator Goal (LTG) Zandra is Ind with a HEP for keeping her knees healthy Good progress LTG Duration 8 weeks 2 Impairment L knee pain rated 6/10, right knee pain 4/10 worse going down stairs, walking, and squatting Mcc Goal (LTG) Zandra reports improved function and a overall reduction of knee pain excellent progress and pt notes her pain is now a 3/10 LTG Duration 8 weeks 1 Impairment Decreased knee ROM Left Short Term Goal (STG) Zandra is educated on knee ROM exercises for a HEP goal met STG Duration 3 weeks Knitting Machine Operator Goal (LTG) Zandra presents with full ROM of the left knee left knee ROM is now 122 LTG Duration 8 weeks Assessment Summary Assessment Zandra has not been doing her exercises or moving at home much this past week as she is grieving. She was tighter today with all her exercises. Physical Therapy Plan Frequency and Duration Frequency of Treatment 2x/Week Duration of treatment (weeks) 8 Plan of Care Start Date 03/14/23 Plan of Care End Date 05/14/23 Next Visit Focus/Plan Next Note Type Treatment Note Next Visit Plan Continue with biodex for warm up and then continue with exercise for knee ROM, LE flexibility, and strength.
--- NOTE | 2023-04-11 12:55 | PT.OTN ---
Current Diagnoses Bilateral primary osteoarthritis of knee (04/11/23) Pain in left knee (04/11/23) Stiffness of unspecified knee, not elsewhere classified (04/11/23) Muscle weakness (generalized) (04/11/23) Physical Therapy Treatment Note PT-OP-A Visit Information Start: 01/22/23 07:57 Freq: Status: Active Protocol: Document 04/11/23 11:56 SW (Rec: 04/11/23 12:55 SW [id number]) Out-Patient Physical Therapy Visit Information Visit Information Visit Type Treatment Note Visit Note 12/01 for next [place] Visit Start Time 11:49 Visit Stop Time 12:31 Total Visit Minutes 42 Visit Number 17 Number of FUSE MAKER Visits 1 PT-OP-B Current Condition Start: 01/22/23 07:57 Freq: Status: Active Protocol: Document 01/22/23 09:35 AMH (Rec: 01/22/23 10:29 AMH [id number]) Current Condition History of Current Condition Onset Date 2021 Current Complaints B knee pain L>R, swelling, decreased ability to walk History of Current Condition Pt reports ongoing left knee pain since she was diagnosed with a bakers cyst a year ago, the left knee has been drained 4 times and she has had 2 cortisone injections and they didn't last long, limping due to the left knee has caused her right knee to hurt. She is now on efflexia and this has helped some but she states she is a cadidate for knee replacement. Pt notes she would like to avoid surgery but not sure she will be able to avoid it. She tried to use a cane but it didn't work for her. She is not able to walk her dogs as much now. She is limited to 1 -2 blocks before she needs to stop Treatment Goals Patient/Caregiver Goals pt would like to avoid surgery and would like to work on functionals strength and to decrease pain allowing her to walk her dogs PT-OP-C Subjective Start: 01/22/23 07:57 Freq: Status: Active Protocol: Document 04/11/23 11:56 SW (Rec: 04/11/23 12:55 SW [id number]) OP-PT Subjective Patient Comments Patient Comments Pt reports 4-5/10 pn, but it is hard for her to assess her pn with being busy. PT-OP-F Manual Assessment Start: 01/22/23 07:57 Freq: Status: Active Protocol: Document 01/22/23 09:35 AMH (Rec: 01/22/23 13:51 AMH [id number]) Manual Assessments Soft Tissue Assessment Soft Tissue Mobility Assessment quad tightness left >Right + august test for iliopsoas tightness Joint Mobility Assessment Joint Mobility Assessment decreased patella femoral mobility B with tightness of the quads and pain PT-OP-K Range of Motion Start: 01/22/23 07:57 Freq: Status: Active Protocol: Document 03/14/23 15:19 AMH (Rec: 03/14/23 15:19 AMH [id number]) Knee Goniometric Range of Motion Knee Right Knee ROM WFL Yes Patient Position Supine Flexion Active (degrees) 125 Extension Active (degrees) 0 Left Knee ROM WFL No Patient Position Supine Flexion Active (degrees) 120 Extension Active (degrees) 5 PT-OP-M Strength Start: 01/22/23 07:57 Freq: Status: Active Protocol: Document 01/22/23 09:35 AMH (Rec: 01/22/23 13:51 AMH [id number]) Knee Strength Knee Manual Muscle Testing Right Flexion (S2) 3+ Fair+ Extension (L3) 3+ Fair+ Left Flexion (S2) 2+ Poor+ Extension (L3) 2+ Poor+ Comments pt lacks full knee ROM at this time and strength is decreased due to lack of ROM, swelling, and pt has not been able to be active PT-OP-N Lymphedema Start: 01/22/23 13:51 Freq: Status: Active Protocol: Document 01/22/23 09:35 AMH (Rec: 01/22/23 13:53 AMH [id number]) Lymphedema Measurements Lower Extremity Circumference Measurements Right Knee Joint 41 cm - mid calf is 40 cm Left Knee Joint 41.5 cm - mid calf is 40.5 cm PT-OP-Q Treatments Start: 01/22/23 07:57 Freq: Status: Active Protocol: Document 04/11/23 11:56 SW (Rec: 04/11/23 12:55 SW [id number]) Cardio Equipment Recumbent Elliptical (Biodex) Duration (Minutes) 10 Resistance 3 Seat Position 4 Other pt reports biodex feels good today Gym Equipment Shuttle Recovery single leg squats Resistance 25# Reps/Time 2 x 12 reps Bilateral Squats Details B knee tightness today Resistance 50# Reps/Time 3x10 Therapeutic Exercises Supine Exercises LTR Supine Exercise Name Lower Trunk Rotation Side bilateral Reps/Minutes x10 ea Comments cues for slower pacing, breath , pain decreases hamstring stretch Side bilateral Reps/Minutes hold x 30 sec x 2 Comments hands behind the knee opp knee bent bridges Reps/Minutes x 10 reps Comments no cramping today supine ball rolls Reps/Minutes x 20 reps single knee to chest Side bilateral Reps/Minutes 30 sec hold each side x 3 reps , straighten the opp knee on3rd rep Comments able to straighten the opposite leg Sitting Exercises sit to stand Sitting Exercise Name LLE bias for strength Side bilateral Equipment Used standard chair Reps/Minutes x10 ea w/ and w/o band Comments vc for LE alignment and eccentric control. PT-OP-T Assessment and Plan Start: 01/22/23 07:57 Freq: Status: Active Protocol: Document 04/11/23 11:56 SW (Rec: 04/11/23 12:55 SW [id number]) Physical Therapy Assessment Goals 4 Impairment Decreased left knee strength Stations Superintendent Goal (LTG) improved knee strength and Zandra is able to stand up from a chair without use of her hands demonstrating improved knee strength Good progress LTG Duration 8 weeks 3 Impairment pt lacks a HEP for her knee Shelter Goal (LTG) Zandra is Ind with a HEP for keeping her knees healthy Good progress LTG Duration 8 weeks 2 Impairment knee pain rated 3/10 worse going down stairs, walking, and squating Shelter Goal (LTG) Zandra reports improved function and a overall reduction of knee pain excellent progress and pt notes her pain is now a 3/10 LTG Duration 8 weeks 1 Impairment Decreased knee ROM with bakers cyst Short Term Goal (STG) Zandra is educated on knee ROM exercises for a HEP goal met STG Duration 3 weeks Stations Superintendent Goal (LTG) Zandra presents with full ROM of the left knee left knee ROM is now 122 LTG Duration 8 weeks Assessment Summary Assessment Zandra reported mild cramping throughout exercises today, relieved with stretch and self massage. Continued Knee ROM, stretching, and executed sit to stands today with a bias of LLE to increase strength. Tolerated ther ex well today, but did report she felt weaker today at start of session. Physical Therapy Plan Frequency and Duration Frequency of Treatment 2x/Week Duration of treatment (weeks) 8 Plan of Care Start Date 03/14/23 Plan of Care End Date 05/14/23 Therapeutic Interventions Therapeutic Interventions Home Exercise Program,Manual Therapy,Neuromuscular Re- education,Patient/Caregiver Education,Self-Care/Home Management,Soft Tissue Mobilization,Therapeutic Exercises Modalities Cold Pack/Ice Massage,Electric Stimulation Next Visit Focus/Plan Next Note Type Treatment Note Next Visit Plan Continue with biodex for warm up and then continue with exercise for knee ROM, LE flexibility, and strength.
--- NOTE | 2023-04-16 08:47 | PT.OTN ---
Current Diagnoses Bilateral primary osteoarthritis of knee (04/16/23) Pain in left knee (04/16/23) Stiffness of unspecified knee, not elsewhere classified (04/16/23) Muscle weakness (generalized) (04/16/23) Physical Therapy Treatment Note PT-OP-A Visit Information Start: 01/22/23 07:57 Freq: Status: Active Protocol: Document 04/16/23 08:00 [facility] (Rec: 04/16/23 08:43 [facility] [id number]) Out-Patient Physical Therapy Visit Information Visit Information Visit Type Treatment Note Visit Note 12/31 visit Visit Start Time 08:00 Visit Stop Time 08:45 Total Visit Minutes 45 Visit Number 18 PT-OP-B Current Condition Start: 01/22/23 07:57 Freq: Status: Active Protocol: Document 01/22/23 09:35 [facility] (Rec: 01/22/23 10:29 [facility] [id number]) Current Condition History of Current Condition Onset Date 2021 Current Complaints B knee pain L>R, swelling, decreased ability to walk History of Current Condition Pt reports ongoing left knee pain since she was diagnosed with a bakers cyst a year ago, the left knee has been drained 4 times and she has had 2 cortisone injections and they didn't last long, limping due to the left knee has caused her right knee to hurt. She is now on efflexia and this has helped some but she states she is a cadidate for knee replacement. Pt notes she would like to avoid surgery but not sure she will be able to avoid it. She tried to use a cane but it didn't work for her. She is not able to walk her dogs as much now. She is limited to 1 -2 blocks before she needs to stop Treatment Goals Patient/Caregiver Goals pt would like to avoid surgery and would like to work on functionals strength and to decrease pain allowing her to walk her dogs PT-OP-C Subjective Start: 01/22/23 07:57 Freq: Status: Active Protocol: Document 04/16/23 08:00 [facility] (Rec: 04/16/23 08:43 [facility] [id number]) OP-PT Subjective Patient Comments Patient Comments pt notes her knees feel achey today but she feels it is due to the weather. She feels that she is walking better and can go up and down her 16 stairs better. PT-OP-F Manual Assessment Start: 01/22/23 07:57 Freq: Status: Active Protocol: Document 01/22/23 09:35 [facility] (Rec: 01/22/23 13:51 [facility] [id number]) Manual Assessments Soft Tissue Assessment Soft Tissue Mobility Assessment quad tightness left >Right + august test for iliopsoas tightness Joint Mobility Assessment Joint Mobility Assessment decreased patella femoral mobility B with tightness of the quads and pain PT-OP-K Range of Motion Start: 01/22/23 07:57 Freq: Status: Active Protocol: Document 03/14/23 15:19 [facility] (Rec: 03/14/23 15:19 [facility] [id number]) Knee Goniometric Range of Motion Knee Right Knee ROM WFL Yes Patient Position Supine Flexion Active (degrees) 125 Extension Active (degrees) 0 Left Knee ROM WFL No Patient Position Supine Flexion Active (degrees) 120 Extension Active (degrees) 5 PT-OP-M Strength Start: 01/22/23 07:57 Freq: Status: Active Protocol: Document 01/22/23 09:35 [facility] (Rec: 01/22/23 13:51 [facility] [id number]) Knee Strength Knee Manual Muscle Testing Right Flexion (S2) 3+ Fair+ Extension (L3) 3+ Fair+ Left Flexion (S2) 2+ Poor+ Extension (L3) 2+ Poor+ Comments pt lacks full knee ROM at this time and strength is decreased due to lack of ROM, swelling, and pt has not been able to be active PT-OP-N Lymphedema Start: 01/22/23 13:51 Freq: Status: Active Protocol: Document 01/22/23 09:35 [facility] (Rec: 01/22/23 13:53 [facility] [id number]) Lymphedema Measurements Lower Extremity Circumference Measurements Right Knee Joint 41 cm - mid calf is 40 cm Left Knee Joint 41.5 cm - mid calf is 40.5 cm PT-OP-Q Treatments Start: 01/22/23 07:57 Freq: Status: Active Protocol: Document 04/16/23 08:00 [facility] (Rec: 04/16/23 08:43 [facility] [id number]) Cardio Equipment Recumbent Elliptical (Biodex) Duration (Minutes) 10 Resistance 3 Seat Position 4 Gym Equipment Shuttle Recovery Bilateral Squats Details B knee tightness today Resistance 50# Reps/Time 3x10 Therapeutic Exercises Sitting Exercises sit to stand Sitting Exercise Name LLE bias for strength Side bilateral Equipment Used standard chair Reps/Minutes x10 ea w/ and w/o band Comments vc for LE alignment and eccentric control. Standing Exercises standing quad stretch Standing Exercise Name R>L tightness today Side bilateral Equipment Used railing, hold 1 min Comments used 65 cm ball for dynamic stretch standing side steps with theraband Side bilateral Equipment Used Lvl three Green Tb Reps/Minutes 2x8 ft ea Comments cues for smaller range, no dragging foot standing hamstring stretch in stair case Side bilateral Reps/Minutes hold x 1 min Comments cues for gentle, pain-free range ANTONIO calf stretch Standing Exercise Name training stairs w/ handrail Side bilateral Reps/Minutes dynamic PF/DF x20 PT-OP-T Assessment and Plan Start: 01/22/23 07:57 Freq: Status: Active Protocol: Document 04/16/23 08:00 [facility] (Rec: 04/16/23 08:43 [facility] [id number]) Physical Therapy Assessment Goals 4 Impairment Decreased left knee strength Nursing Home Goal (LTG) improved knee strength and Zandra is able to stand up from a chair without use of her hands demonstrating improved knee strength Good progress LTG Duration 8 weeks 3 Impairment pt lacks a HEP for her knee Lithographic Etcher Goal (LTG) Zandra is Ind with a HEP for keeping her knees healthy Good progress LTG Duration 8 weeks 2 Impairment knee pain rated 3/10 worse going down stairs, walking, and squating Nursing Home Goal (LTG) Zandra reports improved function and a overall reduction of knee pain excellent progress and pt notes her pain is now a 3/10 LTG Duration 8 weeks 1 Impairment Decreased knee ROM with bakers cyst Short Term Goal (STG) Zandra is educated on knee ROM exercises for a HEP goal met STG Duration 3 weeks Lithographic Etcher Goal (LTG) Zandra presents with full ROM of the left knee left knee ROM is now 122 LTG Duration 8 weeks Assessment Summary Assessment Zandra tolerated all exercises well today and did feel better after the biodex warm up. Physical Therapy Plan Frequency and Duration Frequency of Treatment 2x/Week Duration of treatment (weeks) 8 Plan of Care Start Date 03/14/23 Plan of Care End Date 05/14/23 Therapeutic Interventions Therapeutic Interventions Home Exercise Program,Manual Therapy,Neuromuscular Re- education,Patient/Caregiver Education,Self-Care/Home Management,Soft Tissue Mobilization,Therapeutic Exercises Modalities Cold Pack/Ice Massage,Electric Stimulation Next Visit Focus/Plan Next Note Type Treatment Note Next Visit Plan Continue with biodex for warm up and then continue with exercise for knee ROM, LE flexibility, and strength. Encourage HEP as pt onl has 3 visits left
--- NOTE | 2023-04-19 11:34 | PT.OTN ---
Current Diagnoses Bilateral primary osteoarthritis of knee (04/19/23) Pain in left knee (04/19/23) Stiffness of unspecified knee, not elsewhere classified (04/19/23) Muscle weakness (generalized) (04/19/23) Physical Therapy Treatment Note PT-OP-A Visit Information Start: 01/22/23 07:57 Freq: Status: Active Protocol: Document 04/19/23 10:35 [facility] (Rec: 04/19/23 11:33 [facility] [id number]) Out-Patient Physical Therapy Visit Information Visit Information Visit Type Treatment Note Visit Note 01/31 visit Visit Start Time 10:36 Visit Stop Time 11:19 Total Visit Minutes 43 Visit Number 19 Number of PHYSICIAN RELATIONS REPRESENTATIVE Visits 1 PT-OP-B Current Condition Start: 01/22/23 07:57 Freq: Status: Active Protocol: Document 01/22/23 09:35 [facility] (Rec: 01/22/23 10:29 [facility] [id number]) Current Condition History of Current Condition Onset Date 2021 Current Complaints B knee pain L>R, swelling, decreased ability to walk History of Current Condition Pt reports ongoing left knee pain since she was diagnosed with a bakers cyst a year ago, the left knee has been drained 4 times and she has had 2 cortisone injections and they didn't last long, limping due to the left knee has caused her right knee to hurt. She is now on efflexia and this has helped some but she states she is a cadidate for knee replacement. Pt notes she would like to avoid surgery but not sure she will be able to avoid it. She tried to use a cane but it didn't work for her. She is not able to walk her dogs as much now. She is limited to 1 -2 blocks before she needs to stop Treatment Goals Patient/Caregiver Goals pt would like to avoid surgery and would like to work on functionals strength and to decrease pain allowing her to walk her dogs PT-OP-C Subjective Start: 01/22/23 07:57 Freq: Status: Active Protocol: Document 04/19/23 10:35 [facility] (Rec: 04/19/23 11:33 [facility] [id number]) OP-PT Subjective Patient Comments Patient Comments Pt reports she is able to do sit to stands without using her arms and can do her stairs better. PT-OP-F Manual Assessment Start: 01/22/23 07:57 Freq: Status: Active Protocol: Document 01/22/23 09:35 [facility] (Rec: 01/22/23 13:51 [facility] [id number]) Manual Assessments Soft Tissue Assessment Soft Tissue Mobility Assessment quad tightness left >Right + august test for iliopsoas tightness Joint Mobility Assessment Joint Mobility Assessment decreased patella femoral mobility B with tightness of the quads and pain PT-OP-K Range of Motion Start: 01/22/23 07:57 Freq: Status: Active Protocol: Document 03/14/23 15:19 [facility] (Rec: 03/14/23 15:19 [facility] [id number]) Knee Goniometric Range of Motion Knee Right Knee ROM WFL Yes Patient Position Supine Flexion Active (degrees) 125 Extension Active (degrees) 0 Left Knee ROM WFL No Patient Position Supine Flexion Active (degrees) 120 Extension Active (degrees) 5 PT-OP-M Strength Start: 01/22/23 07:57 Freq: Status: Active Protocol: Document 01/22/23 09:35 [facility] (Rec: 01/22/23 13:51 [facility] [id number]) Knee Strength Knee Manual Muscle Testing Right Flexion (S2) 3+ Fair+ Extension (L3) 3+ Fair+ Left Flexion (S2) 2+ Poor+ Extension (L3) 2+ Poor+ Comments pt lacks full knee ROM at this time and strength is decreased due to lack of ROM, swelling, and pt has not been able to be active PT-OP-N Lymphedema Start: 01/22/23 13:51 Freq: Status: Active Protocol: Document 01/22/23 09:35 [facility] (Rec: 01/22/23 13:53 [facility] [id number]) Lymphedema Measurements Lower Extremity Circumference Measurements Right Knee Joint 41 cm - mid calf is 40 cm Left Knee Joint 41.5 cm - mid calf is 40.5 cm PT-OP-Q Treatments Start: 01/22/23 07:57 Freq: Status: Active Protocol: Document 04/19/23 10:35 [facility] (Rec: 04/19/23 11:33 [facility] [id number]) Cardio Equipment Recumbent Elliptical (Biodex) Duration (Minutes) 11 Resistance 3>2 at 6' Seat Position 5 seen Other discomfort in knees L>R reported Gym Equipment Shuttle Recovery Bilateral Squats Resistance 50# Reps/Time 3x15 Therapeutic Exercises Sitting Exercises sit to stand Sitting Exercise Name LLE bias for strength Side bilateral Resistance no UE support Equipment Used standard chair Reps/Minutes x10 ea w/o band Comments vc for eccentric control. Standing Exercises standing quad stretch Standing Exercise Name R>L tightness today Side bilateral Equipment Used railing, hold 1 min Comments used 65 cm ball for dynamic stretch standing side steps with theraband Side bilateral Equipment Used Lvl three Green Tb Reps/Minutes 2x10 ft ea Comments cues for smaller range, no dragging foot standing hamstring stretch in stair case Side bilateral Reps/Minutes hold x 1 min Comments cues for gentle, pain-free range ANTONIO calf stretch Standing Exercise Name training stairs w/ handrail Side bilateral Reps/Minutes dynamic PF/DF x20 PT-OP-T Assessment and Plan Start: 01/22/23 07:57 Freq: Status: Active Protocol: Document 04/19/23 10:35 [facility] (Rec: 04/19/23 11:33 [facility] [id number]) Physical Therapy Assessment Goals 4 Impairment Decreased left knee strength Sales Market Leader Goal (LTG) improved knee strength and Zandra is able to stand up from a chair without use of her hands demonstrating improved knee strength Good progress LTG Duration 8 weeks 3 Impairment pt lacks a HEP for her knee Intermediate Goal (LTG) Zandra is Ind with a HEP for keeping her knees healthy Good progress LTG Duration 8 weeks 2 Impairment knee pain rated 3/10 worse going down stairs, walking, and squating Intermediate Goal (LTG) Zandra reports improved function and a overall reduction of knee pain excellent progress and pt notes her pain is now a 3/10 LTG Duration 8 weeks 1 Impairment Decreased knee ROM with bakers cyst Short Term Goal (STG) Zandra is educated on knee ROM exercises for a HEP goal met STG Duration 3 weeks Sales Market Leader Goal (LTG) Zandra presents with full ROM of the left knee left knee ROM is now 122 LTG Duration 8 weeks Assessment Summary Assessment Zandra is able to perform sit to stand without upper extremity support but requires cues for eccentric control last 1-2 inches. She tolerates increased repetitions on Shuttle Recovery end of session from 3x10 to 3x15 at 50# today. Pt to bring her TB in next visit for tying into a loop for LE HEP. Physical Therapy Plan Frequency and Duration Frequency of Treatment 2x/Week Duration of treatment (weeks) 8 Plan of Care Start Date 03/14/23 Plan of Care End Date 05/14/23 Therapeutic Interventions Therapeutic Interventions Home Exercise Program,Manual Therapy,Neuromuscular Re- education,Patient/Caregiver Education,Self-Care/Home Management,Soft Tissue Mobilization,Therapeutic Exercises Modalities Cold Pack/Ice Massage,Electric Stimulation Next Visit Focus/Plan Next Note Type Treatment Note Next Visit Plan Continue with biodex for warm up and then continue with exercise for knee ROM, LE flexibility, and strength. Encourage HEP as pt onl has 2 visits left
--- NOTE | 2023-04-30 10:18 | PT.OTN ---
Current Diagnoses Bilateral primary osteoarthritis of knee (04/30/23) Pain in left knee (04/30/23) Stiffness of unspecified knee, not elsewhere classified (04/30/23) Muscle weakness (generalized) (04/30/23) Physical Therapy Treatment Note PT-OP-A Visit Information Start: 01/22/23 07:57 Freq: Status: Active Protocol: Document 04/30/23 09:37 [facility] (Rec: 04/30/23 10:17 [facility] [id number]) Out-Patient Physical Therapy Visit Information Visit Information Visit Type Treatment Note Visit Note 04/02 Visit Start Time 09:30 Visit Stop Time 10:15 Total Visit Minutes 45 Visit Number 21 Number of ECONOMICS ANALYST Visits 0 PT-OP-B Current Condition Start: 01/22/23 07:57 Freq: Status: Active Protocol: Document 01/22/23 09:35 [facility] (Rec: 01/22/23 10:29 [facility] [id number]) Current Condition History of Current Condition Onset Date 2021 Current Complaints B knee pain L>R, swelling, decreased ability to walk History of Current Condition Pt reports ongoing left knee pain since she was diagnosed with a bakers cyst a year ago, the left knee has been drained 4 times and she has had 2 cortisone injections and they didn't last long, limping due to the left knee has caused her right knee to hurt. She is now on efflexia and this has helped some but she states she is a cadidate for knee replacement. Pt notes she would like to avoid surgery but not sure she will be able to avoid it. She tried to use a cane but it didn't work for her. She is not able to walk her dogs as much now. She is limited to 1 -2 blocks before she needs to stop Treatment Goals Patient/Caregiver Goals pt would like to avoid surgery and would like to work on functionals strength and to decrease pain allowing her to walk her dogs PT-OP-C Subjective Start: 01/22/23 07:57 Freq: Status: Active Protocol: Document 04/30/23 09:37 [facility] (Rec: 04/30/23 10:17 [facility] [id number]) OP-PT Subjective Patient Comments Patient Comments rose marie notes she is doing better overall PT-OP-F Manual Assessment Start: 01/22/23 07:57 Freq: Status: Active Protocol: Document 01/22/23 09:35 [facility] (Rec: 01/22/23 13:51 [facility] [id number]) Manual Assessments Soft Tissue Assessment Soft Tissue Mobility Assessment quad tightness left >Right + august test for iliopsoas tightness Joint Mobility Assessment Joint Mobility Assessment decreased patella femoral mobility B with tightness of the quads and pain PT-OP-K Range of Motion Start: 01/22/23 07:57 Freq: Status: Active Protocol: Document 03/14/23 15:19 [facility] (Rec: 03/14/23 15:19 [facility] [id number]) Knee Goniometric Range of Motion Knee Right Knee ROM WFL Yes Patient Position Supine Flexion Active (degrees) 125 Extension Active (degrees) 0 Left Knee ROM WFL No Patient Position Supine Flexion Active (degrees) 120 Extension Active (degrees) 5 PT-OP-M Strength Start: 01/22/23 07:57 Freq: Status: Active Protocol: Document 01/22/23 09:35 [facility] (Rec: 01/22/23 13:51 [facility] [id number]) Knee Strength Knee Manual Muscle Testing Right Flexion (S2) 3+ Fair+ Extension (L3) 3+ Fair+ Left Flexion (S2) 2+ Poor+ Extension (L3) 2+ Poor+ Comments pt lacks full knee ROM at this time and strength is decreased due to lack of ROM, swelling, and pt has not been able to be active PT-OP-N Lymphedema Start: 01/22/23 13:51 Freq: Status: Active Protocol: Document 01/22/23 09:35 [facility] (Rec: 01/22/23 13:53 [facility] [id number]) Lymphedema Measurements Lower Extremity Circumference Measurements Right Knee Joint 41 cm - mid calf is 40 cm Left Knee Joint 41.5 cm - mid calf is 40.5 cm PT-OP-Q Treatments Start: 01/22/23 07:57 Freq: Status: Active Protocol: Document 04/30/23 09:37 [facility] (Rec: 04/30/23 10:17 [facility] [id number]) Cardio Equipment Recumbent Elliptical (Biodex) Duration (Minutes) 8 Resistance 3 Seat Position 4 Gym Equipment Shuttle Recovery single leg squats Resistance 25# Reps/Time 2 x 12 reps Bilateral Squats Resistance 50# Reps/Time 2x15 Therapeutic Exercises Standing Exercises standing quad stretch Standing Exercise Name R>L tightness today Side bilateral Equipment Used railing, hold 1 min Comments used 65 cm ball for dynamic stretch standing side steps with theraband Side bilateral Equipment Used Lvl three Green Tb Reps/Minutes 2x10 ft ea Comments cues for smaller range, no dragging foot standing hamstring stretch in stair case Side bilateral Reps/Minutes hold x 1 min Comments cues for gentle, pain-free range ANTONIO calf stretch Standing Exercise Name training stairs w/ handrail Side bilateral Reps/Minutes dynamic PF/DF x20 PT-OP-T Assessment and Plan Start: 01/22/23 07:57 Freq: Status: Active Protocol: Document 04/30/23 09:37 [facility] (Rec: 04/30/23 10:17 [facility] [id number]) Physical Therapy Assessment Goals 4 Impairment Decreased left knee strength Home Restoration Service Cleaner Goal (LTG) improved knee strength and Zandra is able to stand up from a chair without use of her hands demonstrating improved knee strength 04/22/23: Goal Met STS x10 wo UE support LTG Duration 8 weeks 3 Impairment pt lacks a HEP for her knee Home Restoration Service Cleaner Goal (LTG) Zandra is Ind with a HEP for keeping her knees healthy 04/22: HEP issued. LTG Duration 8 weeks 2 Impairment knee pain rated 3/10 worse going down stairs, walking, and squating Home Restoration Service Cleaner Goal (LTG) Zandra reports improved function and a overall reduction of knee pain excellent progress and pt notes her pain is now a 3/10 LTG Duration 8 weeks 1 Impairment Decreased knee ROM with bakers cyst Short Term Goal (STG) Zandra is educated on knee ROM exercises for a HEP goal met STG Duration 3 weeks Half-Way Goal (LTG) Zandra presents with full ROM of the left knee left knee ROM is now 122 LTG Duration 8 weeks Assessment Summary Assessment Zandra has met all established goals and is Ind with her HEP. She will be discharged at this time Physical Therapy Plan Discharge Physical Therapy Discharge Reasons Goals Met
== END 2023-06-19 14:56 | disposition home or self-care (01) ==
LOC: PHYS 09:30
PROVIDERS: Family Provider Internal Medicine; PCP Internal Medicine; Referring Provider Orthopaedic Surgery; Visit Provider Orthopaedic Surgery
DX: M17.0 Bilateral primary osteoarthritis of knee (principal); M25.562 Pain in left knee; M62.81 Muscle weakness (generalized); M25.669 Stiffness of unspecified knee, not elsewhere classified
CPT/HCPCS: 97110; 97116; 97140; 97161

== ENCOUNTER 2023-06-04 08:08 | Outpatient (CLI) | payer MEDICARE, OTHER, SELFPAY ==
[2023-06-04] VITALS (11 sets, daily range): BP systolic 113–150; BP diastolic 55–69; PULSE 54–68; RESP 15–20; TEMP 36.7; O2SAT 93–98
--- NOTE | 2023-06-04 | DI.RAD.S_ITS ---
PROCEDURE: PAIN L/S FACET INJ/BLK 1ST ELENITA INDICATIONS: Arthropathy of lumbar facet joint COMPARISON: [facility], , PAIN L/S FACET INJ/BLK 1ST ELENITA, 02/21/2023, 11:06. FINDINGS: Fluoroscopic spot filming was performed to verify placement of spinal needles at the L2, L3 and L4 level(s), as labeled on the films. Appropriate location(s) of the needle tip(s) was confirmed by injection of iodinated contrast. IMPRESSION: Fluoroscopic image demonstrates spinal needles at L2, L3 and L4. Please see procedure report for details. Dictated by: Carla Kohli M.D. on 06/04/2023 at 12:27 Approved by: Carla Kohli M.D. on 06/04/2023 at 13:16
[2023-06-04] MEDS: MIDAZOLAM 2 MG/2 ML VIAL IV (09:12)
[2023-06-04] MEDS: LIDOCAINE 1% 20 ML 5 ML INJ (09:19)
[2023-06-04] MEDS: iopamidoL 15 ML VIAL 3 ML INJ (09:19)
[2023-06-04] MEDS: LIDOCAINE 2% INJ SDV 5ML 10 ML INJ (09:20)
--- NOTE | 2023-06-04 09:37 | PM.PROC.IR.1 ---
Date/Time/Diagnoses Date of procedure: 06/04/23 Time of procedure: 09:37 Pre-procedure diagnosis: 1. FACET ARTHROPATHY Post-procedure diagnosis: same Procedure Notes Procedure: 1. BILATERAL L2, L3, L4 DIAGNOSTIC MB BLOCKS Indications: Zandra is referred by Dr. Iverson for treatment of Bilateral Axial LBP. Physician: Feliz Singh Total Fluoroscopy time (seconds): 17 Total sedation minutes: 18 Complications: none Procedure in detail & Post-procedure care: DESCRIPTION OF PROCEDURE Fluoroscopically guided, contrast-controlled bilateral L2, L3, L4 medial branch blocks with 0.5cc of 2% Lidocaine. Following review of allergy and review of potential side effects and complications, including, but not necessarily limited to, infection, allergic reaction, local tissue breakdown, nerve injury, paralysis, stroke and possible , the patient indicated that the patient understood and agreed to proceed. An informed consent document was signed by the patient, witnessed by a nurse, and placed in the patient's chart. After review of previous anaesthesic history and IV conscious sedation the patient was deemed safe to proceed with today's procedure with IV conscious sedation as ASA class II designation. Safety time-out was performed to confirm patient ID, procedure to be performed and site of procedure. IV sedation was accomplished with a combination of 2mg of Versed and 50mcg of Fentantyl was administered by the RN after DO order, titrated to patient comfort during the course of the procedure while the patient remained responsive to all verbal commands In the prone position, following sterile prep and drape of the lumbar region, the right L2, L3, L4 anatomical location of the medial branch of the dorsal ramus was identified fluoroscopically. Subsequently an anesthetic skin wheal using 1% lidocaine solution was initiated at each of the anatomical spots. Subsequently then a 22-gauge 3.5-inch spinal needle was atraumatically introduced and advanced under fluoroscopic guidance at each of the corresponding sites at the right L2, L3, L4 MB. After negative aspiration, 0.2cc of Isovue 200 was injected, confirming placement without vascular or intrathecal uptake. Subsequently then 0.5cc of 2% Lidocaine solution was injected at each of the corresponding sites at the right L2, L3, L4 medial branch locations. The identical procedure was replicated on the left. The patient tolerated the procedure well without signs or symptoms of complications. The patient tolerated the procedure well without signs or symptoms of complications prior to transfer to the recovery area continued monitoring without incident. Post-procedure, the patient was monitored initiating provocative activities to measure the amount of relief from block of the facetogenic pain. The patient reported a VAS of 7 prior to the procedure and a post-procedure VAS of 1. It has been a pleasure to assist in the diagnostic and therapeutic care of your patient. POST OP INSTRUCTIONS The patient was provided with a Pain Log to complete over the next several hours and subsequent days prior to the patient's follow up with the ordering physician. If the patient has residential framing carpenter relief to the solution applied, then they may be a candidate for medial branch rhizotomy. The patient is aware, was provided, once again, with a Pain Log and will follow up with the referring physician for review and clinical correlation
== END 2023-06-04 10:14 | disposition home or self-care (01) ==
PROVIDERS: Family Provider Internal Medicine; PCP Internal Medicine; Referring Provider Physical Medicine & Rehabilitation; Visit Provider Physical Medicine & Rehabilitation
DX: M47.816 Spondylosis without myelopathy or radiculopathy, lumbar region (principal)
CPT/HCPCS: 64493; 64494; 99152; J2250

== ENCOUNTER → 2023-06-19 14:55 | Outpatient (RCR) | payer MEDICARE, OTHER, SELFPAY ==
--- NOTE | 2022-02-01 17:56 | PT.OIE ---
Current Diagnoses Bilateral primary osteoarthritis of knee (02/01/22) Pain in unspecified joint (02/01/22) Synovial cyst of popliteal space [Lewis], left knee (02/01/22) Visit Care Team Role Provider Type Patria Iverson MD Family Provider Non-Staff Primary Care Provider Specialty: Pediatrics Address: [address] [place] [address], [phone] Email: Jessie Harris MD Attending Provider Physician Referring Provider Specialty: Orthopedics Address: [address] [place] [address] [address], [place], [address] opt2 Email: Physical Therapy Initial Evaluation PT-OP-A Visit Information Start: 02/01/22 09:42 Freq: Status: Active Protocol: Document 02/01/22 13:45 AMH (Rec: 02/01/22 17:37 AMH [id number]) Out-Patient Physical Therapy Visit Information Visit Information Visit Type Initial Evaluation Visit Start Time 13:45 Visit Stop Time 14:30 Total Visit Minutes 45 Visit Number 1 Evaluation Information Evaluation Date 02/01/22 PT-OP-B Current Condition Start: 02/01/22 09:42 Freq: Status: Active Protocol: Document 02/01/22 13:45 AMH (Rec: 02/01/22 14:13 AMH [id number]) Current Condition History of Current Condition Onset Date October 2021 Current Complaints left knee pain, decreased ROM and strength, swelling due to cyst History of Current Condition left sided bakers cyst and left knee OA In October of 2021 she started experiencing posterior knee pain, she saw her MD and was diagnosed with a bakers cyst. She is waiting for a referral for the cyst to be drained She has experienced this on the right knee previously and this has resolved. She does use ice and has elevated her knee She notes she is limited in her walking distance and going down stairs She doesn't feel pain at rest but its when she steps on it that it starts to hurt Treatment Goals Patient/Caregiver Goals To reduce pain, improve full knee ROM and strength Prior Functional Status Baseline Function- ADL's Independent Baseline Function- Mobility Independent Current Functional Impairments (Reported) Functional Limitations- Mobility/Gait pt is limited with walking down stairs, squating and walking more than 2 blocks PT-OP-C Subjective Start: 02/01/22 09:42 Freq: Status: Active Protocol: Document 02/01/22 13:45 AMH (Rec: 02/01/22 17:42 [facility] [id number]) OP-PT Pain Assessment Location left posterior knee Pain Location Details posterior knee Intensity 3 Scale Used Numeric (0 - 10) Description Tightness,With Movement Frequency Frequent PT-OP-F Manual Assessment Start: 02/01/22 09:42 Freq: Status: Active Protocol: Document 02/01/22 13:45 AMH (Rec: 02/01/22 17:39 AMH [id number]) Manual Assessments Soft Tissue Assessment Soft Tissue Mobility Assessment bakers cyst felt behind the left knee tightness of the calf and hamstring musculatre with increased oull on the back of the knee with stretch Joint Mobility Assessment Joint Mobility Assessment left knee decreased AROM and PROM due to bakers cyst PT-OP-J Posture/Palpation/Skin Start: 02/01/22 09:42 Freq: Status: Active Protocol: Document 02/01/22 13:45 AMH (Rec: 02/01/22 17:41 [facility] [id number]) Palpation Assessment Location left posterior knee Palpation Location left posterior knee popliteal space Palpation Findings Edema,Soft Tissue Tightness, Tenderness Palpation Details Bakers cyst PT-OP-K Range of Motion Start: 02/01/22 09:42 Freq: Status: Active Protocol: Document 02/01/22 13:45 AMH (Rec: 02/01/22 14:13 [facility] [id number]) Hip Goniometric Range of Motion Hip ROM Limitations Hip ROM Limitations Soft Tissue Tightness Comments SLR 45 degrees L and 50 degrees R limited by tightness Knee Goniometric Range of Motion Knee Left Knee ROM WFL No Flexion Active (degrees) 96 Extension Active (degrees) 5 Knee ROM Limitations Knee ROM Limitations Soft Tissue Tightness,Pain Comments bakers cyst limits full knee ROM on the left Ankle and Foot Goniometric Range of Motion Ankle and Foot Left Ankle/Foot ROM WFL No Dorsiflexion with Knee Extended 5 Comments calf tightness PT-OP-M Strength Start: 02/01/22 09:42 Freq: Status: Active Protocol: Document 02/01/22 13:45 AMH (Rec: 02/01/22 17:44 [facility] [id number]) Knee Strength Knee Manual Muscle Testing Left Flexion (S2) 2+ Poor+ Extension (L3) 2+ Poor+ Comments able to perform a quad set with towel under the knee, unable to perform a SLR PT-OP-Q Treatments Start: 02/01/22 09:42 Freq: Status: Active Protocol: Document 02/01/22 13:45 AMH (Rec: 02/01/22 14:31 AMH [id number]) Cardio Equipment Recumbent Elliptical (Biodex) Duration (Minutes) 4 Resistance [address] Position all the way forward Therapeutic Exercises Supine Exercises hamstring stretch Reps/Minutes x 1 min hold heel slides Reps/Minutes x 10 reps quad squeeze Reps/Minutes x 10 reps long sitting calf stretch Reps/Minutes 1 min hold PT-OP-T Assessment and Plan Start: 02/01/22 09:42 Freq: Status: Active Protocol: Document 02/01/22 13:45 AMH (Rec: 02/01/22 17:54 AMH [id number]) Physical Therapy Assessment Rehab Potential Rehabilitation Potential Excellent Evaluation Complexity Number of Personal Factors/Comorbidities 0 Number of Body Systems Impaired 1-2 Clinical Presentation at Evaluation Stable Impairments Impairments Activity Tolerance,Edema, Functional Activities, Functional Mobility,Gait,Pain, ROM,Soft Tissue Mobility, Strength Goals 4 Impairment Decreased left knee strength Short Term Goal (STG) Vilma is able to perform a SLR without a quad lag STG Duration 5 weeks Assisted Goal (LTG) Vilma is able to perform 10 standing squats in good form LTG Duration 12 weeks 3 Impairment pt lacks a HEP for her knee Card Setter Goal (LTG) Vilma is independent with a HEP addressing knee ROM, flexibility, and strength LTG Duration 12 weeks 2 Impairment knee pain rated 3/10 worse going down stairs, walking, and squating Card Setter Goal (LTG) Vilma reports a overall reduction in knee pain and no longer has pain with stairs or squatting. LTG Duration 12 weeks 1 Impairment Decreased knee ROM with bakers cyst Assisted Goal (LTG) Vilma is able to improve her knee ROM to WFL of full extension and 120 degrees knee flexion LTG Duration 12 weeks Assessment Summary Assessment Zandra Valles) is a 76 year old female referred to PT with left knee OA and a bakers cyst. The plan is to have the bakers cyst drained and Vilma is awaiting her appointment for this. She reports she has been icing her knee and trying to elevate. She has pain rated 3/10 made worse with activities such as squatting or going down stairs and walking. With evaluation today she is tender to palpation over the bakers cyst. She is limited with her AROM to 5 degrees knee extension and 95 degrees knee flexion. She presents with calf and hamstring tightness and decreased strength of the left LE. Zandra is a good candidate for PT Physical Therapy Plan Frequency and Duration Frequency of Treatment 2x/Week Duration of Treatment 12 Plan of Care Start Date 02/01/22 Plan of Care End Date 05/04/22 Therapeutic Interventions Therapeutic Interventions Home Exercise Program,Manual Therapy,Patient/Caregiver Education,Self-Care/Home Management,Therapeutic Exercises Modalities Cold Pack/Ice Massage Next Visit Focus/Plan Next Note Type Treatment Note Next Visit Plan begin biodex for warm up, ROM and flexibility exercises for the left leg, progress strengthening as tolerated, edema reduction STM
--- NOTE | 2022-02-01 17:56 | PT.OPPOC ---
Physical, Occupational & Speech Therapy At [facility] Current Diagnoses Bilateral primary osteoarthritis of knee (02/01/22) Pain in unspecified joint (02/01/22) Synovial cyst of popliteal space [Lewis], left knee (02/01/22) Visit Care Team Role Provider Type Patria Iverson MD Family Provider Non-Staff Primary Care Provider Specialty: Pediatrics Address: [address] [place] [address], [id number] Email: Jessie Harris MD Attending Provider Physician Referring Provider Specialty: Orthopedics Address: [address] [place] [address] Dr [address], [place], [address] opt2 Email: Plan Of Care PT-OP-T Assessment and Plan Start: 02/01/22 09:42 Freq: Status: Active Protocol: Document 02/01/22 13:45 [facility] (Rec: 02/01/22 17:54 [facility] [id number]) Physical Therapy Assessment Rehab Potential Rehabilitation Potential Excellent Evaluation Complexity Number of Personal Factors/Comorbidities 0 Number of Body Systems Impaired 1-2 Clinical Presentation at Evaluation Stable Impairments Impairments Activity Tolerance,Edema, Functional Activities, Functional Mobility,Gait,Pain, ROM,Soft Tissue Mobility, Strength Goals 4 Impairment Decreased left knee strength Short Term Goal (STG) Vilma is able to perform a SLR without a quad lag STG Duration 5 weeks [employer] Goal (LTG) Vilma is able to perform 10 standing squats in good form LTG Duration 12 weeks 3 Impairment pt lacks a HEP for her knee Assisted Goal (LTG) Vilma is independent with a HEP addressing knee ROM, flexibility, and strength LTG Duration 12 weeks 2 Impairment knee pain rated 3/10 worse going down stairs, walking, and squatting Assisted Goal (LTG) Vilma reports a overall reduction in knee pain and no longer has pain with stairs or squatting. 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 The plan is to have the bakers cyst drained and Vilma is awaiting her appointment for this. She reports she has been icing her knee and trying to elevate. She has pain rated 3/10 made worse with activities such as squatting or going down stairs and walking. With evaluation today she is tender to palpation over the bakers cyst. She is limited with her AROM to 5 degrees knee extension and 95 degrees knee flexion. She presents with calf and hamstring tightness and decreased strength of the left LE. Zandra is a good candidate for PT Physical Therapy Plan Frequency and Duration Frequency of Treatment 2x/Week Duration of Treatment 12 Plan of Care Start Date 02/01/22 Plan of Care End Date 05/04/22 Therapeutic Interventions Therapeutic Interventions Home Exercise Program,Manual Therapy,Patient/Caregiver Education,Self-Care/Home Management,Therapeutic Exercises Modalities Cold Pack/Ice Massage Next Visit Focus/Plan Next Note Type Treatment Note Next Visit Plan begin biodex for warm up, ROM and flexibility exercises for the left leg, progress strengthening as tolerated, edema reduction STM Plan of Care Dates Plan of Care Start Date 02/01/22 Plan of Care End Date 05/04/22 Electronically Signed by: Syl Morris, PT 02/01/22 [id number] If you are in agreement with this Plan of Care, please return a signed and dated copy. I have reviewed this Plan of Care and certify that the skilled therapy services above are required to meet the patient?s needs. Physician Signature Date Printed Name and Credentials Clinical Instructor Signature Printed Name and Credentials
--- NOTE | 2022-02-06 16:54 | PT.OTN ---
Current Diagnoses Bilateral primary osteoarthritis of knee (02/06/22) Pain in unspecified joint (02/06/22) Synovial cyst of popliteal space [Lewis], left knee (02/06/22) Physical Therapy Treatment Note PT-OP-A Visit Information Start: 02/01/22 09:42 Freq: Status: Active Protocol: Document 02/06/22 13:05 [facility] (Rec: 02/06/22 13:44 [facility] [id number]) Out-Patient Physical Therapy Visit Information Visit Information Visit Type Treatment Note Visit Start Time 13:00 Visit Stop Time 13:45 Total Visit Minutes 45 Visit Number 2 Evaluation Information Evaluation Date 02/01/22 PT-OP-B Current Condition Start: 02/01/22 09:42 Freq: Status: Active Protocol: Document 02/01/22 13:45 [facility] (Rec: 02/01/22 14:13 [facility] [id number]) Current Condition History of Current Condition Onset Date October 2021 Current Complaints left knee pain, decreased ROM and strength, swelling due to cyst History of Current Condition left sided bakers cyst and left knee OA In October of 2021 she started experiencing posterior knee pain, she saw her MD and was diagnosed with a bakers cyst. She is waiting for a referral for the cyst to be drained She has experienced this on the right knee previously and this has resolved. She does use ice and has elevated her knee She notes she is limited in her walking distance and going down stairs She doesn't feel pain at rest but its when she steps on it that it starts to hurt Treatment Goals Patient/Caregiver Goals To reduce pain, improve full knee ROM and strength Prior Functional Status Baseline Function- ADL's Independent Baseline Function- Mobility Independent Current Functional Impairments (Reported) Functional Limitations- Mobility/Gait pt is limited with walking down stairs, squating and walking more than 2 blocks PT-OP-C Subjective Start: 02/01/22 09:42 Freq: Status: Active Protocol: Document 02/06/22 13:05 [facility] (Rec: 02/06/22 13:44 [facility] [id number]) OP-PT Subjective Patient Comments Patient Comments Vilma reports she is able to do her exercises, she is still awaiting her bakers cyts to be drained. She feels like her whole left leg from the knee down is swollen into her ankle but she does feel that the swelling behind her knee is a little better. She notes she turned wrong today and twisted her knee and she is sore today from that Patient Reported Progress Improving PT-OP-F Manual Assessment Start: 02/01/22 09:42 Freq: Status: Active Protocol: Document 02/01/22 13:45 [facility] (Rec: 02/01/22 17:39 [facility] [id number]) Manual Assessments Soft Tissue Assessment Soft Tissue Mobility Assessment bakers cyst felt behind the left knee tightness of the calf and hamstring musculatre with increased oull on the back of the knee with stretch Joint Mobility Assessment Joint Mobility Assessment left knee decreased AROM and PROM due to bakers cyst PT-OP-J Posture/Palpation/Skin Start: 02/01/22 09:42 Freq: Status: Active Protocol: Document 02/01/22 13:45 [facility] (Rec: 02/01/22 17:41 [facility] [id number]) Palpation Assessment Location left posterior knee Palpation Location left posterior knee popliteal space Palpation Findings Edema,Soft Tissue Tightness, Tenderness Palpation Details Bakers cyst PT-OP-K Range of Motion Start: 02/01/22 09:42 Freq: Status: Active Protocol: Document 02/01/22 13:45 [facility] (Rec: 02/01/22 14:13 [facility] [id number]) Hip Goniometric Range of Motion Hip ROM Limitations Hip ROM Limitations Soft Tissue Tightness Comments SLR 45 degrees L and 50 degrees R limited by tightness Knee Goniometric Range of Motion Knee Left Knee ROM WFL No Flexion Active (degrees) 96 Extension Active (degrees) 5 Knee ROM Limitations Knee ROM Limitations Soft Tissue Tightness,Pain Comments bakers cyst limits full knee ROM on the left Ankle and Foot Goniometric Range of Motion Ankle and Foot Left Ankle/Foot ROM WFL No Dorsiflexion with Knee Extended 5 Comments calf tightness PT-OP-M Strength Start: 02/01/22 09:42 Freq: Status: Active Protocol: Document 02/01/22 13:45 [facility] (Rec: 02/01/22 17:44 [facility] [id number]) Knee Strength Knee Manual Muscle Testing Left Flexion (S2) 2+ Poor+ Extension (L3) 2+ Poor+ Comments able to perform a quad set with towel under the knee, unable to perform a SLR PT-OP-Q Treatments Start: 02/01/22 09:42 Freq: Status: Active Protocol: Document 02/06/22 13:05 [facility] (Rec: 02/06/22 13:44 [facility] [id number]) Cardio Equipment Recumbent Bicycle Duration (Minutes) 5 Resistance 0 Seat Position 1 Therapeutic Exercises Supine Exercises hamstring stretch Reps/Minutes x 1 min hold heel slides Reps/Minutes x 10 reps quad squeeze Reps/Minutes x 10 reps Comments able to do 6 without a towel long sitting calf stretch Reps/Minutes 1 min hold Manual Therapy Treatment Soft Tissue Mobilization 1 Body Location posterior knee and calf Mobilization Type Myofascial Release,Strumming Intensity/Depth Superficial Body Position Prone Comments pt in prone position for edema reduction massage, manual calf release Manual Techniques manual calf stretch Body Position Supine Reps/Duration hold 1-2 min PT-OP-T Assessment and Plan Start: 02/01/22 09:42 Freq: Status: Active Protocol: Document 02/06/22 13:00 [facility] (Rec: 02/06/22 16:54 [facility] [id number]) Physical Therapy Assessment Assessment Summary Assessment Vilma did well today with her exercises, she was able to tolerate the biodex x 5 min and ROM was improved to 115 new flexion and full PROM extension. She was able to do 6 quads sets in full extension prior to pain beginning. SLR was attempted but too painful Physical Therapy Plan Frequency and Duration Frequency of Treatment 2x/Week Duration of Treatment 12 Plan of Care Start Date 02/01/22 Plan of Care End Date 05/04/22 Therapeutic Interventions Therapeutic Interventions Home Exercise Program,Manual Therapy,Patient/Caregiver Education,Self-Care/Home Management,Therapeutic Exercises Modalities Cold Pack/Ice Massage Next Visit Focus/Plan Next Note Type Treatment Note Next Visit Plan biodex for warm up, ROM and flexibility exercises for the left leg, progress strengthening as tolerated, edema reduction STM
--- NOTE | 2022-02-08 14:41 | PT.OTN ---
Current Diagnoses Bilateral primary osteoarthritis of knee (02/08/22) Pain in unspecified joint (02/08/22) Synovial cyst of popliteal space [Lewis], left knee (02/08/22) Physical Therapy Treatment Note PT-OP-A Visit Information Start: 02/01/22 09:42 Freq: Status: Active Protocol: Document 02/08/22 13:42 [facility] (Rec: 02/08/22 14:01 [facility] [id number]) Out-Patient Physical Therapy Visit Information Visit Information Visit Type Re-Evaluation Visit Start Time 13:45 Visit Stop Time 14:35 Total Visit Minutes 50 Visit Number 3 PT-OP-B Current Condition Start: 02/01/22 09:42 Freq: Status: Active Protocol: Document 02/01/22 13:45 [facility] (Rec: 02/01/22 14:13 [facility] [id number]) Current Condition History of Current Condition Onset Date October 2021 Current Complaints left knee pain, decreased ROM and strength, swelling due to cyst History of Current Condition left sided bakers cyst and left knee OA In October of 2021 she started experiencing posterior knee pain, she saw her MD and was diagnosed with a bakers cyst. She is waiting for a referral for the cyst to be drained She has experienced this on the right knee previously and this has resolved. She does use ice and has elevated her knee She notes she is limited in her walking distance and going down stairs She doesn't feel pain at rest but its when she steps on it that it starts to hurt Treatment Goals Patient/Caregiver Goals To reduce pain, improve full knee ROM and strength Prior Functional Status Baseline Function- ADL's Independent Baseline Function- Mobility Independent Current Functional Impairments (Reported) Functional Limitations- Mobility/Gait pt is limited with walking down stairs, squating and walking more than 2 blocks PT-OP-C Subjective Start: 02/01/22 09:42 Freq: Status: Active Protocol: Document 02/08/22 13:42 [facility] (Rec: 02/08/22 14:01 [facility] [id number]) OP-PT Subjective Patient Comments Patient Comments Vilma reports she got a call to schedule her cyst drained. She is feeling better with improved ROM. PT-OP-F Manual Assessment Start: 02/01/22 09:42 Freq: Status: Active Protocol: Document 02/01/22 13:45 [facility] (Rec: 02/01/22 17:39 [facility] [id number]) Manual Assessments Soft Tissue Assessment Soft Tissue Mobility Assessment bakers cyst felt behind the left knee tightness of the calf and hamstring musculatre with increased oull on the back of the knee with stretch Joint Mobility Assessment Joint Mobility Assessment left knee decreased AROM and PROM due to bakers cyst PT-OP-J Posture/Palpation/Skin Start: 02/01/22 09:42 Freq: Status: Active Protocol: Document 02/01/22 13:45 [facility] (Rec: 02/01/22 17:41 [facility] [id number]) Palpation Assessment Location left posterior knee Palpation Location left posterior knee popliteal space Palpation Findings Edema,Soft Tissue Tightness, Tenderness Palpation Details Bakers cyst PT-OP-K Range of Motion Start: 02/01/22 09:42 Freq: Status: Active Protocol: Document 02/08/22 14:01 [facility] (Rec: 02/08/22 14:36 [facility] [id number]) Knee Goniometric Range of Motion Knee Left Flexion Active (degrees) 120 Extension Active (degrees) 3 PT-OP-M Strength Start: 02/01/22 09:42 Freq: Status: Active Protocol: Document 02/01/22 13:45 [facility] (Rec: 02/01/22 17:44 [facility] [id number]) Knee Strength Knee Manual Muscle Testing Left Flexion (S2) 2+ Poor+ Extension (L3) 2+ Poor+ Comments able to perform a quad set with towel under the knee, unable to perform a SLR PT-OP-Q Treatments Start: 02/01/22 09:42 Freq: Status: Active Protocol: Document 02/08/22 13:42 [facility] (Rec: 02/08/22 14:36 [facility] [id number]) Cardio Equipment Recumbent Elliptical (Biodex) Duration (Minutes) 5 Resistance 1 Seat Position 1 Therapeutic Exercises Supine Exercises hamstring stretch Reps/Minutes x 1 min hold heel slides Reps/Minutes x 10 reps quad squeeze Reps/Minutes x 10 reps Comments able to do 6 without a towel long sitting calf stretch Reps/Minutes 1 min hold Prone Exercises prone knee flexion Reps/Minutes x 10 reps Manual Therapy Treatment Soft Tissue Mobilization 1 Body Location posterior knee and calf Mobilization Type Myofascial Release,Strumming Intensity/Depth Superficial Body Position Prone Comments pt in prone position for edema reduction massage, manual calf release Manual Techniques manual prone knee flexion Type manual prone knee flexion stretch manual calf stretch Body Position Supine Reps/Duration manual stretching x 4 min PT-OP-R Modalities Start: 02/01/22 09:42 Freq: Status: Active Protocol: Document 02/08/22 13:42 [facility] (Rec: 02/08/22 14:41 [facility] [id number]) Hot Pack/Cold Pack Treatment icepack left knee Location left posterior knee Patient Position Hooklying Treatment Duration (minutes) 10 Patient Tolerance Good PT-OP-T Assessment and Plan Start: 02/01/22 09:42 Freq: Status: Active Protocol: Document 02/08/22 13:42 [facility] (Rec: 02/08/22 14:36 [facility] [id number]) Physical Therapy Assessment Assessment Summary Assessment Vilma is tolerating her ROM exercises, she hasn't been able to progress strength due to pain. She did get called today to schedule her cyst to be drainied and I think this will be very helpful Physical Therapy Plan Frequency and Duration Frequency of Treatment 2x/Week Duration of Treatment 12 Plan of Care Start Date 02/01/22 Plan of Care End Date 05/04/22 Next Visit Focus/Plan Next Note Type Treatment Note Next Visit Plan continue progressing ROM and strength as tolerated and edema reduction modalities an manual techniques
--- NOTE | 2022-02-13 14:43 | PT.OTN ---
Current Diagnoses Bilateral primary osteoarthritis of knee (02/13/22) Pain in unspecified joint (02/13/22) Synovial cyst of popliteal space [Lewis], left knee (02/13/22) Physical Therapy Treatment Note PT-OP-A Visit Information Start: 02/01/22 09:42 Freq: Status: Active Protocol: Document 02/13/22 13:01 [facility] (Rec: 02/13/22 13:40 [facility] [id number]) Out-Patient Physical Therapy Visit Information Visit Information Visit Type Treatment Note Visit Start Time 13:00 Visit Stop Time 13:55 Total Visit Minutes 55 Visit Number 4 PT-OP-B Current Condition Start: 02/01/22 09:42 Freq: Status: Active Protocol: Document 02/01/22 13:45 [facility] (Rec: 02/01/22 14:13 [facility] [id number]) Current Condition History of Current Condition Onset Date October 2021 Current Complaints left knee pain, decreased ROM and strength, swelling due to cyst History of Current Condition left sided bakers cyst and left knee OA In October of 2021 she started experiencing posterior knee pain, she saw her MD and was diagnosed with a bakers cyst. She is waiting for a referral for the cyst to be drained She has experienced this on the right knee previously and this has resolved. She does use ice and has elevated her knee She notes she is limited in her walking distance and going down stairs She doesn't feel pain at rest but its when she steps on it that it starts to hurt Treatment Goals Patient/Caregiver Goals To reduce pain, improve full knee ROM and strength Prior Functional Status Baseline Function- ADL's Independent Baseline Function- Mobility Independent Current Functional Impairments (Reported) Functional Limitations- Mobility/Gait pt is limited with walking down stairs, squating and walking more than 2 blocks PT-OP-C Subjective Start: 02/01/22 09:42 Freq: Status: Active Protocol: Document 02/13/22 13:01 [facility] (Rec: 02/13/22 13:40 [facility] [id number]) OP-PT Subjective Patient Comments Patient Comments February 22 is the day she will get her knee drained. Vilma notes she tweaked her knee again. She notes she turned wrong and felt pain in her left knee PT-OP-F Manual Assessment Start: 02/01/22 09:42 Freq: Status: Active Protocol: Document 02/01/22 13:45 [facility] (Rec: 08/11/22 17:39 [facility] [id number]) Manual Assessments Soft Tissue Assessment Soft Tissue Mobility Assessment bakers cyst felt behind the left knee tightness of the calf and hamstring musculatre with increased oull on the back of the knee with stretch Joint Mobility Assessment Joint Mobility Assessment left knee decreased AROM and PROM due to bakers cyst PT-OP-J Posture/Palpation/Skin Start: 02/01/22 09:42 Freq: Status: Active Protocol: Document 02/01/22 13:45 [facility] (Rec: 02/01/22 17:41 [facility] [id number]) Palpation Assessment Location left posterior knee Palpation Location left posterior knee popliteal space Palpation Findings Edema,Soft Tissue Tightness, Tenderness Palpation Details Bakers cyst PT-OP-K Range of Motion Start: 02/01/22 09:42 Freq: Status: Active Protocol: Document 02/08/22 14:01 [facility] (Rec: 02/08/22 14:36 [facility] [id number]) Knee Goniometric Range of Motion Knee Left Flexion Active (degrees) 120 Extension Active (degrees) 3 PT-OP-M Strength Start: 02/01/22 09:42 Freq: Status: Active Protocol: Document 02/01/22 13:45 [facility] (Rec: 02/01/22 17:44 [facility] [id number]) Knee Strength Knee Manual Muscle Testing Left Flexion (S2) 2+ Poor+ Extension (L3) 2+ Poor+ Comments able to perform a quad set with towel under the knee, unable to perform a SLR PT-OP-Q Treatments Start: 02/01/22 09:42 Freq: Status: Active Protocol: Document 02/13/22 13:01 [facility] (Rec: 02/13/22 13:40 [facility] [id number]) Cardio Equipment Recumbent Elliptical (Biodex) Duration (Minutes) 8 Resistance 4 Seat Position 1 Gym Equipment Shuttle Rebound 2 Exercise Details piriformis stretch on the shuttle 1 Exercise Details shuttle leg press Reps/Duration 50 # 3 x 10 reps Therapeutic Exercises Supine Exercises hamstring stretch Reps/Minutes x 1 min hold heel slides Reps/Minutes x 10 reps quad squeeze Reps/Minutes x 10 reps Comments able to do 6 without a towel long sitting calf stretch Reps/Minutes 1 min hold Standing Exercises standing ANTONIO stretch Reps/Minutes 30 sec then calf raises PT-OP-R Modalities Start: 02/01/22 09:42 Freq: Status: Active Protocol: Document 02/13/22 13:00 [facility] (Rec: 02/13/22 14:41 [facility] [id number]) Hot Pack/Cold Pack Treatment icepack left knee Patient Position Hooklying Treatment Duration (minutes) 10 Patient Tolerance Good PT-OP-T Assessment and Plan Start: 02/01/22 09:42 Freq: Status: Active Protocol: Document 02/13/22 13:01 [facility] (Rec: 02/13/22 13:40 [facility] [id number]) Physical Therapy Assessment Assessment Summary Assessment Vilma was able to tolerate bilateral leg press on the shuttle but not single, still has pain with twisting activities. Physical Therapy Plan Frequency and Duration Frequency of Treatment 2x/Week Duration of Treatment 12 Plan of Care Start Date 02/01/22 Plan of Care End Date 05/04/22 Therapeutic Interventions Therapeutic Interventions Home Exercise Program,Manual Therapy,Patient/Caregiver Education,Self-Care/Home Management,Therapeutic Exercises Modalities Cold Pack/Ice Massage Next Visit Focus/Plan Next Note Type Treatment Note Next Visit Plan continue progressing ROM and strength as tolerated and edema reduction modalities an manual techniques
--- NOTE | 2022-02-15 13:58 | PT.OTN ---
Current Diagnoses Bilateral primary osteoarthritis of knee (02/15/22) Pain in unspecified joint (02/15/22) Synovial cyst of popliteal space [Lewis], left knee (02/15/22) Physical Therapy Treatment Note PT-OP-A Visit Information Start: 02/01/22 09:42 Freq: Status: Active Protocol: Document 02/15/22 13:00 [facility] (Rec: 02/15/22 13:55 [facility] [id number]) Out-Patient Physical Therapy Visit Information Visit Information Visit Type Treatment Note Visit Start Time 13:00 Visit Stop Time 13:50 Total Visit Minutes 50 Visit Number 5 PT-OP-B Current Condition Start: 02/01/22 09:42 Freq: Status: Active Protocol: Document 02/01/22 13:45 [facility] (Rec: 02/01/22 14:13 [facility] [id number]) Current Condition History of Current Condition Onset Date October 2021 Current Complaints left knee pain, decreased ROM and strength, swelling due to cyst History of Current Condition left sided bakers cyst and left knee OA In October of 2021 she started experiencing posterior knee pain, she saw her MD and was diagnosed with a bakers cyst. She is waiting for a referral for the cyst to be drained She has experienced this on the right knee previously and this has resolved. She does use ice and has elevated her knee She notes she is limited in her walking distance and going down stairs She doesn't feel pain at rest but its when she steps on it that it starts to hurt Treatment Goals Patient/Caregiver Goals To reduce pain, improve full knee ROM and strength Prior Functional Status Baseline Function- ADL's Independent Baseline Function- Mobility Independent Current Functional Impairments (Reported) Functional Limitations- Mobility/Gait pt is limited with walking down stairs, squating and walking more than 2 blocks PT-OP-C Subjective Start: 02/01/22 09:42 Freq: Status: Active Protocol: Document 02/15/22 13:00 [facility] (Rec: 02/15/22 13:55 [facility] [id number]) OP-PT Subjective Patient Comments Patient Comments Vilma notes she took a fall walking her dog today and landed on her right knee, she was wearing shoes that were a littel too big PT-OP-F Manual Assessment Start: 02/01/22 09:42 Freq: Status: Active Protocol: Document 02/01/22 13:45 [facility] (Rec: 02/01/22 17:39 [facility] [id number]) Manual Assessments Soft Tissue Assessment Soft Tissue Mobility Assessment bakers cyst felt behind the left knee tightness of the calf and hamstring musculatre with increased oull on the back of the knee with stretch Joint Mobility Assessment Joint Mobility Assessment left knee decreased AROM and PROM due to bakers cyst PT-OP-J Posture/Palpation/Skin Start: 02/01/22 09:42 Freq: Status: Active Protocol: Document 02/01/22 13:45 [facility] (Rec: 02/01/22 17:41 [facility] [id number]) Palpation Assessment Location left posterior knee Palpation Location left posterior knee popliteal space Palpation Findings Edema,Soft Tissue Tightness, Tenderness Palpation Details Bakers cyst PT-OP-K Range of Motion Start: 02/01/22 09:42 Freq: Status: Active Protocol: Document 02/08/22 14:01 [facility] (Rec: 02/08/22 14:36 [facility] [id number]) Knee Goniometric Range of Motion Knee Left Flexion Active (degrees) 120 Extension Active (degrees) 3 PT-OP-M Strength Start: 02/01/22 09:42 Freq: Status: Active Protocol: Document 02/01/22 13:45 [facility] (Rec: 02/01/22 17:44 [facility] [id number]) Knee Strength Knee Manual Muscle Testing Left Flexion (S2) 2+ Poor+ Extension (L3) 2+ Poor+ Comments able to perform a quad set with towel under the knee, unable to perform a SLR PT-OP-Q Treatments Start: 02/01/22 09:42 Freq: Status: Active Protocol: Document 02/15/22 13:00 [facility] (Rec: 02/15/22 13:55 [facility] [id number]) Cardio Equipment Recumbent Bicycle Duration (Minutes) 10 Resistance 3 Gym Equipment Shuttle Rebound 1 Exercise Details shuttle leg press Reps/Duration 50 # 3 x 10 reps Therapeutic Exercises Supine Exercises hamstring stretch Reps/Minutes x 1 min hold heel slides Reps/Minutes x 10 reps quad squeeze Reps/Minutes x 10 reps Comments able to do 6 without a towel long sitting calf stretch Reps/Minutes 1 min hold Prone Exercises prone knee flexion Reps/Minutes x 10 reps Standing Exercises standing ANTONIO stretch Reps/Minutes 30 sec stretch x 2 then calf raises Manual Therapy Treatment Soft Tissue Mobilization 1 Body Location posterior knee and calf Mobilization Type Myofascial Release,Strumming Intensity/Depth Superficial Body Position Prone Comments pt in prone position for edema reduction massage, manual calf release PT-OP-R Modalities Start: 02/01/22 09:42 Freq: Status: Active Protocol: Document 02/15/22 13:00 [facility] (Rec: 02/15/22 13:57 [facility] [id number]) Hot Pack/Cold Pack Treatment icepack left knee Patient Position Hooklying Treatment Duration (minutes) 10 Patient Tolerance Good PT-OP-T Assessment and Plan Start: 02/01/22 09:42 Freq: Status: Active Protocol: Document 02/15/22 13:00 [facility] (Rec: 02/15/22 13:55 [facility] [id number]) Physical Therapy Assessment Assessment Summary Assessment Vilma notes she was sore following last visit. We had added in leg press last visit. I did have her do it again today and no complaints of pain during the exercise. She was bruised on her right anterior knee and patella from falling on her knee today. She notes she bought new shoes and they are a size too big. We talked about avoiding these shoes due to fall risk. She has a appt to have her lewis's cyst drainined on February 22 Physical Therapy Plan Frequency and Duration Frequency of Treatment 2x/Week Duration of Treatment 12 Plan of Care Start Date 02/01/22 Plan of Care End Date 05/04/22 Therapeutic Interventions Therapeutic Interventions Home Exercise Program,Manual Therapy,Patient/Caregiver Education,Self-Care/Home Management,Therapeutic Exercises Modalities Cold Pack/Ice Massage Next Visit Focus/Plan Next Note Type Treatment Note Next Visit Plan reassess after Vilma's knee is drained, progress exercises as she can tolerate.
--- NOTE | 2022-02-27 14:21 | PT.OTN ---
Current Diagnoses Bilateral primary osteoarthritis of knee (02/27/22) Pain in unspecified joint (02/27/22) Synovial cyst of popliteal space [Lewis], left knee (02/27/22) Physical Therapy Treatment Note PT-OP-A Visit Information Start: 02/01/22 09:42 Freq: Status: Active Protocol: Document 02/27/22 10:31 [facility] (Rec: 02/27/22 10:48 [facility] [id number]) Out-Patient Physical Therapy Visit Information Visit Information Visit Type Treatment Note Visit Start Time 10:30 Visit Stop Time 11:15 Total Visit Minutes 45 Visit Number 6 PT-OP-B Current Condition Start: 02/01/22 09:42 Freq: Status: Active Protocol: Document 02/01/22 13:45 [facility] (Rec: 02/01/22 14:13 [facility] [id number]) Current Condition History of Current Condition Onset Date October 2021 Current Complaints left knee pain, decreased ROM and strength, swelling due to cyst History of Current Condition left sided bakers cyst and left knee OA In October of 2021 she started experiencing posterior knee pain, she saw her MD and was diagnosed with a bakers cyst. She is waiting for a referral for the cyst to be drained She has experienced this on the right knee previously and this has resolved. She does use ice and has elevated her knee She notes she is limited in her walking distance and going down stairs She doesn't feel pain at rest but its when she steps on it that it starts to hurt Treatment Goals Patient/Caregiver Goals To reduce pain, improve full knee ROM and strength Prior Functional Status Baseline Function- ADL's Independent Baseline Function- Mobility Independent Current Functional Impairments (Reported) Functional Limitations- Mobility/Gait pt is limited with walking down stairs, squating and walking more than 2 blocks PT-OP-C Subjective Start: 02/01/22 09:42 Freq: Status: Active Protocol: Document 02/27/22 10:31 [facility] (Rec: 02/27/22 10:48 [facility] [id number]) OP-PT Subjective Patient Comments Patient Comments Vilma reports she had her knee drained last . It took a couple of days and then her knee started feeling better. She is having a return of the LE leg pain the last three nights down her anterior shins. PT-OP-F Manual Assessment Start: 02/01/22 09:42 Freq: Status: Active Protocol: Document 02/01/22 13:45 [facility] (Rec: 02/01/22 17:39 [facility] [id number]) Manual Assessments Soft Tissue Assessment Soft Tissue Mobility Assessment bakers cyst felt behind the left knee tightness of the calf and hamstring musculatre with increased oull on the back of the knee with stretch Joint Mobility Assessment Joint Mobility Assessment left knee decreased AROM and PROM due to bakers cyst PT-OP-J Posture/Palpation/Skin Start: 02/01/22 09:42 Freq: Status: Active Protocol: Document 02/01/22 13:45 [facility] (Rec: 02/01/22 17:41 [facility] [id number]) Palpation Assessment Location left posterior knee Palpation Location left posterior knee popliteal space Palpation Findings Edema,Soft Tissue Tightness, Tenderness Palpation Details Bakers cyst PT-OP-K Range of Motion Start: 02/01/22 09:42 Freq: Status: Active Protocol: Document 02/27/22 10:48 [facility] (Rec: 02/27/22 10:49 [facility] [id number]) Knee Goniometric Range of Motion Knee Left Flexion Active (degrees) 129 Extension Active (degrees) 0 PT-OP-M Strength Start: 02/01/22 09:42 Freq: Status: Active Protocol: Document 02/01/22 13:45 [facility] (Rec: 02/01/22 17:44 [facility] [id number]) Knee Strength Knee Manual Muscle Testing Left Flexion (S2) 2+ Poor+ Extension (L3) 2+ Poor+ Comments able to perform a quad set with towel under the knee, unable to perform a SLR PT-OP-Q Treatments Start: 02/01/22 09:42 Freq: Status: Active Protocol: Document 02/27/22 10:31 [facility] (Rec: 02/27/22 10:48 [facility] [id number]) Cardio Equipment Recumbent Elliptical (Biodex) Duration (Minutes) 8 Resistance 4 Seat Position 1 Gym Equipment Shuttle Rebound 2 Exercise Details piriformis stretch on the shuttle 1 Exercise Details shuttle leg press Reps/Duration 50 # 3 x 10 reps Therapeutic Exercises Supine Exercises piriformis stretch Reps/Minutes 2 x 30 seconds each single knee to chest stretch Reps/Minutes 2 x 30 seconds each hamstring stretch Reps/Minutes x 1 min hold heel slides Reps/Minutes x 10 reps quad squeeze Reps/Minutes x 10 reps Comments able to do 6 without a towel long sitting calf stretch Reps/Minutes 1 min hold Prone Exercises prone knee flexion Reps/Minutes x 10 reps Standing Exercises standing calf stretch Reps/Minutes 1 x 1 min hold standing ANTONIO stretch Reps/Minutes 30 sec stretch x 2 then calf raises Manual Therapy Treatment Soft Tissue Mobilization Quad MFR L Mobilization Type Myofascial Release Intensity/Depth Moderate Body Position Supine patella tendon TFM Mobilization Type Cross-Friction Comments pt was experiencing pain with quad sets at her patella tendon so I worked in this area a bit as she is tight and restricted here Joint Mobilizations patella mobilizations Direction AP and lateral Body Position Supine PT-OP-R Modalities Start: 02/01/22 09:42 Freq: Status: Active Protocol: Document 02/15/22 13:00 [facility] (Rec: 02/15/22 13:57 [facility] [id number]) Hot Pack/Cold Pack Treatment icepack left knee Patient Position Hooklying Treatment Duration (minutes) 10 Patient Tolerance Good PT-OP-T Assessment and Plan Start: 02/01/22 09:42 Freq: Status: Active Protocol: Document 02/27/22 10:31 [facility] (Rec: 02/27/22 10:48 [facility] [id number]) Physical Therapy Assessment Progress Towards Goals Progress Towards Goals Progressing Toward Goals Progress Comments full knee ROM now Assessment Summary Assessment knee flexin 129 on the left leg today, good progress with knee ROM. Pt is experiencing some of the radicular pain she has felt in the past. She did take a fall 2 weeks ago landing on her right knee. This may have kavon her back some. I did give her a couple of stretches for the low back as well today. Started patella mobs and Vilma has pain with quad squeeze without towel roll under knee Physical Therapy Plan Frequency and Duration Frequency of Treatment 2x/Week Duration of Treatment 12 Plan of Care Start Date 02/01/22 Plan of Care End Date 05/04/22 Therapeutic Interventions Therapeutic Interventions Home Exercise Program,Manual Therapy,Patient/Caregiver Education,Self-Care/Home Management,Therapeutic Exercises Modalities Cold Pack/Ice Massage Next Visit Focus/Plan Next Note Type Treatment Note Next Visit Plan continue progressing LE strength, flexibility and pain control
--- NOTE | 2022-03-01 19:12 | PT.OTN ---
Current Diagnoses Bilateral primary osteoarthritis of knee (03/01/22) Pain in unspecified joint (03/01/22) Synovial cyst of popliteal space [Lewis], left knee (03/01/22) Physical Therapy Treatment Note PT-OP-A Visit Information Start: 02/01/22 09:42 Freq: Status: Active Protocol: Document 03/01/22 13:04 [facility] (Rec: 03/01/22 13:44 [facility] [id number]) Out-Patient Physical Therapy Visit Information Visit Information Visit Type Treatment Note Visit Start Time 10:30 Visit Stop Time 11:15 Total Visit Minutes 45 Visit Number 7 PT-OP-B Current Condition Start: 02/01/22 09:42 Freq: Status: Active Protocol: Document 02/01/22 13:45 [facility] (Rec: 02/01/22 14:13 [facility] [id number]) Current Condition History of Current Condition Onset Date October 2021 Current Complaints left knee pain, decreased ROM and strength, swelling due to cyst History of Current Condition left sided bakers cyst and left knee OA In October of 2021 she started experiencing posterior knee pain, she saw her MD and was diagnosed with a bakers cyst. She is waiting for a referral for the cyst to be drained She has experienced this on the right knee previously and this has resolved. She does use ice and has elevated her knee She notes she is limited in her walking distance and going down stairs She doesn't feel pain at rest but its when she steps on it that it starts to hurt Treatment Goals Patient/Caregiver Goals To reduce pain, improve full knee ROM and strength Prior Functional Status Baseline Function- ADL's Independent Baseline Function- Mobility Independent Current Functional Impairments (Reported) Functional Limitations- Mobility/Gait pt is limited with walking down stairs, squating and walking more than 2 blocks PT-OP-C Subjective Start: 02/01/22 09:42 Freq: Status: Active Protocol: Document 03/01/22 13:04 [facility] (Rec: 03/01/22 13:44 [facility] [id number]) OP-PT Subjective Patient Comments Patient Comments Vilma reports her left knee is doing better overall. She is experiencing cramping in her right leg and not sure what this is from. Patient Reported Progress Improving PT-OP-F Manual Assessment Start: 02/01/22 09:42 Freq: Status: Active Protocol: Document 02/01/22 13:45 [facility] (Rec: 02/01/22 17:39 [facility] [id number]) Manual Assessments Soft Tissue Assessment Soft Tissue Mobility Assessment bakers cyst felt behind the left knee tightness of the calf and hamstring musculatre with increased oull on the back of the knee with stretch Joint Mobility Assessment Joint Mobility Assessment left knee decreased AROM and PROM due to bakers cyst PT-OP-J Posture/Palpation/Skin Start: 02/01/22 09:42 Freq: Status: Active Protocol: Document 02/01/22 13:45 [facility] (Rec: 02/01/22 17:41 [facility] [id number]) Palpation Assessment Location left posterior knee Palpation Location left posterior knee popliteal space Palpation Findings Edema,Soft Tissue Tightness, Tenderness Palpation Details Bakers cyst PT-OP-K Range of Motion Start: 02/01/22 09:42 Freq: Status: Active Protocol: Document 02/27/22 10:48 [facility] (Rec: 02/27/22 10:49 [facility] [id number]) Knee Goniometric Range of Motion Knee Left Flexion Active (degrees) 129 Extension Active (degrees) 0 PT-OP-M Strength Start: 02/01/22 09:42 Freq: Status: Active Protocol: Document 02/01/22 13:45 [facility] (Rec: 02/01/22 17:44 [facility] [id number]) Knee Strength Knee Manual Muscle Testing Left Flexion (S2) 2+ Poor+ Extension (L3) 2+ Poor+ Comments able to perform a quad set with towel under the knee, unable to perform a SLR PT-OP-Q Treatments Start: 02/01/22 09:42 Freq: Status: Active Protocol: Document 03/01/22 13:04 [facility] (Rec: 03/01/22 13:44 [facility] [id number]) Cardio Equipment Recumbent Elliptical (Biodex) Duration (Minutes) 8 Resistance 4 Seat Position 1 Therapeutic Exercises Supine Exercises SLR Reps/Minutes 2 x 10 reps piriformis stretch Reps/Minutes 2 x 30 seconds each single knee to chest stretch Reps/Minutes 2 x 30 seconds each hamstring stretch Reps/Minutes x 1 min hold heel slides Reps/Minutes x 10 reps quad squeeze Reps/Minutes x 10 reps Comments able to do 6 without a towel long sitting calf stretch Reps/Minutes 1 min hold Prone Exercises prone knee flexion Reps/Minutes x 10 reps Standing Exercises standing calf stretch Reps/Minutes 1 x 1 min hold standing ANTONIO stretch Reps/Minutes 30 sec stretch x 2 then calf raises Manual Therapy Treatment Soft Tissue Mobilization Quad MFR L Mobilization Type Myofascial Release Intensity/Depth Moderate Body Position Supine patella tendon TFM Mobilization Type Cross-Friction Comments pt was experiencing pain with quad sets at her patella tendon so I worked in this area a bit as she is tight and restricted here PT-OP-R Modalities Start: 02/01/22 09:42 Freq: Status: Active Protocol: Document 02/15/22 13:00 [facility] (Rec: 02/15/22 13:57 [facility] [id number]) Hot Pack/Cold Pack Treatment icepack left knee Patient Position Hooklying Treatment Duration (minutes) 10 Patient Tolerance Good PT-OP-T Assessment and Plan Start: 02/01/22 09:42 Freq: Status: Active Protocol: Document 03/01/22 13:04 [facility] (Rec: 03/01/22 13:44 [facility] [id number]) Physical Therapy Assessment Assessment Summary Assessment pt doing better with left knee , decreased pain today with quad sets and able to add in SLR Physical Therapy Plan Frequency and Duration Frequency of Treatment 2x/Week Duration of Treatment 12 Plan of Care Start Date 02/01/22 Plan of Care End Date 05/04/22 Therapeutic Interventions Therapeutic Interventions Home Exercise Program,Manual Therapy,Patient/Caregiver Education,Self-Care/Home Management,Therapeutic Exercises Modalities Cold Pack/Ice Massage Next Visit Focus/Plan Next Note Type Treatment Note Next Visit Plan continue progressing LE strength, flexibility and pain control
--- NOTE | 2022-03-09 10:46 | PT-OP ANOTE ---
Pt DNS for appt at 1030, [facility] called left message regarding missed appt. Offered 1430 opening, reminded of call >24 hrs to cancel so not at risk for NS charge is policy. Mentioned next appt 03/27 at 1345 and be sure on waiting list but can call in am to see if any cancellations to get in for appts until then to continue to progress in rehab but in meantime keep up with HEP instructed.
--- NOTE | 2022-03-09 13:15 | PT.OTN ---
Addendum entered and electronically signed by Amparo Cast, MALENA 03/09/22 16:08: Ed pt end tx to call in ams to see if cancellation to come in for appts, is on waiting list for appt, next appt scheduled 03/27. Original Note: Current Diagnoses Bilateral primary osteoarthritis of knee (03/09/22) Pain in unspecified joint (03/09/22) Synovial cyst of popliteal space [Lewis], left knee (03/09/22) Physical Therapy Treatment Note PT-OP-A Visit Information Start: 02/01/22 09:42 Freq: Status: Active Protocol: Document 03/09/22 12:16 SP (Rec: 03/09/22 13:37 SP [id number]) Out-Patient Physical Therapy Visit Information Visit Information Visit Type Treatment Note Visit Start Time 12:16 Visit Stop Time 13:15 Total Visit Minutes 59 Visit Number 8 Number of ASSEMBLER TESTER Visits 1 Evaluation Information Evaluation Date 02/01/22 PT-OP-B Current Condition Start: 02/01/22 09:42 Freq: Status: Active Protocol: Document 02/01/22 13:45 [facility] (Rec: 02/01/22 14:13 [facility] [id number]) Current Condition History of Current Condition Onset Date October 2021 Current Complaints left knee pain, decreased ROM and strength, swelling due to cyst History of Current Condition left sided bakers cyst and left knee OA In October of 2021 she started experiencing posterior knee pain, she saw her MD and was diagnosed with a bakers cyst. She is waiting for a referral for the cyst to be drained She has experienced this on the right knee previously and this has resolved. She does use ice and has elevated her knee She notes she is limited in her walking distance and going down stairs She doesn't feel pain at rest but its when she steps on it that it starts to hurt Treatment Goals Patient/Caregiver Goals To reduce pain, improve full knee ROM and strength Prior Functional Status Baseline Function- ADL's Independent Baseline Function- Mobility Independent Current Functional Impairments (Reported) Functional Limitations- Mobility/Gait pt is limited with walking down stairs, squating and walking more than 2 blocks PT-OP-C Subjective Start: 02/01/22 09:42 Freq: Status: Active Protocol: Document 03/09/22 12:16 SP (Rec: 03/09/22 13:37 SP [id number]) OP-PT Subjective Patient Comments Patient Comments Pt reported still having pain under L knee cap, sharp pains/ tweek if turns wrong or knee just wants to give out. Pt states she has to have another handler support her dog in shows due to L knee pain and not trusting it walking. She noted little less toe cramps since instructed by PT to elevate leg during day. Continues to keep pretty hydrated, is compliant with vitamins, meds prescribed. Not sure what to do make cramping go away, waiting sonar subsystem equipment operator back from physician office. Patient Reported Progress Same PT-OP-F Manual Assessment Start: 02/01/22 09:42 Freq: Status: Active Protocol: Document 02/01/22 13:45 [facility] (Rec: 02/01/22 17:39 [facility] [id number]) Manual Assessments Soft Tissue Assessment Soft Tissue Mobility Assessment bakers cyst felt behind the left knee tightness of the calf and hamstring musculatre with increased oull on the back of the knee with stretch Joint Mobility Assessment Joint Mobility Assessment left knee decreased AROM and PROM due to bakers cyst PT-OP-J Posture/Palpation/Skin Start: 02/01/22 09:42 Freq: Status: Active Protocol: Document 02/01/22 13:45 [facility] (Rec: 02/01/22 17:41 [facility] [id number]) Palpation Assessment Location left posterior knee Palpation Location left posterior knee popliteal space Palpation Findings Edema,Soft Tissue Tightness, Tenderness Palpation Details Bakers cyst PT-OP-K Range of Motion Start: 02/01/22 09:42 Freq: Status: Active Protocol: Document 02/27/22 10:48 [facility] (Rec: 02/27/22 10:49 [facility] [id number]) Knee Goniometric Range of Motion Knee Left Flexion Active (degrees) 129 Extension Active (degrees) 0 PT-OP-M Strength Start: 02/01/22 09:42 Freq: Status: Active Protocol: Document 02/01/22 13:45 [facility] (Rec: 02/01/22 17:44 [facility] [id number]) Knee Strength Knee Manual Muscle Testing Left Flexion (S2) 2+ Poor+ Extension (L3) 2+ Poor+ Comments able to perform a quad set with towel under the knee, unable to perform a SLR PT-OP-Q Treatments Start: 02/01/22 09:42 Freq: Status: Active Protocol: Document 03/09/22 12:16 SP (Rec: 03/09/22 13:37 SP [id number]) Therapeutic Exercises Supine Exercises SLR Reps/Minutes 2 x 10 reps Comments little discomfort sub patella, little less post manual and K taping piriformis stretch Supine Exercise Name ER Side bilateral Equipment Used instructed/performed use towel support leg hold on opp LE Reps/Minutes 2 x 30 seconds each Comments cued relax supported then add increase ROM single knee to chest stretch Supine Exercise Name HEP reviewed Side bilateral Equipment Used grasp behind thigh Reps/Minutes 2 x 30 seconds each Comments Next tx utilize towel grasp behind thigh decrease UB tension reaching hamstring stretch Supine Exercise Name HEP reviewed Equipment Used grasp behind thigh Reps/Minutes x 1 min hold Comments Next tx utilize towel grasp behind thigh decrease UB tension reaching heel slides Reps/Minutes x3 reps pre manual, 3 reps post manual Comments pain mid range, improve little post manual/taping long sitting calf stretch Reps/Minutes 1 min hold Comments cued neutral DF ankle slow trunk sit up/ hip hinge trunk flexion Sitting Exercises sit to stand Sitting Exercise Name assessed if ok for HEP Equipment Used 20 table height Reps/Minutes x3, x3 post k taping, manual- not significant improvement Comments cued hip hinge then knee flexion, pain sub patella L knee- stopped self STMs Sitting Exercise Name added toHEP Side bilateral Resistance L>R Equipment Used rolling pin calf, racketball under calf ankle ROM Reps/Minutes 20 sec Comments good feedback response massage Standing Exercises step ups Standing Exercise Name assessed if ok to perform for HEP- stopped due to pain Side bilateral Equipment Used HR support Reps/Minutes 5 reps R little knee discomfort, 5 reps L pain Comments cued knee alignment, heel press glut fac, not signifcant improvement standing calf stretch Standing Exercise Name HEP reviewed Equipment Used off bottom step Reps/Minutes x6reps Comments slow gentle/ gaudencio depth dynamic stretch, improved decreased tension standing ANTONIO stretch Standing Exercise Name reviewed- better responded more tolerant stretch Side bilateral Reps/Minutes 30 sec stretch x 2 then calf raises Comments cued knee straight slow gentle stretch 1 LE at time Manual Therapy Treatment Soft Tissue Mobilization Quad MFR L Mobilization Type Myofascial Release Intensity/Depth Moderate Body Position Supine patella tendon TFM Mobilization Type Cross-Friction Comments pt was experiencing pain with quad sets at her patella tendon so I worked in this area a bit as she is tight and restricted here, improved decrease discomfort/ patellar glide Joint Mobilizations patella mobilizations Joint L Direction med/lat/ sup/inf, Medial AP tilting Body Position Supine Reps/Duration 1 min Comments patella tends to tip anteriorly Medial, depressed posteriorly lateral side. Taping L knee Body Location L knee Treatment Focus patella stabilization medially , fat pad decompression Type of Tape Kinesio Tape Skin Inspection intact normal color/texture Comments Medial gide ktaping 1 horizontal strip beige, cover roll and Leukotape over fat pad tension med/lat to center- decreased pain knee flexion LAQ AROM. But didn't take away pain STS 20 table. Ok with donned after calf stretch. Understands adverse affects: redness, itching and if experiences remove immediately otherwise if helpful support can keep on for 2-4 days, wear in shower, careful removing slowly. Self-Care/Home Management Treatment Education Patient Education Joint Protection,Pain Management,Safety Other Education Extra time spent education contact physician to discuss cramps over the past week in toes to see if further assessment recommended. Reminded continue elevated per PT recommendations for fluid return and found beneficial less leg cramps. PT-OP-R Modalities Start: 02/01/22 09:42 Freq: Status: Active Protocol: Document 02/15/22 13:00 [facility] (Rec: 02/15/22 13:57 [facility] [id number]) Hot Pack/Cold Pack Treatment icepack left knee Patient Position Hooklying Treatment Duration (minutes) 10 Patient Tolerance Good PT-OP-T Assessment and Plan Start: 02/01/22 09:42 Freq: Status: Active Protocol: Document 03/09/22 12:16 SP (Rec: 03/09/22 13:37 SP [id number]) Physical Therapy Assessment Goals 4 Impairment Decreased left knee strength Short Term Goal (STG) Vilma is able to perform a SLR without a quad lag STG Duration 5 weeks [facility] Goal (LTG) Vilma is able to perform 10 standing squats in good form LTG Duration 12 weeks 3 Impairment pt lacks a HEP for her knee Open Hearth Helper Goal (LTG) Vilma is independent with a HEP addressing knee ROM, flexibility, and strength LTG Duration 12 weeks 2 Impairment knee pain rated 3/10 worse going down stairs, walking, and squating [facility] Goal (LTG) Vilma reports a overall reduction in knee pain and no longer has pain with stairs or squatting. LTG Duration 12 weeks 1 Impairment Decreased knee ROM with bakers cyst [facility] Goal (LTG) Vilma is able to improve her knee ROM to WFL of full extension and 120 degrees knee flexion LTG Duration 12 weeks Assessment Summary Assessment Pt hyperverbal at times, redirection to response to ther ex, manual. She responded well to manual, instruction on self STMs use rolling pin and over racketball ankle ROM then calf stretching, decreased excessive tightness calf, pt noted. Pt reported L knee sore but not in pain leaving. Challenged with painfree ther ex today. Ktaping medially and fat pad taping seems to help some, response end tx. Physical Therapy Plan Frequency and Duration Frequency of Treatment 2x/Week Duration of Treatment 12 Plan of Care Start Date 02/01/22 Plan of Care End Date 05/04/22 Therapeutic Interventions Therapeutic Interventions Home Exercise Program,Manual Therapy,Patient/Caregiver Education,Self-Care/Home Management,Therapeutic Exercises Modalities Cold Pack/Ice Massage Next Visit Focus/Plan Next Note Type Treatment Note Next Visit Plan Assess response to leuko and K taping L knee, self STMs with ball, rolling pin to calf. Review HEP. POC: continue progressing LE strength, flexibility and pain control
--- NOTE | 2022-04-04 14:11 | PT.OTN ---
Current Diagnoses Bilateral primary osteoarthritis of knee (04/04/22) Pain in unspecified joint (04/04/22) Synovial cyst of popliteal space [Lewis], left knee (04/04/22) Physical Therapy Treatment Note PT-OP-A Visit Information Start: 02/01/22 09:42 Freq: Status: Active Protocol: Document 04/04/22 10:30 [facility] (Rec: 04/04/22 11:20 [facility] [id number]) Out-Patient Physical Therapy Visit Information Visit Information Visit Type Progress Note Visit Start Time 10:35 Visit Stop Time 11:15 Total Visit Minutes 40 Visit Number 9 Number of PROOFING MACHINE OPERATOR Visits 0 PT-OP-B Current Condition Start: 02/01/22 09:42 Freq: Status: Active Protocol: Document 02/01/22 13:45 [facility] (Rec: 02/01/22 14:13 [facility] [id number]) Current Condition History of Current Condition Onset Date October 2021 Current Complaints left knee pain, decreased ROM and strength, swelling due to cyst History of Current Condition left sided bakers cyst and left knee OA In October of 2021 she started experiencing posterior knee pain, she saw her MD and was diagnosed with a bakers cyst. She is waiting for a referral for the cyst to be drained She has experienced this on the right knee previously and this has resolved. She does use ice and has elevated her knee She notes she is limited in her walking distance and going down stairs She doesn't feel pain at rest but its when she steps on it that it starts to hurt Treatment Goals Patient/Caregiver Goals To reduce pain, improve full knee ROM and strength Prior Functional Status Baseline Function- ADL's Independent Baseline Function- Mobility Independent Current Functional Impairments (Reported) Functional Limitations- Mobility/Gait pt is limited with walking down stairs, squating and walking more than 2 blocks PT-OP-C Subjective Start: 02/01/22 09:42 Freq: Status: Active Protocol: Document 04/04/22 10:30 [facility] (Rec: 04/04/22 11:20 [facility] [id number]) OP-PT Subjective Patient Comments Patient Comments Vilma reports she has been tryingthe legs up the wall exercise for helping with night time voiding. IT has been really helpful and she is down to only 1-2 times per night. She feels that she tweaked her right medial knee and has pain at the joint line PT-OP-F Manual Assessment Start: 02/01/22 09:42 Freq: Status: Active Protocol: Document 02/01/22 13:45 [facility] (Rec: 02/01/22 17:39 [facility] [id number]) Manual Assessments Soft Tissue Assessment Soft Tissue Mobility Assessment bakers cyst felt behind the left knee tightness of the calf and hamstring musculatre with increased oull on the back of the knee with stretch Joint Mobility Assessment Joint Mobility Assessment left knee decreased AROM and PROM due to bakers cyst PT-OP-J Posture/Palpation/Skin Start: 02/01/22 09:42 Freq: Status: Active Protocol: Document 02/01/22 13:45 [facility] (Rec: 02/01/22 17:41 [facility] [id number]) Palpation Assessment Location left posterior knee Palpation Location left posterior knee popliteal space Palpation Findings Edema,Soft Tissue Tightness, Tenderness Palpation Details Bakers cyst PT-OP-K Range of Motion Start: 02/01/22 09:42 Freq: Status: Active Protocol: Document 02/27/22 10:48 [facility] (Rec: 02/27/22 10:49 [facility] [id number]) Knee Goniometric Range of Motion Knee Left Flexion Active (degrees) 129 Extension Active (degrees) 0 PT-OP-M Strength Start: 02/01/22 09:42 Freq: Status: Active Protocol: Document 02/01/22 13:45 [facility] (Rec: 02/01/22 17:44 [facility] [id number]) Knee Strength Knee Manual Muscle Testing Left Flexion (S2) 2+ Poor+ Extension (L3) 2+ Poor+ Comments able to perform a quad set with towel under the knee, unable to perform a SLR PT-OP-Q Treatments Start: 02/01/22 09:42 Freq: Status: Active Protocol: Document 04/04/22 10:30 [facility] (Rec: 04/04/22 11:20 [facility] [id number]) Cardio Equipment Recumbent Bicycle Duration (Minutes) 9 Resistance 1 Seat Position 1 Gym Equipment Shuttle Rebound 3 Exercise Details single leg squats Reps/Duration 2 x 10 reps 25# 2 Exercise Details piriformis stretch on the shuttle 1 Exercise Details shuttle leg press Reps/Duration 50 # 3 x 10 reps Therapeutic Exercises Supine Exercises SLR Reps/Minutes 2 x 10 reps Comments little discomfort sub patella, little less post manual and K taping piriformis stretch Supine Exercise Name ER Side bilateral Equipment Used instructed/performed use towel support leg hold on opp LE Reps/Minutes 2 x 30 seconds each Comments worked on this stretch on the shuttle balance single knee to chest stretch Supine Exercise Name HEP reviewed Side bilateral Equipment Used grasp behind thigh Reps/Minutes 2 x 30 seconds each Comments Next tx utilize towel grasp behind thigh decrease UB tension reaching hamstring stretch Supine Exercise Name HEP reviewed Equipment Used grasp behind thigh Reps/Minutes x 1 min hold Comments Next tx utilize towel grasp behind thigh decrease UB tension reaching heel slides Reps/Minutes x3 reps pre manual, 3 reps post manual Comments pain mid range, improve little post manual/taping Standing Exercises standing ANTONIO stretch Standing Exercise Name reviewed- better responded more tolerant stretch Side bilateral Reps/Minutes 30 sec stretch x 2 then calf raises Comments cued knee straight slow gentle stretch 1 LE at time Manual Therapy Treatment Soft Tissue Mobilization TFM left medial joint line Body Location left knee medial joint line Mobilization Type Other Comments TFM medial joint line followed by ice massage, pt tolerated well PT-OP-R Modalities Start: 02/01/22 09:42 Freq: Status: Active Protocol: Document 04/04/22 10:30 [facility] (Rec: 04/04/22 14:07 [facility] [id number]) Hot Pack/Cold Pack Treatment Ice Massage Location left medial joint line Patient Position Supine Treatment Duration (minutes) 4 Patient Tolerance Good PT-OP-T Assessment and Plan Start: 02/01/22 09:42 Freq: Status: Active Protocol: Document 04/04/22 10:30 [facility] (Rec: 04/04/22 14:07 [facility] [id number]) Physical Therapy Assessment Goals 4 Impairment Decreased left knee strength Short Term Goal (STG) Vilma is able to perform a SLR without a quad lag good progress STG Duration 5 weeks Chute Tapper Goal (LTG) Vilma is able to perform 10 standing squats in good form good progress LTG Duration 12 weeks 3 Impairment pt lacks a HEP for her knee Chute Tapper Goal (LTG) Vilma is independent with a HEP addressing knee ROM, flexibility, and strength Some progress LTG Duration 12 weeks 2 Impairment knee pain rated 3/10 worse going down stairs, walking, and squating Assisted Goal (LTG) Vilma reports a overall reduction in knee pain and no longer has pain with stairs or squatting. Some progress, pain is now medial verses in the posterior knee LTG Duration 12 weeks 1 Impairment Decreased knee ROM with bakers cyst Chute Tapper Goal (LTG) Vilma is able to improve her knee ROM to WFL of full extension and 120 degrees knee flexion GOAL MET LTG Duration 12 weeks Assessment Summary Assessment Vilma is doing better with decreased posterior knee pain however she is noting left knee medial joint line pain that appears to be meniscus related. I worked on TFM today and ice massage and encouraged her to ice her knee at home on the medial joint line. Educated on avoiding twisting activities. Physical Therapy Plan Frequency and Duration Frequency of Treatment 2x/Week Duration of treatment (weeks) 12 Plan of Care Start Date 04/04/22 Plan of Care End Date 07/05/21 Therapeutic Interventions Therapeutic Interventions Home Exercise Program,Manual Therapy,Patient/Caregiver Education,Self-Care/Home Management,Therapeutic Exercises Modalities Cold Pack/Ice Massage Next Visit Focus/Plan Next Note Type Treatment Note Next Visit Plan review how pt did with ice massage and continue to promote stretches and knee ROM for home
--- NOTE | 2022-04-04 14:12 | PT.OPPOC ---
Physical, Occupational & Speech Therapy At [facility] Current Diagnoses Bilateral primary osteoarthritis of knee (04/04/22) Pain in unspecified joint (04/04/22) Synovial cyst of popliteal space [Lewis], left knee (04/04/22) Visit Care Team Role Provider Type Patria Iverson MD Family Provider Non-Staff Primary Care Provider Specialty: Pediatrics Address: [address] [place] [address], [id number] Email: Jessie Harris MD Attending Provider Physician Referring Provider Specialty: Orthopedics Address: [address] [place] [address] [address], [place], [address] opt2 Email: Plan Of Care PT-OP-T Assessment and Plan Start: 02/01/22 09:42 Freq: Status: Active Protocol: Document 04/04/22 10:30 [facility] (Rec: 04/04/22 14:07 [facility] [id number]) Physical Therapy Assessment Goals 4 Impairment Decreased left knee strength Short Term Goal (STG) Vilma is able to perform a SLR without a quad lag good progress STG Duration 5 weeks Program Director/Music Director Goal (LTG) Vilma is able to perform 10 standing squats in good form good progress LTG Duration 12 weeks 3 Impairment pt lacks a HEP for her knee [facility] Goal (LTG) Vilma is independent with a HEP addressing knee ROM, flexibility, and strength Some progress LTG Duration 12 weeks 2 Impairment knee pain rated 3/10 worse going down stairs, walking, and squating Program Director/Music Director Goal (LTG) Vilma reports a overall reduction in knee pain and no longer has pain with stairs or squatting. Some progress, pain is now medial verses in the posterior knee LTG Duration 12 weeks 1 Impairment Decreased knee ROM with bakers cyst Program Director/Music Director Goal (LTG) Vilma is able to improve her knee ROM to WFL of full extension and 120 degrees knee flexion GOAL MET LTG Duration 12 weeks Assessment Summary Assessment Vilma is doing better with decreased posterior knee pain however she is noting left knee medial joint line pain that appears to be meniscus related. I worked on TFM today and ice massage and encouraged her to ice her knee at home on the medial joint line. Educated on avoiding twisting activities. Physical Therapy Plan Frequency and Duration Frequency of Treatment 2x/Week Duration of treatment (weeks) 12 Plan of Care Start Date 04/04/22 Plan of Care End Date 07/05/21 Therapeutic Interventions Therapeutic Interventions Home Exercise Program,Manual Therapy,Patient/Caregiver Education,Self-Care/Home Management,Therapeutic Exercises Modalities Cold Pack/Ice Massage Next Visit Focus/Plan Next Note Type Treatment Note Next Visit Plan review how pt did with ice massage and continue to promote stretches and knee ROM for home Plan of Care Dates Plan of Care Start Date 04/04/22 Plan of Care End Date 07/05/21 Electronically Signed by: Syl Morris, PT 04/04/22 [id number] If you are in agreement with this Plan of Care, please return a signed and dated copy. I have reviewed this Plan of Care and certify that the skilled therapy services above are required to meet the patient?s needs. Physician Signature Date Printed Name and Credentials Clinical Instructor Signature Printed Name and Credentials
--- NOTE | 2022-04-06 13:42 | PT.OTN ---
Current Diagnoses Bilateral primary osteoarthritis of knee (04/06/22) Pain in unspecified joint (04/06/22) Synovial cyst of popliteal space [Lewis], left knee (04/06/22) Physical Therapy Treatment Note PT-OP-A Visit Information Start: 02/01/22 09:42 Freq: Status: Active Protocol: Document 04/06/22 12:31 NBM (Rec: 04/06/22 13:41 NBM [id number]) Out-Patient Physical Therapy Visit Information Visit Information Visit Type Treatment Note Visit Note Pt goes by Norma (sandra Hoyos) VS: After warmup: 92 bpm, 97% SO2, 2 min after warmup: BP 110/62, 68 bpm, 98% SO2 Visit Start Time 12:24 Visit Stop Time 13:14 Total Visit Minutes 50 Visit Number 10 Number of SIGHTSEEING GUIDE Visits 1 PT-OP-B Current Condition Start: 02/01/22 09:42 Freq: Status: Active Protocol: Document 02/01/22 13:45 [facility] (Rec: 02/01/22 14:13 AMH [id number]) Current Condition History of Current Condition Onset Date October 2021 Current Complaints left knee pain, decreased ROM and strength, swelling due to cyst History of Current Condition left sided bakers cyst and left knee OA In October of 2021 she started experiencing posterior knee pain, she saw her MD and was diagnosed with a bakers cyst. She is waiting for a referral for the cyst to be drained She has experienced this on the right knee previously and this has resolved. She does use ice and has elevated her knee She notes she is limited in her walking distance and going down stairs She doesn't feel pain at rest but its when she steps on it that it starts to hurt Treatment Goals Patient/Caregiver Goals To reduce pain, improve full knee ROM and strength Prior Functional Status Baseline Function- ADL's Independent Baseline Function- Mobility Independent Current Functional Impairments (Reported) Functional Limitations- Mobility/Gait pt is limited with walking down stairs, squating and walking more than 2 blocks PT-OP-C Subjective Start: 02/01/22 09:42 Freq: Status: Active Protocol: Document 04/06/22 12:31 NBM (Rec: 04/06/22 13:41 NBM [id number]) OP-PT Subjective Patient Comments Patient Comments Norma states she has been experiencing sweatiness and high heart rate and will see ultimate hoops scoreboard operator next month. She still experiences L knee pain and the ice massage last time helped a lot. Her bike is currently stored out of reach and she walks her dogs to the market once a week. Pt has used a mini rolling pin for leg cramps and it has helped a lot. She tried ice massage w/ ice cubes in a bag and will try ice massage w/ a paper cup . PT-OP-F Manual Assessment Start: 02/01/22 09:42 Freq: Status: Active Protocol: Document 02/01/22 13:45 AMH (Rec: 02/01/22 17:39 AMH [id number]) Manual Assessments Soft Tissue Assessment Soft Tissue Mobility Assessment bakers cyst felt behind the left knee tightness of the calf and hamstring musculatre with increased oull on the back of the knee with stretch Joint Mobility Assessment Joint Mobility Assessment left knee decreased AROM and PROM due to bakers cyst PT-OP-J Posture/Palpation/Skin Start: 02/01/22 09:42 Freq: Status: Active Protocol: Document 02/01/22 13:45 AMH (Rec: 02/01/22 17:41 [facility] [id number]) Palpation Assessment Location left posterior knee Palpation Location left posterior knee popliteal space Palpation Findings Edema,Soft Tissue Tightness, Tenderness Palpation Details Bakers cyst PT-OP-K Range of Motion Start: 02/01/22 09:42 Freq: Status: Active Protocol: Document 02/27/22 10:48 AMH (Rec: 02/27/22 10:49 AMH [id number]) Knee Goniometric Range of Motion Knee Left Flexion Active (degrees) 129 Extension Active (degrees) 0 PT-OP-M Strength Start: 02/01/22 09:42 Freq: Status: Active Protocol: Document 02/01/22 13:45 AMH (Rec: 02/01/22 17:44 AMH [id number]) Knee Strength Knee Manual Muscle Testing Left Flexion (S2) 2+ Poor+ Extension (L3) 2+ Poor+ Comments able to perform a quad set with towel under the knee, unable to perform a SLR PT-OP-Q Treatments Start: 02/01/22 09:42 Freq: Status: Active Protocol: Document 04/06/22 12:31 NBM (Rec: 04/06/22 13:41 NBM [id number]) Cardio Equipment Recumbent Elliptical (Biodex) Duration (Minutes) 6 Resistance 4 Seat Position 1 Therapeutic Exercises Supine Exercises SLR Supine Exercise Name SAQ>SLR Side left Reps/Minutes x 10 reps Comments discomfort sub patella hamstring stretch Supine Exercise Name HEP reviewed Equipment Used w/ long towel Reps/Minutes 2 x 30 hold - pt cued to hold longer Comments decreased UB tension reaching w/ long towel heel slides Reps/Minutes x3 reps pre manual, 8 reps post manual Comments pain mid range, improved post manual quad squeeze Reps/Minutes x 10 reps Standing Exercises standing calf stretch Standing Exercise Name Wall stretch today: gastroc and soleus Side bilateral Comments good feedback response - added to HEP standing ANTONIO stretch Standing Exercise Name reviewed- better responded more tolerant stretch Side bilateral Equipment Used ANTONIO Reps/Minutes x45 s stretch ea Comments pt reported intense stretch - added gentle STM to Rafiq calves Self-Care/Home Management Treatment Education Patient Education Home Exercise Program Other Education Added to HEP: Standing calf stretch at wall - knee straight/knee bent - HO given. PT-OP-R Modalities Start: 02/01/22 09:42 Freq: Status: Active Protocol: Document 04/06/22 12:31 NBM (Rec: 04/06/22 13:41 [facility] [id number]) Hot Pack/Cold Pack Treatment Ice Massage Location left medial joint line Patient Position Supine Treatment Duration (minutes) 5 Patient Tolerance Good PT-OP-T Assessment and Plan Start: 02/01/22 09:42 Freq: Status: Active Protocol: Document 04/06/22 12:31 NBM (Rec: 04/06/22 13:41 [facility] [id number]) Physical Therapy Assessment Goals 4 Impairment Decreased left knee strength Short Term Goal (STG) Vilma is able to perform a SLR without a quad lag good progress STG Duration 5 weeks Special Effects Makeup Artist Goal (LTG) Vilma is able to perform 10 standing squats in good form good progress LTG Duration 12 weeks 3 Impairment pt lacks a HEP for her knee Custodial Goal (LTG) Vilma is independent with a HEP addressing knee ROM, flexibility, and strength Some progress LTG Duration 12 weeks 2 Impairment knee pain rated 3/10 worse going down stairs, walking, and squating Special Effects Makeup Artist Goal (LTG) Vilma reports a overall reduction in knee pain and no longer has pain with stairs or squatting. Some progress, pain is now medial verses in the posterior knee LTG Duration 12 weeks 1 Impairment Decreased knee ROM with bakers cyst Custodial Goal (LTG) Vilma is able to improve her knee ROM to WFL of full extension and 120 degrees knee flexion GOAL MET LTG Duration 12 weeks Assessment Summary Assessment Pt presents w/ bilateral calf tightness and hamstring tightness and L knee pain along medial joint line and sub-patella. Treatment focus today on stretching and LLE strengthening. Pt reports lightheadedness upon standing after 6-min warmup - VS: After warmup: 92 bpm, 97% SO2, 2 min after warmup: BP 110/62, 68 bpm, 98% SO2. No further symptoms reported throughout treatment. Standing calf stretch w/ ANTONIO is very intense for pt - pt tolerates calf stretch at wall w/ good feedback response - added to HEP knee straight/knee bent - HO given. Pt requires cues for holding stretches at least 30 sec. While performing ice massage in hooklying pt requires two cues to return L knee from BKFO position and admits she uses this as a sleeping position, possibly contributing to medial knee jt pain. Discussed knee jt alignment during sleeping positions briefly. Physical Therapy Plan Frequency and Duration Frequency of Treatment 2x/Week Duration of treatment (weeks) 12 Plan of Care Start Date 04/04/22 Plan of Care End Date 07/05/21 Therapeutic Interventions Therapeutic Interventions Home Exercise Program,Manual Therapy,Patient/Caregiver Education,Self-Care/Home Management,Therapeutic Exercises Modalities Cold Pack/Ice Massage Next Visit Focus/Plan Next Note Type Treatment Note Next Visit Plan Review sleeping positions (pt may be using Figure 4 increasing medial knee jt stress) continue to promote stretches and knee ROM for home. Ice massage.
--- NOTE | 2022-04-10 14:30 | PT.OTN ---
Current Diagnoses Bilateral primary osteoarthritis of knee (04/06/22) Pain in unspecified joint (04/06/22) Synovial cyst of popliteal space [Lewis], left knee (04/06/22) Physical Therapy Treatment Note PT-OP-A Visit Information Start: 02/01/22 09:42 Freq: Status: Active Protocol: Document 04/10/22 13:03 NBM (Rec: 04/10/22 13:51 NBM [id number]) Out-Patient Physical Therapy Visit Information Visit Information Visit Type Treatment Note Visit Note Pt goes by Norma (sandra Hoyos) VS: After warmup: 92 bpm, 97% SO2, 2 min after warmup: BP 110/62, 68 bpm, 98% SO2 Visit Start Time 13:05 Visit Stop Time 13:45 Total Visit Minutes 40 Visit Number 11 Number of GROCERY BUYER Visits 2 PT-OP-B Current Condition Start: 02/01/22 09:42 Freq: Status: Active Protocol: Document 02/01/22 13:45 AMH (Rec: 02/01/22 14:13 AMH [id number]) Current Condition History of Current Condition Onset Date October 2021 Current Complaints left knee pain, decreased ROM and strength, swelling due to cyst History of Current Condition left sided bakers cyst and left knee OA In October of 2021 she started experiencing posterior knee pain, she saw her MD and was diagnosed with a bakers cyst. She is waiting for a referral for the cyst to be drained She has experienced this on the right knee previously and this has resolved. She does use ice and has elevated her knee She notes she is limited in her walking distance and going down stairs She doesn't feel pain at rest but its when she steps on it that it starts to hurt Treatment Goals Patient/Caregiver Goals To reduce pain, improve full knee ROM and strength Prior Functional Status Baseline Function- ADL's Independent Baseline Function- Mobility Independent Current Functional Impairments (Reported) Functional Limitations- Mobility/Gait pt is limited with walking down stairs, squating and walking more than 2 blocks PT-OP-C Subjective Start: 02/01/22 09:42 Freq: Status: Active Protocol: Document 04/10/22 13:03 NBM (Rec: 04/10/22 13:51 NBM [id number]) OP-PT Subjective Patient Comments Patient Comments Norma has a chiro visit tomorrow for her back. Her L knee has discomfort. She has used the standing calf stretch at home. PT-OP-F Manual Assessment Start: 02/01/22 09:42 Freq: Status: Active Protocol: Document 02/01/22 13:45 AMH (Rec: 02/01/22 17:39 AMH [id number]) Manual Assessments Soft Tissue Assessment Soft Tissue Mobility Assessment bakers cyst felt behind the left knee tightness of the calf and hamstring musculatre with increased oull on the back of the knee with stretch Joint Mobility Assessment Joint Mobility Assessment left knee decreased AROM and PROM due to bakers cyst PT-OP-J Posture/Palpation/Skin Start: 02/01/22 09:42 Freq: Status: Active Protocol: Document 02/01/22 13:45 AMH (Rec: 02/01/22 17:41 AMH [id number]) Palpation Assessment Location left posterior knee Palpation Location left posterior knee popliteal space Palpation Findings Edema,Soft Tissue Tightness, Tenderness Palpation Details Bakers cyst PT-OP-K Range of Motion Start: 02/01/22 09:42 Freq: Status: Active Protocol: Document 02/27/22 10:48 AMH (Rec: 02/27/22 10:49 AMH [id number]) Knee Goniometric Range of Motion Knee Left Flexion Active (degrees) 129 Extension Active (degrees) 0 PT-OP-M Strength Start: 02/01/22 09:42 Freq: Status: Active Protocol: Document 02/01/22 13:45 AMH (Rec: 02/01/22 17:44 AMH [id number]) Knee Strength Knee Manual Muscle Testing Left Flexion (S2) 2+ Poor+ Extension (L3) 2+ Poor+ Comments able to perform a quad set with towel under the knee, unable to perform a SLR PT-OP-Q Treatments Start: 02/01/22 09:42 Freq: Status: Active Protocol: Document 04/10/22 13:03 NBM (Rec: 04/10/22 13:51 NBM [id number]) Cardio Equipment Recumbent Bicycle Duration (Minutes) 10 Resistance 1 Seat Position 1 Gym Equipment Shuttle Rebound 3 Exercise Details single leg squats Reps/Duration 2 x 10 reps 25# 2 Exercise Details piriformis stretch on the shuttle 1 Exercise Details shuttle leg press Reps/Duration 50 # 3 x 10 reps Therapeutic Exercises Supine Exercises heel slides Reps/Minutes x3 reps pre manual, 8 reps post manual Comments pain mid range, improved post manual Manual Therapy Treatment Soft Tissue Mobilization Quad MFR L Mobilization Type Myofascial Release Intensity/Depth Moderate Body Position Supine patella tendon TFM Mobilization Type Cross-Friction Comments pt was experiencing pain with quad sets at her patella tendon so I worked in this area a bit as she is tight and restricted here, improved decrease discomfort/ patellar glide PT-OP-R Modalities Start: 02/01/22 09:42 Freq: Status: Active Protocol: Document 04/10/22 13:03 NB (Rec: 10/05/22 12:04 [facility] [id number]) Hot Pack/Cold Pack Treatment Ice Massage Location left medial joint line Patient Position Hooklying Treatment Duration (minutes) 5 Patient Tolerance Good Comments decreased swelling observed PT-OP-T Assessment and Plan Start: 02/01/22 09:42 Freq: Status: Active Protocol: Document 04/10/22 13:03 NB (Rec: 04/10/22 13:51 [facility] [id number]) Physical Therapy Assessment Goals 4 Impairment Decreased left knee strength Short Term Goal (STG) Vilma is able to perform a SLR without a quad lag good progress Skilled Nursing Goal (LTG) Vilma is able to perform 10 standing squats in good form good progress LTG Duration 12 weeks 3 Impairment pt lacks a HEP for her knee Parts Room Clerk Goal (LTG) Vilma is independent with a HEP addressing knee ROM, flexibility, and strength Some progress 2 Impairment knee pain rated 3/10 worse going down stairs, walking, and squating Parts Room Clerk Goal (LTG) Vilma reports a overall reduction in knee pain and no longer has pain with stairs or squatting. Some progress, pain is now medial verses in the posterior knee LTG Duration 12 weeks 1 Impairment Decreased knee ROM with bakers cyst Parts Room Clerk Goal (LTG) Vilma is able to improve her knee ROM to WFL of full extension and 120 degrees knee flexion GOAL MET LTG Duration 12 weeks Assessment Summary Assessment Reviewed goals with pt and pt chooses to make more PT appts. Pt has swelling at L knee which improves after manual therapy and ice massage. Her L knee pain w/ heel slides improves after manual therapy. She has a positive feedback response to piriformis stretch . Physical Therapy Plan Frequency and Duration Frequency of Treatment 2x/Week Duration of treatment (weeks) 12 Plan of Care Start Date 04/04/22 Plan of Care End Date 07/05/21 Therapeutic Interventions Therapeutic Interventions Home Exercise Program,Manual Therapy,Patient/Caregiver Education,Self-Care/Home Management,Therapeutic Exercises Modalities Cold Pack/Ice Massage Next Visit Focus/Plan Next Note Type Treatment Note Next Visit Plan Review sleeping positions (pt may be using Figure 4 increasing medial knee jt stress) continue to promote stretches and knee ROM for home. Ice massage.
--- NOTE | 2022-04-19 17:44 | PT.OTN ---
Current Diagnoses Bilateral primary osteoarthritis of knee (04/19/22) Pain in unspecified joint (04/19/22) Synovial cyst of popliteal space [Lewis], left knee (04/19/22) Physical Therapy Treatment Note PT-OP-A Visit Information Start: 02/01/22 09:42 Freq: Status: Active Protocol: Document 04/19/22 14:28 AMH (Rec: 04/19/22 15:18 [facility] [id number]) Out-Patient Physical Therapy Visit Information Visit Information Visit Type Treatment Note Visit Start Time 14:30 Visit Stop Time 15:15 Total Visit Minutes 45 Visit Number 12 PT-OP-B Current Condition Start: 02/01/22 09:42 Freq: Status: Active Protocol: Document 02/01/22 13:45 AMH (Rec: 02/01/22 14:13 AMH [id number]) Current Condition History of Current Condition Onset Date October 2021 Current Complaints left knee pain, decreased ROM and strength, swelling due to cyst History of Current Condition left sided bakers cyst and left knee OA In October of 2021 she started experiencing posterior knee pain, she saw her MD and was diagnosed with a bakers cyst. She is waiting for a referral for the cyst to be drained She has experienced this on the right knee previously and this has resolved. She does use ice and has elevated her knee She notes she is limited in her walking distance and going down stairs She doesn't feel pain at rest but its when she steps on it that it starts to hurt Treatment Goals Patient/Caregiver Goals To reduce pain, improve full knee ROM and strength Prior Functional Status Baseline Function- ADL's Independent Baseline Function- Mobility Independent Current Functional Impairments (Reported) Functional Limitations- Mobility/Gait pt is limited with walking down stairs, squating and walking more than 2 blocks PT-OP-C Subjective Start: 02/01/22 09:42 Freq: Status: Active Protocol: Document 04/19/22 14:28 AMH (Rec: 04/19/22 15:18 [facility] [id number]) OP-PT Subjective Patient Comments Patient Comments pt notes that she is still feeling the back of her last knee and that her chiro thinks the cyst is still there. She has a cardioligist May 09 as she is still feeling short of breath. She sees her general doctor saturday PT-OP-F Manual Assessment Start: 02/01/22 09:42 Freq: Status: Active Protocol: Document 02/01/22 13:45 AMH (Rec: 02/01/22 17:39 [facility] [id number]) Manual Assessments Soft Tissue Assessment Soft Tissue Mobility Assessment bakers cyst felt behind the left knee tightness of the calf and hamstring musculatre with increased oull on the back of the knee with stretch Joint Mobility Assessment Joint Mobility Assessment left knee decreased AROM and PROM due to bakers cyst PT-OP-J Posture/Palpation/Skin Start: 02/01/22 09:42 Freq: Status: Active Protocol: Document 02/01/22 13:45 AMH (Rec: 02/01/22 17:41 [facility] [id number]) Palpation Assessment Location left posterior knee Palpation Location left posterior knee popliteal space Palpation Findings Edema,Soft Tissue Tightness, Tenderness Palpation Details Bakers cyst PT-OP-K Range of Motion Start: 02/01/22 09:42 Freq: Status: Active Protocol: Document 02/27/22 10:48 AMH (Rec: 02/27/22 10:49 [facility] [id number]) Knee Goniometric Range of Motion Knee Left Flexion Active (degrees) 129 Extension Active (degrees) 0 PT-OP-M Strength Start: 02/01/22 09:42 Freq: Status: Active Protocol: Document 02/01/22 13:45 AMH (Rec: 02/01/22 17:44 [facility] [id number]) Knee Strength Knee Manual Muscle Testing Left Flexion (S2) 2+ Poor+ Extension (L3) 2+ Poor+ Comments able to perform a quad set with towel under the knee, unable to perform a SLR PT-OP-Q Treatments Start: 02/01/22 09:42 Freq: Status: Active Protocol: Document 04/19/22 14:28 AMH (Rec: 04/19/22 15:18 [facility] [id number]) Cardio Equipment Recumbent Elliptical (Biodex) Duration (Minutes) 6 Resistance 4 Seat Position 1 Gym Equipment Shuttle Rebound 3 Exercise Details single leg squats Reps/Duration 2 x 10 reps 25# 2 Exercise Details piriformis stretch on the shuttle 1 Exercise Details shuttle leg press Reps/Duration 50 # 3 x 10 reps Therapeutic Exercises Supine Exercises single knee to chest stretch Supine Exercise Name HEP reviewed Side bilateral Equipment Used grasp behind thigh Reps/Minutes 2 x 30 seconds each Comments Next tx utilize towel grasp behind thigh decrease UB tension reaching hamstring stretch Comments seated hamstring stretch heel slides Reps/Minutes x3 reps pre manual, 8 reps post manual Comments pain mid range, improved post manual quad squeeze Reps/Minutes x 10 reps long sitting calf stretch Reps/Minutes 1 min hold Comments cued neutral DF ankle slow trunk sit up/ hip hinge trunk flexion Standing Exercises standing ANTONIO stretch Standing Exercise Name reviewed- better responded more tolerant stretch Side bilateral Equipment Used ANTONIO Reps/Minutes x45 s stretch ea Comments pt reported intense stretch - added gentle STM to Rafiq calves Manual Therapy Treatment Soft Tissue Mobilization calf and hamstring posterior knee release Body Position Supine PT-OP-R Modalities Start: 02/01/22 09:42 Freq: Status: Active Protocol: Document 04/06/22 12:31 NBM (Rec: 04/06/22 13:41 NBM [id number]) Hot Pack/Cold Pack Treatment Ice Massage Location left medial joint line Patient Position Supine Treatment Duration (minutes) 5 Patient Tolerance Good PT-OP-T Assessment and Plan Start: 02/01/22 09:42 Freq: Status: Active Protocol: Document 04/19/22 14:28 AMH (Rec: 04/19/22 15:18 [facility] [id number]) Physical Therapy Assessment Assessment Summary Assessment pt is still experiencing left knee pain and swelling, there is a palpable knot behind her left knee. She has her general MD visit coming up and will talk with her MD about continued pain. I encouraged continued ice for home Physical Therapy Plan Frequency and Duration Frequency of Treatment 2x/Week Duration of treatment (weeks) 12 Plan of Care Start Date 04/04/22 Plan of Care End Date 07/05/22 Therapeutic Interventions Therapeutic Interventions Home Exercise Program,Manual Therapy,Patient/Caregiver Education,Self-Care/Home Management,Therapeutic Exercises Modalities Cold Pack/Ice Massage Next Visit Focus/Plan Next Note Type Treatment Note Next Visit Plan reassess after pt sees her md
--- NOTE | 2022-04-26 10:30 | PT.OTN ---
Current Diagnoses Bilateral primary osteoarthritis of knee (04/26/22) Pain in unspecified joint (04/26/22) Synovial cyst of popliteal space [Lewis], left knee (04/26/22) Physical Therapy Treatment Note PT-OP-A Visit Information Start: 02/01/22 09:42 Freq: Status: Active Protocol: Document 04/26/22 09:48 SP (Rec: 04/26/22 10:38 SP [id number]) Out-Patient Physical Therapy Visit Information Visit Information Visit Type Treatment Note Visit Note vitals: Supine: 128/67 HR 69 SaO2 100% Sittin/64 HR 68 Standin/60 HR 68 nonsymptomatic Visit Start Time 09:48 Visit Stop Time 10:30 Total Visit Minutes 42 Visit Number 13 Number of K 9 HANDLER/ DEPUTY Visits 1 Evaluation Information Evaluation Date 02/01/22 Precautions Precautions Hx: Myocardioinfarction 2018 symptoms acid reflux. PT-OP-B Current Condition Start: 02/01/22 09:42 Freq: Status: Active Protocol: Document 02/01/22 13:45 [facility] (Rec: 02/01/22 14:13 [facility] [id number]) Current Condition History of Current Condition Onset Date October 2021 Current Complaints left knee pain, decreased ROM and strength, swelling due to cyst History of Current Condition left sided bakers cyst and left knee OA In October of 2021 she started experiencing posterior knee pain, she saw her MD and was diagnosed with a bakers cyst. She is waiting for a referral for the cyst to be drained She has experienced this on the right knee previously and this has resolved. She does use ice and has elevated her knee She notes she is limited in her walking distance and going down stairs She doesn't feel pain at rest but its when she steps on it that it starts to hurt Treatment Goals Patient/Caregiver Goals To reduce pain, improve full knee ROM and strength Prior Functional Status Baseline Function- ADL's Independent Baseline Function- Mobility Independent Current Functional Impairments (Reported) Functional Limitations- Mobility/Gait pt is limited with walking down stairs, squating and walking more than 2 blocks PT-OP-C Subjective Start: 02/01/22 09:42 Freq: Status: Active Protocol: Document 04/26/22 09:48 SP (Rec: 04/26/22 10:38 SP [id number]) OP-PT Subjective Patient Comments Patient Comments Pt reported has cardiology appt next week. She states is having to sit down and rest between short bouts of gait sweaty/tired post activities ( walking to kitchen, feeding dog, etc). Pt states takes 2 BP meds to assist with normalizing readings. She states had hard time stepping down and WB into LLE due to pain in knee (no particular area identified when asked). PT-OP-F Manual Assessment Start: 02/01/22 09:42 Freq: Status: Active Protocol: Document 02/01/22 13:45 [facility] (Rec: 02/01/22 17:39 [facility] [id number]) Manual Assessments Soft Tissue Assessment Soft Tissue Mobility Assessment bakers cyst felt behind the left knee tightness of the calf and hamstring musculatre with increased oull on the back of the knee with stretch Joint Mobility Assessment Joint Mobility Assessment left knee decreased AROM and PROM due to bakers cyst PT-OP-J Posture/Palpation/Skin Start: 02/01/22 09:42 Freq: Status: Active Protocol: Document 02/01/22 13:45 [facility] (Rec: 02/01/22 17:41 [facility] [id number]) Palpation Assessment Location left posterior knee Palpation Location left posterior knee popliteal space Palpation Findings Edema,Soft Tissue Tightness, Tenderness Palpation Details Bakers cyst PT-OP-K Range of Motion Start: 02/01/22 09:42 Freq: Status: Active Protocol: Document 02/27/22 10:48 [facility] (Rec: 02/27/22 10:49 [facility] [id number]) Knee Goniometric Range of Motion Knee Left Flexion Active (degrees) 129 Extension Active (degrees) 0 PT-OP-M Strength Start: 02/01/22 09:42 Freq: Status: Active Protocol: Document 02/01/22 13:45 [facility] (Rec: 02/01/22 17:44 [facility] [id number]) Knee Strength Knee Manual Muscle Testing Left Flexion (S2) 2+ Poor+ Extension (L3) 2+ Poor+ Comments able to perform a quad set with towel under the knee, unable to perform a SLR PT-OP-Q Treatments Start: 02/01/22 09:42 Freq: Status: Active Protocol: Document 04/26/22 09:48 SP (Rec: 04/26/22 10:38 SP [id number]) Therapeutic Exercises Supine Exercises SLR Supine Exercise Name SAQ>SLR Side left Reps/Minutes x 10 reps Comments discomfort sub patella, improved post manual heel slides Reps/Minutes x3 reps pre manual, 8 reps post manual Comments pain mid range, improved post manual quad squeeze Side left Equipment Used small rolled towel behind knee Reps/Minutes 3s hold x 10 reps Comments cued slow gentle knee press into towel Sitting Exercises LAQ Side left Resistance AROM Reps/Minutes 5 reps x2 Comments painfree Manual Therapy Treatment Soft Tissue Mobilization calf and hamstring posterior knee release Body Location L Mobilization Type Manual Lymphatic Drainage, Myofascial Release Intensity/Depth Superficial Body Position Supine Quad MFR L Body Location L Mobilization Type Myofascial Release Intensity/Depth Moderate Body Position Supine patella tendon TFM Body Location L Mobilization Type Cross-Friction,Myofascial Release Intensity/Depth Superficial Body Position Supine Comments pt was experiencing pain with quad sets at her patella tendon, improved decrease discomfort/ patellar glide Taping L knee Body Location L knee Treatment Focus patella stabilization medially , fat pad decompression Type of Tape Kinesio Tape Skin Inspection intact normal color/texture Comments 1. Medial glide biege Ktaping 1 horizontal anchor lateral to split medial directioning 30% tension strip beige 2. Edema taping over lateral L knee superior jt line. *Understands of adverse affects: redness/itching/ tingling remove immediately but otherwise if supportive and beneficial can keep on even in water 2-4 days and gentle removing. Self-Care/Home Management Treatment Education Patient Education Safety Other Education Education on taking BP and HR on regular basis, orthostatic and with activity doing for data safety awareness until sees octave board assembler. Go to PCP/ ER if symptomatic safety. PT-OP-R Modalities Start: 02/01/22 09:42 Freq: Status: Active Protocol: Document 04/06/22 12:31 NBM (Rec: 04/06/22 13:41 NBM [id number]) Hot Pack/Cold Pack Treatment Ice Massage Location left medial joint line Patient Position Supine Treatment Duration (minutes) 5 Patient Tolerance Good PT-OP-T Assessment and Plan Start: 02/01/22 09:42 Freq: Status: Active Protocol: Document 04/26/22 09:48 SP (Rec: 04/26/22 10:38 SP [id number]) Physical Therapy Assessment Goals 4 Impairment Decreased left knee strength Short Term Goal (STG) Vilma is able to perform a SLR without a quad lag good progress STG Duration 5 weeks Head Porter Goal (LTG) Vilma is able to perform 10 standing squats in good form good progress LTG Duration 12 weeks 3 Impairment pt lacks a HEP for her knee Usp Goal (LTG) Vilma is independent with a HEP addressing knee ROM, flexibility, and strength Some progress LTG Duration 12 weeks 2 Impairment knee pain rated 3/10 worse going down stairs, walking, and squating Head Porter Goal (LTG) Vilma reports a overall reduction in knee pain and no longer has pain with stairs or squatting. Some progress, pain is now medial verses in the posterior knee LTG Duration 12 weeks 1 Impairment Decreased knee ROM with bakers cyst Head Porter Goal (LTG) Vilma is able to improve her knee ROM to WFL of full extension and 120 degrees knee flexion GOAL MET LTG Duration 12 weeks Assessment Summary Assessment Pt responded well to manual and K taping support with understanding. Pt states waiting to hear back from MD in regard to puffy knot behind L knee and sensitivity med/ lateral knee. Continue to encourage CP at home for swelling. K taping helped with heel slide and LAQ AROM. Physical Therapy Plan Frequency and Duration Frequency of Treatment 2x/Week Duration of treatment (weeks) 12 Plan of Care Start Date 04/04/22 Plan of Care End Date 07/05/22 Therapeutic Interventions Therapeutic Interventions Home Exercise Program,Manual Therapy,Patient/Caregiver Education,Self-Care/Home Management,Therapeutic Exercises Modalities Cold Pack/Ice Massage Next Visit Focus/Plan Next Note Type Treatment Note Next Visit Plan CHeck how vitals going and mobility. CHeck response to K taping L knee, and tolerance to HEP. PT POC: reassess after pt sees her md
--- NOTE | 2022-04-30 16:26 | PT.OTN ---
Current Diagnoses Bilateral primary osteoarthritis of knee (04/30/22) Pain in unspecified joint (04/30/22) Synovial cyst of popliteal space [Lewis], left knee (04/30/22) Physical Therapy Treatment Note PT-OP-A Visit Information Start: 02/01/22 09:42 Freq: Status: Active Protocol: Document 04/30/22 15:20 NBM (Rec: 04/30/22 16:07 NBM [id number]) Out-Patient Physical Therapy Visit Information Visit Information Visit Type Treatment Note Visit Note vitals: Supine: 128/67 HR 69 SaO2 100% Sitting (after warmup): 111/65 HR 68 SaO2 100% Standin/66 HR 83 100% nonsymptomatic Visit Start Time 15:20 Visit Stop Time 16:05 Total Visit Minutes 45 Visit Number 14 Number of POWER PLANT OPERATOR APPRENTICE Visits 2 PT-OP-B Current Condition Start: 02/01/22 09:42 Freq: Status: Active Protocol: Document 02/01/22 13:45 [facility] (Rec: 02/01/22 14:13 [facility] [id number]) Current Condition History of Current Condition Onset Date October 2021 Current Complaints left knee pain, decreased ROM and strength, swelling due to cyst History of Current Condition left sided bakers cyst and left knee OA In October of 2021 she started experiencing posterior knee pain, she saw her MD and was diagnosed with a bakers cyst. She is waiting for a referral for the cyst to be drained She has experienced this on the right knee previously and this has resolved. She does use ice and has elevated her knee She notes she is limited in her walking distance and going down stairs She doesn't feel pain at rest but its when she steps on it that it starts to hurt Treatment Goals Patient/Caregiver Goals To reduce pain, improve full knee ROM and strength Prior Functional Status Baseline Function- ADL's Independent Baseline Function- Mobility Independent Current Functional Impairments (Reported) Functional Limitations- Mobility/Gait pt is limited with walking down stairs, squating and walking more than 2 blocks PT-OP-C Subjective Start: 02/01/22 09:42 Freq: Status: Active Protocol: Document 04/30/22 15:20 NBM (Rec: 04/30/22 16:07 NBM [id number]) OP-PT Subjective Patient Comments Patient Comments Pt reports she gets really tired when she gets up and around, and has a follow up with director emergency services a week from Sat. She has a follow up at the end of the month with the ortho for her cysts. She thinks her cyst is back and they did not get all of it. She reports her L knee is swollen and hurt this morning suddently as she was talking w / a friend who stated she did not wrench her knee. PT-OP-F Manual Assessment Start: 02/01/22 09:42 Freq: Status: Active Protocol: Document 02/01/22 13:45 [facility] (Rec: 02/01/22 17:39 [facility] [id number]) Manual Assessments Soft Tissue Assessment Soft Tissue Mobility Assessment bakers cyst felt behind the left knee tightness of the calf and hamstring musculatre with increased oull on the back of the knee with stretch Joint Mobility Assessment Joint Mobility Assessment left knee decreased AROM and PROM due to bakers cyst PT-OP-J Posture/Palpation/Skin Start: 02/01/22 09:42 Freq: Status: Active Protocol: Document 02/01/22 13:45 [facility] (Rec: 02/01/22 17:41 [facility] [id number]) Palpation Assessment Location left posterior knee Palpation Location left posterior knee popliteal space Palpation Findings Edema,Soft Tissue Tightness, Tenderness Palpation Details Bakers cyst PT-OP-K Range of Motion Start: 02/01/22 09:42 Freq: Status: Active Protocol: Document 02/27/22 10:48 [facility] (Rec: 02/27/22 10:49 [facility] [id number]) Knee Goniometric Range of Motion Knee Left Flexion Active (degrees) 129 Extension Active (degrees) 0 PT-OP-M Strength Start: 02/01/22 09:42 Freq: Status: Active Protocol: Document 02/01/22 13:45 [facility] (Rec: 02/01/22 17:44 [facility] [id number]) Knee Strength Knee Manual Muscle Testing Left Flexion (S2) 2+ Poor+ Extension (L3) 2+ Poor+ Comments able to perform a quad set with towel under the knee, unable to perform a SLR PT-OP-Q Treatments Start: 02/01/22 09:42 Freq: Status: Active Protocol: Document 04/30/22 15:20 NBM (Rec: 04/30/22 16:07 NBM [id number]) Cardio Equipment Recumbent Elliptical (Biodex) Duration (Minutes) 10 Resistance 4 Seat Position 1 Therapeutic Exercises Supine Exercises SLR Supine Exercise Name SAQ>SLR Side left Reps/Minutes x 10 reps Comments discomfort sub patella, improved post manual single knee to chest stretch Side bilateral Equipment Used with towel behind thigh Reps/Minutes 2 x 30 seconds each heel slides Reps/Minutes x3 reps pre manual, 8 reps post manual Comments pain mid range, improved post manual Sitting Exercises LAQ Side left Resistance AROM Reps/Minutes 5 reps x2 Comments discomfort in L knee Manual Therapy Treatment Soft Tissue Mobilization calf and hamstring posterior knee release Body Location L Mobilization Type Manual Lymphatic Drainage, Myofascial Release Intensity/Depth Superficial Body Position Supine Taping L knee Body Location L knee Treatment Focus patella stabilization medially , fat pad decompression Type of Tape Kinesio Tape Skin Inspection intact normal color/texture Comments 1. Medial glide biege Ktaping 1 horizontal anchor lateral to split medial directioning 30% tension strip beige 2. Edema taping over lateral L knee superior jt line. *Understands of adverse affects: redness/itching/ tingling remove immediately but otherwise if supportive and beneficial can keep on even in water 2-4 days and gentle removing. PT-OP-R Modalities Start: 02/01/22 09:42 Freq: Status: Active Protocol: Document 04/30/22 15:20 [facility] (Rec: 04/30/22 16:07 [facility] [id number]) Hot Pack/Cold Pack Treatment Ice Massage Location left medial joint line Patient Position Supine Treatment Duration (minutes) 5 Patient Tolerance Good PT-OP-T Assessment and Plan Start: 02/01/22 09:42 Freq: Status: Active Protocol: Document 04/30/22 15:20 NB (Rec: 10/21/22 16:16 [facility] [id number]) Physical Therapy Assessment Goals 4 Impairment Decreased left knee strength Short Term Goal (STG) Vilma is able to perform a SLR without a quad lag good progress STG Duration 5 weeks Workers Compensation Adjuster Goal (LTG) Vilma is able to perform 10 standing squats in good form good progress LTG Duration 12 weeks 3 Impairment pt lacks a HEP for her knee Workers Compensation Adjuster Goal (LTG) Vilma is independent with a HEP addressing knee ROM, flexibility, and strength Some progress LTG Duration 12 weeks 2 Impairment knee pain rated 3/10 worse going down stairs, walking, and squating Skilled Nursing Goal (LTG) Vilma reports a overall reduction in knee pain and no longer has pain with stairs or squatting. Some progress, pain is now medial verses in the posterior knee LTG Duration 12 weeks 1 Impairment Decreased knee ROM with bakers cyst Workers Compensation Adjuster Goal (LTG) Vilma is able to improve her knee ROM to WFL of full extension and 120 degrees knee flexion GOAL MET LTG Duration 12 weeks Assessment Summary Assessment Qing is challenged with activity tolerance in clinic and with completing HEP. Palpable tightness to L calf and Hamstrings improves with manual therapy. Pt continues to demonstrate improved LLE tolerance and knee flexion range of motion with heel slide ex post manual therapy to L lower extremity. She has a follow up [facility] director emergency services scheduled. Physical Therapy Plan Frequency and Duration Frequency of Treatment 2x/Week Duration of treatment (weeks) 12 Plan of Care Start Date 04/04/22 Plan of Care End Date 07/05/22 Therapeutic Interventions Therapeutic Interventions Home Exercise Program,Manual Therapy,Patient/Caregiver Education,Soft Tissue Mobilization,Therapeutic Exercises Modalities Cold Pack/Ice Massage Next Visit Focus/Plan Next Note Type Treatment Note Next Visit Plan CHeck response to K taping, and tolerance to HEP. PT POC: reassess after pt sees her
--- NOTE | 2022-05-03 10:41 | PT.OTN ---
Current Diagnoses Bilateral primary osteoarthritis of knee (05/03/22) Pain in unspecified joint (05/03/22) Synovial cyst of popliteal space [Lewis], left knee (05/03/22) Physical Therapy Treatment Note PT-OP-A Visit Information Start: 02/01/22 09:42 Freq: Status: Active Protocol: Document 05/03/22 09:53 [facility] (Rec: 05/03/22 10:41 [facility] [id number]) Out-Patient Physical Therapy Visit Information Visit Information Visit Type Treatment Note Visit Note sitting after warm up 120/58 Visit Start Time 09:50 Visit Stop Time 10:35 Total Visit Minutes 45 Visit Number 15 Number of MEDICAL SCRIBE Visits 0 PT-OP-B Current Condition Start: 02/01/22 09:42 Freq: Status: Active Protocol: Document 02/01/22 13:45 [facility] (Rec: 02/01/22 14:13 [facility] [id number]) Current Condition History of Current Condition Onset Date October 2021 Current Complaints left knee pain, decreased ROM and strength, swelling due to cyst History of Current Condition left sided bakers cyst and left knee OA In October of 2021 she started experiencing posterior knee pain, she saw her MD and was diagnosed with a bakers cyst. She is waiting for a referral for the cyst to be drained She has experienced this on the right knee previously and this has resolved. She does use ice and has elevated her knee She notes she is limited in her walking distance and going down stairs She doesn't feel pain at rest but its when she steps on it that it starts to hurt Treatment Goals Patient/Caregiver Goals To reduce pain, improve full knee ROM and strength Prior Functional Status Baseline Function- ADL's Independent Baseline Function- Mobility Independent Current Functional Impairments (Reported) Functional Limitations- Mobility/Gait pt is limited with walking down stairs, squating and walking more than 2 blocks PT-OP-C Subjective Start: 02/01/22 09:42 Freq: Status: Active Protocol: Document 05/03/22 09:53 [facility] (Rec: 05/03/22 10:41 [facility] [id number]) OP-PT Subjective Patient Comments Patient Comments pt notes she continues to feel fatigued and has her fusion analyst appt next saturday. She has two stents in the left descending artery . PT-OP-F Manual Assessment Start: 02/01/22 09:42 Freq: Status: Active Protocol: Document 02/01/22 13:45 [facility] (Rec: 02/01/22 17:39 [facility] [id number]) Manual Assessments Soft Tissue Assessment Soft Tissue Mobility Assessment bakers cyst felt behind the left knee tightness of the calf and hamstring musculatre with increased oull on the back of the knee with stretch Joint Mobility Assessment Joint Mobility Assessment left knee decreased AROM and PROM due to bakers cyst PT-OP-J Posture/Palpation/Skin Start: 02/01/22 09:42 Freq: Status: Active Protocol: Document 02/01/22 13:45 [facility] (Rec: 02/01/22 17:41 [facility] [id number]) Palpation Assessment Location left posterior knee Palpation Location left posterior knee popliteal space Palpation Findings Edema,Soft Tissue Tightness, Tenderness Palpation Details Bakers cyst PT-OP-K Range of Motion Start: 02/01/22 09:42 Freq: Status: Active Protocol: Document 02/27/22 10:48 [facility] (Rec: 02/27/22 10:49 [facility] [id number]) Knee Goniometric Range of Motion Knee Left Flexion Active (degrees) 129 Extension Active (degrees) 0 PT-OP-M Strength Start: 02/01/22 09:42 Freq: Status: Active Protocol: Document 02/01/22 13:45 [facility] (Rec: 02/01/22 17:44 [facility] [id number]) Knee Strength Knee Manual Muscle Testing Left Flexion (S2) 2+ Poor+ Extension (L3) 2+ Poor+ Comments able to perform a quad set with towel under the knee, unable to perform a SLR PT-OP-Q Treatments Start: 02/01/22 09:42 Freq: Status: Active Protocol: Document 05/03/22 09:53 [facility] (Rec: 05/03/22 10:41 [facility] [id number]) Cardio Equipment Recumbent Elliptical (Biodex) Duration (Minutes) 10 Resistance 4 Seat Position 1 Therapeutic Exercises Supine Exercises supine ball rolls Reps/Minutes x 20 SLR Supine Exercise Name SAQ>SLR Side left Reps/Minutes x 10 reps Comments discomfort sub patella, improved post manual piriformis stretch Supine Exercise Name ER Side bilateral Equipment Used instructed/performed use towel support leg hold on opp LE Reps/Minutes 2 x 30 seconds each Comments worked on this stretch on the shuttle balance single knee to chest stretch Side bilateral Equipment Used with towel behind thigh Reps/Minutes 2 x 30 seconds each hamstring stretch Comments seated hamstring stretch heel slides Reps/Minutes x3 reps pre manual, 8 reps post manual Comments pain mid range, improved post manual quad squeeze Side left Equipment Used small rolled towel behind knee Reps/Minutes 3s hold x 10 reps Comments cued slow gentle knee press into towel long sitting calf stretch Reps/Minutes 1 min hold Comments cued neutral DF ankle slow trunk sit up/ hip hinge trunk flexion Prone Exercises prone knee flexion Reps/Minutes x 10 reps Sitting Exercises LAQ Side left Resistance AROM Reps/Minutes 5 reps x2 Comments discomfort in L knee Standing Exercises standing ANTONIO stretch Standing Exercise Name reviewed- better responded more tolerant stretch Side bilateral Equipment Used ANTONIO Reps/Minutes x45 s stretch ea Comments pt reported intense stretch - added gentle STM to Rafiq calves PT-OP-R Modalities Start: 02/01/22 09:42 Freq: Status: Active Protocol: Document 04/30/22 15:20 NBM (Rec: 04/30/22 16:07 NBM [id number]) Hot Pack/Cold Pack Treatment Ice Massage Location left medial joint line Patient Position Supine Treatment Duration (minutes) 5 Patient Tolerance Good PT-OP-T Assessment and Plan Start: 02/01/22 09:42 Freq: Status: Active Protocol: Document 05/03/22 09:53 [facility] (Rec: 05/03/22 10:41 [facility] [id number]) Physical Therapy Assessment Assessment Summary Assessment Zandra is struggling with fatigue and is still awaiting her fusion analyst appt. She also notes she had covid a few weeks ago so I am wondering if some of her fatigue could be residual from covid. She has not been doing her exercises at home due to fatigue. She was very tight in both her calf and hamstrings today Physical Therapy Plan Frequency and Duration Frequency of Treatment 2x/Week Duration of treatment (weeks) 12 Plan of Care Start Date 04/04/22 Plan of Care End Date 07/05/22 Therapeutic Interventions Therapeutic Interventions Home Exercise Program,Manual Therapy,Patient/Caregiver Education,Self-Care/Home Management,Therapeutic Exercises Modalities Cold Pack/Ice Massage Next Visit Focus/Plan Next Note Type Treatment Note Next Visit Plan continue working on flexibility of the calf and hamstring and stability of the knee
--- NOTE | 2022-05-08 21:15 | PT.OTN ---
Current Diagnoses Bilateral primary osteoarthritis of knee (05/08/22) Pain in unspecified joint (05/08/22) Synovial cyst of popliteal space [Lewis], left knee (05/08/22) Physical Therapy Treatment Note PT-OP-A Visit Information Start: 02/01/22 09:42 Freq: Status: Active Protocol: Document 05/08/22 09:08 NBM (Rec: 05/08/22 09:52 NBM [id number]) Out-Patient Physical Therapy Visit Information Visit Information Visit Type Treatment Note Visit Note vitals: Sitting (before warmup): 113/69, HR 88 bpm; SaO2 98% (after warmup): 111/65 HR 68 SaO2 100% *Standin/60 HR 97 bpm 98% after 2 min standin/65 89bpm, 98% [ End ] Visit Start Time 09:00 Visit Stop Time 09:50 Total Visit Minutes 50 Visit Number 16 Number of COOK SYRUP MAKER Visits 1 PT-OP-B Current Condition Start: 02/01/22 09:42 Freq: Status: Active Protocol: Document 02/01/22 13:45 [facility] (Rec: 02/01/22 14:13 [facility] [id number]) Current Condition History of Current Condition Onset Date October 2021 Current Complaints left knee pain, decreased ROM and strength, swelling due to cyst History of Current Condition left sided bakers cyst and left knee OA In October of 2021 she started experiencing posterior knee pain, she saw her MD and was diagnosed with a bakers cyst. She is waiting for a referral for the cyst to be drained She has experienced this on the right knee previously and this has resolved. She does use ice and has elevated her knee She notes she is limited in her walking distance and going down stairs She doesn't feel pain at rest but its when she steps on it that it starts to hurt Treatment Goals Patient/Caregiver Goals To reduce pain, improve full knee ROM and strength Prior Functional Status Baseline Function- ADL's Independent Baseline Function- Mobility Independent Current Functional Impairments (Reported) Functional Limitations- Mobility/Gait pt is limited with walking down stairs, squating and walking more than 2 blocks PT-OP-C Subjective Start: 02/01/22 09:42 Freq: Status: Active Protocol: Document 05/08/22 09:08 NBM (Rec: 05/08/22 09:52 NBM [id number]) OP-PT Subjective Patient Comments Patient Comments Pt states she is still fatigued and sees bottom scrubber tomorrow. When standing and doing exercises at home her R knee hurts. She's trying to figure out which leg to use to go downstairs. PT-OP-F Manual Assessment Start: 02/01/22 09:42 Freq: Status: Active Protocol: Document 02/01/22 13:45 [facility] (Rec: 02/01/22 17:39 [facility] [id number]) Manual Assessments Soft Tissue Assessment Soft Tissue Mobility Assessment bakers cyst felt behind the left knee tightness of the calf and hamstring musculatre with increased oull on the back of the knee with stretch Joint Mobility Assessment Joint Mobility Assessment left knee decreased AROM and PROM due to bakers cyst PT-OP-J Posture/Palpation/Skin Start: 02/01/22 09:42 Freq: Status: Active Protocol: Document 02/01/22 13:45 [facility] (Rec: 02/01/22 17:41 [facility] [id number]) Palpation Assessment Location left posterior knee Palpation Location left posterior knee popliteal space Palpation Findings Edema,Soft Tissue Tightness, Tenderness Palpation Details Bakers cyst PT-OP-K Range of Motion Start: 02/01/22 09:42 Freq: Status: Active Protocol: Document 02/27/22 10:48 [facility] (Rec: 02/27/22 10:49 [facility] [id number]) Knee Goniometric Range of Motion Knee Left Flexion Active (degrees) 129 Extension Active (degrees) 0 PT-OP-M Strength Start: 02/01/22 09:42 Freq: Status: Active Protocol: Document 02/01/22 13:45 [facility] (Rec: 02/01/22 17:44 [facility] [id number]) Knee Strength Knee Manual Muscle Testing Left Flexion (S2) 2+ Poor+ Extension (L3) 2+ Poor+ Comments able to perform a quad set with towel under the knee, unable to perform a SLR PT-OP-Q Treatments Start: 02/01/22 09:42 Freq: Status: Active Protocol: Document 05/08/22 09:08 NBM (Rec: 05/08/22 09:52 NBM [id number]) Cardio Equipment Recumbent Elliptical (NaviExpert) Duration (Minutes) 10 Resistance 1>4>3 Seat Position 1 Other pt more fatigued w/ resistance 4 today. Therapeutic Exercises Supine Exercises Bridging Equipment Used 55cm ball Reps/Minutes x10 Comments vc for controlled eccentric supine ball rolls Reps/Minutes x 30 SLR Supine Exercise Name SAQ>SLR Side left Reps/Minutes x 10 reps Comments discomfort sub patella, improved post manual piriformis stretch Supine Exercise Name ER Side bilateral Equipment Used instructed/performed use towel support leg hold on opp LE Reps/Minutes 2 x 30 seconds each Comments worked on this stretch on the shuttle balance single knee to chest stretch Side bilateral Equipment Used with towel behind thigh Reps/Minutes 2 x 30 seconds each hamstring stretch Comments seated hamstring stretch quad squeeze Side left Equipment Used small rolled towel behind knee Reps/Minutes 3s hold x 10 reps Comments cued slow gentle knee press into towel long sitting calf stretch Reps/Minutes 1 min hold Comments cued neutral DF ankle slow trunk sit up/ hip hinge trunk flexion Manual Therapy Treatment Soft Tissue Mobilization Quad MFR L Mobilization Type Other Intensity/Depth Superficial Body Position Hooklying Comments Edema massage patella tendon TFM Mobilization Type Cross-Friction,Myofascial Release Joint Mobilizations patella mobilizations Joint L Direction med/lat/ sup/inf, Medial AP tilting Body Position Supine Reps/Duration 1 min PT-OP-R Modalities Start: 02/01/22 09:42 Freq: Status: Active Protocol: Document 05/08/22 09:08 [facility] [place] (Rec: 05/08/22 20:57 [facility] [place] [id number]) Hot Pack/Cold Pack Treatment Ice Massage Location left medial joint line Patient Position Hooklying Treatment Duration (minutes) 5 Patient Tolerance Good PT-OP-T Assessment and Plan Start: 02/01/22 09:42 Freq: Status: Active Protocol: Document 05/08/22 09:08 [facility] [place] (Rec: 05/08/22 09:52 [facility] [place] [id number]) Physical Therapy Assessment Goals 4 Impairment Decreased left knee strength Short Term Goal (STG) Vilma is able to perform a SLR without a quad lag good progress STG Duration 5 weeks Employment Adjudicator Goal (LTG) Vilma is able to perform 10 standing squats in good form good progress LTG Duration 12 weeks 3 Impairment pt lacks a HEP for her knee Employment Adjudicator Goal (LTG) Vilma is independent with a HEP addressing knee ROM, flexibility, and strength Some progress LTG Duration 12 weeks 2 Impairment knee pain rated 3/10 worse going down stairs, walking, and squating Employment Adjudicator Goal (LTG) Vilma reports a overall reduction in knee pain and no longer has pain with stairs or squatting. Some progress, pain is now medial verses in the posterior knee LTG Duration 12 weeks 1 Impairment Decreased knee ROM with bakers cyst Employment Adjudicator Goal (LTG) Vilma is able to improve her knee ROM to WFL of full extension and 120 degrees knee flexion GOAL MET LTG Duration 12 weeks Assessment Summary Assessment Pt presents today with increased L knee and ankle swelling and complaining of fatigue w/ minimal activity. Pt tolerated treatment in supine; vitals taken are consistent w/ orthostatic hypotension and given to pt for cardiology appt tomorrow: Sitting (before warmup): 113/ 69, HR 88 bpm; SaO2 98% (after warmup): 111/65 HR 68 SaO2 100% *Standin/60 HR 97 bpm 98% , after 2 min standin/65 89bpm, 98%. Physical Therapy Plan Next Visit Focus/Plan Next Note Type Treatment Note Next Visit Plan bottom scrubber? continue working on flexibility of the calf and hamstring and stability of the knee
--- NOTE | 2022-05-10 13:48 | PT.OTN ---
Current Diagnoses Bilateral primary osteoarthritis of knee (05/10/22) Pain in unspecified joint (05/10/22) Synovial cyst of popliteal space [Lewis], left knee (05/10/22) Physical Therapy Treatment Note PT-OP-A Visit Information Start: 02/01/22 09:42 Freq: Status: Active Protocol: Document 05/10/22 09:00 [facility] (Rec: 05/10/22 09:36 [facility] [id number]) Out-Patient Physical Therapy Visit Information Visit Information Visit Type Treatment Note Visit Start Time 09:00 Visit Stop Time 09:45 Total Visit Minutes 45 Visit Number 17 PT-OP-B Current Condition Start: 02/01/22 09:42 Freq: Status: Active Protocol: Document 02/01/22 13:45 [facility] (Rec: 02/01/22 14:13 [facility] [id number]) Current Condition History of Current Condition Onset Date October 2021 Current Complaints left knee pain, decreased ROM and strength, swelling due to cyst History of Current Condition left sided bakers cyst and left knee OA In October of 2021 she started experiencing posterior knee pain, she saw her MD and was diagnosed with a bakers cyst. She is waiting for a referral for the cyst to be drained She has experienced this on the right knee previously and this has resolved. She does use ice and has elevated her knee She notes she is limited in her walking distance and going down stairs She doesn't feel pain at rest but its when she steps on it that it starts to hurt Treatment Goals Patient/Caregiver Goals To reduce pain, improve full knee ROM and strength Prior Functional Status Baseline Function- ADL's Independent Baseline Function- Mobility Independent Current Functional Impairments (Reported) Functional Limitations- Mobility/Gait pt is limited with walking down stairs, squating and walking more than 2 blocks PT-OP-C Subjective Start: 02/01/22 09:42 Freq: Status: Active Protocol: Document 05/10/22 09:00 [facility] (Rec: 05/10/22 09:36 [facility] [id number]) OP-PT Subjective Patient Comments Patient Comments pt reports she saw the dental surgery doctor yesterday and a treadmill test was ordered. She is still feeling the fatigue. Yesterday when a dog training class she felt her knee buckle. She has a appointment for her knee on May [address] Harris PT-OP-F Manual Assessment Start: 02/01/22 09:42 Freq: Status: Active Protocol: Document 02/01/22 13:45 [facility] (Rec: 02/01/22 17:39 [facility] [id number]) Manual Assessments Soft Tissue Assessment Soft Tissue Mobility Assessment bakers cyst felt behind the left knee tightness of the calf and hamstring musculatre with increased oull on the back of the knee with stretch Joint Mobility Assessment Joint Mobility Assessment left knee decreased AROM and PROM due to bakers cyst PT-OP-J Posture/Palpation/Skin Start: 02/01/22 09:42 Freq: Status: Active Protocol: Document 02/01/22 13:45 [facility] (Rec: 02/01/22 17:41 [facility] [id number]) Palpation Assessment Location left posterior knee Palpation Location left posterior knee popliteal space Palpation Findings Edema,Soft Tissue Tightness, Tenderness Palpation Details Bakers cyst PT-OP-K Range of Motion Start: 02/01/22 09:42 Freq: Status: Active Protocol: Document 02/27/22 10:48 [facility] (Rec: 02/27/22 10:49 [facility] [id number]) Knee Goniometric Range of Motion Knee Left Flexion Active (degrees) 129 Extension Active (degrees) 0 PT-OP-M Strength Start: 02/01/22 09:42 Freq: Status: Active Protocol: Document 02/01/22 13:45 [facility] (Rec: 02/01/22 17:44 [facility] [id number]) Knee Strength Knee Manual Muscle Testing Left Flexion (S2) 2+ Poor+ Extension (L3) 2+ Poor+ Comments able to perform a quad set with towel under the knee, unable to perform a SLR PT-OP-Q Treatments Start: 02/01/22 09:42 Freq: Status: Active Protocol: Document 05/10/22 09:03 [facility] (Rec: 05/10/22 09:36 [facility] [id number]) Cardio Equipment Recumbent Bicycle Duration (Minutes) 5 Resistance 2 [address] Position all the way forward Gym Equipment Shuttle Rebound 3 Exercise Details single leg squats Reps/Duration 2 x 10 reps 25# 2 Exercise Details piriformis stretch on the shuttle Comments hold 1-2 min each side 1 Exercise Details shuttle leg press Reps/Duration 50 # 3 x 10 reps Therapeutic Exercises Supine Exercises Bridging Reps/Minutes 2 x 10 Comments no ball on mat table, pt c/o tightness in quads with bridges supine ball rolls Reps/Minutes x 30 single knee to chest stretch Side bilateral Equipment Used with towel behind thigh Reps/Minutes 2 x 30 seconds each hamstring stretch Reps/Minutes hold 1-2 min Comments in supine today quad squeeze Side left Equipment Used small rolled towel behind knee Reps/Minutes 3s hold x 10 reps Comments cued slow gentle knee press into towel Standing Exercises standing ANTONIO stretch Standing Exercise Name reviewed- better responded more tolerant stretch Side bilateral Equipment Used ANTONIO Reps/Minutes x45 s stretch ea Comments pt reported intense stretch - added gentle STM to Rafiq calves Manual Therapy Treatment Soft Tissue Mobilization calf and hamstring posterior knee release Body Location L Mobilization Type Manual Lymphatic Drainage, Myofascial Release Intensity/Depth Superficial Body Position Supine TFM left medial joint line Body Location left knee medial joint line Mobilization Type Other Comments TFM medial joint line followed by ice pack to the left knee Quad MFR L Mobilization Type Other Intensity/Depth Superficial Body Position Hooklying Comments Edema massage PT-OP-R Modalities Start: 02/01/22 09:42 Freq: Status: Active Protocol: Document 05/10/22 09:00 [facility] (Rec: 05/10/22 13:47 [facility] [id number]) Hot Pack/Cold Pack Treatment icepack left knee Patient Position Hooklying Treatment Duration (minutes) 10 Patient Tolerance Good PT-OP-T Assessment and Plan Start: 02/01/22 09:42 Freq: Status: Active Protocol: Document 05/10/22 09:00 [facility] (Rec: 05/10/22 09:36 [facility] [id number]) Physical Therapy Assessment Assessment Summary Assessment Zandra has not had the energy to do many of her exercises at home, she tolerates exercises in the clinic and really feels the ice following helps her. She has a appointment with Dr. Harris 05/23/22 to look at further options for her knee. She was limping today with gait and I discussed a assistive device to take pressure off her knee and wearing a knee sleeve when doing dog training to help give some support to her knee. She is interested in looking into a knee sleeve. We will continue with her ROM and stabilization exercises and encourage home ex program Physical Therapy Plan Frequency and Duration Frequency of Treatment 2x/Week Duration of treatment (weeks) 12 Plan of Care Start Date 04/04/22 Plan of Care End Date 07/05/22 Therapeutic Interventions Therapeutic Interventions Gait Training,Home Exercise Program,Manual Therapy,Patient /Caregiver Education,Soft Tissue Mobilization, Therapeutic Exercises Modalities Cold Pack/Ice Massage
--- NOTE | 2022-05-15 21:09 | PT.OTN ---
Current Diagnoses Bilateral primary osteoarthritis of knee (05/15/22) Pain in unspecified joint (05/15/22) Synovial cyst of popliteal space [Lewis], left knee (05/15/22) Physical Therapy Treatment Note PT-OP-A Visit Information Start: 02/01/22 09:42 Freq: Status: Active Protocol: Document 05/15/22 09:07 NBM (Rec: 05/15/22 11:23 NBM [id number]) Out-Patient Physical Therapy Visit Information Visit Information Visit Type Treatment Note Visit Start Time 09:08 Visit Stop Time 09:43 Total Visit Minutes 35 Visit Number 18 Number of ENGINEERING OPERATOR Visits 1 PT-OP-B Current Condition Start: 02/01/22 09:42 Freq: Status: Active Protocol: Document 02/01/22 13:45 [facility] (Rec: 02/01/22 14:13 [facility] [id number]) Current Condition History of Current Condition Onset Date October 2021 Current Complaints left knee pain, decreased ROM and strength, swelling due to cyst History of Current Condition left sided bakers cyst and left knee OA In October of 2021 she started experiencing posterior knee pain, she saw her MD and was diagnosed with a bakers cyst. She is waiting for a referral for the cyst to be drained She has experienced this on the right knee previously and this has resolved. She does use ice and has elevated her knee She notes she is limited in her walking distance and going down stairs She doesn't feel pain at rest but its when she steps on it that it starts to hurt Treatment Goals Patient/Caregiver Goals To reduce pain, improve full knee ROM and strength Prior Functional Status Baseline Function- ADL's Independent Baseline Function- Mobility Independent Current Functional Impairments (Reported) Functional Limitations- Mobility/Gait pt is limited with walking down stairs, squating and walking more than 2 blocks PT-OP-C Subjective Start: 02/01/22 09:42 Freq: Status: Active Protocol: Document 05/15/22 09:07 NBM (Rec: 05/15/22 11:23 NBM [id number]) OP-PT Subjective Patient Comments Patient Comments Pt states she has a stress test 06/14 and an appt 05/[address] Harris about her knee. She is still very tired. She has a lot of discomfort in her L knee. She had to walk a long way because there was no parking. She used a stick-on patch for her back yesterday and it seemed to help. She will go to get a knee sleeve today. PT-OP-F Manual Assessment Start: 02/01/22 09:42 Freq: Status: Active Protocol: Document 02/01/22 13:45 [facility] (Rec: 02/01/22 17:39 [facility] [id number]) Manual Assessments Soft Tissue Assessment Soft Tissue Mobility Assessment bakers cyst felt behind the left knee tightness of the calf and hamstring musculatre with increased oull on the back of the knee with stretch Joint Mobility Assessment Joint Mobility Assessment left knee decreased AROM and PROM due to bakers cyst PT-OP-J Posture/Palpation/Skin Start: 02/01/22 09:42 Freq: Status: Active Protocol: Document 02/01/22 13:45 [facility] (Rec: 02/01/22 17:41 [facility] [id number]) Palpation Assessment Location left posterior knee Palpation Location left posterior knee popliteal space Palpation Findings Edema,Soft Tissue Tightness, Tenderness Palpation Details Bakers cyst PT-OP-K Range of Motion Start: 02/01/22 09:42 Freq: Status: Active Protocol: Document 02/27/22 10:48 [facility] (Rec: 02/27/22 10:49 [facility] [id number]) Knee Goniometric Range of Motion Knee Left Flexion Active (degrees) 129 Extension Active (degrees) 0 PT-OP-M Strength Start: 02/01/22 09:42 Freq: Status: Active Protocol: Document 02/01/22 13:45 [facility] (Rec: 02/01/22 17:44 [facility] [id number]) Knee Strength Knee Manual Muscle Testing Left Flexion (S2) 2+ Poor+ Extension (L3) 2+ Poor+ Comments able to perform a quad set with towel under the knee, unable to perform a SLR PT-OP-Q Treatments Start: 02/01/22 09:42 Freq: Status: Active Protocol: Document 05/15/22 09:07 NBM (Rec: 05/15/22 11:23 NBM [id number]) Cardio Equipment Recumbent Bicycle Duration (Minutes) 5 Resistance 2 Seat Position all the way forward Gym Equipment Shuttle Rebound 3 Exercise Details single leg squats Reps/Duration 2 x 10 reps 25# 2 Exercise Details piriformis stretch on the shuttle Comments hold 1-2 min each side 1 Exercise Details shuttle leg press Reps/Duration 50 # 3 x 10 reps Therapeutic Exercises Supine Exercises Bridging Reps/Minutes 1 x 10 Comments no ball on mat table, pt c/o tightness in quads with bridges supine ball rolls Reps/Minutes x15 single knee to chest stretch Side bilateral Equipment Used with towel behind thigh Reps/Minutes 2 x 30 seconds each hamstring stretch Reps/Minutes hold 1-2 min Comments in supine today quad squeeze Side left Equipment Used small rolled towel behind knee Reps/Minutes 3s hold x 10 reps Comments cued slow gentle knee press into towel PT-OP-R Modalities Start: 02/01/22 09:42 Freq: Status: Active Protocol: Document 05/15/22 09:07 [facility] (Rec: 05/15/22 21:09 [facility] [id number]) Hot Pack/Cold Pack Treatment icepack left knee Patient Position Hooklying Treatment Duration (minutes) 10 Patient Tolerance Good PT-OP-T Assessment and Plan Start: 02/01/22 09:42 Freq: Status: Active Protocol: Document 05/15/22 09:07 [facility] (Rec: 05/15/22 11:23 [facility] [id number]) Physical Therapy Assessment Goals 4 Impairment Decreased left knee strength Short Term Goal (STG) Vilma is able to perform a SLR without a quad lag good progress STG Duration 5 weeks Prison Goal (LTG) Vilma is able to perform 10 standing squats in good form good progress LTG Duration 12 weeks 3 Impairment pt lacks a HEP for her knee Prison Goal (LTG) Vilma is independent with a HEP addressing knee ROM, flexibility, and strength Some progress LTG Duration 12 weeks 2 Impairment knee pain rated 3/10 worse going down stairs, walking, and squating Prison Goal (LTG) Vilma reports a overall reduction in knee pain and no longer has pain with stairs or squatting. Some progress, pain is now medial verses in the posterior knee LTG Duration 12 weeks 1 Impairment Decreased knee ROM with bakers cyst Pediatric Dermatologist Goal (LTG) Vilma is able to improve her knee ROM to WFL of full extension and 120 degrees knee flexion GOAL MET LTG Duration 12 weeks Assessment Summary Assessment Norma tolerates today's treatment session which is mainly in supine due to ongoing fatigue, and continues to complain of L knee pain and discomfort. She has decreased tightness with stretching but continues to report knee buckling indicating ongoing knee instability. She has an appointment with Dr. Bustos for her knee 05/23 and a stress test ordered by clubhouse attendant on 06/14. Physical Therapy Plan Frequency and Duration Frequency of Treatment 2x/Week Duration of treatment (weeks) 12 Plan of Care Start Date 04/04/22 Plan of Care End Date 07/05/22 Therapeutic Interventions Therapeutic Interventions Gait Training,Home Exercise Program,Manual Therapy,Patient /Caregiver Education,Soft Tissue Mobilization, Therapeutic Exercises Modalities Cold Pack/Ice Massage Next Visit Focus/Plan Next Note Type Treatment Note Next Visit Plan continue working on flexibility of the calf and hamstring and stability of the knee
--- NOTE | 2022-05-22 12:34 | PT.OTN ---
Current Diagnoses Bilateral primary osteoarthritis of knee (05/22/22) Pain in unspecified joint (05/22/22) Synovial cyst of popliteal space [Lewis], left knee (05/22/22) Physical Therapy Treatment Note PT-OP-A Visit Information Start: 02/01/22 09:42 Freq: Status: Active Protocol: Document 05/22/22 09:04 NBM (Rec: 05/22/22 09:49 NBM [id number]) Out-Patient Physical Therapy Visit Information Visit Information Visit Type Treatment Note Visit Note One more visit scheduled 05/24. 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 She is waiting for a referral for the cyst to be drained She has experienced this on the right knee previously and this has resolved. She does use ice and has elevated her knee She notes she is limited in her walking distance and going down stairs She doesn't feel pain at rest but its when she steps on it that it starts to hurt Treatment Goals Patient/Caregiver Goals To reduce pain, improve full knee ROM and strength Prior Functional Status Baseline Function- ADL's Independent Baseline Function- Mobility Independent Current Functional Impairments (Reported) Functional Limitations- Mobility/Gait pt is limited with walking down stairs, squating and walking more than 2 blocks PT-OP-C Subjective Start: 02/01/22 09:42 Freq: Status: Active Protocol: Document 05/22/22 09:04 NBM (Rec: 05/22/22 09:49 NBM [id number]) OP-PT Subjective Patient Comments Patient Comments Pt reports her appt tomorrrow with Dr. Harris was rescheduled to Dec. Pt feels R knee is compensating for L knee and then her back hurts too- pain patch on back helps. She bought compression sleeve for knee but it wasn't the right size so will try another place today. She states her L knee is not as swollen but she says it will be as she goes throughout the day. Pt feels PT helps for that day, but she is afraid to move. PT-OP-F Manual Assessment Start: 02/01/22 09:42 Freq: Status: Active Protocol: Document 02/01/22 13:45 [facility] (Rec: 02/01/22 17:39 [facility] [id number]) Manual Assessments Soft Tissue Assessment Soft Tissue Mobility Assessment bakers cyst felt behind the left knee tightness of the calf and hamstring musculatre with increased oull on the back of the knee with stretch Joint Mobility Assessment Joint Mobility Assessment left knee decreased AROM and PROM due to bakers cyst PT-OP-J Posture/Palpation/Skin Start: 02/01/22 09:42 Freq: Status: Active Protocol: Document 02/01/22 13:45 [facility] (Rec: 02/01/22 17:41 [facility] [id number]) Palpation Assessment Location left posterior knee Palpation Location left posterior knee popliteal space Palpation Findings Edema,Soft Tissue Tightness, Tenderness Palpation Details Bakers cyst PT-OP-K Range of Motion Start: 02/01/22 09:42 Freq: Status: Active Protocol: Document 02/27/22 10:48 [facility] (Rec: 02/27/22 10:49 [facility] [id number]) Knee Goniometric Range of Motion Knee Left Flexion Active (degrees) 129 Extension Active (degrees) 0 PT-OP-M Strength Start: 02/01/22 09:42 Freq: Status: Active Protocol: Document 02/01/22 13:45 [facility] (Rec: 02/01/22 17:44 [facility] [id number]) Knee Strength Knee Manual Muscle Testing Left Flexion (S2) 2+ Poor+ Extension (L3) 2+ Poor+ Comments able to perform a quad set with towel under the knee, unable to perform a SLR PT-OP-Q Treatments Start: 02/01/22 09:42 Freq: Status: Active Protocol: Document 05/22/22 09:04 NBM (Rec: 05/22/22 09:49 NBM [id number]) Cardio Equipment Recumbent Elliptical (Semblee_) Duration (Minutes) 12 Resistance 1>3 Seat Position 4>6 Other seat adjusted d/t knee pain Therapeutic Exercises Supine Exercises Bridging Equipment Used 55 cm physioball Reps/Minutes 1 x 10 Comments ball on mat table supine ball rolls Reps/Minutes x20 piriformis stretch Supine Exercise Name ER Side bilateral Equipment Used instructed/performed use towel support leg hold on opp LE Reps/Minutes x 30 seconds each single knee to chest stretch Side bilateral Equipment Used with towel behind thigh Reps/Minutes x 30 seconds each Standing Exercises TKE Side bilateral Resistance Lvl1 Tb Reps/Minutes x10 AROM, x5 5SH Comments quad twitching on L standing ANTONIO stretch Side bilateral Equipment Used ANTONIO Reps/Minutes x45 s stretch PT-OP-R Modalities Start: 02/01/22 09:42 Freq: Status: Active Protocol: Document 05/15/22 09:07 [facility] (Rec: 05/15/22 21:09 [facility] [id number]) Hot Pack/Cold Pack Treatment icepack left knee Patient Position Hooklying Treatment Duration (minutes) 10 Patient Tolerance Good PT-OP-T Assessment and Plan Start: 02/01/22 09:42 Freq: Status: Active Protocol: Document 05/22/22 09:04 NB (Rec: 05/22/22 09:49 [facility] [id number]) Physical Therapy Assessment Goals 4 Impairment Decreased left knee strength Short Term Goal (STG) Vilma is able to perform a SLR without a quad lag good progress STG Duration 5 weeks Skilled Nursing Goal (LTG) Vilma is able to perform 10 standing squats in good form good progress LTG Duration 12 weeks 3 Impairment pt lacks a HEP for her knee Hadoop Architect Goal (LTG) Vilma is independent with a HEP addressing knee ROM, flexibility, and strength Some progress LTG Duration 12 weeks 2 Impairment knee pain rated 3/10 worse going down stairs, walking, and squating Skilled Nursing Goal (LTG) Vilma reports a overall reduction in knee pain and no longer has pain with stairs or squatting. Some progress, pain is now medial verses in the posterior knee LTG Duration 12 weeks 1 Impairment Decreased knee ROM with bakers cyst Skilled Nursing Goal (LTG) Vilma is able to improve her knee ROM to WFL of full extension and 120 degrees knee flexion GOAL MET LTG Duration 12 weeks Assessment Summary Assessment Pt tolerates today's treatment with good feedback response to stretching; L quad twitching w/ terminal knee extension. Discussed with pt continuing her ex's and stretches at home as tolerated as pt indicates she feels better on days she has PT but is fatigued, possibly due to cardiac issues. Pt will obtain compression sleeve for L knee for improved stability and management of swelling. Pt has one visit scheduled w/ PT 05/24 and will discuss waiting for imaging or continuing PT. Physical Therapy Plan Frequency and Duration Frequency of Treatment 2x/Week Duration of treatment (weeks) 12 Plan of Care Start Date 04/04/22 Plan of Care End Date 07/05/22 Therapeutic Interventions Therapeutic Interventions Gait Training,Home Exercise Program,Manual Therapy,Patient /Caregiver Education,Soft Tissue Mobilization, Therapeutic Exercises Modalities Cold Pack/Ice Massage Next Visit Focus/Plan Next Note Type Treatment Note Next Visit Plan Last visit scheduled - discuss continuing PT while pursuing imaging. POC: continue working on flexibility of the calf and hamstring and stability of the knee
--- NOTE | 2022-05-24 15:02 | PT.OTN ---
Current Diagnoses Bilateral primary osteoarthritis of knee (05/24/22) Pain in unspecified joint (05/24/22) Synovial cyst of popliteal space [Lewis], left knee (05/24/22) Physical Therapy Treatment Note PT-OP-A Visit Information Start: 02/01/22 09:42 Freq: Status: Active Protocol: Document 05/24/22 09:48 [facility] (Rec: 05/24/22 10:29 [facility] [id number]) Out-Patient Physical Therapy Visit Information Visit Information Visit Type Treatment Note Visit Start Time 09:48 Visit Stop Time 10:35 Total Visit Minutes 47 Visit Number 20 Number of STORE PLANNER Visits 0 PT-OP-B Current Condition Start: 02/01/22 09:42 Freq: Status: Active Protocol: Document 02/01/22 13:45 [facility] (Rec: 02/01/22 14:13 [facility] [id number]) Current Condition History of Current Condition Onset Date October 2021 Current Complaints left knee pain, decreased ROM and strength, swelling due to cyst History of Current Condition left sided bakers cyst and left knee OA In October of 2021 she started experiencing posterior knee pain, she saw her MD and was diagnosed with a bakers cyst. She is waiting for a referral for the cyst to be drained She has experienced this on the right knee previously and this has resolved. She does use ice and has elevated her knee She notes she is limited in her walking distance and going down stairs She doesn't feel pain at rest but its when she steps on it that it starts to hurt Treatment Goals Patient/Caregiver Goals To reduce pain, improve full knee ROM and strength Prior Functional Status Baseline Function- ADL's Independent Baseline Function- Mobility Independent Current Functional Impairments (Reported) Functional Limitations- Mobility/Gait pt is limited with walking down stairs, squating and walking more than 2 blocks PT-OP-C Subjective Start: 02/01/22 09:42 Freq: Status: Active Protocol: Document 05/24/22 09:48 [facility] (Rec: 05/24/22 10:29 [facility] [id number]) OP-PT Subjective Patient Comments Patient Comments pt is frustrated that her ortho appointment was rescheduled for June 04. She feels her left knee is more swollen today and remains sore Patient Reported Progress Worse PT-OP-F Manual Assessment Start: 02/01/22 09:42 Freq: Status: Active Protocol: Document 02/01/22 13:45 [facility] (Rec: 02/01/22 17:39 [facility] [id number]) Manual Assessments Soft Tissue Assessment Soft Tissue Mobility Assessment bakers cyst felt behind the left knee tightness of the calf and hamstring musculatre with increased oull on the back of the knee with stretch Joint Mobility Assessment Joint Mobility Assessment left knee decreased AROM and PROM due to bakers cyst PT-OP-J Posture/Palpation/Skin Start: 02/01/22 09:42 Freq: Status: Active Protocol: Document 02/01/22 13:45 [facility] (Rec: 02/01/22 17:41 [facility] [id number]) Palpation Assessment Location left posterior knee Palpation Location left posterior knee popliteal space Palpation Findings Edema,Soft Tissue Tightness, Tenderness Palpation Details Bakers cyst PT-OP-K Range of Motion Start: 02/01/22 09:42 Freq: Status: Active Protocol: Document 02/27/22 10:48 [facility] (Rec: 02/27/22 10:49 [facility] [id number]) Knee Goniometric Range of Motion Knee Left Flexion Active (degrees) 129 Extension Active (degrees) 0 PT-OP-M Strength Start: 02/01/22 09:42 Freq: Status: Active Protocol: Document 02/01/22 13:45 [facility] (Rec: 02/01/22 17:44 [facility] [id number]) Knee Strength Knee Manual Muscle Testing Left Flexion (S2) 2+ Poor+ Extension (L3) 2+ Poor+ Comments able to perform a quad set with towel under the knee, unable to perform a SLR PT-OP-Q Treatments Start: 02/01/22 09:42 Freq: Status: Active Protocol: Document 05/24/22 09:48 [facility] (Rec: 05/24/22 10:29 [facility] [id number]) Cardio Equipment Recumbent Elliptical (Biodex) Duration (Minutes) 8 Resistance 3 Seat Position 4 Other pt reports biodex feels good today Gym Equipment Shuttle Rebound 2 Exercise Details piriformis stretch on the shuttle Comments hold 1-2 min each side 1 Exercise Details shuttle leg press Reps/Duration 50 # 3 x 10 reps Therapeutic Exercises Supine Exercises Bridging Equipment Used 55 cm physioball Reps/Minutes 1 x 10 Comments ball on mat table supine ball rolls Reps/Minutes x20 single knee to chest stretch Side bilateral Equipment Used with towel behind thigh Reps/Minutes x 30 seconds each hamstring stretch Reps/Minutes hold 1-2 min Comments in supine today heel slides Reps/Minutes x3 reps pre manual, 8 reps post manual Comments pain mid range, improved post manual quad squeeze Side left Equipment Used small rolled towel behind knee Reps/Minutes 3s hold x 10 reps Comments cued slow gentle knee press into towel Standing Exercises standing ANTONIO stretch Side bilateral Equipment Used ANTONIO Reps/Minutes x45 s stretch Gait Training Gait Activity 1 Description gait training with both SPC and walking stick Comments I recommended that Zandra use an assistive device at this time as she is limping. She did really like both and will look at [employer] this week for either a cane or walking stick PT-OP-R Modalities Start: 02/01/22 09:42 Freq: Status: Active Protocol: Document 05/24/22 09:48 [facility] (Rec: 05/24/22 10:29 [facility] [id number]) Hot Pack/Cold Pack Treatment icepack left knee Patient Position Hooklying Treatment Duration (minutes) 10 Patient Tolerance Good PT-OP-T Assessment and Plan Start: 02/01/22 09:42 Freq: Status: Active Protocol: Document 05/24/22 09:48 [facility] (Rec: 05/24/22 10:38 [facility] [id number]) Physical Therapy Assessment Goals 4 Impairment Decreased left knee strength Short Term Goal (STG) Vilma is able to perform a SLR without a quad lag good progress STG Duration 5 weeks Jail Goal (LTG) Vilma is able to perform 10 standing squats in good form pain with standing squats LTG Duration 12 weeks 3 Impairment pt lacks a HEP for her knee Jail Goal (LTG) Vilma is independent with a HEP addressing knee ROM, flexibility, and strength Some progress: Vilma has been given a home program LTG Duration 12 weeks 2 Impairment knee pain rated 3/10 worse going down stairs, walking, and squating Jail Goal (LTG) Vilma reports a overall reduction in knee pain and no longer has pain with stairs or squatting. Some progress, pain is now medial verses in the posterior knee LTG Duration 12 weeks 1 Impairment Decreased knee ROM with bakers cyst Labor Gang Supervisor Goal (LTG) Vilma is able to improve her knee ROM to WFL of full extension and 120 degrees knee flexion GOAL MET LTG Duration 12 weeks Assessment Summary Assessment Despite efforts Zandra continues to have c/o knee pain and instability as well as swelling. I reviewed gait training with both a walking stick as well as a single point cane and have recommended that she use an assistive device at this time. She has a follow up with ortho and June 04 and may benefit from further diagnostic imaging. This was her last visit in PT and we will discharge at this time as pt has not made significant progress. Physical Therapy Plan Discharge Physical Therapy Discharge Reasons Plateau in Progress
== END | disposition home or self-care (01) ==
LOC: PHYS 02-01 13:29
PROVIDERS: Family Provider Internal Medicine; PCP Internal Medicine; Referring Provider Orthopaedic Surgery; Visit Provider Orthopaedic Surgery
DX: M71.22 Synovial cyst of popliteal space [Baker], left knee (principal); M17.0 Bilateral primary osteoarthritis of knee; M25.50 Pain in unspecified joint
CPT/HCPCS: 97010; 97110; 97140; 97161; 97535

== ENCOUNTER → 2023-07-03 13:14 | Outpatient (CLI) | payer MEDICARE, OTHER, SELFPAY ==
--- NOTE | 2023-07-03 | DI.MG.S_ITS ---
BILATERAL DIGITAL SCREENING MAMMOGRAM 3D/2D WITH CAD: 07/03/2023 CLINICAL: Routine screening. Comparison is made to exams dated: 05/11/2022 mammogram, 03/13/2021 mammogram, 03/04/2020 mammogram, and 03/03/2019 mammogram - [facility]. Both breasts are heterogeneously dense, which may obscure small masses (category c / 51-75% glandular tissue). Current study was also evaluated with a Computer Aided Detection (CAD) system. There are benign post operative findings in the right breast. No significant masses, calcifications, or other findings are seen in either breast. There has been no significant interval change. IMPRESSION: BENIGN There is no mammographic evidence of malignancy. A 1 year screening mammogram is recommended. Based on the Tyrer Cuzick model (a risk assessment model) the patient's lifetime risk is 3.5% and her 10 year risk is 0.0%. According to the ACR, ACS, and NCCN guidelines, an annual breast MRI exam along with mammogram is recommended if the patient's lifetime risk is 20% or greater. This exam was interpreted at Station ID: [id number]. NOTE: For mammograms, a report in lay terms will be sent to the patient. Approximately 15% of breast malignancies will not be visualized mammographically. In the management of a palpable breast mass, a negative mammogram must not discourage biopsy of a clinically suspicious lesion. Electronically Signed By: Irving whitten/iris:07/03/2023 17:26:44 letter sent: Normal Exam ACR BI-RADS Category 2: Benign Finding(s) 3342F
== END ==
PROVIDERS: Family Provider Internal Medicine; PCP Internal Medicine; Referring Provider Internal Medicine; Visit Provider Internal Medicine
DX: Z12.31 Encounter for screening mammogram for malignant neoplasm of breast (principal); R92.333 Mammographic heterogeneous density, bilateral breasts
CPT/HCPCS: 77063; 77067

== ENCOUNTER → 2023-07-16 10:35 | Outpatient (CLI) | payer MEDICARE, OTHER, SELFPAY ==
[2023-07-16 11:30] LABS: Hematocrit 35.5 % (36-46)
[2023-07-16 12:02] LABS: Blood Urea Nitrogen 27 mg/dL (7-17); Calcium 9.8 mg/dL (8.4-10.2); Carbon Dioxide 25 mmol/L (22-32); Chloride 103 mmol/L (98-107); Estimated Glomerular Filt Rate 33 mL/min (>60); Glucose 104 mg/dL (80-110); HEMOLYSIS < 15 (0-50); Potassium 4.1 mmol/L (3.4-5.1); Sodium 135 mmol/L (137-145)
[2023-07-16 15:52] LABS: Creatinine Urine Random 209.2 mg/dL; Protein (Total) Urine Random 13 mg/dL (0-12); Protein Creatinine Ratio Urine 0.06 GRAM/24H
== END ==
LOC: LAB 10:37
PROVIDERS: Family Provider Internal Medicine; PCP Internal Medicine; Referring Provider Student in an Organized Health Care Education/Training Program; Visit Provider Student in an Organized Health Care Education/Training Program
DX: N05.9 Unspecified nephritic syndrome with unspecified morphologic changes (principal); D64.9 Anemia, unspecified; R80.9 Proteinuria, unspecified
CPT/HCPCS: 36415; 80048; 82570; 84156; 85014; 85018

== ENCOUNTER → 2023-07-30 16:40 | Outpatient (CLI) | payer MEDICARE, OTHER, SELFPAY ==
--- NOTE | 2023-07-30 | DI.US.S_ITS ---
PROCEDURE: US RENAL COMPLETE INDICATIONS: CHRONIC KIDNEY DISEASE TECHNIQUE: Real-time scanning was performed of the kidneys and bladder, with image documentation. COMPARISON: None. FINDINGS: Kidneys: Kidneys are normal in size. Right kidney measures 6.7 cm long; left kidney measures 8.2 cm long. Right renal cortical thickness is 1.0 cm; left renal cortical thickness is 1.0 cm. Renal cortical echotexture is normal. No hydronephrosis or nephrolithiasis. No suspicious solid mass lesions. Bladder: Pre-void bladder volume is 105 mL. Post-void residual is 0 mL. Pre-void images demonstrate no intraluminal masses or stones. On pre-void images, both ureteral jets are noted with color Doppler interrogation. (Of note, ureteral jets may not be detectable in up to 25% of cases due to insufficient differences in specific gravity between ureteral and bladder urine). Miscellaneous: No free pelvic fluid. IMPRESSION: No hydronephrosis or postvoid residual. Dictated by: Meliza Ricardo M.D. on 07/30/2023 at 18:04 Approved by: Meliza Ricardo M.D. on 07/30/2023 at 18:07
== END ==
LOC: US 16:41
PROVIDERS: Family Provider Internal Medicine; PCP Internal Medicine; Referring Provider Student in an Organized Health Care Education/Training Program; Visit Provider Student in an Organized Health Care Education/Training Program
DX: N18.32 Chronic kidney disease, stage 3b (principal)
CPT/HCPCS: 76770

== ENCOUNTER → 2023-08-29 10:47 | Outpatient (CLI) | payer MEDICARE, OTHER, SELFPAY ==
--- NOTE | 2023-08-29 10:54 | DI.RAD.S_ITS ---
PROCEDURE: XR HIP W PEL IF DONE ELENITA MIN 4V INDICATIONS: Left hip pain TECHNIQUE: AP pelvis with lateral view(s) of the bilateral hip(s). COMPARISON: None. FINDINGS: Bones: No fractures or dislocations. Pelvic ring appears intact. No suspicious bony lesions. Moderate bilateral degenerative hip joint space narrowing. Prominent degenerative changes are present within the lower lumbar spine. Small periarticular osteophytes. No erosions. Soft tissues: The visualized bowel gas pattern is normal. No suspicious soft tissue calcifications. IMPRESSION: Bilateral arthritic changes within the hips as well as lower lumbar spine. Dictated by: Carissa Alaniz M.D. on 08/29/2023 at 13:47 Approved by: Carissa Alaniz M.D. on 08/29/2023 at 13:47
== END ==
PROVIDERS: Family Provider Internal Medicine; PCP Internal Medicine; Referring Provider Physical Medicine & Rehabilitation; Visit Provider Physical Medicine & Rehabilitation
DX: M16.0 Bilateral primary osteoarthritis of hip (principal); M43.16 Spondylolisthesis, lumbar region
CPT/HCPCS: 73522

== ENCOUNTER 2023-10-29 10:22 | Outpatient (CLI) | payer MEDICARE, OTHER, SELFPAY ==
[2023-10-29] VITALS (15 sets, daily range): BP systolic 108–154; BP diastolic 55–67; PULSE 54–76; RESP 13–21; TEMP 36; O2SAT 91–99
--- NOTE | 2023-10-29 11:15 | DI.RAD.S_ITS ---
PROCEDURE: PAIN L/S MED/LAT N RFA BILAT INDICATIONS: Bilateral L2-L3 and L4 medial branch RFA COMPARISON: None. FINDINGS: Fluoroscopic spot filming was performed to verify placement of spinal needles at the bilateral L2-3 and L4 level(s), as labeled on the films. Appropriate location(s) of the needle tip(s) was confirmed by injection of iodinated contrast. IMPRESSION: Fluoroscopic guidance utilized for a medial branch RFA. Dictated by: Parveen Osullivan M.D. on 10/29/2023 at 13:21 Approved by: Parveen Osullivan M.D. on 10/29/2023 at 13:21
[2023-10-29] MEDS: fentaNYL 100 MCG/2 ML INJ 50 MCG IV ×2 (11:38→11:57)
[2023-10-29] MEDS: MIDAZOLAM 2 MG/2 ML VIAL IV (11:38)
[2023-10-29] MEDS: BUPIVACAINE 0.5% (PF) 10 ML VIAL 5 ML INJ (11:44)
[2023-10-29] MEDS: LIDOCAINE 1% 20 ML 5 ML INJ (11:44)
--- NOTE | 2023-10-29 12:16 | P.PCN_ITS ---
Date/Time/Diagnoses Date of procedure: 10/29/23 Time of procedure: 12:16 Pre-procedure diagnosis: 1. RECALCITRANT FACET ARTHROPATHY Post-procedure diagnosis: same Procedure Notes Procedure: 1. BILATERAL L2, L3, L4 MEDIAL BRANCH RADIOFREQUENCY NEUROTOMY Indications: Zandra is referred by Dr. Iverson for treatment of facet arthropathy. Physician: Feliz Singh Total Fluoroscopy time (seconds): 22 Total sedation minutes: 33 Complications: none Procedure in detail & Post-procedure care: DESCRIPTION OF PROCEDURE Bilateral L2, L3, L4 medial branch radiofrequency neurotomy The patient is well known to this clinic having undergone previous facet injections with good but temporary relief. The patient has experienced appropriate, concordant relief with previous facet and median branch blocks but the patient's pain has been recalcitrant to further conservative measures. Therefore, based upon the patient's relief and persistent symptoms, the patient is considered an appropriate candidate for facet rhizotomy. All of the patient's questions regarding the risks versus benefits of the procedure, including, but not limited to, bleeding, infection, temporary as well as lasting nerve injury, paralysis, stroke, and , as well treatment alternatives were answered to satisfaction. After obtaining informed consent, denial of pertinent drug allergies, as well as being made aware of the potential risks of bleeding, infection, spinal cord trauma, paralysis, temporary and permanent nerve damage, seizure, stroke, and possible , the patient was brought to the fluoroscopy suite and positioned prone on the fluoroscopy table. After review of previous anaesthesic history and IV conscious sedation the patient was deemed safe to proceed with today's procedure with IV conscious sedation as ASA class II designation. Safety time-out was performed to confirm patient ID, procedure to be performed and site of procedure. IV sedation was accomplished with a combination of 2mg of Versed and 100mcg of Fentanyl administered by the RN after DO order, titrated to patient comfort during the course of the procedure while the patient remained responsive to all verbal commands. The lumbar region was prepped in usual sterile fashion and covered with a fenestrated drape in the usual sterile fashion. Appropriate monitors applied including pulse oximeter, pulse, and blood pressure for regular monitoring throughout the procedure. After local infiltration using 1% lidocaine, under fluoroscopic guidance, a 10- cm RF insulated needle with a 10-mm active tip was positioned parallel to the junction of the right the superior articulating process where the L4 medial branch resides. Needle placement was confirmed with motor stimulation of .5v on the right which produced local stimulation without radicular component. The stimulation was then increased to 2v with, once again, only local multifidus stimulation without radicular component. The needle was then removed and the identical procedure was performed along the length of the right L3 medial branch with motor stimulation at .7v on the right. The identical procedure was once again performed along the length of the right L2 and medial branch with motor stimulation of .5v on the right. The medial branches were then anesthetised with 0.5% marcaine. This was then followed by two discreet lesions performed at 80 degrees Celsius for 90 seconds each. The identical procedures were repeated on the left. The patient tolerated the procedure well without signs or symptoms of complications prior to transfer to the recovery area continued monitoring without incident. The patient was then transferred to the recovery area where they were observed for an appropriate period of time after the injection. The patient reported a VAS score of 7 prior to the procedure and a post-procedure VAS of 1. POST OP INSTRUCTIONS The patient was provided a Pain Log to continue to record the patient's response to the target-specific procedure prior to the patient's follow-up visit with the referring physician. Additionally, specific post-injection care instructions and a contact number to our office were provided if concerns arise regarding possible complications associated with the procedure are suspected.
== END 2023-10-29 12:37 | disposition home or self-care (01) ==
PROVIDERS: Family Provider Internal Medicine; PCP Internal Medicine; Referring Provider Physical Medicine & Rehabilitation; Visit Provider Physical Medicine & Rehabilitation
DX: M47.816 Spondylosis without myelopathy or radiculopathy, lumbar region (principal)
CPT/HCPCS: 64635; 64636; 99152; 99153; J2250; J3010

== ENCOUNTER → 2023-11-27 12:44 | Outpatient (CLI) | payer MEDICARE, OTHER, SELFPAY ==
[2023-11-27 13:30] LABS: Hemoglobin 11.4 g/dL (12.0-16.0)
[2023-11-27 13:58] LABS: Appearance Urine UA CLEAR; Bilirubin Urine UA NEGATIVE (NEGATIVE); Color Urine UA YELLOW; Glucose Urine UA NEGATIVE (Negative); Ketones Urine UA 1+ (NEGATIVE); Leukocyte Esterase Urine UA 1+ (NEGATIVE); Nitrite Urine UA NEGATIVE (Negative); Occult Blood Urine UA NEGATIVE (Negative); Protein Urine UA NEGATIVE (Negative); Urobilinogen Urine UA 0.2 E.U./dL (0.2)
[2023-11-27 13:59] LABS: Urine Volume 10mL (spun)
[2023-11-27 14:01] LABS: Bacteria Urine Many (>30); Culture Indicated Urine Specimen Cultured; RBC Urine None Seen (0-5/HPF); Squamous Epithelial Cell Urine 1-5 /HPF (0-5/HPF); WBC Urine 1-5/HPF (0-5/HPF)
[2023-11-27 14:04] LABS: BUN Creatinine Ratio 10.9 (6-22); Blood Urea Nitrogen 22 mg/dL (7-17); Calcium 9.1 mg/dL (8.4-10.2); Carbon Dioxide 24 mmol/L (22-32); Chloride 105 mmol/L (98-107); Estimated Glomerular Filt Rate 25 mL/min (>60); Glucose 114 mg/dL (80-110); HEMOLYSIS < 15 (0-50); Phosphorous 3.5 mg/dL (2.8-4.1); Potassium 4.2 mmol/L (3.4-5.1); Sodium 135 mmol/L (137-145)
[2023-11-27 17:01] LABS: Creatinine Urine Random 252.42 mg/dL; Protein (Total) Urine Random 6 mg/dL (0-12); Protein Creatinine Ratio Urine 0.02 GRAM/24H
== END ==
LOC: LAB 12:47
PROVIDERS: Family Provider Internal Medicine; PCP Internal Medicine; Referring Provider Student in an Organized Health Care Education/Training Program; Visit Provider Student in an Organized Health Care Education/Training Program
DX: N05.9 Unspecified nephritic syndrome with unspecified morphologic changes (principal); D70.9 Neutropenia, unspecified; D63.1 Anemia in chronic kidney disease; E83.30 Disorder of phosphorus metabolism, unspecified; N25.81 Secondary hyperparathyroidism of renal origin; N30.00 Acute cystitis without hematuria; R80.9 Proteinuria, unspecified
CPT/HCPCS: 36415; 80048; 81001; 82570; 83970; 84100; 84156; 85018; 87077; 87086

== ENCOUNTER → 2023-12-16 15:36 | Outpatient (CLI) | payer MEDICARE, OTHER, SELFPAY ==
--- NOTE | 2023-12-16 16:30 | DI.MRI.S_ITS ---
PROCEDURE: MR KNEE LT WO CON INDICATIONS: UNILATERAL PRIMARY OSTEOARTHRITIS LT KNEE TECHNIQUE: Noncontrast sagittal PD fast spin echo and T2 fast spin echo with fat saturation, sagittal 3-D FLASH with fat saturation; coronal T1 spin echo and PD fast spin echo with fat saturation, and axial PD fast spin echo with fat saturation through the knee. COMPARISON: [facility] [place], CR, XR KNEE 4+ VIEWS BILATERAL, 10/17/2023, 11:06. FINDINGS: Image quality: Excellent. Menisci: Medial extrusion of the medial meniscus is present with inferior extrusion of the medial meniscal body into the medial gutter. There is amorphous, linear oblique and vertical high signal intensity within the inner, middle, and peripheral thirds of the medial meniscal body and posterior horn, demonstrating superior and inferior articular surface extension, indicating complex tearing. Lateral meniscus is intact. Cruciate ligaments: The anterior and posterior cruciate ligaments appear intact. Medial structures: The medial collateral ligament appears intact. Visualized portions of the pes anserinus tendons appear normal. No abnormal bursal fluid. Lateral structures: The lateral collateral ligament, long and short heads of the biceps femoris tendon appear intact. The popliteus tendon appears normal. Iliotibial band appears normal. Anterior structures: The quadriceps and patellar tendons appear intact. Patellar alignment is normal. No femoral trochlear dysplasia or ventral trochlear prominence. No edema in the infrapatellar fat pad. Bones and cartilage: No bone marrow contusions or fractures. There is mild subchondral degenerative marrow edema within the weight-bearing aspects of the medial femoral condyle and medial tibial plateau. There is moderate tricompartmental periarticular osteophyte formation. Severe articular cartilage loss diffusely overlies the weight-bearing aspects of the medial femoral condyle and medial tibial plateau. Severe articular cartilage loss overlies the medial patellar facet and medial femoral trochlea. Joint space: There is a moderate knee joint effusion and a small Lewis's cyst. Normal appearing synovial plicae are incidentally noted. IMPRESSION: 1. Tricompartmental osteoarthritis with associated articular cartilage loss. 2. Complex tearing and extrusion of the medial meniscus. 3. Knee joint effusion and Lewis's cyst. Dictated by: Ethan Zamora M.D. on 12/17/2023 at 9:15 Approved by: Ethan Zamora M.D. on 12/17/2023 at 9:18
== END ==
PROVIDERS: Family Provider Internal Medicine; PCP Internal Medicine; Referring Provider Orthopaedic Surgery Adult Reconstructive Orthopaedic Surgery; Visit Provider Orthopaedic Surgery Adult Reconstructive Orthopaedic Surgery
DX: S83.232A Complex tear of medial meniscus, current injury, left knee, initial encounter (principal); M17.12 Unilateral primary osteoarthritis, left knee; M25.462 Effusion, left knee; M71.22 Synovial cyst of popliteal space [Baker], left knee
CPT/HCPCS: 73721

== ENCOUNTER → 2023-12-25 11:40 | Outpatient (CLI) | payer MEDICARE, OTHER, SELFPAY ==
--- NOTE | 2023-12-25 11:43 | EKG_ITS ---
[facility] [address] [place] [address] Test Date: 2023-12-25 Pat Name: Zandra Mixon Department: [facility] Room: Gender: Female Collection Advisor: JAIDEN : 1945 Requested By: Order Number: [id number] Reading MD: Jose Francisco Mota Measurements Intervals Tucker Rate: 70 P: PA: 166 QRS: -9 QRSD: 76 T: 53 QT: 400 QTc: 432 Interpretive Statements Normal sinus rhythm Anteroseptal infarct , age undetermined Unchanged from previous. Electronically Signed On 12-25-2023 15:05:55 PDT by Jose Francisco Mota
[2023-12-25 12:54] LABS: Add Manual Diff / Slide Review NO; Basophils Absolute Auto 0 /uL (0-100); Basophils Percent Auto 0.5 % (0-2); Eosinophils Absolute Auto 200 /uL (0-450); Eosinophils Percent Auto 2.8 % (2-4); Hematocrit 35.1 % (36-46); Hemoglobin 11.7 g/dL (12.0-16.0); Lymphocytes Absolute Auto 2500 /uL (1100-4500); Lymphocytes Percent Auto 29.6 % (25-40); Mean Corpuscular HGB Conc 33.5 % (30-36); Mean Corpuscular Hemoglobin 30.5 PG (26-34); Monocytes Absolute Auto 700 /uL (0-900); Monocytes Percent Auto 8.3 % (3-14); Neutrophils Absolute Auto 5000 /uL (1500-7000); Neutrophils Percent Auto 58.8 % (50-75); Platelet Count 258 X10^3/uL (150-400); Red Blood Cell Count 3.85 X10^6/uL (4.0-5.2); Red Cell Distribution Width 14.6 % (11.6-14.8); White Blood Cell Count 8.5 X10^3/uL (4.5-11.0)
[2023-12-25 13:05] LABS: Hemoglobin A1C% w Est Avg Glu 5.5 % (4.0-6.0)
[2023-12-25 13:43] LABS: Albumin 4.4 g/dL (3.5-5.0); BUN Creatinine Ratio 10.8 (6-22); Blood Urea Nitrogen 17 mg/dL (7-17); Calcium 9.4 mg/dL (8.4-10.2); Carbon Dioxide 22 mmol/L (22-32); Chloride 107 mmol/L (98-107); Estimated Glomerular Filt Rate 33 mL/min (>60); Glucose 113 mg/dL (80-110); HEMOLYSIS < 15 (0-50); Potassium 4.2 mmol/L (3.4-5.1); Sodium 137 mmol/L (137-145)
[2023-12-25 13:53] LABS: Prealbumin 23.8 mg/dL (17.6-36.0)
[2023-12-25 15:06] LABS: Vitamin D 25 Hydroxy (D3) 79.2 ng/mL (30.0-100.0)
== END ==
PROVIDERS: Family Provider Internal Medicine; PCP Internal Medicine; Referring Provider Orthopaedic Surgery Adult Reconstructive Orthopaedic Surgery; Visit Provider Orthopaedic Surgery Adult Reconstructive Orthopaedic Surgery
DX: Z01.818 Encounter for other preprocedural examination (principal); R73.9 Hyperglycemia, unspecified; E55.9 Vitamin D deficiency, unspecified; R77.0 Abnormality of albumin; Z01.812 Encounter for preprocedural laboratory examination
CPT/HCPCS: 36415; 80048; 82040; 82306; 83036; 84134; 85025; 93005

== ENCOUNTER → 2024-01-08 12:47 | Outpatient (CLI) | payer MEDICARE, OTHER, SELFPAY ==
[2024-01-08 14:50] LABS: Blood Urea Nitrogen 19 mg/dL (7-17); Calcium 9.3 mg/dL (8.4-10.2); Carbon Dioxide 21 mmol/L (22-32); Chloride 104 mmol/L (98-107); Estimated Glomerular Filt Rate 37 mL/min (>60); Glucose 116 mg/dL (80-110); HEMOLYSIS < 15 (0-50); Potassium 4.4 mmol/L (3.4-5.1); Sodium 134 mmol/L (137-145)
[2024-01-08 15:07] LABS: Appearance Urine UA CLEAR; Bilirubin Urine UA NEGATIVE (NEGATIVE); Color Urine UA YELLOW; Glucose Urine UA NEGATIVE (Negative); Ketones Urine UA NEGATIVE (NEGATIVE); Leukocyte Esterase Urine UA 1+ (NEGATIVE); Nitrite Urine UA NEGATIVE (Negative); Occult Blood Urine UA NEGATIVE (Negative); Protein Urine UA NEGATIVE (Negative); Urobilinogen Urine UA 0.2 E.U./dL (0.2)
[2024-01-08 15:15] LABS: pH Urine UA 5.5 (4.5-8.0)
[2024-01-08 15:27] LABS: Bacteria Urine Few (2-10); Culture Indicated Urine Specimen Cultured; RBC Urine None Seen (0-5/HPF); Squamous Epithelial Cell Urine 1-5 /HPF (0-5/HPF); Urine Volume 10mL (spun); WBC Urine 1-5/HPF (0-5/HPF)
[2024-01-08 19:17] LABS: Protein (Total) Urine Random 6 mg/dL (0-12); Protein Creatinine Ratio Urine 0.03 GRAM/24H
== END ==
PROVIDERS: Family Provider Internal Medicine; PCP Internal Medicine; Referring Provider Student in an Organized Health Care Education/Training Program; Visit Provider Student in an Organized Health Care Education/Training Program
DX: N05.9 Unspecified nephritic syndrome with unspecified morphologic changes (principal); N30.00 Acute cystitis without hematuria; R80.9 Proteinuria, unspecified; M16.0 Bilateral primary osteoarthritis of hip; M43.16 Spondylolisthesis, lumbar region; M41.20 Other idiopathic scoliosis, site unspecified; M47.816 Spondylosis without myelopathy or radiculopathy, lumbar region; Z98.890 Other specified postprocedural states
CPT/HCPCS: 36415; 80048; 81001; 82570; 84156; 87077; 87086; 87186; 99214

== ENCOUNTER 2024-01-30 09:44 | Outpatient (CLI) | payer MEDICARE, OTHER, SELFPAY ==
[2024-01-30] VITALS (10 sets, daily range): BP systolic 113–147; BP diastolic 57–81; PULSE 68–79; RESP 16–19; TEMP 36.6; O2SAT 96–99
--- NOTE | 2024-01-30 10:15 | DI.RAD.S_ITS ---
PROCEDURE: PAIN L INTERLAMINAR/CAUDAL INJ INDICATIONS: L2-3 translaminar OSMANI COMPARISON: None. FINDINGS: Fluoroscopic spot filming was performed to verify placement of spinal needles at the L2-L3 level(s), as labeled on the films. Appropriate location(s) of the needle tip(s) was confirmed by injection of iodinated contrast. IMPRESSION: Intra procedural examination demonstrating appropriate positions of the needles. Dictated by: Gilberto Carson M.D. on 01/30/2024 at 16:11 Approved by: Gilberto Carson M.D. on 01/30/2024 at 16:11
[2024-01-30] MEDS: MIDAZOLAM 2 MG/2 ML VIAL 1 MG IV ×2 (11:00→11:06)
[2024-01-30] MEDS: iopamidoL 15 ML VIAL 3 ML INJ (11:05)
[2024-01-30] MEDS: BUPIVACAINE 0.25% (PF) VIAL 2 ML INJ (11:05)
[2024-01-30] MEDS: DEXAMETHASONE 10 MG/ML VIAL INJ (11:06)
[2024-01-30] MEDS: BETAMETHASONE 30 MG/5 ML MDV 6 MG INJ (11:07)
--- NOTE | 2024-01-30 11:30 | PM.PROC.IR.1 ---
Date/Time/Diagnoses Date of procedure: 01/30/24 Time of procedure: 11:30 Pre-procedure diagnosis: 1. HNP WITH RADICULAR FEATURES, 2. MULTILEVEL CENTRAL STENOSIS, Post-procedure diagnosis: same Procedure Notes Procedure: 1. FLUOROSCOPICALLY GUIDED CONTRAST CONTROLLED INTERLAMINAR EPIDURAL STEROID INJECTION - L2/3 Indications: Zandra is referred by Dr. Iverson for treatment of Bilateral Foraminal Stenosis L>R LE symptoms. Physician: Feliz Singh Total Fluoroscopy time (seconds): 8 Total sedation minutes: 14 Complications: none Procedure in detail & Post-procedure care: FINDINGS Multilevel Central Spinal Stenosis with Nerve Root Compression DESCRIPTION OF PROCEDURE Fluoroscopically guided, contrast-controlled L2/3 translaminar epidural steroid injection. Following review of allergy and review of potential side effects and complications, including, but not necessarily limited to, infection, allergic reaction, local tissue breakdown, temporary as well as permanent nerve injury, paralysis, stroke and possible , the patient indicated that the patient understood and agreed to proceed. An informed consent document was signed by the patient, witnessed by a nurse, and placed in the patient's chart. Additionally, other treatment options including modalities, medications, and physical therapy were reviewed with the patient. After review of previous anaesthesic history and IV conscious sedation the patient was deemed safe to proceed with today?s procedure with IV conscious sedation as ASA class II designation. Safety time-out was performed to confirm patient ID, procedure to be performed and site of procedure. IV sedation was accomplished with a combination of 2mg Versed administered by the RN after DO order, titrated to patient comfort during the course of the procedure while the patient remained responsive to all verbal commands. In the prone position, following sterile prep and drape of the lumbar region,the L2/3 translaminar space was identified fluoroscopically. The skin was anesthetized via a 25-gauge, 1.5-inch needle with 1% lidocaine solution. At this point, a 22-gauge short bevel spinal needle was atraumatically introduced and advanced under fluoroscopic guidance into the region of the L2/3 translaminar space. Depth was confirmed on lateral view. Radiological data, including multiple fluoroscopic views of the lumbar spine, reveal a spinal needle at the L2/3 translaminar space. Lateral views then show placement of the needle in the epidural space. Subsequent views show contrast material flowing superiorly and inferiorly in the epidural space. No vascular or intrathecal uptake is observed. At this point, using loss of resistance technique with saline and air, the epidural space was entered. This was confirmed following negative aspiration with injection of approximately 1.5 cc of Isovue 200, showing excellent epidural flow without vascular or intrathecal uptake. At this point, 1 cc of 1% lidocaine solution combined with 2cc or 10mg of dexamethasone and 6mg of betamethasone was injected without incident. The patient tolerated the procedure well without signs or symptoms of complications prior to transfer to the recovery area continued monitoring without incident. The patient was then transferred to the recovery area where they were observed for an appropriate period of time after the injection. The patient reported a VAS score of 6 prior to the procedure and a post-procedure VAS of 0. POST OP INSTRUCTIONS The patient was provided a Pain Log to continue to record their response to the target-specific procedure prior to follow-up visit with their referring physician. Additionally, specific post-injection care instructions and a contact number to our office were provided if concerns arise regarding possible complications associated with the procedure are suspected.
== END 2024-01-30 11:40 | disposition home or self-care (01) ==
LOC: RAD 09:45
PROVIDERS: Family Provider Internal Medicine; PCP Internal Medicine; Referring Provider Physical Medicine & Rehabilitation; Visit Provider Physical Medicine & Rehabilitation
DX: M51.16 Intervertebral disc disorders with radiculopathy, lumbar region (principal); M48.061 Spinal stenosis, lumbar region without neurogenic claudication
CPT/HCPCS: 62323; 99152; J0702; J1100; J2250; J3490

== ENCOUNTER 2024-03-04 07:44 | Day surgery (SDC) | payer MEDICARE, OTHER, SELFPAY ==
[2024-03-02 11:01] VITALS: BMI 29.8
[2024-03-04] VITALS (8 sets, daily range): BP systolic 99–137; BP diastolic 42–67; PULSE 50–77; RESP 15–21; TEMP 36.7–36.9; O2SAT 92–99; BMI 28.7
--- NOTE | 2024-03-04 06:00 | DI.RAD.S_ITS ---
PROCEDURE: XR KNEE LT 1TO2V INDICATIONS: unicompartment arthroplasty, left knee TECHNIQUE: 2 view(s) of the knee acquired. COMPARISON: [facility], MR, MR KNEE LT WO CON, 12/16/2023, 15:39. FINDINGS: Bones: Patient is status post medial knee joint hemiarthroplasty. Hardware components are in expected positions. Visualized bony structures are intact. Soft tissues: Overlying postoperative changes are noted. IMPRESSION: Expected post-operative appearance of a knee arthroplasty. Dictated by: Carissa Alaniz M.D. on 03/04/2024 at 14:05 Approved by: Carissa Alaniz M.D. on 03/04/2024 at 14:06
--- NOTE | 2024-03-04 07:36 | SUR.OPER ---
Supine on padded OR bed. Pillow under head, arms secured on padded armboards <90 degree abduction. Safety belt across torso. Non-operative leg secured with tape over blanket over lower leg. Operative leg secured in DeMayo/Basilio/Nathe positioner. Foam padded brace at thigh of operative leg.
--- NOTE | 2024-03-04 08:16 | PM.PREOP ---
Pre-operative Note Interval Note History & Physical reviewed/Exam performed by Physician: Yes Changes to H&P: No
[2024-03-04] MEDS: LACTATED RINGERS 1,000 ML 42 ML IV ×2 (08:38→10:54)
[2024-03-04] MEDS: ACETAMINOPHEN 325 MG TABLET 975 MG PO (08:39)
[2024-03-04] MEDS: CEFAZOLIN 2 GM/100 ML PREMIX 100 ML IV (09:32)
[2024-03-04] MEDS: ROPIVACAINE/EPI/CLONIDINE/KET 50 ML SYRINGE INJ (09:55)
[2024-03-04] MEDS: TRANEXAMIC ACID 1,000 MG VIAL 2000 MG INJ (11:00)
--- NOTE | 2024-03-04 11:17 | P.OP_ITS ---
Operative Date/Time/Diagnoses Date of procedure: 03/04/24 Pre-op diagnosis: Left knee osteoarthritis limited to the medial compartment Post-op diagnosis: same Procedure & Clinicians Procedure: Left medial unicompartmental robotic assisted knee arthroplasty Same procedure as scheduled: Yes Surgeon: Ranjeet Watson Spanish Tutor: Shayne Worrell Anesthesia Type: Spinal, Sedation, Peripheral nerve block and Local Operative Notes Estimated Blood Loss (mL): 100 Procedure in detail: Robotic assisted left medial unicompartmental knee arthroplasty using the [employer] journey 2 system Implants: * Size 5 Femoral Component * Size 6 Tibial Component * Size 8 mm Polyethylene Procedure Summary: This 78-year-old female patient had isolated medial compartment arthritis as confirmed on an MRI. She has a history of prior stent placement for a myocardial infarction so I performed her surgery at the hospital to allow for cardiac monitoring postoperatively. Robotic assistance was utilized. She had an intact ACL, intact lateral compartment, severe Kellgren Tristan grade 4 changes with eburnated bone in the medial compartment, and mild degenerative changes in the patellofemoral compartment. Her varus deformity was measured at 6? at the start of the procedure and 4? at the conclusion of the procedure. At the conclusion of the procedure I was able to insert and remove a 2 mm insert without significant interference and had tightness when inserting and removing a 3 mm insert. Procedure in Detail: This patient was seen preoperatively and evaluated for knee pain which was refractory to numerous nonoperative treatment modalities. Their pain correlated with radiographic changes demonstrating significant degeneration in the knee joint. The risks and benefits of continued nonoperative management versus operative management were discussed at length and all of the patient?s questions were answered. Additional educational materials providing further details beyond our discussion in clinic were provided via a publicly available patient education video which included the incidence of medical complications associated with total knee arthroplasty, reasons for revision following total knee arthroplasty, and patient satisfaction rates following unicompartmental knee arthroplasty. With this understanding of the risks inherent to the procedure, the patient elected to move forward with operative management. Following preoperative optimization, the patient was scheduled for surgery. The patient was met in the preoperative holding area the day of the procedure and all questions were answered. The patient?s nares were swabbed with betadine in order to decolonize them from MRSA. Informed consent was signed and the left limb was marked with indelible ink.? The patient was brought back to the operating room where anesthesia was induced. The patient was transferred to the operating table and all bony prominences were padded. The operative site was prepped and draped in the usual sterile fashion. A second prep stick was utilized following drape placement. The incision was marked corresponding to the medial aspect of the tibial tubercle and the patella. Ioban was wrapped circumferentially around the knee. Prior to incision, tranexamic acid and cefazolin were administered. Templating images were displayed. A timeout procedure was performed verifying the patient?s identity, medical comorbidities, allergies, relevant medications, anesthesia type and the surgical plan. All present were in agreement. The assistance of a physician assistant winemaker was required for positioning, room setup, soft tissue retraction and wound closure. Without this assistance, the procedure would have been significantly more challenging and time consuming.?? The tourniquet was inflated prior to incision. I made an anterior incision over the knee, dissected through the subcutaneous tissues and identified the lateral border of the VMO. Medial and lateral soft tissue flaps were developed. A mid vastus arthrotomy was performed. I released tissue off of the proximal medial tibia. I inserted pins for the robotic rays into the femur and tibia. I mapped out the distal femur and proximal tibia using the robotic array and mapped out the hip knee ankle axis as well. I noted grossly that she had some recoil with knee hyperextension. Also noted that her varus deformity was approximately 6? on the robotic array. I had measured it at 4? on her standing long-leg scanogram radiograph. I made a plan which would involve burring of the tibia and femur using the robotic system which would lead to a planned 4? of varus with an 8 mm insert. After reviewing all parameters on this plan I felt that it was appropriate and proceeded with burring. I initially burred the distal femur and the posterior femur followed by the proximal tibia. During burring of the proximal tibia I noted that the pin for the femur had extended distally far enough that it interfered with a bur so I backed that out slightly. I then finished the burring process and placed trials. I found these had appropriate parameters both with my gross assessment and with the robotic assessment. I therefore implanted those components. All bony ends were copiously irrigated and dried. Cement was introduced. The tibial component was inserted and excess cement was removed ensuring no cement had leaked out the back of the knee. Cement was then placed on the femur and the femoral component was inserted while maintaining pressure on the anterior tibial base plate to prevent lift-off. An 8 mm insert was then placed. This was a trial. The knee was placed into full extension and allowed to dry. Once cement had dried excess cement was removed, the tourniquet was taken down, and I again trialed with the 2 mm and 3 mm insert. I found that the 8 mm polyethylene had the correct gross kinematics on my assessment that I desired and I therefore placed the final polyethylene insert. The tissues were briefly soaked in peroxide and Betadine as a dilute mixture and then the knee was copiously irrigated. TXA was administered given evidence that even in patients with a cardiac history this can be safely done without increasing their clotting risk. The arthrotomy was closed with absorbable interrupted suture ensuring that this extended to the top of the arthrotomy. This was backed up with running barbed suture throughout the arthrotomy. The skin was closed with 2-0 and 3-0 sutures. Surgical glue was applied and a soft dressing was placed.?The sponge, instrument and needle counts were reported as being correct at the end of the case.??No obvious complications occurred. The patient was transferred from the operating table back to a stretcher. The patient emerged from anesthesia without difficulty and was taken to the PACU in a stable condition.? Plan for aftercare: * Weightbearing as tolerated * Mobilization as soon as the patient has recovered from anesthesia. If physical therapists are unavailable at the time the patient is ready to ambulate, then nursing staff should help patient ambulate * Aspirin 81 twice per day for DVT prophylaxis * Multimodal pain regimen with no IV opioids ordered * Anticipate discharge home later today * Follow up at [facility] in 2 weeks * Detailed postoperative instructions available at [email or web address]
[2024-03-04] MEDS: OXYCODONE IR 5 MG TABLET PO ×2 (11:57→15:14)
--- NOTE | 2024-03-04 14:15 | PT.IIE ---
Current Diagnoses Recurrent dislocation, left shoulder (03/04/24) Surgery Performed Operation Date: 03/04/24 10:45 Actual Procedures p Unicompartment Knee Arthroplasty - Robot(Left) - Ranjeet Watson MD Surgical History (Last Updated 03/02/24 @ 10:55 by Florinda Godoy, RN) H/O coronary angioplasty H/O heart surgery History of cervical spinal surgery History of cholecystectomy History of heart artery stent History of lumbar laminectomy History of lumbar surgery Medical History (Last Updated 03/02/24 @ 10:55 by Florinda Godoy, RN) CAD (coronary artery disease) Chronic kidney disease Decreased cardiac ejection fraction (07/23/23) 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 Facet arthropathy, lumbar GERD (gastroesophageal reflux disease) HTN (hypertension) Hyperlipidemia Ischemic cardiomyopathy RLS (restless legs syndrome) Scoliosis (and kyphoscoliosis), idiopathic Skin cancer Spondylolisthesis at L2-L3 level STEMI (ST elevation myocardial infarction) (~2010) Physical Therapy Inpatient Evaluation/Re-Eval M1 PT/OT-IP Prior Functional Status Start: 03/04/24 16:35 Freq: NEEDED Status: Active Protocol: Document 03/04/24 14:15 AB (Rec: 03/04/24 16:50 AB [id number]) Medical Review Prior Functional Status Medical History Reviewed Yes Communication able to make needs known Mobility and Gait pt stated that she was independent with all mobilities and ambulation without AD Social History Household Members children,none Living Arrangements House Number of Floors (Floors) Two Floors Number of Stairs To Enter/Railing? 7 stairs into the house with bilateral wide rails and can only hold on to 1 rail at a time has 16 steps B rails to get to 2nd level of the house Home Environment Standard Height Toilet,Walk in Shower,Built-In Shower Seat Home Equipment Four Wheel Walker,Hand Held Shower Additional Social History Comment pt has an adjustable bed pt's adopted daughter will be staying with her for ~ 1 week to assist her M2 PT-IP Current Condition Start: 03/04/24 16:35 Freq: NEEDED Status: Active Protocol: Document 03/04/24 14:15 AB (Rec: 03/04/24 16:50 AB [id number]) Physical Therapy Current Condition Current Condition Evaluation Date 03/04/24 Treatment Diagnosis s/p L uni knee; difficulty in walking Onset Date 03/04/24 M3 PT-IP Subjective Start: 03/04/24 16:35 Freq: NEEDED Status: Active Protocol: Document 03/04/24 14:15 AB (Rec: 03/04/24 16:50 AB [id number]) Subjective Physical Therapy Visit Type Type Initial Evaluation Visit Start Time 14:15 Visit Stop Time 15:15 Number of SPOOL CARRIER Visits 0 Physical Therapy Visit Comments Patient Comments agreeable to do PT Therapy Pain Assessment Pain When Pain Assessed At Rest Pain Present Pain Present Pain Reported Location left knee Scale Used some pain per pt Pain Behaviors Guarding Pain Management Techniques Distraction,Modification of Treatment,Re-positioning, Timing of Activity with Medications M4 PT-IP Mobility and Gait Start: 03/04/24 16:35 Freq: NEEDED Status: Active Protocol: Document 03/04/24 14:15 AB (Rec: 03/04/24 16:50 AB [id number]) PT-Bed Mobility Assessment Supine to Sit Supine to Sit Standby Assistance Sit to Supine Sit to Supine Standby Assistance PT-Transfer Assessment Sit to and From Stand Sit to and from Stand Contact Guard Assistance,1 Person Assistance,Use of Upper Extremities Equipment Transfer Assistive Device Gait Belt,Front Wheeled Walker ,4 Wheeled Walker Orthotic/Prosthetic Devices or Brace: No Transfers Transfer Destination Bed,Chair Transfer Technique ambulated Transfer Ability Level of Assist Contact Guard Assistance,1 Person Assistance,Use of Upper Extremities Comments Mobility Comments Pt in PACU. pt sitting on EOB and daughter with pt. obtained pLOF and home set up from pt. post-op folder provided and reviewed contents . educated on HEP. BP: 121/75 completed sit<>supine SBA. completed sit to stand from EOB CGA and ambulated in room ~ 30 ft uisng FWW CGA. pt sat back on EOB. educated pt on use of 4WW. caregiver training conducted. educated daughter on how to use safety belt and how to assist pt. daughter was able to put safety belt on pt and assisted pt with sit to stand CGA and ambulated pt ~ 60 ft using 4WW CGA. pt sat on transport chair. assisted pt to do stair climbing. PACU nurse present. educated pt and daughter on car transfers and stair climbing. pt completed up/down steps holding on to L rail with B hands CGA and cues. daughter was able to assist pt safely. assisted pt back to PACU floor . pt and daughter without further concerns. Left pt with nurse. Gait Assessment Gait Gait Assistance Required: Contact Guard Assist Distance (Feet) 60 Able to Maintain Weight Bearing Status Yes During Gait Assistive Devices Assistive Device Gait Belt,Front Wheeled Walker ,4 Wheeled Walker Orthotic/Prosthetic Devices or Brace: No Gait Deviations General Gait Pattern Antalgic,Decreased Stride Length,Decreased Feet Clearance,Step-to Gait Factors Limiting Gait Function Factors Limiting Gait Function Decreased Activity Tolerance, Decreased Strength,Difficulty Following Directions,Limited Range of Motion,Pain,Poor Balance,Poor Safety Awareness Stair Climbing Assessment Evaluation Level of Assist On Stairs Contact Guard Assistance Devices Stair Climbing Assistive Devices Left Railing Technique/Endurance Stair Climbing Direction Ascend and Descend Stair Climbing Technique Step to Step Number of Steps Climbed 3 Query Text: Stair Climbing Set # Repetitions (reps) 2 PT-Balance Assessment Sitting Balance and Reactions Static Sitting Balance Ability Normal Dynamic Sitting Balance Ability Good Standing Balance and Reactions Static Standing Balance Ability Good Dynamic Standing Balance Ability Fair Device Used FWW M5 PT-IP Objective Assessments Start: 03/04/24 16:35 Freq: NEEDED Status: Active Protocol: Document 03/04/24 14:15 AB (Rec: 03/04/24 16:50 AB [id number]) Orientation Orientation/Cognition Level of Alertness Alert Orientation Name,Place,Situation Language Function Ability No Deficits Noted Safety Awareness Decreased Safety Awareness Memory Description No Deficits Noted Gross Range of Motion Lower Extremity ROM Assessment Left Impaired Impairments L knee flexion ~ 70 deg Strength Lower Extremity Strength Assessment Left Impaired Hip 3+/5 Knee 4-/5 Muscle Tone Muscle Tone WNL Yes M6 PT-IP Treatment Start: 03/04/24 16:35 Freq: NEEDED Status: Active Protocol: Document 03/04/24 14:15 AB (Rec: 03/04/24 16:50 AB [id number]) Physical Therapy Treatment Exercises Exercises Heel Slides,Passive Knee Extension Hang,Seated Knee Flexion/Extension Education Education Provided Precautions,Weight Bearing Status,Post-Op Packet,Safety M7 PT-IP Assessment and Plan Start: 03/04/24 16:35 Freq: NEEDED Status: Active Protocol: Document 03/04/24 14:15 AB (Rec: 03/04/24 16:50 AB [id number]) PT Summary Assessment and Plan Potential Rehabilitation Potential Good Status of Condition at Evaluation Stable Summary Impairments Pain,ROM,Strength,Balance, Coordination,Sensation,Tone, Cognition,Bed Mobility, Transfers,Gait,Activity Tolerance Assessment Summary pt is a 78 y/o F s/p L uni knee POD 0. pt is WBAT on LLE . pt requiring CGA with transfers and ambulation using 4WW. caregiver traiing conducted and daughter was able to assist pt safely. pt has outpt PT setup. pt may go home when medically stable. Goals Bed Mobility Goal Independent Transfer Goal Independent,Four Wheeled Walker Gait Goal Independent,Four Wheel Walker Gait Distance 300 Other Goals upd/won 7 steps 1 rail SBA Days to Meet Goals 3 Frequency of Treatment Frequency Of Treatment Twice a Day Treatment Plan Physical Therapy Treatment Plan Bed Mobility Training,Transfer Training,Gait Training, Therapeutic Exercise,Balance Retraining,Post Op Education, Discharge Planning,Hot or Cold Pack,Neuromuscular Re-ed, Coordination Retraining,Manual Therapy Weight Bearing Status Weight Bearing Status Weight Bear as Tolerated Allowed Weight Bearing Amount (enter % LLE WBAT or #) (%) Recommendations To Nursing Amount of Assist Needed 1 Person Assist Discharge Recommendations PT Discharge Recommendations Home with Assistance, Outpatient PT Transportation Needs at Discharge Private Vehicle
== END 2024-03-04 15:23 | disposition home or self-care (01) ==
PROVIDERS: Family Provider Internal Medicine; PCP Internal Medicine; Referring Provider Orthopaedic Surgery Adult Reconstructive Orthopaedic Surgery; Visit Provider Orthopaedic Surgery Adult Reconstructive Orthopaedic Surgery
PROC: (CPT 27446; principal; 2024-03-04 10:45)
DX: M17.12 Unilateral primary osteoarthritis, left knee (principal)
CPT/HCPCS: 27446; 73560; 97161; 97530; C1776; J0690; J2405; J2704; J3010

== ENCOUNTER → 2024-08-19 15:21 | Outpatient (CLI) | payer MEDICARE, OTHER, SELFPAY ==
[2024-08-19 16:04] LABS: Hematocrit 34.6 % (36-46); Hemoglobin 11.5 g/dL (12.0-16.0)
[2024-08-19 16:29] LABS: BUN Creatinine Ratio 12.8 (6-22); Blood Urea Nitrogen 24 mg/dL (7-17); Calcium 9.7 mg/dL (8.4-10.2); Carbon Dioxide 24 mmol/L (22-32); Chloride 101 mmol/L (98-107); Estimated Glomerular Filt Rate 27 mL/min (>60); Glucose 111 mg/dL (80-110); HEMOLYSIS < 15 (0-50); Potassium 4.2 mmol/L (3.4-5.1); Sodium 134 mmol/L (137-145)
[2024-08-19 16:30] LABS: Protein (Total) Urine Random 9 mg/dL (0-12); Protein Creatinine Ratio Urine 0.08 GRAM/24H
[2024-08-22 07:11] LABS: Parathyroid Hormone Int 36 pg/mL (15-65)
== END ==
LOC: LAB 15:22
PROVIDERS: Family Provider Internal Medicine; PCP Internal Medicine; Referring Provider Student in an Organized Health Care Education/Training Program; Visit Provider Student in an Organized Health Care Education/Training Program
DX: N05.9 Unspecified nephritic syndrome with unspecified morphologic changes (principal); D70.9 Neutropenia, unspecified; D63.1 Anemia in chronic kidney disease; N25.81 Secondary hyperparathyroidism of renal origin; R80.9 Proteinuria, unspecified
CPT/HCPCS: 36415; 80048; 82570; 83970; 84156; 85014; 85018

== ENCOUNTER → 2024-10-09 12:32 | Outpatient (CLI) | payer MEDICARE, OTHER, SELFPAY ==
[2024-10-09 13:41] LABS: BUN Creatinine Ratio 8.3 (6-22); Blood Urea Nitrogen 13 mg/dL (7-17); Calcium 9.7 mg/dL (8.4-10.2); Carbon Dioxide 22 mmol/L (22-32); Chloride 102 mmol/L (98-107); Estimated Glomerular Filt Rate 34 mL/min (>60); Glucose 106 mg/dL (80-110); HEMOLYSIS < 15 (0-50); Sodium 134 mmol/L (137-145)
== END ==
PROVIDERS: Family Provider Internal Medicine; PCP Internal Medicine; Referring Provider Student in an Organized Health Care Education/Training Program; Visit Provider Student in an Organized Health Care Education/Training Program
DX: N05.9 Unspecified nephritic syndrome with unspecified morphologic changes (principal)
CPT/HCPCS: 36415; 80048

== ENCOUNTER → 2024-12-23 07:31 | Outpatient (CLI) | payer MEDICARE, OTHER, SELFPAY ==
[2024-12-23 08:34] LABS: Cholesterol 134 mg/dL (140-199); HDL Cholesterol 88 mg/dL (40-60); Triglycerides 59 mg/dL (35-150)
== END ==
PROVIDERS: Family Provider Internal Medicine; PCP Internal Medicine; Referring Provider Internal Medicine; Visit Provider Internal Medicine
DX: E78.5 Hyperlipidemia, unspecified (principal)
CPT/HCPCS: 36415; 80061

== ENCOUNTER → 2025-01-01 10:37 | Outpatient (CLI) | payer MEDICARE, OTHER, SELFPAY ==
[2025-01-01 11:46] LABS: Hematocrit 32.6 % (36-46); Hemoglobin 11.0 g/dL (12.0-16.0)
[2025-01-01 11:49] LABS: Blood Urea Nitrogen 19 mg/dL (7-17); Calcium 9.6 mg/dL (8.4-10.2); Carbon Dioxide 20 mmol/L (22-32); Chloride 101 mmol/L (98-107); Estimated Glomerular Filt Rate 35 mL/min (>60); Glucose 112 mg/dL (70-99); HEMOLYSIS < 15 (0-50); Potassium 4.3 mmol/L (3.4-5.1); Sodium 132 mmol/L (137-145)
[2025-01-01 14:48] LABS: Protein (Total) Urine Random 11 mg/dL (0-12); Protein Creatinine Ratio Urine 0.14 GRAM/24H
== END ==
PROVIDERS: Family Provider Internal Medicine; PCP Internal Medicine; Referring Provider Student in an Organized Health Care Education/Training Program; Visit Provider Student in an Organized Health Care Education/Training Program
DX: D70.9 Neutropenia, unspecified (principal); N05.9 Unspecified nephritic syndrome with unspecified morphologic changes; R80.9 Proteinuria, unspecified; N25.81 Secondary hyperparathyroidism of renal origin; D63.1 Anemia in chronic kidney disease
CPT/HCPCS: 36415; 80048; 82570; 83970; 84156; 85014; 85018

== ENCOUNTER → 2025-01-21 07:33 | Outpatient (CLI) | payer MEDICARE, OTHER, SELFPAY ==
[2025-01-21 08:55] LABS: Blood Urea Nitrogen 20 mg/dL (7-17); Calcium 9.8 mg/dL (8.4-10.2); Carbon Dioxide 23 mmol/L (22-32); Chloride 102 mmol/L (98-107); Estimated Glomerular Filt Rate 35 mL/min (>60); Glucose 104 mg/dL (70-99); HEMOLYSIS < 15 (0-50); Potassium 4.3 mmol/L (3.4-5.1); Sodium 136 mmol/L (137-145)
[2025-01-21 09:26] LABS: Thyroid Stimulating Hormone 1.82 uIU/mL (0.47-4.68)
[2025-01-21 09:29] LABS: Bilirubin Urine UA NEGATIVE (NEGATIVE); Color Urine UA YELLOW; Glucose Urine UA NEGATIVE (Negative); Ketones Urine UA NEGATIVE (NEGATIVE); Leukocyte Esterase Urine UA 1+ (NEGATIVE); Nitrite Urine UA NEGATIVE (Negative); Occult Blood Urine UA NEGATIVE (Negative); Protein Urine UA NEGATIVE (Negative); Specific Gravity Urine UA <=1.005 (1.000-1.035); Urobilinogen Urine UA 0.2 E.U./dL (0.2)
[2025-01-21 09:33] LABS: pH Urine UA 6.5 (4.5-8.0)
[2025-01-21 09:35] LABS: Appearance Urine UA Slightly Cloudy; Culture Indicated Urine Specimen Cultured
[2025-01-22 12:09] LABS: Osmolality, Serum 288 mOsmol/kg (280-301)
== END ==
PROVIDERS: Family Provider Internal Medicine; PCP Internal Medicine; Referring Provider Student in an Organized Health Care Education/Training Program; Visit Provider Student in an Organized Health Care Education/Training Program
DX: E03.9 Hypothyroidism, unspecified (principal); E87.1 Hypo-osmolality and hyponatremia; N05.9 Unspecified nephritic syndrome with unspecified morphologic changes; N30.00 Acute cystitis without hematuria
CPT/HCPCS: 36415; 80048; 81001; 82533; 83930; 83935; 84300; 84443; 87077; 87086; 87186